=== PATIENT | male | born 1990 | race Caucasian/White ===

== ENCOUNTER 2024-10-22 06:16 | Day surgery (SDC) | payer MEDICAID, SELFPAY ==
[2024-10-22] VITALS (9 sets, daily range): BP systolic 105–115; BP diastolic 70–84; PULSE 55–74; RESP 14–18; TEMP 2.4–36.6; O2SAT 98–100; BMI 18.8
--- OUTSIDE RECORDS SUMMARY | 2024-10-22 06:21 | XMS RPT_ITS | CCD ---
Author Organization [facility] Care Team Providers Care Paper Machine Supervisor Name Role Phone Unavailable Primary Care Provider Unavailabl e None, No PCP Unavailable Unavailable Unavailable Primary Care Provider Unavailabl e GWEN PETERSON Referring Unavailabl e REID SINGH Admitting Unavailable DEYSI COOMBS Attending Unavailable GWEN PETERSON Referring Unavailabl e GATHERGWEN GAFFNEY Referring Unavailabl e DEYSI COOMBS Referring Unavailable JARED GALVEZ Attending Unavailable ARMINDA DAILY Attending Unavailabl e ANNAMARIA ONELI (PA-C) Attending Unavail able Audrey Sheth Referring Unavailable Audrey Sheth Attending Unavailable Royer Ramírez Physicians Primary Care Provider Unav Александр Hansen MD Primary Care Provider None, Pcp Primary Care Provider UnavailOLIVIA Rowley MD Attending Unavailable OLIVIA HINSON MD Primary Care Unavailable OLIVIA HINSON MD Admitting Unavailable LAXMI HICKS Attending Unavailable LAXMI HICKS Admitting Unavailable KISHORE, АЛЕКСАНДР Primary Care Unavailable COLLIN HERNANDEZ Attending Unavailable ALEM CRENSHAW Referring Unavailable KISHORE, АЛЕКСАНДР Primary Care Unavailable KISHORE, АЛЕКСАНДР Primary Care Unavailable ISAC SLADE III Attending Unavailable KISHORE, АЛЕКСАНДР Primary Care Unavailable LAXMI HICKS Attending Unavailable ISAC SLADE III Attending Unavailable KISHORE, АЛЕКСАНДР Primary Care Unavailable COLLIN HERNANDEZ Referring Unavailable LAXMI HICKS Attending Unavailable KISHORE, АЛЕКСАНДР Primary Care Unavailable ISAC SLADE III Attending Unavailable KISHORE, АЛЕКСАНДР Primary Care Unavailable LAXMI HICKS Attending Unavailable KISHORE, АЛЕКСАНДР Primary Care Unavailable KISHORE, АЛЕКСАНДР Primary Care Unavailable ISAC SLADE III Attending Unavailable RADHA LEWIS Attending Unavailable KISHORE, АЛЕКСАНДР Primary Care Unavailable RADHA LEWIS Attending Unavailable KISHORE, АЛЕКСАНДР Primary Care Unavailable COLLIN HERNANDEZ Referring Unavailable KISHORE, АЛЕКСАНДР Primary Care Unavailable Yuki MERINO, Dr. Johnson Attending Provider Dr. Roney Whatley MD Attending Provider Roney Whatley Attending Unavailable Jessee Mirza Attending Unavailable Care Physician, No Primary Primary Care Unava ilable Jessee Mirza Referring Unavailable Jessee Mirza Attending Unavailable Allergies Allergy Classification Reported Allergen(s) Allergy Type Date of Onset Reaction(s) Facility (4 sources) Apples; Translations: [APPLES] Food Allergy 9 Hives, Shortness of Breath [facility] (20 sources) Contrast media; Translations: [RED DYE] Propensity to adverse reactions to drug 9 Other: See Comments, Other [facility] (20 sources) Apple Allergy to substance 9 Hives, Shortness of breath [facility] (20 sources) bee venom Propensity to adverse reactions 4 Anaphylaxis [facility] (19 sources) Red Dye #40 (Allura Red) Propensity to adverse reactions 9 Other [facility] Medications Current Medications Medication Drug Class(es) Dates Sig (Normalized) Sig (Original) acetaminophen 325 mg / oxyCODONE hydrochloride 5 mg oral tablet (5 sources) Opioid Agonist Start: 01-21-2024 End: 01-26-2024 take 1 tablet by mouth every six hours as needed for pain oxyCODONE-acetamin ophen (Percocet) 5-325 MG tablet Indications: Plantar fascial fibromatosis Take 1 tablet by mouth every 6 hours as needed for severe pain (7-10) for up to 5 days. 15 tablet 01/21/2024 01/26/2024 Active amoxicillin 875 mg / clavulanate 125 mg oral tablet (10 sources) Penicillin-class Antibacterial Start: 04-25-2023 End: 05-02-2023 take 1 tablet by mouth every twelve hours amoxicillin-clavul anate (Augmentin) 875-125 MG tablet Take 1 tablet by mouth in the morning and 1 tablet in the evening. Do all this for 7 days. 14 tablet 0 04/25/2023 05/02/2023 Active Start: 04-25-2023 End: 04-25-2023 amoxicillin-clavulanate (Aug mentin) 875-125 MG per tablet 1 tablet Start: 01-25-2023 End: 02-01-2023 take 1 tablet by mouth every twelve hours amoxicillin-clavulanate (Augmentin) 875-125 MG tablet Take 1 tablet by mouth in the morning and 1 tablet in the evening. Do all this for 7 days. 14 tablet 0 01/25/2023 02/01/2023 Active Blood Glucose Monitoring Suppl device (8 sources) Start: 05-21-2024 Blood Glucose Monitoring Suppl device Indications: Screening for diabetes mellitus Check glucose as needed if symptomatic 1 Device 05/21/2024 Active 120 actuat fluticasone propionate 0.11 mg/actuat metered dose inhaler (20 sources) Corticosteroid Start: 09-05-2023 End: 09-04-2024 take 1 puff(s) by inhalation in the morning fluticasone (Flovent) 110 MCG/ACT inhaler Indications: Mild persistent asthma without complication Inhale 1 puff in the morning and 1 puff in the evening. Rinse mouth with water after use to reduce aftertaste and incidence of candidiasis. Do not swallow.. 12 g 5 09/05/2023 09/04/2024 Active 12 hr guaiFENesin 600 mg extended release oral tablet (20 sources) Start: 06-24-2023 End: 06-24-2024 take 1 tablet by mouth twice daily guaiFENesin (Mucinex) 600 MG 12 hr tablet Take 1 tablet (600 mg) by mouth 2 times daily. Do not crush, chew, or split. 60 tablet 11 06/25/2023 06/24/2024 Active ibuprofen 800 mg oral tablet (9 sources) Nonsteroidal Anti-inflammatory Drug Start: 01-21-2024 End: 02-20-2024 take 1 tablet by mouth three times daily ibuprofen 800 MG tablet Take 1 tablet (800 mg) by mouth 3 times daily. 90 tablet 01/21/2024 02/20/2024 Active Start: 07-16-2023 End: 01-21-2024 ibuprofen 600 MG tablet TAKE 1 TABLET BY MOUTH EVERY 6-8 HOURS NEEDED FOR PAIN 07/16/2023 01/21/2024 Discontinued (Stop taking at discharge) isopropyl alcohol 0.7 ml/ml medicated pad (9 sources) Start: 05-21-2024 End: 06-20-2024 UltiCare Alcohol Swabs 70 % pads Indications: Screening for diabetes mellitus Apply 1 Pad topically daily. 100 each 3 05/23/2024 Active naproxen 500 mg oral tablet (8 sources) Nonsteroidal Anti-inflammatory Drug Start: 06-25-2022 End: 07-10-2022 take 1 tablet by mouth in the morning naproxen (Naprosyn) 500 MG tablet Take 1 tablet (500 mg) by mouth in the morning and 1 tablet (500 mg) in the evening. Take with meals. Do all this for 15 days. 30 tablet 0 06/25/2022 07/10/2022 Active 24 hr nicotine 0.583 mg/hr transdermal system (20 sources) Cholinergic Nicotinic Agonist Start: 09-05-2023 End: 10-05-2023 apply 1 dose transdermal route every twenty-four hours nicotine (Nicoderm CQ) 14 MG/24HR patch Indications: Nicotine use disorder Place 1 patch on the skin Every 24 hours. 30 patch 1 09/05/2023 Active Start: 09-05-2023 End: 10-05-2023 nicotine (Nicoderm CQ) 7 MG/ 24HR patch Indications: Nicotine use disorder Place 1 patch on the skin Every 24 hours. 30 patch 09/05/2023 Active ondansetron 4 mg oral tablet (20 sources) Serotonin-3 Receptor Antagonist Start: 01-21-2024 End: 01-21-2024 4 mg, IntraVENous, Once PRN, nausea, Starting on 01/21/24 at 1003, For 1 dose, Recovery (only), Initial antiemetic therapy. Start: 09-24-2023 End: 09-24-2023 ondansetron (Zofran) injecti on 4 mg Start: 09-05-2023 End: 02-21-2024 take 1 tablet by mouth every eight hours as needed for nausea ondansetron (Zofran) 4 MG tablet Indications: Nausea and vomiting, unspecified vomiting type Take 1 tablet (4 mg) by mouth every 8 hours as needed for nausea or vomiting. 20 tablet 02/21/2024 Active Start: 06-06-2023 End: 06-13-2023 take 1 tablet by mouth every eight hours as needed for nausea and vomiting and nausea and nausea ondansetron (Zofran) 4 MG tablet Indications: Nausea Take 1 tablet (4 mg) by mouth every 8 hours as needed for nausea or vomiting for up to 7 days. 30 tablet 1 06/06/2023 06/13/2023 Active Start: 04-25-2023 End: 04-25-2023 ondansetron (Zofran) injecti on 4 mg Start: 01-25-2023 End: 02-04-2023 take 1 tablet by mouth every six hours ondansetron (Zofran) 4 MG tablet Take 1 tablet (4 mg) by mouth in the morning and 1 tablet (4 mg) at noon and 1 tablet (4 mg) in the evening and 1 tablet (4 mg) before bedtime. Do all this for 3 days. 12 tablet 0 02/01/2023 02/04/2023 Active Start: 01-25-2023 End: 01-25-2023 ondansetron (Zofran) injecti on 4 mg Start: 03-23-2022 take 1 tablet by jerald th every six hours as needed ondansetron (ZOFRAN) 4 mg tablet Take 1 tablet by mouth every 6 hours as needed. 30 tablet 0 03/23/2022 Active Comment on above: Take 1 tablet by jerald th every 6 hours as needed. polyethylene glycol 3350 [id number] mg / potassium chloride 2970 mg / sodium bicarbonate 6740 mg / sodium chloride 5860 mg / sodium sulfate 76704 mg powder for oral solution (1 source) Osmotic Laxative Start: 04-10-2023 End: 04-11-2023 polyethylene glycol (GaviLyte-G) 236 g solution Indications: Proctitis , Generalized abdominal pain , Rectal bleeding Starting at noon on day prior to procedures, drink 8 ounces every 30 minutes until all gone and stools are clear. May add flavor packet. 4000 mL 0 04/10/2023 04/11/2023 Active Completed/Discontinued Medications Medication Drug Class(es) Dates Sig (Normalized) Sig (Original) acetaminophen 500 mg oral tablet (16 sources) Start: 01-21-2024 End: 01-21-2024 1,000 mg, Oral, Once, On Sun01/21/24 at 0830, For 1 dose, Preprocedure, Administer 60 minutes prior to surgery. Start: 06-24-2023 End: 06-25-2023 take 1 tablet by mouth every six hours as needed for pain and fever acetaminophen (Tylenol) tablet 650 mg Start: 03-23-2022 End: 06-25-2023 take 2 tablets by mouth every four hours as needed acetaminophen (Tylenol) 325 MG tablet Take 650 mg by mouth every 4 hours as needed. 0 03/23/2022 06/25/2023 Discontinued (Stop taking at discharge) Comment on above: Take 2 tablets by [facility] every 4 hours as needed for pain. [id number] 200 actuat albuterol 0.09 mg/actuat metered dose inhaler (20 sources) beta2-Adrenergic Agonist Start: 06-24-2023 End: 06-25-2023 take 2 puff(s) by inhalation every four hours as needed for wheezing 2 puff, Inhalation, Every 4 hours PRN, wheezing, shortness of breath, Starting on Sun06/24/23 at 0305 Start: 02-01-2023 End: 06-05-2024 take 2 puff(s) by inhalation every four hours as needed for wheezing albuterol (ProAir HFA) 108 (90 Base) MCG/ACT inhaler Indications: Mild intermittent asthma without complication Inhale 2 puffs every 4 hours as needed for wheezing or shortness of breath. 8.5 g 06/06/2023 Active calcium chloride 0.0014 meq/ml / potassium chloride 0.004 meq/ml / sodium chloride 0.103 meq/ml / sodium lactate 0.028 meq/ml injectable solution (4 sources) Start: 01-21-2024 End: 01-21-2024 take 125 mL intravenously every hour 125 mL/hr, IntraVENous, Continuous, Starting on Sun01/21/24 at 1015, Recovery (only) cyclobenzaprine hydrochloride 10 mg oral tablet (3 sources) Muscle Relaxant Start: 06-06-2023 End: 08-05-2023 take 1 tablet by mouth three times daily as needed for muscle spasms cyclobenzaprine (Flexeril) 10 MG tablet Indications: Right-sided chest pain , Trapezius muscle spasm Take 1 tablet (10 mg) by mouth 3 times daily as needed for muscle spasms. 30 tablet 0 06/06/2023 06/25/2023 Discontinued (Stop taking at discharge) 1 ml diphenhydrAMINE hydrochloride 50 mg/ml cartridge (2 sources) Histamine-1 Receptor Antagonist Start: 01-21-2024 End: 01-21-2024 12.5 mg, IntraVENous, Once PRN, itching, Starting on Sun01/21/24 at 1003, For 1 dose, Recovery (only) diphenhydramine/alum & mag hydroxide/lidocaine (Magic Mouthwash) oral solution (3 sources) Start: 04-25-2023 End: 06-06-2023 take 5 mL by mouth every six hours as needed diphenhydramine/alu m & mag hydroxide/lidocaine (Magic Mouthwash) oral solution Swish and spit 5 mL every 6 hours as needed for irritation. 100 mL 0 04/25/2023 06/06/2023 Discontinued Start: 04-25-2023 take 5 mL by mouth e very six hours as needed diphenhydramine/alum & mag hydroxide/lidocaine (Magic Mouthwash) oral solution Swish and spit 5 mL every 6 hours as needed for irritation. 100 mL 0 04/25/2023 Active iopamidol (Isovue-370) 76 % injection 75 mL (4 sources) Start: 06-23-2023 End: 06-23-2023 iopamidol (Isovue-370) 76 % injection 75 mL Start: 01-25-2023 End: 01-25-2023 iopamidol (Isovue-370) 76 % injection 75 mL labetalol (Normodyne,Trandate) injection 5 mg (2 sources) Start: 01-21-2024 End: 01-21-2024 labetalol (Normodyne,Trandate) injection 5 mg 1 ml LORazepam 2 mg/ml injection (2 sources) Benzodiazepine Start: 01-21-2024 End: 01-21-2024 0.5 mg, IntraVENous, Once PRN, for anxiety or muscle spasm., Starting on Sun01/21/24 at 1003, For 1 dose, Recovery (only), For IV doses dilute dose with 1ml NS. melatonin 3 mg oral tablet (2 sources) Start: 06-24-2023 End: 06-25-2023 take 6 mg by mouth once daily 6 mg, Oral, Nightly, First dose on 06/24/23 at 2100 2 ml midazolam 1 mg/ml injection (2 sources) Benzodiazepine Start: 01-21-2024 End: 01-21-2024 2 mg, IntraVENous, PRN, anxiety, administration per anesthesiologist direction. Up to two mg., Starting on Sun01/21/24 at 0817, Preprocedure, Pull 2 mg vial of midazolam draw up for anesthesia block placement with administration per anesthesiologist direction. 1 ml morphine sulfate 4 mg/ml cartridge (4 sources) Opioid Agonist Start: 04-25-2023 End: 04-25-2023 morphine injection 4 mg Start: 01-25-2023 End: 01-25-2023 morphine injection 4 mg ondansetron ODT (Zofran-ODT) disintegrating tablet 4 mg (2 sources) Start: 06-24-2023 End: 06-25-2023 take 1 tablet by mouth every eight hours as needed for nausea and vomiting ondansetron ODT (Zofran-ODT) disintegrating tablet 4 mg oseltamivir 75 mg oral capsule (5 sources) Neuraminidase Inhibitor Start: 06-25-2023 End: 06-30-2023 take 1 capsule by mouth twice daily oseltamivir (Tamiflu) 75 MG capsule Take 1 capsule (75 mg) by mouth 2 times daily for 5 days. 10 capsule 0 06/25/2023 06/30/2023 Start: 06-24-2023 End: 06-25-2023 oseltamivir (Tamiflu) capsul e 30 mg piperacillin 3000 mg / tazobactam 375 mg injection (4 sources) Penicillin-class Antibacterial, beta Lactamase Inhibitor Start: 06-24-2023 End: 06-25-2023 take 3375 mg intravenously every eight hours 3,375 mg, IntraVENous, at 12.5 mL/hr, Administer over 4 Hours, Every 8 hours, First dose on 06/24/23 at 0315, Dosage or interval has been adjusted per P&T Renal Dosing policy. premix bag, Suspected Indication (Select all that apply): Bloodstream Infection, Pneumonia (CAP) Start: 06-23-2023 End: 06-24-2023 piperacillin-tazobactam (Zos yn) IVPB 4.5 g polyethylene glycol 3350 64011 mg powder for oral solution (2 sources) Osmotic Laxative Start: 06-24-2023 End: 06-25-2023 take 17 g by mouth every twenty-four hours as needed for constipation 17 g, Oral, Daily PRN, constipation, Starting on Sun06/24/23 at 0305, 1st line for treatment of constipation - give scheduled if no bowel movement in past 24 hours. microencapsulated potassium chloride 10 meq extended release oral tablet (2 sources) Start: 06-25-2023 End: 06-25-2023 potassium chloride CR (Klor-Con M10) ER tablet 40 mEq 50 ml sodium chloride 9 mg/ml injection (20 sources) Start: 01-21-2024 End: 01-21-2024 500 mL, IntraVENous, at 1,000 mL/hr, Administer over 0.5 Hours, PRN, Anti-nausea, Starting on Sun01/21/24 at 1003, Recovery (only), Indications: Anti-nausea Start: 01-21-2024 End: 01-21-2024 10 mL, IntraVENous, Every 12 hours scheduled (2 times per day), First dose on Sun01/21/24 at 1015, Recovery (only) Start: 01-21-2024 End: 01-21-2024 take 100 mL intravenously every hour as needed, then take 20 mL intravenously every hour as needed 5-250 mL/hr, IntraVENous, PRN, if patient receiving piggyback infusions and maintenance fluids are not ordered OR KVO fluids to protect IV site / prevent frequent line interruptions/ long duration, Starting on Sun01/21/24 at 1003, Recovery (only), For piggyback infusion, administer at same rate as piggyback for a total of 25 mL. Enter 25 mL into dose field and piggyback rate into rate field of order. If piggyback is infusing at a rate less than 100 mL/hr, enter 25 mL into dose field and 100 mL/hr into rate field of order. For KVO fluids, enter rate of 20 mL/hr or less into rate field of order. Start: 01-21-2024 End: 01-21-2024 take 10 mL intravenously once as needed 10 mL, IntraVENous, PRN, line care, Starting on Sun01/21/24 at 1003, Recovery (only), After every IV line use Start: 01-21-2024 End: 01-21-2024 take 5-40 mL intravenously every twelve hours 5-40 mL, IntraVENous, Every 12 hours, First dose on Sun01/21/24 at 0830, Preprocedure, For Line Patency: Peripheral IV = 5 mL; Midline or Central Line = 10 mL/lumen. If following IV push medication, administer flush at same rate as the IV push. Flush volume is determined by type of infusion therapy being given. For non-viscous solutions use: Peripheral IV = 5 mL Midline or Central Line = 10 mL/lumen For viscous solutions (i.e. blood components, parenteral nutrition, contrast media, or after obtaining blood sample) use: Peripheral IV = 10 mL Midline or Central Line = 20 mL/lumen Start: 09-24-2023 End: 09-24-2023 sodium chloride 0.9 % infusi on Start: 09-24-2023 End: 09-24-2023 sodium chloride 0.9% (NS) fl ush 10 mL Start: 06-24-2023 End: 06-25-2023 take 100 mL intravenously every hour 100 mL/hr, IntraVENous, Continuous, Starting on Sun06/24/23 at 0310, For 1 day Start: 06-23-2023 End: 06-24-2023 sodium chloride 0.9 % bolus 1,000 mL Vancomycin (2 sources) Glycopeptide Antibacterial Start: 06-23-2023 End: 06-24-2023 vancomycin (Vancocin) 1500 mg in NS 250 mL IVPB (compounded premix) Problems Active Problems Problem Classification Problem Date Documented Da te Episodic/Chronic Anal and rectal conditions (6 sources) Proctitis; Translations: [Other specified diseases of anus and rectum] 01-25-2023 Episodic Asthma (4 sources) Mild intermittent asthma; Translations: [Mild intermittent asthma, uncomplicated] 02-01-2023 Chronic Deficiency and other anemia (2 sources) Anemia; Translations: [Anemia, unspecified] 02-01-2023 Episodic Deficiency and other anemia (1 source) Normocytic anemia; Translations: [Anemia, unspecified] 07-03-2023 Episodic Disorders of teeth and jaw (4 sources) Dental abscess; Translations: [Periapical abscess without sinus] 04-25-2023 Episodic Fracture of upper limb (1 source) Fracture of unspecified phalanx of other finger, initial encounter for closed fracture; Translations: [Fracture of unspecified phalanx of other finger, initial encounter for closed fracture] Onset: 10-14-2024 Episodic Gastrointestinal hemorrhage (1 source) Rectal hemorrhage; Translations: [Hemorrhage of anus and rectum] 04-10-2023 Episodic Immunizations and screening for infectious disease (12 sources) Patient encounter status; Translations: [Encounter for screening for other viral diseases] 02-01-2023 Episodic Influenza (3 sources) Influenza due to Influenza A virus; Translations: [Influenza due to other identified influenza virus with other respiratory manifestations] 06-23-2023 Episodic Nonspecific chest pain (3 sources) Chest pain; Translations: [Right sided chest pain] Onset: 05-17-2022 06-06-2023 Episodic Other aftercare (1 source) Post-discharge follow-up; Translations: [Encounter for follow-up examination after completed treatment for conditions other than malignant neoplasm] 07-03-2023 Episodic Other connective tissue disease (1 source) Muscle spasm of cervical muscle of neck; Translations: [Other muscle spasm] 06-06-2023 Episodic Other connective tissue disease (2 sources) Pain in left foot; Translations: [Pain in left foot] 09-05-2023 Episodic Other connective tissue disease (2 sources) 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; Translations: [Plantar fascial fibromatosis] 10-17-2023 Episodic Other lower respiratory disease (1 source) Solitary pulmonary nodule; Translations: [Incidental lung nodule] Onset: 03-23-2022 Episodic Other lower respiratory disease (1 source) Dyspnea; Translations: [Shortness of breath] 06-06-2023 Episodic Other lower respiratory disease (1 source) Rib pain; Translations: [Pleurodynia] 07-03-2023 Episodic Other nutritional; endocrine; and metabolic disorders (1 source) Decrease in appetite; Translations: [Anorexia] 04-10-2023 Episodic Other skin disorders (2 sources) Epidermoid cyst; Translations: [Epidermal cyst] 01-25-2024 Episodic Residual codes; unclassified (1 source) FH: Crohn's disease; Translations: [Family history of other diseases of the digestive system] 04-10-2023 Episodic Residual codes; unclassified (1 source) Pain; Translations: [Pain, unspecified] 10-17-2023 Episodic Substance-related disorders (20 sources) Nicotine dependence; Translations: [Nicotine dependence, unspecified, uncomplicated] Onset: 03-24-2022 03-24-2022 Chronic Unclassified (2 sources) Post-op; Translations: [Post-op] Onset: 02-08-2024 Unclassified (2 sources) Dental Filling; Translations: [Dental Filling] Onset: 01-24-2024 Past or Other Problems Problem Classification Problem Date Documented Date Episodic/Chronic Abdominal pain (20 sources) Lower abdominal pain; Translations: [Lower abdominal pain, unspecified] Onset: 06-21-2021 06-21-2021 Episodic Acute and unspecified renal failure (20 sources) Acute injury of kidney; Translations: [Acute kidney failure, unspecified] Onset: 03-23-2022 Episodic Nausea and vomiting (8 sources) Nausea and vomiting; Translations: [Nausea with vomiting, unspecified] Onset: 02-21-2024 04-10-2023 Episodic Open wounds of extremities (7 sources) Open wound of finger with tendon involvement; Translations: [Laceration of flexor muscle, fascia and tendon of unspecified finger at forearm level, initial encounter] Onset: 04-19-2021 04-19-2021 Episodic Other connective tissue disease (1 source) Pain in left finger(s); Translations: [Pain in finger of left hand] Onset: 06-08-2021 Episodic Other connective tissue disease (1 source) Other symptoms and signs involving the musculoskeletal system; Translations: [Right hand weakness] Onset: 06-08-2021 Episodic Other connective tissue disease (3 sources) Plantar fascial fibromatosis; Translations: [Plantar fascial fibromatosis] Onset: 01-21-2024 01-21-2024 Episodic Other connective tissue disease (2 sources) Swollen calf; Translations: [Other specified soft tissue disorders] Episodic Other connective tissue disease (1 source) Plantar fascial fibromatosis; Translations: [Plantar fascial fibromatosis] Onset: 01-21-2024 Episodic Other connective tissue disease (2 sources) Pain in left foot; Translations: [Pain in left foot] Onset: 10-17-2023 Episodic Other lower respiratory disease (20 sources) Solitary nodule of lung; Translations: [Solitary pulmonary nodule] Onset: 03-23-2022 Episodic Other male genital disorders (3 sources) Pain in testicle; Translations: [Testicular pain, unspecified] Onset: 06-21-2021 06-21-2021 Episodic Other non-traumatic joint disorders (1 source) Stiffness of right hand, not elsewhere classified; Translations: [Decreased range of motion of finger of right hand] Onset: 06-08-2021 Episodic Other screening for suspected conditions (not mental disorders or infectious disease) (6 sources) Encounter for screening for diabetes mellitus; Translations: [Encounter for screening for diseases of the blood and blood-forming organs and certain disorders involving the immune mechanism] Onset: 02-21-2024 Episodic Residual codes; unclassified (2 sources) Pain, unspecified; Translations: [Pain, unspecified] Onset: 10-17-2023 Episodic Superficial injury; contusion (2 sources) Contusion of lower limb; Translations: [Contusion of left lower leg, initial encounter] Episodic Results Test Name Value Interpretation Reference Range Facility Finger(s) Min 2 Viewson Finger(s) Min 2 Views [facility] [address], [place] [address] Finger(s) Min 2 Views MR#: [id number] Acct: [id number] Name: DORIAN MONTOYA Rep #: [id number] : 1990 M 33 From: Marcelo Moya MD PCP: Status: DEP AMB Study: Finger(s) Min 2 Views Date of Exam: 10/14/24 Exam# [id number] Ordering Dr: Jessee Mirza MD PROCEDURE: FINGER(S) MIN 2 VIEWS 10/14/2024 REASON FOR EXAM: FINGER FRACTURE TECHNIQUE: 3 view(s) of the right ring finger COMPARISON: None FINDINGS: There is an oblique fracture through the proximal phalanx of the ring finger, without intra- articular extension. There is mild to moderate ulnar/dorsal translation of the distal finger. Surrounding soft tissue swelling. RAD/Finger(s) Min 2 Views IMPRESSION: [id number] displaced fracture of the ring finger proximal phalanx. Reading Location: [id number] CC: Dr. Jessee Mirza MD Reel Fed Printer: Signed Normal [facility] Plastic Surgery Visit Report on 10-14-2024 Plastic Surgery Visit Report [facility] Plastic Reconstructive Surgery [address], [address] [place] [address] OFFICE VISIT Date of Service: 10/14/24 MR#: [id number] Acct: [id number] Name: DORIAN MONTOYA Rep #: [id number] : 1990 Provider: Dr. Jessee Mirza MD Age/Sex: 33/M Location: [place] [address] Status: Signed Intake Vital Signs 3 10/14/24 14:53 Height 6 ft 1 in Weight: 148 lb BMI 19.5 Intake Visit Reasons: R RING FINGER FRACTURE Is patient in pain?: Yes Pain scale (1-10): 8 Allergies No Known Allergies Allergy (Unverified 10/14/24 14:54) Medications 3 ???Medication ???Instructions ???Recorded ???Confirmed ???Type NK 10/14/24 10/14/24 History [facility] History Fracture of phalanx of ring finger HPI R RING FINGER FRACTURE Details: Dorian Montoya is a 33-year-old male who is right-hand dominant and unfortunately sustained a fracture 2 months (August 2024) ago to the right ring finger proximal phalanx while moving. It was crushed between 2 objects. He reports that this was a closed injury. He did not seek follow-up with an orthopedic surgeon or plastic surgeon because he did not have insurance at that time. Since the time of the injury, he has been unable to move the finger much. He has been having significant pain, stiffness, and tenderness, and has been using a splint that was given to him by the emergency department on around the time of the injury. back in August 2024. Today he is reporting sharp severe pain in the finger, worsened by movements and improved with rest and elevation. He never hurt this finger before. He has not had any systemic signs or symptoms of infection (no fevers or chills) and there is never been any drainage. He reports that the injury was closed. Patient uses e-cigarettes No personal or family history of bleeding or clotting problems Exam Details Right upper Extremity Inspection/palpation: Right small finger tender to palpation over the P1 fracture site. There is a step-off on the radial side of the ring finger. No open wounds and no drainage. Motor: Able to bend and extend all MP, PIP, and DIP joints, except the overall range of motion of the ring finger is limited secondary to the fracture deformity and pain (however I see the DIP joint bending). Sensory: Intact to light touch on the radial and ulnar borders. Vascular: Finger tips are warm and well perfused with <2 second capillary refill. Office Procedures Cast Applied Cast Cast placed: Ulnar Gutter Details: Patient was placed in a fiberglass right hand-based ulnar gutter splints. Stockinette and bony prominences well-padded prior to splint application and secured with Flaco wrap. Patient tolerated well with distal neurovascular intact and brisk cap refill at 2 seconds. Cast Applied Cast Details: Patient was placed in a fiberglass right hand-based ulnar gutter splints. Stockinette and bony prominences well-padded prior to splint application and secured with Flaco wrap. Patient tolerated well with distal neurovascular intact and brisk cap refill at 2 seconds. Supplemental Info X-ray reviewed in the fracture is displaced. 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 I talked to the patient about surgery, which would involve open reduction internal fixation with bone grafting. I talked him about the risks of fracture nonunion, hardware failure and infection, failure to obtain the desired result, osteomyelitis, stiff painful finger with limited range of motion despite our best efforts and despite bone healing, failure to obtain the desired results, and the other risks of surgery including bleeding and the risk of anesthesia. I talked him about bone grafting from the distal radius to promote fracture site healing. I talked him about damage to surrounding structures. Patient would like his finger fixed as soon as possible. He is accepting of the above-noted risks. We also discussed the overall benefits of the operation and the alternative treatments. He elected to proceed. We discussed risks of nicotine products/smoking on fracture healing. I talked him about stopping all nicotine products. Plan for open reduction internal fixation of the fracture nonunion with bone graft from the distal radius. Anticipate dorsal approach to the finger with likely a dorsal plate. CPT codes for insurance prior aut (more content not included)... Normal [facility] 10-03-2024 [facility] Telephone (ORUPDO) DORIAN MONTOYA (0* 1990 M Date Time Provider Department 10/03/24 ANAMARIA GERMAIN During your visit today, we recorded the following information about you: Yanet So 10/03/2024 9:06 AM Signed DIANA IN AUGUST RIGHT RING FINGER REQUESTED XRAY AND IMAGES TO BE PUSHED Yanet Monroe 10/03/2024 10:04 AM Signed REPORTS GIVEN TO DR GERMAIN AND IMAGES HAVE BEEN PUSHED. PLEASE REVIEW AND ADVISE Yanet Monroe 10/03/2024 10:[address] Germain needs hand surgeon XAVIER Spoke with patient and advised gave number to Dr Mueller [phone] States understanding Yanet So Allergies As of Date: 10/03/2024 Noted Allergy Reaction APPLES 03/11/2019 4 - Hives 12 - Shortness of Breath RED DYE 03/11/2019 14 - Other: See Comments Comments: major nosebleeds Date Reviewed: 05/17/2022 Reviewed by: Celestina Sagastume, RN - Fully Assessed Reason for Visit: Appointment [186] Prescriptions as of 10/03/2024 - acetaminophen (TYLENOL) 325 mg tablet Take 2 tablets by mouth every 4 hours as needed for pain. - ondansetron (ZOFRAN) 4 mg tablet Take 1 tablet by mouth every 6 hours as needed. Problem List As Of Date 10/03/2024 Noted Resolved Flexor tendon laceration of finger with open wo*04/19/2021 Lower abdominal pain [R10.30] 06/21/2021 Pain in testicle [N50.819] 06/21/2021 ZULLY (acute kidney injury) (HCC) [N17.9] 03/21/2022 03/23/2022 Incidental lung nodule [R91.1] 03/23/2022 Nicotine use disorder, F17.2 [F17.200] 03/24/2022 Encounter Status:Closed by YANET SO on 10/03/24 [facility] 36on 08-26-2024 36 Called and spoke wit h patient to confirm 08/27 OV. Patient states he just moved and will find a GI provider elsewhere. 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 [address] [address] [id number] 08/25/2024 Patient: DORIAN MONTOYA Sex: Male : 1990 Age: 33y MEASUREMENTS: Wt: 68.0 kg, Ht/Vargas: 72.0 in, BMI: 20.34 ALLERGIES: No known drug allergies Medication Ordered Medication Administration Date/Time 1 of [facility] ED NURSES CLINICAL NOTEon ED NURSES CLINICAL NOTE Nurse Narrative Nurse Clinical Narrative [address] [address] [id number] 08/25/2024 14:00:00 Patient: DORIAN MONTOYA Sex: Male : 1990 Age: 33y Disposition: Discharge Disposition Decision Time: 15:17 08/25/2024 Departure Time: 15:22 08/25/2024 TRIAGE Arrived by private vehicle. Historian: (patient). Primary physician (No PCP). Triage time: 14:04 08/25/2024. Acuity: LEVEL 4. Chief Complaint: INJURY TO THE RIGHT HAND and RIGHT RING FINGER. Alert. No acute distress. This occurred yesterday. ( Toolbox crushed hand/fingers). SEPSIS SCREEN: NEGATIVE. SIRS criteria negative. No possible sources of infection. -- 14:08/25/24 JAC Ospina R.N. 14:08/25/24. BP: 121/75 MAP: 90. HR: 62. RR: 16. O2 saturation: 98% on room air. Temperature: 97.9 F. Pain level now 8/10. -- 14:08/25/24 JAC Ospina R.N. Measurements: 14:08/25/24 Wt: 68.0 kg, Ht/Vargas: 72.0 in, BMI: 20.34 -- 14:08/25/24 JAC Ospina R.N. Medications: albuterol sulfate HFA 90 mcg/actuation aerosol inhaler: as needed. -- 14:08/25/24 JAC Ospina R.N. 1 of 3 Nurse Narrative 14:08/25/24. Preferred Pharmacy: ([facility]). -- 14:08/25/24 JAC Ospina R.N. Allergies: no known drug allergies -- 14:08/25/24 JAC Ospina R.N. Problems: Asthma -- 14:08/25/24 JAC Ospina R.N. Pulmonary Nodule -- 14:08/25/24 JAC Ospina R.N. ADDITIONAL SURGERIES: Hand Surgery -- 14:08/25/24 JAC Ospina R.N. History 14:08/25/24. SOCIAL HX: Never smoker. Regular vaping. Occasional alcohol use. Heavy drug use: marijuana. The patient has not traveled outside the [place] Infectious disease exposure: No infectious disease exposure. ABUSE ASSESSMENT: The patient answered yes to the question(s) Do you feel safe in your home? and no to the question(s) Are you afraid to go home?. SELF HARM ASSESSMENT: Self harm assessment was performed. The patient answered no to the question(s) Have you recently felt down, depressed, or hopeless? and Do you have thoughts of harming or killing yourself?. FALL RISK ASSESSMENT: Fall risk assessment completed. No risk factors identified. -- 14:08/25/24 EDT Martinez Ospina R.N. PHYSICAL ASSESSMENT 14:44 08/25/24. Ambulatory to room. GENERAL / NEURO / PSYCH: Oriented X 4. Alert. Appears in no acute distress. EXTREMITIES: Capillary refill is less than 2 seconds in the extremities. Extremity pulses are within normal limits. Extremities exhibit normal ROM. Neuro-vascular status intact to the extremity. Right hand: tenderness, swelling 2 of 3 Nurse Narrative and erythema localized to the dorsal aspect of the hand. SKIN: Skin is warm and dry. -- 14:44 08/25/24 EDT Lamont Kevin R.N. NURSING PROGRESS NOTES 14:08/25/24. Portable x-ray performed and right hand x-ray performed. -- 14:08/25/24 EDT Lamont Kevin R.N. 15:08/25/24. Fracture Care without Manipulation: Right proximal phalanx of the ring finger. Fracture care performed by ED physician. Stabilized / immobilized: OCL splint applied. Post-procedure: reassessed post fracture care. Neurovascular status intact. Patient tolerated the procedure well. -- 15:08/25/24 EDT Lamont Kevin R.N. DISPOSITION / DISCHARGE 15:08/25/24. BP: 127/75 MAP: 92. HR: 69. RR: 16. O2 saturation: 97% -- 15:08/25/24 EDT Lamont Kevin R.N. Departure time: 15:08/25/2024. Condition at departure: improved. No learning barriers present. Discharge instructions provided and reviewed with the patient. Patient verbalized understanding. Written instructions provided in [place]. The patient was discharged by the physician. The patient was discharged home and accompanied by family. The patient left ambulatory and via private vehicle. Family member driving. -- 15:08/25/24 EDT Lamont Kevin R.N. (Electronically signed by Lamont Kevin R.N. 08/25/24 17:54:47 EDT) Generated by [facility] [address] [facility] ED ORDER SHEET (CPOE ONLY)on 08-25-2024 ED ORDER SHEET (CPOE ONLY) Order Sheet Order Sheet [address] [address] [id number] 08/25/2024 Patient: DORIAN MONTOYA Sex: Male : 1990 Age: 33y MEASUREMENTS: Wt: 68.0 kg, Ht/Vargas: 72.0 in, BMI: 20.34 ALLERGIES: No known drug allergies MEDICATION/IV/DRIP/FL UID ORDERS Order Description Priority Entered Acknowledged Completed LAB ORDERS Order Description Priority Entered Acknowledged Collected Completed DIAGNOSTIC STUDY ORDERS Order Description Priority Entered Acknowledged Completed Hand R 3V Stat Stat 14:17 08/25/2024 14:24 Olivia Hinson M.D. 08/25/2024 Lamont Kevin R.N. Reason for Study: Trauma/Injury STAFF ORDERS Order Description Priority Entered Acknowledged Collected Completed [Electronically signed by Olivia Hinson M.D. (08/25/2024 15:10 EDT)] [address] [facility] ED PHYSICIAN CLINICAL REPORT on 08-25-2024 ED PHYSICIAN CLINICAL REPORT Narrative Physician Clinical Narrative [address] [address] [id number] 08/25/2024 14:00:00 Patient: DORIAN MONTOYA Sex: Male : 1990 Age: 33y Measurements Wt: 68.0 kg, Ht/Vargas: 72.0 in, BMI: 20.34 Initial Vital Sign Measured Time BP MAP HR RR O2Sat ETCO2 Temp Pain GCS RTS 14:08 08/25/2024 121/75 90 62 16 98% RA 97.9 F 8 Time Seen: 14:06 08/25/2024. Arrived- By private vehicle. Historian- patient. HISTORY OF PRESENT ILLNESS Chief Complaint: Injury to the right hand. The injury happened yesterday. Occurred at home. ( Patient states a large toe box fell on his fingers. He said his ring finger was off to the side but he take the 2 of them together and it slowly straightened out but it still is painful and he has pain and swelling in his hand). The patient sustained a direct blow and crush injury. REVIEW OF SYSTEMS MUSCULOSKELETAL: The patient has had swelling. PAST HISTORY See nurses notes. Asthma Pulmonary Nodule 1 of 3 Narrative Surgeries: Hand Surgery Medications: albuterol sulfate HFA 90 mcg/actuation aerosol inhaler: as needed. Allergies: no known drug allergies SOCIAL HISTORY Smoker- current status unknown. ADDITIONAL NOTES The nursing notes have been reviewed. PHYSICAL EXAM Vital Signs: Have been reviewed. Appearance: Alert. Head: Head atraumatic. Skin: Skin intact. Extremities: (patient's fingers are macerated from being under the electrical tape. He has swelling over the PIP of the ring finger. Decreased range of motion secondary to pain. Also has swelling over the dorsum of the hand). Neuro, Vascular and Tendons: Vascular status intact. Sensation intact. Neuro: Oriented X 3. No motor deficit. No sensory deficit. LABS, X-RAYS, AND EKG X-Rays: The X-rays were interpreted by the radiologist and contemporaneously by me. Rt Hand X-ray: (Comminuted fracture proximal phalanx 4th finger of his right hand. It does not go through the joint but it is displaced). PROGRESS AND PROCEDURES 2 of 3 Narrative PROCEDURES (patient was placed in an ulnar gutter splint involving the long ring and small finger.). MEDICAL DECISION MAKING: (Patient presents with a finger injury. He was found to have a proximal phalanx fracture which is comminuted oblique and slightly displaced. He is placed in an ulnar gutter splint. Orthopedics was contacted and the patient to follow up with Dr. Tay ibuprofen for discomfort. All questions answered no further concerns). Disposition: Condition: stable. Discharged in good condition. Discharge decision based on the following: patient's condition is stable. CLINICAL IMPRESSION Displaced proximal phalanx fracture of the right ring finger. DISCHARGE INSTRUCTIONS Wear splint. (call Dr. Tay's office for appointment leave splint on). Follow-up: Follow up with doctor. Follow up with an orthopedic surgeon. Understanding of the discharge instructions verbalized by patient. (Electronically signed by Olivia Hinson M.D. 08/25/24 15:10:21 EDT) Addendum Prescription Medication: naproxen 500 mg tablet: 1 tablet by mouth twice a day for 7 days, dispense 14 tablet. Refills 0. Pharmacy: [facility] [phone] [place] [address]. -- 08/25/24 15:20:07 EDT Olivia Hinosn M.D. Generated by [facility] 3 of 3 [facility] ED SUPER BILLon 08-25-2024 ED SUPER BILL [address] [address] [id number] 08/25/2024 Patient: DORIAN MONTOYA Sex: Male : 1990 Age: 33y Item Professional Category Description Facility Code Code Quantity Fee Total Nurse/E/M EMERGENCY 711859 1 $0.00 $0.00 DEPARTMENT VISIT HIGH/URGENT SEVERITY (28778) Grand Total $0.00 Providers Olivia Hinson M.D. Chief Complaint Injury to the right hand. Principal Diagnosis Displaced proximal phalanx fracture of the right ring finger. ICD-10 Codes 1 of 2 [facility] S62.618A: Displaced fracture of proximal phalanx of other finger, initial encounter for closed fracture 2 of 2 [facility] ED VISIT SUMMARYon ED VISIT SUMMARY Visit Overview Visit Overview [address] [address] [id number] 08/25/2024 Patient: DORIAN MONTOYA Sex: Male : 1990 Age: 33y 08/25/2024 05:54 PM EDT ED Arrival:14:00 08/25/2024 EDT Status: Recent Travel:no Language:eng Adv Directive: Isolation Status: Ethnicity:N Fall Risk:no risk Infectious Disease Exposure:no Measurements:6' / 182.9 Self-Harm Status:risk Sepsis Screen:negative cm 150.0 lb / 68.0 kg Chief Complaint:(No PCP) and (Toolbox crushed hand/fingers) ALLERGIES No Known Drug Allergies HOME MEDICATIONS albuterol sulfate HFA 90 mcg/actuation aerosol inhaler: as needed. PAST MEDICAL HISTORY / PROBLEMS Asthma Pulmonary Nodule See nurses notes 1 of 3 Visit Overview PAST SURGICAL HISTORY Hand Surgery SOCIAL HISTORY Smoking status: No Alcohol use: Yes Drug use: Yes ED COURSE MEDICATIONS GIVEN IN EMERGENCY DEPARTMENT IV SITE INFORMATION INTAKE OUTPUT REASSESMENT (most recent) 14:44 08/25/24. Ambulatory to room. GENERAL / NEURO / PSYCH: Oriented X 4. Alert. Appears in no acute distress. EXTREMITIES: Capillary refill is less than 2 seconds in the extremities. Extremity pulses are within normal limits. Extremities exhibit normal ROM. Neuro-vascular status intact to the extremity. Right hand: tenderness, swelling and erythema localized to the dorsal aspect of the hand. SKIN: Skin is warm and dry. VITAL SIGNS First Vitals Last Vitals Temp 14:08 08/25/24 97.9 F Temp 15:21 08/25/24 BP 14:08 08/25/24 121/75 BP 15:21 08/25/24 127/75 HR 14:08 08/25/24 62 HR 15:21 08/25/24 69 RR 14:08 08/25/24 16 RR 15:21 08/25/24 16 O2 Sat 14:08 08/25/24 98% RA O2 Sat 15:21 08/25/24 97% Pain 14:08 08/25/24 8 Pain 15:21 08/25/24 ETCO2 14:08 08/25/24 ETCO2 15:21 08/25/24 GCS 14:08 08/25/24 GCS 15:21 08/25/24 RTS 14:08 08/25/24 RTS 15:21 08/25/24 2 of 3 Visit Overview PROCEDURES Fracture care without manipulation NURSING INTERVENTIONS LABS / STUDIES LABS / STUDIES ORDERED Hand R 3V LABS / STUDIES PENDING IMPORT HAND RT MIN 3 VIEWS CLINICAL IMPRESSION DISPLACED PROXIMAL PHALANX FRACTURE OF THE RIGHT RING FINGER [address] [facility] ED VITALS FLOW SHEETon 08-25 ED VITALS FLOW SHEET Vitals Vital Sign Flow Sheet [address] [address] [id number] 08/25/2024 Patient: DORIAN MONTOYA Sex: Male : 1990 Age: 33y Measurements Wt: 68.0 kg, Ht/Vargas: 72.0 in, BMI: 20.34 Measured Time BP MAP HR RR O2Sat ETCO2 Temp Pain GCS RTS 15:21 08/25/2024 127/75 92 69 16 97% 14:08 08/25/2024 121/75 90 62 16 98% RA 97.9 F [address] [facility] HAND RT MIN 3 VIEWSon 2024 HAND RT MIN 3 VIEWS [place] [address] Patient: DORIAN MONTOYA Phone#: : 1990 Age: 33 Gender: M Pt. Type: ER Account: [id number] Location: 2 Ordering: DR. OLIVIA HINSON Exam Date: 08/25/2024/14:19 Family Phys: Charge Code: 287227 Physician: Sanders Order #: [id number] Dose#: PROCEDURE: X-RAY HAND RT COMPLETE MIN 3 VIEWS COMPARISON: None. INDICATIONS: Trauma. FINDINGS: BONES: Oblique mildly displaced fracture of the 4th proximal phalanx. Distal fracture fragment is proximally subluxed 0.3 cm. The fracture line is 0.3 cm wide. The fracture does not involve the articular surface. Remaining osseous structures show no acute abnormality. Deformity of the 5th metacarpal suggest healed remote injury. SOFT TISSUES: Soft tissue swelling at the dorsal aspect of the hand EFFUSION: None visible. OTHER: Negative. CONCLUSION: 1. Oblique mildly displaced 4th proximal phalanx fracture Dictated by: Usha Pendleton MD on 08/25/2024 at 14:41 Approved by: Usha Pendleton MD on 08/25/2024 at 14:47 [facility] Office Visiton 07-16-2024 Follow-up visit [id number] Dorian Montoya 1990 M Date Provider Department Center 07/16/2024 22637-IOCOMISAC SLADE III [facility] None Chart Close Cosign Accepted by: MAGALYS TRUJILLO[ESTHERKP] Chart Close Cosign Accepted on: SunJul 16, 2024 11:11 AM Family History Problem Relation Age of Onset Diverticulitis Mother Crohn's disease Mother ANTONELLA disease Mother Heart Surgery Father Heart attack Father COPD Father Arthritis Father Asthma Father Diabetes Father Lung cancer Mother's Sister Throat cancer Mother's Brother Cancer Mother's Brother Breast cancer Father's Sister Lung cancer Father's Sister Family Status - Relation Status Age at Mother Father Alive Mother's Sister Mother's Brother Father's Sister Normal [facility] Office Visiton 06-25-2024 Follow-up visit [id number] LindsayDorian 1990 M Date Provider Department Center 06/25/2024 94627-VFOSSISAC SLADE III [facility] None Chart Close Cosign Accepted by: DENNIS FLORES[PRITI] Chart Close Cosign Accepted on: SunJun 25, 2024 12:12 PM Family History Problem Relation Age of Onset Diverticulitis Mother Crohn's disease Mother ANTONELLA disease Mother Heart Surgery Father Heart attack Father COPD Father Arthritis Father Asthma Father Diabetes Father Lung cancer Mother's Sister Throat cancer Mother's Brother Cancer Mother's Brother Breast cancer Father's Sister Lung cancer Father's Sister Family Status - Relation Status Age at Mother Father Alive Mother's Sister Mother's Brother Father's Sister Normal [facility] 36on 05-26-2024 36 Name of caller: Dorian Contact phone number: [phone] Relationship to Patient: patient Provider: Radha Lewis Practice: [facility] Chief Complaint/Reason for Call: patient need the rx for test strips to say how and when to use, and how many times per day to test . Glucose Blood (Blood Glucose Test) strip please correct and [facility] to [facility] so patient can start testing Best time of day caller can be reached: any Works from 930 to 6 pm Patient advised that office/PCP has 24-48 business hours to return their call: Yes Normal [facility] Office Visiton 05-21-2024 Follow-up visit [id number] Dorian Montoya 1990 M Date Provider Department Center 05/21/202408249-NJTFLNJDWYRADHA LEWIS [facility] Family History Problem Relation Age of Onset Diverticulitis Mother Crohn's disease Mother ANTONELLA disease Mother Heart Surgery Father Heart attack Father COPD Father Arthritis Father Asthma Father Diabetes Father Lung cancer Mother's Sister Throat cancer Mother's Brother Cancer Mother's Brother Breast cancer Father's Sister Lung cancer Father's Sister Family Status - Relation Status Age at Mother Father Alive Mother's Sister Mother's Brother Father's Sister Level of Service:66843 [place] OFFICE/OUTPATIENT ESTABLISHED LOW MDM 20 MIN Reason for Visit and Comments: Other [0] - Pt had a drink, and pt stated he left like his blood sugars were fluctuating Normal [facility] Progress Noteon 05-21-2024 Progress Note [facility] [address] [facility] [address] Dept: [phone] Dept Reason for Visit: Other (Pt had a drink, and pt stated he left like his blood sugars were fluctuating ) Assessment and Plan 1. Screening for diabetes mellitus - Basic metabolic panel - Hemoglobin A1c - Discussed diabetes prevention at length. He is currently below pre-diabetic range (5.6), and so discussed healthy lifestyle, limiting foods and drinks high in sugar. Given his episodes of fatigue and sweating, ordered a glucometer to check his levels then. Ordered repeat A1c and CMP to monitor his glucose levels and kidney function. No indication to start diabetic medications at this time, but he is agreeable to frequent follow-ups to monitor his A1c and renal function. Follow up in about 6 months (around 11/18/2024) for Recheck with Radha. Subjective HPI Dorian Montoya is a 33-year-old male presenting for discussion on diabetes. He states he had an alcoholic drink 2 weeks ago and experienced an episode of sweating/fatigue resolved with returning home and eating. His dad has been recently diagnosed with diabetes. Does not report having frequent episodes similar to this, but would like a glucometer to monitor his levels at home. States his diet consists of eating hamburgers, steak, pizza, tacos, fries, and limited vegetables. Drinking water, root beer, mountain dew (zero sugar when he can). Feeling more of the urge to urinate more frequently and doesn't know if this is related to DM or not. Denies incontinence, dysuria, urinary retention. His last A1c was 5.6% 3 months ago. He is not on Metformin. He was admitted in the ICU about 11 months ago and he did have some acute renal failure at that time which did resolve however his baseline creatinine is running a little bit high. He does not follow with nephrology. Wt Readings from Last 3 Encounters: 05/21/24 140 lb 9.6 oz (63.8 kg) 02/21/24 142 lb 3.2 oz (64.5 kg) 02/08/24 155 lb (70.3 kg) BP Readings from Last 3 Encounters: 05/21/24 122/77 02/21/24 118/76 01/21/24 108/70 Review of Systems Constitutional: Positive for fatigue (off and on). Negative for activity change, appetite change, diaphoresis and unexpected weight change. Cardiovascular: Negative for chest pain, palpitations and leg swelling. Gastrointestinal: Negative for abdominal distention, abdominal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 Priority Lab ID 1 Foot, Left Tissue TISSUE EXAM Laxmi Hicks DPM 01/21/24 0219 No Routine Description: Left foot soft tissue mass Staff: Client Consultant: Nicky Sy RN Scrub Person: Judah Major RN RN [place] to Circ: Shonna Murillo RN Findings: appeared to be cystic material, likely sebaceous cyst, no fibroma noted Complications: None; patient tolerated the procedure well. Specimens Collected: Order Name Source Comment Collection Info Order Time POTASSIUM WITH MG REFLEX For patients on dialysis to draw potassium day of surgery 01/21/2024 8:17 AM PROTHROMBIN TIME If patient on coumadin within 4 days prior. 01/21/2024 8:17 AM TISSUE EXAM Foot, Left Pre-op diagnosis: Left foot plantar fibromatosis Collected By: Laxmi Hicks DPM 01/21/2024 9:52 AM Wound Class: Class I: Clean Blood Products: None Prophylactic Antibiotics: Procedure appropriate prophylactic antibiotic(s) given within 1 hour of surgical incision (two hours if receiving Vancomycin or flouroquinolone) [facility] 36on 12-26-2023 36 No auth required via [employer] up tool [facility] 36 PLEASE ENTER PAT ORDERS Case # : [id number] PAT : Video Visit Surgery: Date: Sunday January 21, 2024 Patient Arrival: 8:00 am SX time: 10:00 am Location: 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 [facility] Office Visiton 12-26-2023 Follow-up visit [id number] Dorian Montoya 1990 Provider Department Center 12/26/2023 [id number] STROM*[facility] ORT None Family History Problem Relation Age of Onset Diverticulitis Mother Crohn's disease Mother ANTONELLA disease Mother Heart Surgery Father Heart attack Father COPD Father Arthritis Father Asthma Father Lung cancer Mother's Sister Throat cancer Mother's Brother Cancer Mother's Brother Breast cancer Father's Sister Lung cancer Father's Sister Family Status - Relation Status Age at Mother Father Alive Mother's Sister Mother's Brother Father's Sister Level of Service:25838 [place] OFFICE/OUTPATIENT NEW MODERATE MDM 45 MINUTES Reason for Visit and Comments: New Patient [542] - Left foot plantar fasciitis; Dr. Hernandez referral Normal [facility] PATINSon 12-26-2023 RAUL Ba will call to schedule surgery. Normal [facility] Progress Noteon 12-26-2023 Progress Note [facility] [address] [facility] [address] Dept: [phone] Dept Department of Orthopedics- Podiatry Chief Complaint Patient presents with New Patient Left foot plantar fasciitis; Dr. Hernandez referral PCP: Александр Novak MD Last visit: 09/05/23 HISTORY OF PRESENT ILLNESS: This pleasant 33 y.o. male presents for evaluation of left foot plantar fascial fibroma, he is referred here today by Dr. Hernandez. He relates he has continued pain to the area where there is a lump. He has pain when walking or standing long periods of time. The only relief he really gets is when he is seated with shoes off, and no pressure to the area. Unfortunately he works for long periods of time on his feet 8-12 hours at a time on concrete floors at [employer]. No results found for: HGBA1C Past Medical History: Past Medical History: Diagnosis Date Allergic Anxiety Asthma Headache Varicella Past Surgical History: Past Surgical History: Procedure Laterality Date COLONOSCOPY N/A 09/24/2023 Performed by Neida Fuller MD at [address] ENDOSCOPY HAND SURGERY 2020 [place] TESTICLE TORSION REDUCTION (HISTORICAL) about 2020 Current Medications: Current Outpatient Medications Medication Sig Dispense Refill albuterol (ProAir HFA) 108 (90 Base) MCG/ACT inhaler Inhale 2 puffs every 4 hours as needed for wheezing or shortness of breath. 8.5 g 0 fluticasone (Flovent) 110 MCG/ACT inhaler Inhale 1 puff in the morning and 1 puff in the evening. Rinse mouth with water after use to reduce aftertaste and incidence of candidiasis. Do not swallow.. 12 g 5 nicotine (Nicoderm CQ) 14 MG/24HR patch Place 1 patch on the skin Every 24 hours. 30 patch 1 nicotine (Nicoderm CQ) 7 MG/24HR patch Place 1 patch on the skin Every 24 hours. 30 patch 0 guaiFENesin (Mucinex) 600 MG 12 hr tablet Take 1 tablet (600 mg) by mouth 2 times daily. Do not crush, chew, or split. (Patient not taking: Reported on 12/26/2023) 60 tablet 11 ondansetron (Zofran) 4 MG tablet Take 1 tablet (4 mg) by mouth every 8 hours as needed for nausea or vomiting. (Patient not taking: Reported on 12/26/2023) 20 tablet 0 No current facility-administered medications for this visit. Allergies: Apple, Bee venom, and Red dye #40 (allura red) Social History: Social History Socioeconomic History Marital status: Spouse name: Not on file Number of children: Not on file Years of education: Not on file Highest education level: Not on file Occupational History Not on file Tobacco Use Smoking status: Former Current packs/day: 0.00 Average packs/day: 0.5 packs/day for 3.7 years (1.9 ttl pk-yrs) Types: Cigarettes Start date: 05/14/2019 Quit date: 02/03/2023 Years since quittin.8 Smokeless tobacco: Former Types: Chew Quit date: 05/14/2019 Tobacco comments: Smoking 1 disposable vape/week Vaping Use Vaping status: Some Days Substances: Nicotine Devices: Disposable, Smokes 1 pod/week Substance and Sexual Activity Alcohol use: Yes Comment: occ Drug use: Yes Types: Marijuana Comment: Daily Sexual activity: Yes Partners: Female Other Topics Concern Not on file Social History Narrative SDOH Updated 06/07/23 Social Determinants of Health Financial Resource Strain: Medium Risk (06/07/2023) Overall Financial Resource Strain (CARDIA) Difficulty of Paying Living Expenses: Somewhat hard Food Insecurity: Food Insecurity Present (06/07/2023) Hunger Vital Sign Worried About Running Out of Food in the Last Year: Sometimes true Ran Out of Food in the Last Year: Sometimes true Transportation Needs: No Transportation Needs (06/07/2023) PRAPARE - Transportation Lack of Transportation (Medical): No Lack of Transportation (Non-Medical): No Physical Activity: Insufficiently Active (06/07/2023) Exercise Vital Sign Days of Exercise per Week: 2 days Minutes of Exercise per Session: 30 min Stress: Stress Concern Present (06/07/2023) [place] [employer] Occupational Health - Occupational Stress Questionnaire Feeling of Stress : Rather much Social Connections: Unknown (06/07/2023) Social Connection and Isolation Panel [NHANES] Frequency of Communication with Friends and Family: More than three times a week Frequency of Social Gatherings with Friends and Family: Twice a week Attends Hinduism Services: Not on file Active Member of Clubs or Organizations: No Attends Club or Organization Meetings: Never Marital Status: Intimate Partner Violence: Not At Risk (09/24/2023) Humiliation, Afraid, Rape, and Kick questionnaire Fear of Current or Ex-Partner: No Emotionally Abused: No Physically Abused: No Sexually Abused: No Housing Stability: High Risk (06/07/2023) Housing Stability Vital Sign Unable to Pay for Housing in the Last Year: Yes Number of Places Lived in the Last Year: 1 Unstable Alana (more content not included)... Normal [facility] Office Visiton 2023 Follow-up visit [id number] Dorian Montoya 1990 M Date Provider Department Center 2023 [id number] SLADE III [facility] A[facility] DEN None Chart Close Cosign Accepted by: DENNIS FLORES[PRITI] Chart Close Cosign Accepted on: SunDec 19, 2023 4:46 PM Family History Problem Relation Age of Onset Diverticulitis Mother Crohn's disease Mother ANTONELLA disease Mother Heart Surgery Father Heart attack Father COPD Father Arthritis Father Asthma Father Lung cancer Mother's Sister Throat cancer Mother's Brother Cancer Mother's Brother Breast cancer Father's Sister Lung cancer Father's Sister Family Status - Relation Status Age at Mother Father Alive Mother's Sister Mother's Brother Father's Sister Normal [facility] Office Visiton 10-17-2023 Follow-up visit [id number] Dorian Montoya 1990 M Date Provider Department Center 10/17/2023 [facility] None Family History Problem Relation Age of Onset Diverticulitis Mother Crohn's disease Mother ANTONELLA disease Mother Heart Surgery Father Heart attack Father COPD Father Arthritis Father Asthma Father Lung cancer Mother's Sister Throat cancer Mother's Brother Cancer Mother's Brother Breast cancer Father's Sister Lung cancer Father's Sister Family Status - Relation Status Age at Mother Father Alive Mother's Sister Mother's Brother Father's Sister Level of Service:54967 [place] OFFICE/OUTPATIENT NEW LOW MDM 30 MINUTES Reason for Visit and Comments: New Patient [542] - Left foot Normal [facility] Progress Noteon 10-17-2023 Progress Note [facility] [address] [place] [address] [place] [id number] Dept: [phone] Dept Chief Complaint Patient presents with New Patient Left foot Subjective History of Present Illness: Dorian Montoya is a 32 y.o. male who presents today for evaluation of left foot pain. Location: posteriorly of the tarsals Onset: 4 months ago and has remained unchanged - large raised firm area is present Injury: no Quality: aching, throbbing, and sharp Radiation of symptoms: no Severity: 0/10 at rest and 6/10 at worst Exacerbating factor(s): full WB Activities Relieving factor(s): rest Timing: all day Imaging to date: X-ray October 2023 Treatment to date: PT/OT/HEP: no Ice: no Heat: no Medications: Tylenol: yes, not helpful NSAIDs: yes, Ibuprofen/Motrin/Advi l, not helpful Oral steroids: no Muscle relaxants: no Nerve medications: no Targeted injections: none Assistive devices: none Prior surgery: no 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 Physical Exam: General: Alert, well appearing, no acute distress. Respiratory: Breathing comfortably on room air. No respiratory distress. Skin: Warm, dry, intact. No visible rashes or erythema overlying area of focused exam. Right Ankle Exam Right ankle exam is normal. Left Ankle Exam Tenderness Left ankle tenderness location: Left plantar firm soft tisuse mass with no redness, warmth. No movment with toe flexion or extension. Range of Motion The patient has normal left ankle ROM. Dorsiflexion: normal Plantar flexion: normal Eversion: normal Inversion: normal Muscle Strength Dorsiflexion: 5/5 Plantar flexion: 5/5 Anterior tibial: 5/5 Posterior tibial: 5/5 Gastrocsoleus: 5/5 Peroneal muscle: 5/5 Tests Anterior drawer: negative Varus tilt: negative Other Erythema: absent Sensation: normal Pulse: present External Notes No pertinent interval updates Labs No results found for: HGBA1C Lab Results Component Value Date CREATININE 1.12 07/03/2023 Imaging I have personally reviewed the images obtained today X-rays of the left foot were reviewed with the patient. The x-rays show normal anatomic alignment with no acute soft tissue or bony abnormality. EMG/NCT N/A Procedure No procedures completed today Assessment Diagnosis Plan 1. Plantar fascial fibromatosis of left foot [facility] Orthopedics Podiatry 2. Pain XR foot 3+ views left 3. Left foot pain [facility] Orthopedics Podiatry Plan Activity: no restrictions activity as tolerated. We discussed a padded shoe insert to alleviate pressure off of the fibroma. Medication(s): Continue current regimen Test(s)/Imaging/Refer ral(s): No new imaging, tests, or referrals placed today. Additional Intervention(s): No additional imaging, tests, or referrals placed today. We discussed the patient's x-rays, clinical evaluation, and diagnosis along with the [id number] ultrasound showing a soft tissue mass. 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 Next Step: Consult-podiatry for symptomatic plantar fibroma. Follow up: As needed. Follow up if symptoms worsen or fail to improve. Collin Hernandez MD 10/17/2023 1:07 PM Please note that portions of this note may have been completed with voice recognition software. Documentation reviewed prior to signing but minor errors in mothercraft nurse may have occurred. Normal [facility] Bacteria identified Cx Nom ( U)Ordered By: Yana Herring on 06-25-2023 Interpretation and review of laboratory results Normal [facility] CBC panel Auto (Bld)on 06-25 Erythrocyte distribution width (RBC) [Ratio] 13.1 % 11.5 - 14.5 % [facility] Hematocrit (Bld) [Volume fraction] 31.4 % Low 40.0 - 52.0 % [facility] Hemoglobin (Bld) [Mass/Vol] 10.7 g/dL Low 13.0 - 18.0 g/dL [facility] Interpretation and review of laboratory results Abnormal [facility] MCH (RBC) [Entitic mass] 27.6 pg 26. 0 - 34.0 pg [facility] MCHC (RBC) [Mass/Vol] 34.2 % 32.0 - 36.0 % [facility] MCV (RBC) [Entitic vol] 80.7 fL 80.0 - 98.0 fL [facility] Platelet mean volume (Bld) [Entitic vol] 8.4 fL 7.4 - 12.4 fL [facility] Platelets (Bld) [#/Vol] 172 10*3/uL 140 - 440 10*3/uL [facility] RBC (Bld) [#/Vol] 3.89 10*6/uL Low 4.40 - 5.9 0 10*6/uL [facility] WBC (Bld) [#/Vol] 7.7 10*3/uL 3.6 - 10.7 10*3/uL [facility] Comprehensive metabolic 1998 panelon 06-25-2023 Albumin [Mass/Vol] 3.6 g/dL 3.5 - 5.0 g/dL [facility] ALP [Catalytic activity/Vol] 72 U/L 38 - 126 U/L [facility] ALT [Catalytic activity/Vol] 15 U/L 0 - 49 U/L [facility] Anion gap [Moles/Vol] 9 mmol/L 3 - 13 mmol/L [facility] AST [Catalytic activity/Vol] 35 U/L 15 - 46 U/L [facility] Bilirubin [Mass/Vol] 0.4 mg/dL 0.2 - 1 .3 mg/dL [facility] Calcium [Mass/Vol] 8.0 mg/dL Low 8.4 - 10. 4 mg/dL [facility] Chloride [Moles/Vol] 107 mmol/L 98 - 10 7 mmol/L [facility] CO2 [Moles/Vol] 20 mmol/L Low 22 - 30 mmol/L [facility] Creatinine [Mass/Vol] 1.29 mg/dL High 0.66 - 1.25 mg/dL [facility] GFR/1.73 sq M.predicted MDRD (S/P/Bld) [Vol rate/Area] 75.6 mL/min/{1.73_m2} - PINF [facility] Comment on above: Calculation based on the Chronic Kidney Disease Epidemiology Collaboration (CKD-EPI) equation refit without adjustment for race Glucose [Mass/Vol] 100 mg/dL 70 - 100 mg/dL [facility] Interpretation and review of laboratory results Abnormal [facility] Potassium [Moles/Vol] 3.4 mmol/L Low 3.5 - 5.1 mmol/L [facility] Protein [Mass/Vol] 6.2 g/dL Low 6.3 - 8.2 g/dL [facility] Sodium [Moles/Vol] 136 mmol/L 135 - 145 mmol/L [facility] Urea nitrogen [Mass/Vol] 11 mg/dL 9 - 20 mg/dL [facility] Laboratory - Drug toxicology on 06-25-2023 Vancomycin trough [Mass/Vol] 5.9 ug/mL Low 15.0 - 20.0 ug/mL [facility] Laboratory - Microbiology an d Antimicrobial susceptibilityOrdered By: Yana Herring on 06-25-2023 Bacteria identified Cx Nom (U) No growth (<1,000 CFU/mL) [facility] Vancomycin trough [Mass/Vol] on 06-25-2023 Interpretation and review of laboratory results Abnormal [facility] CBC panel Auto (Bld)Ordered By: Carmelita Gonzalez on 06-24-2023 Erythrocyte distribution width (RBC) [Ratio] 13.2 % 11.5 - 14.5 % [facility] Hematocrit (Bld) [Volume fraction] 31.5 % Low 40.0 - 52.0 % [facility] Hemoglobin (Bld) [Mass/Vol] 10.5 g/dL Low 13.0 - 18.0 g/dL [facility] Interpretation and review of laboratory results Abnormal [facility] MCH (RBC) [Entitic mass] 28.0 pg 26. 0 - 34.0 pg [facility] MCHC (RBC) [Mass/Vol] 33.5 % 32.0 - 36.0 % [facility] MCV (RBC) [Entitic vol] 83.6 fL 80.0 - 98.0 fL [facility] Platelet mean volume (Bld) [Entitic vol] 7.9 fL 7.4 - 12.4 fL [facility] Platelets (Bld) [#/Vol] 187 10*3/uL 140 - 440 10*3/uL [facility] RBC (Bld) [#/Vol] 3.76 10*6/uL Low 4.40 - 5.9 0 10*6/uL [facility] WBC (Bld) [#/Vol] 6.7 10*3/uL 3.6 - 10.7 10*3/uL [facility] Comprehensive metabolic 1998 panelOrdered By: Yvrose Gonzalez on 06-24-2023 Albumin [Mass/Vol] 3.7 g/dL 3.5 - 5.0 g/dL [facility] ALP [Catalytic activity/Vol] 77 U/L 38 - 126 U/L [facility] ALT [Catalytic activity/Vol] 13 U/L 0 - 49 U/L [facility] Anion gap [Moles/Vol] 9 mmol/L 3 - 13 mmol/L [facility] AST [Catalytic activity/Vol] 28 U/L 15 - 46 U/L [facility] Bilirubin [Mass/Vol] 0.5 mg/dL 0.2 - 1 .3 mg/dL [facility] Calcium [Mass/Vol] 8.4 mg/dL 8.4 - 10. 4 mg/dL [facility] Chloride [Moles/Vol] 106 mmol/L 98 - 10 7 mmol/L [facility] CO2 [Moles/Vol] 19 mmol/L Low 22 - 30 mmol/L [facility] Creatinine [Mass/Vol] 1.86 mg/dL High 0.66 - 1.25 mg/dL [facility] GFR/1.73 sq M.predicted MDRD (S/P/Bld) [Vol rate/Area] 48.7 mL/min/{1.73_m2} Low - PINF [facility] Comment on above: Calculation based on the Chronic Kidney Disease Epidemiology Collaboration (CKD-EPI) equation refit without adjustment for race Glucose [Mass/Vol] 91 mg/dL 70 - 100 mg/dL [facility] Interpretation and review of laboratory results Abnormal [facility] Potassium [Moles/Vol] 3.3 mmol/L Low 3.5 - 5.1 mmol/L [facility] Protein [Mass/Vol] 6.3 g/dL 6.3 - 8.2 g/dL [facility] Sodium [Moles/Vol] 134 mmol/L Low 135 - 145 mmol/L [facility] Urea nitrogen [Mass/Vol] 15 mg/dL 9 - 20 mg/dL [facility] Laboratory - Chemistry and C hemistry - challengeon 06-24-2023 Troponin I.cardiac [Mass/Vol] ng/[facility]/mL [facility] Magnesium [Mass/Vol] 1.8 mg/dL 1.6 - 2 .3 mg/dL [facility] Procalcitonin [Mass/Vol] 0.10 ng/mL High 0.0 0 - 0.09 ng/mL [facility] Troponin I.cardiac [Mass/Vol] ng[facility]mL [facility]/mL [facility] Lactate [Moles/Vol] 0.7 mmol/L 0.7 - 2. 0 mmol/L [facility] Laboratory - Drug toxicology on 06-24-2023 Vancomycin trough [Mass/Vol] 18.2 ug/mL 15.0 - 20.0 ug/mL [facility] Laboratory - Drug toxicology Ordered By: Earnest Ramires on 06-24-2023 Amphetamines Screen method >1000 ng/mL Ql (U) Negative [facility] Barbiturates Screen method >200 ng/mL Ql (U) Negative [facility] Benzodiazepines Ql (U) Negative [facility] Methadone Screen Ql (U) Negative [facility] Opiates Screen Ql (U) Negative [facility] oxyCODONE Ql (U) Negative [facility] Phencyclidine Ql (U) Negative [facility] Magnesium [Mass/Vol]on 06-24 Interpretation and review of laboratory results Normal [facility] Manual differential performe d Ql (Bld)Ordered By: Jose Gutierrez on 06-24-2023 Band form neutrophils (Bld) [#/Vol] 0.8 10*3/uL High NINF - 0.0 10*3/uL [facility] Band form neutrophils/100 WBC (Bld) 6 % High NINF - 0 % [facility] Bands Manual 6 [facility] Cells Counted Total (Bld) [#] 100 {cells} [facility] Differential Method Manual differential performed [facility] Interpretation and review of laboratory results Abnormal [facility] Lymphocytes (Bld) [#/Vol] 0.3 10*3/uL Low 1.0 - 4.3 10*3/uL [facility] Lymphocytes Manual 2 [facility] Lymphocytes/100 WBC (Bld) 2 % Low 20 - 40 % [facility] Monocytes (Bld) [#/Vol] 1.1 10*3/uL High 0.0 - 0.8 10*3/uL [facility] Monocytes Manual 8 [facility] alth Monocytes/100 WBC (Bld) 8 % 2 - 10 % [facility] Neutrophils (Bld) [#/Vol] 12.7 10*3/uL High 1.8 - 7.0 10*3/uL [facility] Neutrophils Manual 84 [facility] Neutrophils.vacuolated LM Ql (Bld) Present Abnormal (none) [facility] Ovalocytes LM Ql (Bld) Slight Abnormal (none) [facility] Platelet morphology finding Nom (Bld) Normal [facility] Poikilocytosis LM Ql (Bld) Slight Abnormal (none) [facility] Segmented neutrophils/100 WBC (Bld) 84 % High 40 - 80 % [facility] WBC corrected for nucl RBC (Bld) [#/Vol] 14.1 10*3/uL High 3.6 - 10.7 10*3/uL [facility] No Panel Informationon 06-24 P [place] 79 degrees [facility] MI Interval 128 ms [facility] QRS [place] 20 degrees [facility] QRSD Interval 96 ms [facility] QT Interval 0 ms [facility] QTC Interval 0 ms [facility] T Wave [place] 0 degrees [facility] sinus arrhythmia Biatrial enlargement Borderline T abnormalities, anterior leads Electronically Signed On 06-24-2023 04:00:27 EST by Bebe Armstrong M D - 06/24/2023 IMPRESSION: sinus arrhythmia Biatrial enlargement Borderline T abnormalities, anterior leads Electronically Signed On 06-24-2023 04:00:27 EST by Bebemichael Cheung [facility] Interpretation and review of laboratory results Normal [facility] No Panel InformationOrdered By: Earnest Ramires on 06-24-2023 COCAINE METAB. SCREEN Negative [facility] The expected value for all of the drugs listed above is Negative. The following drugs or drug groups have been screened for by Immunoassay at the following thresholds: Amphetamine class (1000 ng/mL) Barbiturates (200 ng/mL) Benzodiazepines (200 ng/mL) Cocaine (300 ng/mL) Methadone (300 ng/mL) Opiates (300 ng/mL) Oxycodone (100 ng/mL) PCP (25 ng/mL) NOTE: These results are for medical treatment only. Analysis performed using non-forensic procedures. POSITIVE results are NOT confirmed by a more specific alternative method unless requested. If confirmation is needed, request confirmation under separate order. [facility] Procalcitonin [Mass/Vol]on 0 06-24-2023 Interpretation and review of laboratory results Abnormal [facility] PCT <0.50 = Low risk of severe sepsis and/or septic shock. PCT >2.00 = High risk of severe sepsis and/or septic shock. [facility] Troponin I.cardiac [Mass/Vol ]on 06-24-2023 Interpretation and review of laboratory results Normal [facility] Patients with high levels of Biotin oral intake (ie >5 mg/day) may have falsely decreased Troponin levels. [facility] Interpretation and review of laboratory results Normal [facility] Patients with high levels of Biotin oral intake (ie >5 mg/day) may have falsely decreased Troponin levels. [facility] Urinalysis complete panel (U )on 06-24-2023 Bacteria LM.HPF (Urine sed) [#/Area] Few Abnormal Negative /HPF [facility] Bilirubin Ql (U) Negative Negative mg/dL [facility] Clarity (U) Clear Clear [facility] Color (U) Yellow Lt. Yellow [facility] Epithelial cells.squamous LM.HPF (Urine sed) [#/Area] 0-2 [facility] h Glucose Ql (U) Normal Normal (<70) mg/dL [facility] Hemoglobin Ql (U) 0.2 mg/dL Abnormal Negative [facility] Hyaline casts Auto (Urine sed) [#/Area] 0-2 Abnormal Negative /LPF [facility] Interpretation and review of laboratory results Abnormal [facility] Ketones (U) [Mass/Vol] Trace Abnormal Negat filomena mg/dL [facility] Leukocyte esterase Test strip Ql (U) Negative Negative Dot/uL [facility] Mucus LM.HPF (Urine sed) [#/Area] Few Negative /LPF [facility] Nitrite Ql (U) Negative Negative [facility] th pH (U) 5.5 [pH] 5.0 - 8.0 pH [facility] Protein (U) [Mass/Vol] 70 mg/dL Abnormal Negative [facility] RBC LM.HPF (Urine sed) [#/Area] 3-5 Abnormal [facility] Specific gravity (U) [Rel density] High 1.005 - 1.030 [facility] Urobilinogen (U) [Mass/Vol] Normal Normal (0-1) mg/dL [facility] WBC LM.HPF (Urine sed) [#/Area] 3-5 [facility] Vancomycin trough [Mass/Vol] on 06-24-2023 Interpretation and review of laboratory results Normal [facility] Vital signson 06-24-2023 Heart rate 105 /min bpm [facility] CBC W Auto Differential pane l (Bld)Ordered By: Zoey Wells on 06-23-2023 Erythrocyte distribution width (RBC) [Ratio] 13.2 % 11.5 - 14.5 % [facility] Hematocrit (Bld) [Volume fraction] 42.7 % 40.0 - 52.0 % [facility] Hemoglobin (Bld) [Mass/Vol] 13.7 g/dL 13.0 - 18.0 g/dL [facility] Interpretation and review of laboratory results Abnormal [facility] MCH (RBC) [Entitic mass] 26.7 pg 26. 0 - 34.0 pg [facility] MCHC (RBC) [Mass/Vol] 32.1 % 32.0 - 36.0 % [facility] MCV (RBC) [Entitic vol] 83.2 fL 80.0 - 98.0 fL [facility] Nucleated RBC/100 WBC (Bld) [Ratio] 0.0 % [facility] Platelet mean volume (Bld) [Entitic vol] 8.5 fL 7.4 - 12.4 fL [facility] Platelets (Bld) [#/Vol] 349 10*3/uL 140 - 440 10*3/uL [facility] RBC (Bld) [#/Vol] 5.13 10*6/uL 4.40 - 5.9 0 10*6/uL [facility] WBC (Bld) [#/Vol] 14.1 10*3/uL High 3.6 - 10.7 10*3/uL [facility] CT Abdomen and Pelvis W cont rast Mack 06-23-2023 Patient Name: DORIAN MONTOYA : 1990 Exam Date/Time: 06/23/2023 23:17 Procedure: CT ABDOMEN PELVIS W CONTRAST Ordering Provider: CHEUNG YASMIN Reason For Exam: Abdominal pain, acute, nonlocalized CTA CHEST WITH IV CONTRAST CLINICAL INDICATION: Pulmonary embolism (PE) suspected, high prob. TECHNIQUE: CTA of the chest with IV contrast. Multiplanar reformations. 3-D image post-processing was performed on an independent workstation. Dose reduction was employed with automated exposure control. COMPARISON: January,. FINDINGS: The main and bilateral proximal pulmonary arteries are normally opacified without apparent filling defects. No apparent aneurysm, pseudoaneurysm or aortic dissection. No significant lymph node enlargement or axillary adenopathy. Lungs again show multiple, partially calcified, nodular densities scattered primarily in the left upper lobe, not appreciably changed. No discrete mass, focal consolidation or pleural effusion. No apparent pneumothorax. Bony thorax grossly unremarkable. [facility] Ottoniel Julian MD - 06/23/2023 Patient Name: DORIAN MONTOYA : 1990 Exam Date/Time: 06/23/2023 23:17 Procedure: CT ABDOMEN PELVIS W CONTRAST Ordering Provider: CHEUNG YASMIN Reason For Exam: Abdominal pain, acute, nonlocalized CTA CHEST WITH IV CONTRAST CLINICAL INDICATION: Pulmonary embolism (PE) suspected, high prob. TECHNIQUE: CTA of the chest with IV contrast. Multiplanar reformations. 3-D image post-processing was performed on an independent workstation. Dose reduction was employed with automated exposure control. COMPARISON: January,. FINDINGS: The main and bilateral proximal pulmonary arteries are normally opacified without apparent filling defects. No apparent aneurysm, pseudoaneurysm or aortic dissection. No significant lymph node enlargement or axillary adenopathy. Lungs again show multiple, partially calcified, nodular densities scattered primarily in the left upper lobe, not appreciably changed. No discrete mass, focal consolidation or pleural effusion. No apparent pneumothorax. Bony thorax grossly unremarkable. IMPRESSION: 1. No evidence of large vessel or central pulmonary emboli. 2. No acute consolidation. Probable sequelae of old granulomatous disease, similar to comparison. CT ABDOMEN AND PELVIS WITH CONTRAST CLINICAL INDICATION: Pulmonary embolism (PE) suspected, high prob TECHNIQUE: CT scan of the abdomen and pelvis, with IV contrast. Multiplanar reformations. Dose reduction was employed with automated exposure control. COMPARISON: January,. FINDINGS: Abdomen: Visualized lung bases grossly unremarkable. No radiopaque gallstones. Liver without significant abnormality. Spleen without significant abnormality. Pancreas without significant abnormality. Kidneys without significant abnormality. Adrenal glands without significant abnormality. Pelvis: Bowel unopacified and incompletely distended limiting evaluation. Numerous, punctate hyperdensities scattered throughout the bowel probably related to recently ingested material. No evidence of mechanical obstruction. Appendix within normal limits. No significant, free peritoneal fluid or apparent adenopathy. Abdominal aorta is nonaneurysmal. Axial skeleton grossly intact. IMPRESSION: 1. No acute findings. Report Dictated on Electronically Signed By: Ottoniel Julian MD Electronically Signed Date/Time: 06/23/2023 11:30 PM EST [employer] CTA Chest vessels WO and W c ontrast Mack 06-23-2023 Patient Name: DORIAN MONTOYA : 1990 Exam Date/Time: 06/23/2023 23:17 Procedure: CT CHEST ANGIOGRAM W AND/OR WO IV CONTRAST Ordering Provider: CHEUNG YASMIN Reason For Exam: Pulmonary embolism (PE) suspected, high prob CTA CHEST WITH IV CONTRAST CLINICAL INDICATION: Pulmonary embolism (PE) suspected, high prob. TECHNIQUE: CTA of the chest with IV contrast. Multiplanar reformations. 3-D image post-processing was performed on an independent workstation. Dose reduction was employed with automated exposure control. COMPARISON: January,. FINDINGS: The main and bilateral proximal pulmonary arteries are normally opacified without apparent filling defects. No apparent aneurysm, pseudoaneurysm or aortic dissection. No significant lymph node enlargement or axillary adenopathy. Lungs again show multiple, partially calcified, nodular densities scattered primarily in the left upper lobe, not appreciably changed. No discrete mass, focal consolidation or pleural effusion. No apparent pneumothorax. Bony thorax grossly unremarkable. [facility] Ottoniel Julian MD - 06/23/2023 Patient Name: DORIAN MONTOYA : 1990 [facility]#: [id number] Exam Date/Time: 06/23/2023 23:17 Procedure: CT CHEST ANGIOGRAM W AND/OR WO IV CONTRAST Ordering Provider: CHEUNG YASMIN Reason For Exam: Pulmonary embolism (PE) suspected, high prob CTA CHEST WITH IV CONTRAST CLINICAL INDICATION: Pulmonary embolism (PE) suspected, high prob. TECHNIQUE: CTA of the chest with IV contrast. Multiplanar reformations. 3-D image post-processing was performed on an independent workstation. Dose reduction was employed with automated exposure control. COMPARISON: January,. FINDINGS: The main and bilateral proximal pulmonary arteries are normally opacified without apparent filling defects. No apparent aneurysm, pseudoaneurysm or aortic dissection. No significant lymph node enlargement or axillary adenopathy. Lungs again show multiple, partially calcified, nodular densities scattered primarily in the left upper lobe, not appreciably changed. No discrete mass, focal consolidation or pleural effusion. No apparent pneumothorax. Bony thorax grossly unremarkable. IMPRESSION: 1. No evidence of large vessel or central pulmonary emboli. 2. No acute consolidation. Probable sequelae of old granulomatous disease, similar to comparison. CT ABDOMEN AND PELVIS WITH CONTRAST CLINICAL INDICATION: Pulmonary embolism (PE) suspected, high prob TECHNIQUE: CT scan of the abdomen and pelvis, with IV contrast. Multiplanar reformations. Dose reduction was employed with automated exposure control. COMPARISON: January,. FINDINGS: Abdomen: Visualized lung bases grossly unremarkable. No radiopaque gallstones. Liver without significant abnormality. Spleen without significant abnormality. Pancreas without significant abnormality. Kidneys without significant abnormality. Adrenal glands without significant abnormality. Pelvis: Bowel unopacified and incompletely distended limiting evaluation. Numerous, punctate hyperdensities scattered throughout the bowel probably related to recently ingested material. No evidence of mechanical obstruction. Appendix within normal limits. No significant, free peritoneal fluid or apparent adenopathy. Abdominal aorta is nonaneurysmal. Axial skeleton grossly intact. IMPRESSION: 1. No acute findings. Report Dictated on Electronically Signed By: Ottoniel Julian MD Electronically Signed Date/Time: 06/23/2023 11:30 PM EST [facility] Comprehensive metabolic 1998 panelon 06-23-2023 Albumin [Mass/Vol] g/dL High 3.5 - 5.0 g/dL [facility] ALP [Catalytic activity/Vol] 116 U/L 38 - 126 U/L [facility] ALT [Catalytic activity/Vol] 27 U/L 0 - 49 U/L [facility] Anion gap [Moles/Vol] 24 mmol/L High 3 - 13 mmol/L [facility] AST [Catalytic activity/Vol] 46 U/L 15 - 46 U/L [facility] Bilirubin [Mass/Vol] 1.0 mg/dL 0.2 - 1 .3 mg/dL [facility] Calcium [Mass/Vol] 11.8 mg/dL High 8.4 - 10. 4 mg/dL [facility] Chloride [Moles/Vol] 95 mmol/L Low 98 - 10 7 mmol/L [facility] CO2 [Moles/Vol] 18 mmol/L Low 22 - 30 mmol/L [facility] Creatinine [Mass/Vol] 3.11 mg/dL High 0.66 - 1.25 mg/dL [facility] GFR/1.73 sq M.predicted MDRD (S/P/Bld) [Vol rate/Area] 26.3 mL/min/{1.73_m2} Low - PINF [facility] Comment on above: Calculation based on the Chronic Kidney Disease Epidemiology Collaboration (CKD-EPI) equation refit without adjustment for race Glucose [Mass/Vol] 176 mg/dL High 70 - 100 mg/dL [facility] Interpretation and review of laboratory results Abnormal [facility] Potassium [Moles/Vol] 3.9 mmol/L 3.5 - 5.1 mmol/L [facility] Protein [Mass/Vol] 10.8 g/dL High 6.3 - 8.2 g/dL [facility] Sodium [Moles/Vol] 137 mmol/L 135 - 145 mmol/L [facility] Urea nitrogen [Mass/Vol] 14 mg/dL 9 - 20 mg/dL [facility] Slightly Hemolyzed. Interpret K+, ALKP, AST, TP, ALB with caution. [facility] Laboratory - Chemistry and C hemistry - challengeon 06-23-2023 Troponin I.cardiac [Mass/Vol] ng/mL NINF - 0.034 ng/mL [facility] Magnesium [Mass/Vol] 2.1 mg/dL 1.6 - 2 .3 mg/dL [facility] Base excess Calc (BldV) [Moles/Vol] -5.0000 mmol/L Low -3.0 - 3.0 mmol/L [facility] CO2 (BldV) [Partial pressure] 30.7 mm[Hg] Low [facility] CO2 [Moles/Vol] 19.4 mmol/L Low 24.0 - 28.0 mmol/L [facility] HCO3 (Bld) [Moles/Vol] 18.5 mmol/L Low 23.0 - 27.0 mmol/L [facility] Oxygen (BldV) [Partial pressure] 33.3 mm[Hg] [facility] pH (BldV) 7.398 [pH] 7.330 - 7.430 [facility] Glucose [Mass/Vol] 158 mg/dL High 70 - 100 mg/dL [facility] Laboratory - Chemistry and C hemistry - challengeOrdered By: Nancy Wong on 06-23-2023 Lactate [Moles/Vol] 4.5 mmol/L Critically high 0.7 - 2.0 mmol/L [facility] Laboratory - Hematology and Cell countson 06-23-2023 Hemoglobin (Bld) [Mass/Vol] 14.8 g/dL Screen Only [facility] Magnesium [Mass/Vol]on 06-23 Interpretation and review of laboratory results Normal [facility] Slightly Hemolyzed. Interpret Magnesium with caution. [facility] No Panel Informationon 06-23 1. No evidence of large vessel or central pulmonary emboli. 2. No acute consolidation. Probable sequelae of old granulomatous disease, similar to comparison. CT ABDOMEN AND PELVIS WITH CONTRAST CLINICAL INDICATION: Pulmonary embolism (PE) suspected, high prob TECHNIQUE: CT scan of the abdomen and pelvis, with IV contrast. Multiplanar reformations. Dose reduction was employed with automated exposure control. COMPARISON: January,. FINDINGS: Abdomen: Visualized lung bases grossly unremarkable. No radiopaque gallstones. Liver without significant abnormality. Spleen without significant abnormality. Pancreas without significant abnormality. Kidneys without significant abnormality. Adrenal glands without significant abnormality. Pelvis: Bowel unopacified and incompletely distended limiting evaluation. Numerous, punctate hyperdensities scattered throughout the bowel probably related to recently ingested material. No evidence of mechanical obstruction. Appendix within normal limits. No significant, free peritoneal fluid or apparent adenopathy. Abdominal aorta is nonaneurysmal. Axial skeleton grossly intact. IMPRESSION: 1. No acute findings. Report Dictated on Electronically Signed By: Ottoniel Julian MD Electronically Signed Date/Time: 06/23/2023 11:30 PM [facility] Radiology Study observation (narrative) Royer molina Interpretation and review of laboratory results Abnormal [facility] Source Of Oxygen Non-rebreather mask [facility] Interpret with caution, pO2 value falsely increased due to vacuum in tube. For accurate results, please draw on a syringe. [facility] Interpretation and review of laboratory results Abnormal [facility]formed by: [facility], [address] [place] [address] CLIA ID: [id number] [facility] Radiology Study observation (narrative) Royer Alexander alth No Panel InformationOrdered By: Nancy Wong on 06-23-2023 Interpretation and review of laboratory results Abnormal [facility] Respiratory pathogens DNA an d RNA panel DEA+non-probe (Nph)on 06-23-2023 Adenovirus Not detected Not Detected [facility] B. pertussis DNA DEA+probe Ql (Unsp spec) Not detected Not Detected [facility] Bordetella parapertussis Not detected Not Detected [facility] Chlamydia pneumoniae Not detected Not Detected [facility] Coronavirus 229E Not detected Not Detected [facility] Coronavirus HKU1 Not detected Not Detected [facility] Coronavirus NL63 Not detected Not Detected [facility] Coronavirus OC43 Not detected Not Detected [facility] FLUAV RNA DEA+non-probe Ql (Nph) Detected Abnormal Not Detected [facility] FLUBV RNA DEA+non-probe Ql (Nph) Not detected Not Detected [facility] Human Metapneumovirus Not detected Not Detected [facility] Human Rhinovirus/Enterovirus Not detected Not Detected [facility] Interpretation and review of laboratory results Abnormal [facility] Mycoplasma pneumoniae Not detected Not Detected [facility] Parainfluenza 1 Not detected Not Detected [facility] Parainfluenza 2 Not detected Not Detected [facility] Parainfluenza 3 Not detected Not Detected [facility] Parainfluenza 4 Not detected Not Detected [facility] Respiratory Syncytial Virus Not detected Not Detected [facility] SARS-CoV-2 (COVID-19) RNA DEA+non-probe Ql (Nph) Not detected Not Detected [facility] Methodology: Multiplex PCR [facility] Troponin I.cardiac [Mass/Vol ]on 06-23-2023 Interpretation and review of laboratory results Normal [facility] Slightly Hemolyzed. Interpret Troponin I with caution. Patients with high levels of Biotin oral intake (ie >5 mg/day) may have falsely decreased Troponin levels. Slightly Hemolyzed. Interpret Troponin I with caution. [facility] Vital signson 06-23-2023 Oxygen saturation in Venous blood 61.7 % 60.0 - 80.0 % [facility] XR Chest Single viewon 06-23 1. Stable examination. No acute findings. Report Dictated on Electronically Signed By: Ottoniel Julian MD Electronically Signed Date/Time: 06/23/2023 11:02 PM EST [facility] Patient Name: DORIAN MONTOYA : 1990 Exam Date/Time: 06/23/2023 22:51 Procedure: XR CHEST 1 VIEW Ordering Provider: CHEUNG YASMIN Reason For Exam: Shortness of breath CHEST PORTABLE CLINICAL INDICATION: Shortness of breath TECHNIQUE: Portable chest x-ray(s). COMPARISON: January,. FINDINGS: Cardiac and mediastinal silhouette within normal limits. Lungs again show calcified nodular densities projecting over the left superolateral lung and suggesting sequelae of old granulomatous disease, not appreciably changed. No significant vascular congestion. No focal consolidation or apparent pneumothorax. Bony thorax grossly unremarkable. [facility] Ottoniel Julian MD - 06/23/2023 Patient Name: DORIAN MONTOYA : 1990 Exam Date/Time: 06/23/2023 22:51 Procedure: XR CHEST 1 VIEW Ordering Provider: CHEUNG YASMIN Reason For Exam: Shortness of breath CHEST PORTABLE CLINICAL INDICATION: Shortness of breath TECHNIQUE: Portable chest x-ray(s). COMPARISON: January,. FINDINGS: Cardiac and mediastinal silhouette within normal limits. Lungs again show calcified nodular densities projecting over the left superolateral lung and suggesting sequelae of old granulomatous disease, not appreciably changed. No significant vascular congestion. No focal consolidation or apparent pneumothorax. Bony thorax grossly unremarkable. IMPRESSION: 1. Stable examination. No acute findings. Report Dictated on Electronically Signed By: Ottoniel Julian MD Electronically Signed Date/Time: 06/23/2023 11:02 PM EST [employer] Radiology Study observation (narrative) [facility] Chest Single viewOrdered By: Ottoniel Julian on 06-23-2023 [employer] Work Phone: CBC W Auto Differential pane l (Bld)Ordered By: Jose Gutierrez on 04-25-2023 Basophils (Bld) [#/Vol] 0.1 10*3/uL 0.0 - 0.2 10*3/uL [facility] Basophils/100 WBC (Bld) 0.4 % 0.0 - 2.0 % [employer] Eosinophils (Bld) [#/Vol] 0.1 10*3/uL 0.0 - 0.5 10*3/uL [facility] Eosinophils/100 WBC (Bld) 0.5 % Low 1.0 - 6.0 % [facility] Erythrocyte distribution width (RBC) [Ratio] 13.0 % 11.5 - 14.5 % [facility] Hematocrit (Bld) [Volume fraction] 33.6 % Low 40.0 - 52.0 % [employer] Hemoglobin (Bld) [Mass/Vol] 11.1 g/dL Low 13.0 - 18.0 g/dL [facility] Interpretation and review of laboratory results Abnormal [facility] Lymphocytes (Bld) [#/Vol] 2.0 10*3/uL 1.0 - 4.3 10*3/uL [facility] Lymphocytes/100 WBC (Bld) 15.5 % Low 20.0 - 40.0 % [employer] MCH (RBC) [Entitic mass] 27.7 pg 26. 0 - 34.0 pg [facility] MCHC (RBC) [Mass/Vol] 33.0 % 32.0 - 36.0 % [facility] MCV (RBC) [Entitic vol] 84.0 fL 80.0 - 98.0 fL [facility] Monocytes (Bld) [#/Vol] 1.0 10*3/uL High 0.0 - 0.8 10*3/uL [facility] Monocytes/100 WBC (Bld) 7.7 % 2.0 - 10.0 % [facility] Neutrophils (Bld) [#/Vol] 9.7 10*3/uL High 1.8 - 7.0 10*3/uL [facility] Neutrophils/100 WBC (Bld) 75.9 % 40.0 - 80.0 % [facility] Nucleated RBC/100 WBC (Bld) [Ratio] 0.0 % [facility] Platelet mean volume (Bld) [Entitic vol] 7.5 fL 7.4 - 12.4 fL [facility] Platelets (Bld) [#/Vol] 325 10*3/uL 140 - 440 10*3/uL [facility] RBC (Bld) [#/Vol] 4.00 10*6/uL Low 4.40 - 5.9 0 10*6/uL [facility] WBC (Bld) [#/Vol] 12.8 10*3/uL High 3.6 - 10.7 10*3/uL [facility] Comprehensive metabolic 1998 panelon 04-25-2023 Albumin [Mass/Vol] 4.5 g/dL 3.5 - 5.0 g/dL [facility] ALP [Catalytic activity/Vol] 70 U/L 38 - 126 U/L [facility] ALT [Catalytic activity/Vol] 14 U/L 0 - 49 U/L [facility] Anion gap [Moles/Vol] 10 mmol/L 3 - 13 mmol/L [facility] AST [Catalytic activity/Vol] 25 U/L 15 - 46 U/L [facility] Bilirubin [Mass/Vol] 0.5 mg/dL 0.2 - 1 .3 mg/dL [facility] Calcium [Mass/Vol] 9.0 mg/dL 8.4 - 10. 4 mg/dL [facility] Chloride [Moles/Vol] 104 mmol/L 98 - 10 7 mmol/L [facility] CO2 [Moles/Vol] 24 mmol/L 22 - 30 mmol/L [facility] Creatinine [Mass/Vol] 1.12 mg/dL 0.66 - 1.25 mg/dL [facility] GFR/1.73 sq M.predicted MDRD (S/P/Bld) [Vol rate/Area] 89.5 mL/min/{1.73_m2} - PINF [facility] Comment on above: Calculation based on the Chronic Kidney Disease Epidemiology Collaboration (CKD-EPI) equation refit without adjustment for race Glucose [Mass/Vol] 135 mg/dL High 70 - 100 mg/dL [facility] Interpretation and review of laboratory results Abnormal [facility] Potassium [Moles/Vol] 3.6 mmol/L 3.5 - 5.1 mmol/L [facility] Protein [Mass/Vol] 7.3 g/dL 6.3 - 8.2 g/dL [facility] Sodium [Moles/Vol] 139 mmol/L 135 - 145 mmol/L [facility] Urea nitrogen [Mass/Vol] 21 mg/dL High 9 - 20 mg/dL [facility] Laboratory - Chemistry and C hemistry - challengeon 04-25-2023 Lipase [Catalytic activity/Vol] 47 U/L 23 - 300 U/L [facility] Lipase [Catalytic activity/V ol]on 04-25-2023 Interpretation and review of laboratory results Normal [facility] No Panel Informationon 04-25 [facility] Urinalysis complete panel (U )on 04-25-2023 Bacteria LM.HPF (Urine sed) [#/Area] Few Abnormal Negative /HPF [facility] Bilirubin Ql (U) Negative Negative mg/dL [facility] Clarity (U) Clear Clear [facility] Color (U) Yellow Lt. Yellow [facility] Epithelial cells.squamous LM.HPF (Urine sed) [#/Area] 0-2 [facility] h Glucose Ql (U) Normal Normal (<70) mg/dL [facility] Hemoglobin Ql (U) Negative Negative mg/dL [facility] Hyaline casts Auto (Urine sed) [#/Area] 0-2 Abnormal Negative /LPF [facility] Interpretation and review of laboratory results Abnormal [facility] Ketones (U) [Mass/Vol] 40 mg/dL Abnormal Negative [facility] Leukocyte esterase Test strip Ql (U) Negative Negative Dot/uL [facility] Mucus LM.HPF (Urine sed) [#/Area] Moderate Abnormal Negative /LPF [facility] Nitrite Ql (U) Negative Negative [facility] th pH (U) 5.5 [pH] 5.0 - 8.0 pH [facility] Protein (U) [Mass/Vol] 30 mg/dL Abnormal Negative [facility] RBC LM.HPF (Urine sed) [#/Area] 0-2 [facility] Specific gravity (U) [Rel density] 1.041 High 1.005 - 1.030 [facility] Urobilinogen (U) [Mass/Vol] 2 mg/dL Abnormal Normal (0-1) [facility] WBC LM.HPF (Urine sed) [#/Area] 0-2 [facility] CBC W Auto Differential pane l (Bld)Ordered By: Yvrose Gonzalez on 01-25-2023 Basophils (Bld) [#/Vol] 0.1 10*3/uL 0.0 - 0.2 10*3/uL [facility] Basophils/100 WBC (Bld) 0.6 % 0.0 - 2.0 % [facility] Eosinophils (Bld) [#/Vol] 0.0 10*3/uL 0.0 - 0.5 10*3/uL [facility] Eosinophils/100 WBC (Bld) 0.3 % Low 1.0 - 6.0 % [facility] Erythrocyte distribution width (RBC) [Ratio] 13.1 % 11.5 - 14.5 % [facility] Hematocrit (Bld) [Volume fraction] 34.2 % Low 40.0 - 52.0 % [facility] Hemoglobin (Bld) [Mass/Vol] 11.1 g/dL Low 13.0 - 18.0 g/dL [facility] Interpretation and review of laboratory results Abnormal [facility] Lymphocytes (Bld) [#/Vol] 2.1 10*3/uL 1.0 - 4.3 10*3/uL [facility] Lymphocytes/100 WBC (Bld) 21.0 % 20.0 - 40.0 % [facility] MCH (RBC) [Entitic mass] 27.5 pg 26. 0 - 34.0 pg [facility] MCHC (RBC) [Mass/Vol] 32.3 % 32.0 - 36.0 % [facility] MCV (RBC) [Entitic vol] 85.1 fL 80.0 - 98.0 fL [facility] Monocytes (Bld) [#/Vol] 0.7 10*3/uL 0.0 - 0.8 10*3/uL [facility] Monocytes/100 WBC (Bld) 7.1 % 2.0 - 10.0 % [facility] Neutrophils (Bld) [#/Vol] 7.1 10*3/uL High 1.8 - 7.0 10*3/uL [facility] Neutrophils/100 WBC (Bld) 71.0 % 40.0 - 80.0 % [facility] [employer] Nucleated RBC/100 WBC (Bld) [Ratio] 0.0 % [facility] Platelet mean volume (Bld) [Entitic vol] 8.3 fL 7.4 - 12.4 fL [facility] [employer] Platelets (Bld) [#/Vol] 261 10*3/uL 140 - 440 10*3/uL [facility] RBC (Bld) [#/Vol] 4.02 10*6/uL Low 4.40 - 5.9 0 10*6/uL [facility] WBC (Bld) [#/Vol] 10.0 10*3/uL 3.6 - 10.7 10*3/uL [facility] CT Abdomen and Pelvis W cont rast Mack 01-25-2023 There appears to be circumferential thickening of the rectum though this may be confounded by underdistention. Questionable vascular engorgement and mild edema in the pelvis. Findings are nonspecific though could raise possibility of proctitis, perhaps infectious/inflammato ry. Consider GI consult and correlate with direct visualization as clinically warranted. Remainder of the abdomen and pelvis is otherwise unremarkable. Report Dictated on Electronically Signed By: Kenneth Parnell MD Electronically Signed Date/Time: 01/25/2023 2:05 PM T [facility] : 1990 [id number] Exam Date/Time: 01/25/2023 13:07 Procedure: CT ABDOMEN PELVIS W CONTRAST Ordering Provider: SO BETHANY Reason For Exam: LLQ abdominal pain CT ABDOMEN AND PELVIS WITH IV CONTRAST CLINICAL HISTORY: Left lower quadrant abdominal pain. Lower abdominal pain and bloody stool for three days. TECHNIQUE: CT of the abdomen and pelvis was performed with IV contrast using standard technique. Dose reduction was employed with automated exposure control. Contrast: IV: 75 ml of Isovue-370 COMPARISON: Concurrent chest CT 01/25/2023 RESULT: Liver: No mass. Biliary: No bile duct dilation. Gallbladder is nondilated. Spleen: No mass. No splenomegaly. Pancreas: No mass or duct dilation. Adrenals:No mass. Kidneys: No obstructing calculus or hydronephrosis. GI tract: No dilated loops of bowel. Bowel is collapsed, degrading assessment. There may be rectal wall thickening though this may be confounded by underdistention. Questionable mild increase in vascular engorgement. Trace pelvic edema is present, nonspecific. Lymph nodes: No abdominal lymphadenopathy. Mesentery/Peritoneum: No ascites or mass. Retroperitoneum: No mass. Vasculature: The celiac axis and SMA are patent. The portal vein and branches, splenic vein, and SMV are patent. No abdominal aortic or iliac artery aneurysm. Pelvis: No mass or fluid collection. Bones/Soft Tissues: No significant finding. Lower thorax: Imaged lung bases are clear. Please see separate chest CT for additional details. [facility] Kenneth Parnell MD - 01/25/2023 Patient Name: DORIAN MONTOYA : 1990 Exam Date/Time: 01/25/2023 13:07 Procedure: CT ABDOMEN PELVIS W CONTRAST Ordering Provider: SO BETHANY Reason For Exam: LLQ abdominal pain CT ABDOMEN AND PELVIS WITH IV CONTRAST CLINICAL HISTORY: Left lower quadrant abdominal pain. Lower abdominal pain and bloody stool for three days. TECHNIQUE: CT of the abdomen and pelvis was performed with IV contrast using standard technique. Dose reduction was employed with automated exposure control. Contrast: IV: 75 ml of Isovue-370 COMPARISON: Concurrent chest CT 01/25/2023 RESULT: Liver: No mass. Biliary: No bile duct dilation. Gallbladder is nondilated. Spleen: No mass. No splenomegaly. Pancreas: No mass or duct dilation. Adrenals:No mass. Kidneys: No obstructing calculus or hydronephrosis. GI tract: No dilated loops of bowel. Bowel is collapsed, degrading assessment. There may be rectal wall thickening though this may be confounded by underdistention. Questionable mild increase in vascular engorgement. Trace pelvic edema is present, nonspecific. Lymph nodes: No abdominal lymphadenopathy. Mesentery/Peritoneum: No ascites or mass. Retroperitoneum: No mass. Vasculature: The celiac axis and SMA are patent. The portal vein and branches, splenic vein, and SMV are patent. No abdominal aortic or iliac artery aneurysm. Pelvis: No mass or fluid collection. Bones/Soft Tissues: No significant finding. Lower thorax: Imaged lung bases are clear. Please see separate chest CT for additional details. IMPRESSION: There appears to be circumferential thickening of the rectum though this may be confounded by underdistention. Questionable vascular engorgement and mild edema in the pelvis. Findings are nonspecific though could raise possibility of proctitis, perhaps infectious/inflammato ry. Consider GI consult and correlate with direct visualization as clinically warranted. Remainder of the abdomen and pelvis is otherwise unremarkable. Report Dictated on Electronically Signed By: Kenneth Parnell MD Electronically Signed Date/Time: 01/25/2023 2:[address] [employer] [address] Abdomen and Pelvis W cont rast IVOrdered By: Kenneth Parnell on 01-25-2023 [employer] Work Phone: CT Chest W contrast Mack Multiple calcified and partially calcified nodular opacities compatible with granulomata, likely sequelae of remote granulomatous process. 2 cm granuloma in the left upper lobe corresponds with recent radiographic finding. No routine follow-up is required. Report Dictated on Electronically Signed By: Kenneth Parnell MD Electronically Signed Date/Time: 01/25/2023 2:41 PM T [facility] Patient Name: DORIAN MONTOYA : 1990 Exam Date/Time: 01/25/2023 13:07 Procedure: CT CHEST W IV CONTRAST Ordering Provider: SO BETHANY Reason For Exam: Lung nodule, > 8mm EXAMINATION: CHEST CT WITH CONTRAST Indication: Lung nodule, > 8mm Technique: Spiral CT acquisition of the chest from the thoracic inlet to the upper abdomen following IV contrast. Dose reduction was employed with automated exposure control. Contrast: 75 mL Isovue 370 IV Comparison: AP chest radiograph 01/25/2023 RESULT: Limitations: None. Lines, tubes, and devices: None. Lung parenchyma and pleura:Central airways are patent. Partially calcified nodular opacity in the left upper lung measuring up to 2 cm corresponding with the radiographic findings is likely a granuloma. There are additional smaller satellite nodular opacities which are partially calcified and also likely small granulomas. Other smaller calcified granulomata are present scattered in both lungs. No suspicious pulmonary nodules requiring follow-up. No consolidation. No pleural effusion or pneumothorax. Thoracic inlet, heart, and mediastinum: No lymphadenopathy in the axillary, mediastinal, or hilar regions. The thyroid gland is normal. The esophagus is unremarkable.The thoracic aorta and main pulmonary artery are normal in caliber. The cardiac chambers are normal in size. No coronary artery atherosclerotic calcifications are noted, although the study is not optimized for coronary assessment. No pericardial effusion or thickening. Bones and soft tissues: No destructive bone lesion. Chest wall is unremarkable. Upper abdomen: See separately dictated CT of the abdomen/pelvis. [facility] Kenneth Parnell MD - 01/25/2023 Patient Name: DORIAN MONTOYA : 1990 Exam Date/Time: 01/25/2023 13:07 Procedure: CT CHEST W IV CONTRAST Ordering Provider: SO BETHANY Reason For Exam: Lung nodule, > 8mm EXAMINATION: CHEST CT WITH CONTRAST Indication: Lung nodule, > 8mm Technique: Spiral CT acquisition of the chest from the thoracic inlet to the upper abdomen following IV contrast. Dose reduction was employed with automated exposure control. Contrast: 75 mL Isovue 370 IV Comparison: AP chest radiograph 01/25/2023 RESULT: Limitations: None. Lines, tubes, and devices: None. Lung parenchyma and pleura:Central airways are patent. Partially calcified nodular opacity in the left upper lung measuring up to 2 cm corresponding with the radiographic findings is likely a granuloma. There are additional smaller satellite nodular opacities which are partially calcified and also likely small granulomas. Other smaller calcified granulomata are present scattered in both lungs. No suspicious pulmonary nodules requiring follow-up. No consolidation. No pleural effusion or pneumothorax. Thoracic inlet, heart, and mediastinum: No lymphadenopathy in the axillary, mediastinal, or hilar regions. The thyroid gland is normal. The esophagus is unremarkable.The thoracic aorta and main pulmonary artery are normal in caliber. The cardiac chambers are normal in size. No coronary artery atherosclerotic calcifications are noted, although the study is not optimized for coronary assessment. No pericardial effusion or thickening. Bones and soft tissues: No destructive bone lesion. Chest wall is unremarkable. Upper abdomen: See separately dictated CT of the abdomen/pelvis. IMPRESSION: Multiple calcified and partially calcified nodular opacities compatible with granulomata, likely sequelae of remote granulomatous process. 2 cm granuloma in the left upper lobe corresponds with recent radiographic finding. No routine follow-up is required. Report Dictated on Electronically Signed By: Kenneth Parnell MD Electronically Signed Date/Time: 01/25/2023 2:41 PM EDT [facility] Comprehensive metabolic 1998 panelon 01-25-2023 Albumin [Mass/Vol] 4.0 g/dL 3.5 - 5.0 g/dL [facility] ALP [Catalytic activity/Vol] 85 U/L 38 - 126 U/L [facility] ALT [Catalytic activity/Vol] 31 U/L 0 - 49 U/L [facility] Anion gap [Moles/Vol] 7 mmol/L 3 - 13 mmol/L [facility] AST [Catalytic activity/Vol] 41 U/L 15 - 46 U/L [facility] Bilirubin [Mass/Vol] 0.5 mg/dL 0.2 - 1 .3 mg/dL [facility] Calcium [Mass/Vol] 9.0 mg/dL 8.4 - 10. 4 mg/dL [facility] Chloride [Moles/Vol] 107 mmol/L 98 - 10 7 mmol/L [facility] CO2 [Moles/Vol] 27 mmol/L 22 - 30 mmol/L [facility] Creatinine [Mass/Vol] 1.14 mg/dL 0.66 - 1.25 mg/dL [facility] GFR/1.73 sq M.predicted MDRD (S/P/Bld) [Vol rate/Area] 87.6 mL/min/{1.73_m2} - PINF [facility] Comment on above: Calculation based on the Chronic Kidney Disease Epidemiology Collaboration (CKD-EPI) equation refit without adjustment for race Glucose [Mass/Vol] 96 mg/dL 70 - 100 mg/dL [facility] Potassium [Moles/Vol] 4.6 mmol/L 3.5 - 5.1 mmol/L [facility] Protein [Mass/Vol] 6.5 g/dL 6.3 - 8.2 g/dL [facility] Sodium [Moles/Vol] 141 mmol/L 135 - 145 mmol/L [facility] Urea nitrogen [Mass/Vol] 15 mg/dL 9 - 20 mg/dL [facility] Laboratory - Chemistry and C hemistry - challengeon 01-25-2023 Troponin I.cardiac [Mass/Vol] ng/mL 0.000 - 0.034 ng/mL [facility] Lipase [Catalytic activity/Vol] 58 U/L 23 - 300 U/L [facility] Lower GI hemoglobin spec 1 I A Ql (Stl)Ordered By: Christine Pritchett on 01-25-2023 Fecal occult blood Negative Negative [facility] Interpretation and review of laboratory results Normal [facility] Methodology: Immunoassay [facility] No Panel InformationOrdered By: Marco A Humphrey on 01-25-2023 P [place] 61 degrees [facility] [employer] Work Phone: MI Interval 121 ms [facility] [employer] Work Phone: QRS [place] 1 degrees [facility] [employer] Work Phone: QRSD Interval 95 ms [facility] Work Phone: QT Interval 434 ms [facility] [employer] Work Phone: QTC Interval 398 ms [facility] [employer] Work Phone: T Wave [place] 40 degrees [facility] [employer] Work Phone: [facility] Work Phone: No Panel Informationon 01-25 Sinus bradycardia No change compared to previous ekg Electronically Signed On 01-25-2023 17:55:12 EDT by Marco A Clark M D - 01/25/2023 IMPRESSION: Sinus bradycardia No change compared to previous ekg Electronically Signed On 01-25-2023 17:55:12 EDT by Marco A Humphrey [facility] Radiology Study observation (narrative) [facility] Interpretation and review of laboratory results Normal [facility] Troponin I.cardiac [Mass/Vol ]on 01-25-2023 Interpretation and review of laboratory results Normal [facility] Patients with high levels of Biotin oral intake (ie >5 mg/day) may have falsely decreased Troponin levels. [facility] Vital signsOrdered By: Troy Humphrey on 01-25-2023 Heart rate 50 /min bpm [facility] [employer] Work Phone: XR Chest Single viewon 01-25 FINDINGS/IMPRESSION: 1. Lines/Tubes/Devices/H ardware: None. 2. Lungs: A calcified appearing 2.5 x 1.5 cm nodule overlies the left upper lung. Recommend further evaluation with chest CT. No consolidation or pulmonary edema. 3. Pleura: No pneumothorax or large pleural effusions. 4. Heart and mediastinum: Normal cardiomediastinal contours. CRITICAL TEST COMMUNICATION: LATASHA So was notified via [employer] Secure Chat today at 10:47 AM. Report Dictated on Electronically Signed By: Xavier Badillo MD Electronically Signed Date/Time: 01/25/2023 10:48 AM EDT [facility] Patient Name: DORIAN MONTOYA : 1990 Exam Date/Time: 01/25/2023 10:43 Procedure: XR CHEST 1 VIEW Ordering Provider: SO BETHANY Reason For Exam: Shortness of breath EXAM TYPE: RADIOLOGIC EXAMINATION, CHEST, SINGLE VIEW FRONTAL (CXR SINGLE VIEW) EXAM DATE AND TIME: 01/25/2023 10:43 AM EDT INDICATION: Shortness of breath COMPARISON: None available. TECHNIQUE: A single frontal view of the thorax was obtained and reviewed. Special views: None. [facility] Xavier Badillo MD - 01/25/2023 Patient Name: DORIAN MONTOYA : 1990 Exam Date/Time: 01/25/2023 10:43 Procedure: XR CHEST 1 VIEW Ordering Provider: SO BETHANY Reason For Exam: Shortness of breath EXAM TYPE: RADIOLOGIC EXAMINATION, CHEST, SINGLE VIEW FRONTAL (CXR SINGLE VIEW) EXAM DATE AND TIME: 01/25/2023 10:43 AM EDT INDICATION: Shortness of breath COMPARISON: None available. TECHNIQUE: A single frontal view of the thorax was obtained and reviewed. Special views: None. IMPRESSION: FINDINGS/IMPRESSION: 1. Lines/Tubes/Devices/H ardware: None. 2. Lungs: A calcified appearing 2.5 x 1.5 cm nodule overlies the left upper lung. Recommend further evaluation with chest CT. No consolidation or pulmonary edema. 3. Pleura: No pneumothorax or large pleural effusions. 4. Heart and mediastinum: Normal cardiomediastinal contours. CRITICAL TEST COMMUNICATION: LATASHA So was notified via [employer] Secure Chat today at 10:47 AM. Report Dictated on Electronically Signed By: Xavier Badillo MD Electronically Signed Date/Time: 01/25/2023 10:48 AM EDT [facility] [employer] Radiology Study observation (narrative) [facility] XR Chest Single viewOrdered By: Xavier Badillo on 01-25-2023 [employer] Phone: No Panel InformationOrdered By: Jewel Barrientos on 06-26-2022 P [place] 69 degrees [employer] Phone: MI Interval 128 ms [employer] Phone: QRS [place] -1 degrees [employer] Phone: QRSD Interval 88 ms [facility] Work Phone: QT Interval 386 ms [employer] Work Phone: QTC Interval 430 ms [employer] Work Phone: T Wave [place] 49 degrees [employer] Phone: [employer] Phone: No Panel Informationon 06-26 Sinus rhythm Normal [place] No ST or T wave changes No previous available for comparison Electronically Signed On 06-26-2022 8:30:50 EST by Jewel Barrientos CV Jewel Whittington MD - 06/26/2022 IMPRESSION: Sinus rhythm Normal [place] No ST or T wave changes No previous available for comparison Electronically Signed On 06-26-2022 8:30:50 EST by Jewel Barrientos [facility] [employer] Vital signsOrdered By: Jewel Barrientos on 06-26-2022 Heart rate 75 /min bpm [employer] Work Phone: XR Tibia and Fibula - left 2 Viewson 06-25-2022 No acute osseous abnormality.. Report Dictated on Electronically Signed By: Kaylin Ludwig Electronically Signed Date/Time: 06/25/2022 10:10 AM EST [facility] Patient Name: DORIAN MONTOYA : 1990 Exam Date/Time: 06/25/2022 10:04 Procedure: XR TIBIA FIBULA 2 VIEWS LEFT Ordering Provider: SILVA MICHAEL Reason For Exam: leg injury EXAMINATION: Left tibia/fibula two views, four images INDICATION: leg injury FINDINGS: There is no acute fracture. The proximal and distal articulations are grossly intact. The soft tissues are grossly unremarkable. [facility] Kaylin Ludwig MD - 06/25/2022 Patient Name: DORIAN MONTOYA : 1990 Exam Date/Time: 06/25/2022 10:04 Procedure: XR TIBIA FIBULA 2 VIEWS LEFT Ordering Provider: SILVA MICHAEL Reason For Exam: leg injury EXAMINATION: Left tibia/fibula two views, four images INDICATION: leg injury FINDINGS: There is no acute fracture. The proximal and distal articulations are grossly intact. The soft tissues are grossly unremarkable. IMPRESSION: No acute osseous abnormality.. Report Dictated on Electronically Signed By: Kaylin Ludwig Electronically Signed Date/Time: 06/25/2022 10:10 AM EST [facility] Radiology Study observation (narrative) Royer jesse XR Tibia and Fibula - left 2 ViewsOrdered By: Kaylin Ludwig on 06-25-2022 [facility] [employer] Work Phone: Basic metabolic 2000 panelon 05-17-2022 Anion gap [Moles/Vol] 19 mmol/L High 9-18 [facility] Comment on above: Order Comment: Speci men Type: BLOOD SPECIMEN Ordering Facility: [facility] Address: [address] [place] [address] Performed By: #### 2 4323-8, 3040-3, #### [facility] CLIA [id number] [address] [place] [address] [place] Calcium [Mass/Vol] 10.7 mg/dL High 8.5-10.2 [facility] Comment on above: Order Comment: Speci men Type: BLOOD SPECIMEN Ordering Facility: [facility] Address: [address] [place] [address] Performed By: #### 2 4323-8, 3040-3, #### [facility] CLIA [id number] [address] [place] [address] [place] Chloride [Moles/Vol] 78 mmol/L Low 97-105 [facility] Comment on above: Order Comment: Speci men Type: BLOOD SPECIMEN Ordering Facility: [facility] Address: [address] [place] [address] Performed By: #### 2 4323-8, 3040-3, #### [facility] CLIA [id number] [address] [place] [address] [place] CO2 [Moles/Vol] 31 mmol/L High 22-30 [facility] Comment on above: Order Comment: Speci men Type: BLOOD SPECIMEN Ordering Facility: [facility] Address: [address] [place] [address] Performed By: #### 2 4323-8, 3040-3, #### [facility] CLIA [id number] [address] [place] [address] [place] Creatinine [Mass/Vol] 1.97 mg/dL High 0.73-1.22 [facility] Comment on above: Order Comment: Uriace fonseca Type: BLOOD SPECIMEN Ordering Facility: [facility] Address: [address] [facility] [place] [id number] Performed By: #### 2 4323-8, 3040-3, 40292-9 #### [facility] CLIA [id number] [address] [place] [address] [place] ESTIMATED GLOMERULAR FILTRATION RATE 46 mL/min/1.73m??? Low >=60 [facility] Comment on above: Order Comment: Ryan marian Type: BLOOD SPECIMEN Ordering Facility: [facility] Address: [address] Result Comment: Radha mated Glomerular Filtration Rate (eGFR) is calculated using the 2020 CKD-EPI creatinine equation. This equation utilizes serum creatinine, sex, and age as parameters. The creatinine assay has traceable calibration to isotope dilution-mass spectrometry. Refer to KDIGO guidelines for clinical interpretation. In patients with unstable renal function, e.g. those with acute kidney injury, the eGFR may not accurately reflect actual GFR. Performed By: #### 2 4323-8, 3040-3, 79838-6 #### [facility] CLIA [id number] [address] [place] [address] [place] Glucose [Mass/Vol] 120 mg/dL High 74-99 [facility] Comment on above: Order Comment: Ryan fonseca Type: BLOOD SPECIMEN Ordering Facility: [facility] Address: [address] [place] [id number] Result Comment: The [place] [employer] (ADA) provides guidance for cutoff values for fasting glucose and random glucose. The ADA defines fasting as no caloric intake for at least 8 hours. Fasting plasma glucose results between 100 to 125 mg/dL indicate increased risk for diabetes (prediabetes). Fasting plasma glucose results greater than or equal to 126 mg/dL meet the criteria for diagnosis of diabetes. In the absence of unequivocal hyperglycemia, results should be confirmed by repeat testing. In a patient with classic symptoms of hyperglycemia or hyperglycemic crisis, random plasma glucose results greater than or equal to 200 mg/dL meet the criteria for diagnosis of diabetes. Reference: Standards of Medical Care in Diabetes 2016, [place] [employer]. Diabetes Care. 2016.39(Suppl 1). Performed By: #### 2 4323-8, 3040-3, #### [facility] CLIA [id number] [address] [place] Potassium [Moles/Vol] 3.6 mmol/L Low 3.7-5.1 [facility] Comment on above: Order Comment: Speci men Type: BLOOD SPECIMEN Ordering Facility: [facility] Address: [address] [place] [address] Performed By: #### 2 4323-8, 3040-3, #### [facility] CLIA [id number] [address] STATES OF [facility] Sodium [Moles/Vol] 128 mmol/L Low 136-144 [facility] Comment on above: Order Comment: Speci men Type: BLOOD SPECIMEN Ordering Facility: [facility] Address: [address] [place] [address] Performed By: #### 2 4323-8, 0-3, #### [facility] CLIA [id number] [address] [place] Urea nitrogen [Mass/Vol] 83 mg/dL High 9-24 [facility] Comment on above: Order Comment: Speci men Type: BLOOD SPECIMEN Ordering Facility: [facility] Address: [address] [place] [address] Performed By: #### 2 4323-8, 0-3, #### [facility] CLIA [id number] [address] [place] CBC W Auto Differential pane l (Bld)on 05-17-2022 Basophils (Bld) [#/Vol] 0.05 10*3/uL Normal <0.11 [facility] Comment on above: Order Comment: Speci men Type: BLOOD SPECIMEN Ordering Facility: [facility] Address: [address] [place] [address] Result Comment: Diff erential confirmed by visual scan of peripheral blood smear slide. Performed By: #### 2 4323-8, 3040-3, #### [facility] CLIA [id number] [address] Basophils/100 WBC (Bld) 0.3 % Normal A [facility] Comment on above: Order Comment: Speci men Type: BLOOD SPECIMEN Ordering Facility: [facility] Address: [address] [place] [address] Performed By: #### 2 4323-8, 3039-3, #### [facility] CLIA [id number] [address] Differential cell count method Nom (Bld) Auto Normal [facility] Comment on above: Order Comment: Speci men Type: BLOOD SPECIMEN Ordering Facility: [facility] Address: [address] [place] [address] Performed By: #### 2 8, 3, #### [facility] CLIA [id number] [address] Eosinophils (Bld) [#/Vol] 10*3/uL Normal <0.46 [facility] Comment on above: Order Comment: Speci men Type: BLOOD SPECIMEN Ordering Facility: [facility] Address: [address] [place] [address] Performed By: #### 2 4323-8, 3, #### [facility] CLIA [id number] [address] Eosinophils/100 WBC (Bld) 0.1 % Normal [facility] Comment on above: Order Comment: Speci men Type: BLOOD SPECIMEN Ordering Facility: [facility] Address: [address] [place] [address] Performed By: #### 2 4323-8, 3039-3, #### [facility] CLIA [id number] [address] Erythrocyte distribution width (RBC) [Ratio] 11.6 % Normal 11.5-15.0 [facility] Comment on above: Order Comment: Speci men Type: BLOOD SPECIMEN Ordering Facility: [facility] Address: [address] [place] [address] Performed By: #### 2 4323-8, 3, #### [facility] CLIA [id number] [address] [place] Hematocrit (Bld) [Volume fraction] 47.5 % Normal 39.0-51.0 [facility] Comment on above: Order Comment: Speci men Type: BLOOD SPECIMEN Ordering Facility: [facility] Address: [address] [place] [address] Performed By: #### 2 4323-8, 3, #### [facility] CLIA [id number] [address] [place] Hemoglobin (Bld) [Mass/Vol] 16.9 g/dL Normal 13.0-17.0 [facility] Comment on above: Order Comment: Speci men Type: BLOOD SPECIMEN Ordering Facility: [facility] Address: [address] [place] [address] Performed By: #### 2 4323-8, 3, #### [facility] CLIA [id number] [address] [place] Immature granulocytes (Bld) [#/Vol] 0.15 10*3/uL High <0.10 [facility] Comment on above: Order Comment: Speci men Type: BLOOD SPECIMEN Ordering Facility: [facility] Address: [address] [place] [address] Performed By: #### 2 4323-8, 3, #### [facility] CLIA [id number] [address] [place] Immature granulocytes/100 WBC (Bld) 0.9 % Normal [facility] Comment on above: Order Comment: Speci men Type: BLOOD SPECIMEN Ordering Facility: [facility] Address: [address] [address] Performed By: #### 2 4323-8, 0-3, #### [facility] CLIA [id number] [address] Lymphocytes (Bld) [#/Vol] 2.13 10*3/uL Normal 1.00-4.00 [facility] Comment on above: Order Comment: Speci men Type: BLOOD SPECIMEN Ordering Facility: [facility] Address: [address] [address] Performed By: #### 2 4323-8, 3, #### [facility] CLIA [id number] [address] Lymphocytes/100 WBC (Bld) 13.2 % Normal [facility] Comment on above: Order Comment: Speci men Type: BLOOD SPECIMEN Ordering Facility: [facility] Address: [address] [address] Performed By: #### 2 4323-8, 3, #### [facility] CLIA [id number] [address] MCH (RBC) [Entitic mass] 27.0 pg Normal 26.0-34.0 [facility] Comment on above: Order Comment: Speci men Type: BLOOD SPECIMEN Ordering Facility: [facility] Address: [address] [address] Performed By: #### 2 4323-8, 3, #### [facility] CLIA [id number] [address] MCHC (RBC) [Mass/Vol] 35.6 g/dL Normal 30.5-36.0 [facility] Comment on above: Order Comment: Speci men Type: BLOOD SPECIMEN Ordering Facility: [facility] Address: [address] [place] [address] Performed By: #### 2 4323-8, 3039-3, #### [facility] CLIA [id number] 1 [place] [address] [place] MCV (RBC) [Entitic vol] 75.8 fL Low 80.0-100.0 A [facility] Comment on above: Order Comment: Speci men Type: BLOOD SPECIMEN Ordering Facility: [facility] Address: [address] [place] [address] Performed By: #### 2 4323-8, 3, #### [facility] CLIA [id number] [address] [place] Monocytes (Bld) [#/Vol] 2.11 10*3/uL High <0.87 [facility] Comment on above: Order Comment: Speci men Type: BLOOD SPECIMEN Ordering Facility: [facility] Address: [address] [place] [address] Performed By: #### 2 4328, 3039-07, #### [facility] CLIA [id number] [address] STATES OF [facility] Monocytes/100 WBC (Bld) 13.1 % Normal A [facility] Comment on above: Order Comment: Speci men Type: BLOOD SPECIMEN Ordering Facility: [facility] Address: [address] [place] [address] Performed By: #### 2 4323-8, 3, #### [facility] CLIA [id number] 1 [place] [address] [place] Neutrophils (Bld) [#/Vol] 11.67 10*3/uL High 1.45-7.50 [facility] Comment on above: Order Comment: Speci men Type: BLOOD SPECIMEN Ordering Facility: [facility] Address: [address] [place] [address] Performed By: #### 2 4323-8, 3, #### [facility] CLIA [id number] [address] [place] Neutrophils/100 WBC (Bld) 72.4 % Normal [facility] Comment on above: Order Comment: Speci men Type: BLOOD SPECIMEN Ordering Facility: [facility] Address: [address] [place] [address] Performed By: #### 2 4323-8, 3039-3, #### [facility] CLIA [id number] 1 [place] [address] [place] Nucleated RBC (Bld) [#/Vol] 10*3/uL Normal <0.01 [facility] Comment on above: Order Comment: Speci men Type: BLOOD SPECIMEN Ordering Facility: [facility] Address: [address] [place] [address] Performed By: #### 2 4323-8, 3, #### [facility] CLIA [id number] [address] [place] Nucleated RBC/100 WBC (Bld) [Ratio] 0.0 /100 WBC Normal [facility] Comment on above: Order Comment: Speci men Type: BLOOD SPECIMEN Ordering Facility: [facility] Address: [address] [place] [address] Performed By: #### 2 4323-8, 3, #### [facility] CLIA [id number] 1 [place] [address] [place] Platelet mean volume (Bld) [Entitic vol] 10.2 fL Normal 9.0-12.7 [facility] Comment on above: Order Comment: Speci men Type: BLOOD SPECIMEN Ordering Facility: [facility] Address: [address] [place] [address] Performed By: #### 2 4323-8, 3, #### [facility] CLIA [id number] 1 [place] [address] [place] Platelets (Bld) [#/Vol] 506 10*3/uL High 150-400 [facility] Comment on above: Order Comment: Speci men Type: BLOOD SPECIMEN Ordering Facility: [facility] Address: [address] [id number] Performed By: #### 2 4323-8, 3040-3, 80648-7 #### [facility] CLIA [id number] [address] [place] RBC (Bld) [#/Vol] 6.27 10*6/uL High 4.20-6.00 [facility] Comment on above: Order Comment: Speci men Type: BLOOD SPECIMEN Ordering Facility: [facility] Address: [address] [place] [address] Performed By: #### 2 4323-8, 3040-3, 82594-0 #### [facility] CLIA [id number] [address] [place] WBC (Bld) [#/Vol] 16.13 10*3/uL High 3.70-11.00 [facility] Comment on above: Order Comment: Speci men Type: BLOOD SPECIMEN Ordering Facility: [facility] Address: [address] [place] [address] Performed By: #### 2 4323-8, 3040-3, #### [facility] CLIA [id number] [address] OF [facility] ECG COMPLETEon 05-17-2022 ECG COMPLETE Ventricular Rate : 100 BPM Atrial Rate : 100 BPM P-R Interval : 128 ms QRS Duration : 86 ms Q-T Interval : 440 ms QTC Calculation(Bazett) : 567 ms Calculated P [place] : 79 degrees Calculated R [place] : 42 degrees Calculated T [place] : 66 degrees POOR DATA QUALITY, INTERPRETATION MAY BE ADVERSELY AFFECTED NORMAL SINUS RHYTHM BIATRIAL ENLARGEMENT PROLONGED QT ABNORMAL ECG Confirmed by MD JACQUE, BLAS ([id number]) on 05/21/2022 11:40:59 AM NAME : DORIAN MONTOYA PID : [id number] : 1990 Gender : Male Race : ORD : [id number] Procedure Date : May 17 2022 10:23:52 Edit Date : May 21 2022 11:41:00 Diagnosis: POOR DATA QUALITY, INTERPRETATION MAY BE ADVERSELY AFFECTED NORMAL SINUS RHYTHM BIATRIAL ENLARGEMENT PROLONGED QT ABNORMAL ECG Confirmed by MD SANTILLAN THOMAS ([id number]) on 05/21/2022 11:40:59 AM Test Reason : Chest Pain Location : 4 : [facility] Overread By : MD SANTILLAN THOMAS Edited By : MD SANTILLAN THOMAS Referred By : , Acquired by : VAISHALI PRIETO Normal [facility] ED Triage Noteon 05-17-2022 ED Triage Note HNO ID: [id number] Author: Jonathon Villegas APRN.CNP Service: Emergency Medicine Author Type: Nurse Practitioner Type: ED Triage Notes Filed: 05/17/2022 10:22 AM Note Text: ED INTAKE NOTE Patient Name: Dorian Montoya Service Date: 05/17/22 BRIEF HPI: 31-year-old comes in with complaints of nausea vomiting abdominal pain. Pain is worsening to his epigastric region. Was seen evaluated recently but did not want a wait due to long wait times. Is coming in for further evaluation denies any other issues or complaints. BRIEF EXAM: Awake and Alert RRR CTAB CABELLO Diffuse upper abdominal pain on exam INTAKE WORKUP: Bloodwork: CBC BMP Lipase Hepatic function EKG Urinalysis SIGNATURE: Jonathon Villegas APRN.CNP Normal [facility] EKGon 05-17-2022 Electrocardiogram Ventricular Rate : 9 7 BPM Atrial Rate : 97 BPM P-R Interval : 130 ms QRS Duration : 84 ms Q-T Interval : 360 ms QTC Calculation(Bazett) : 457 ms Calculated P [place] : 77 degrees Calculated R [place] : 44 degrees Calculated T [place] : 72 degrees NORMAL SINUS RHYTHM BIATRIAL ENLARGEMENT ABNORMAL ECG Confirmed by DO WILHELM CHRISTINA ([id number]) on 05/24/2022 1:24:37 AM NAME : DORIAN MONTOYA PID : [id number] : 1990 Gender : Male Race : ORD : Procedure Date : May 17 2022 10:25:40 Edit Date : May 24 2022 01:24:37 Diagnosis: NORMAL SINUS RHYTHM BIATRIAL ENLARGEMENT ABNORMAL ECG Confirmed by DO WILHELM CHRISTINA ([id number]) on 05/24/2022 1:24:37 AM Test Reason : Location : 4 : [facility] Overread By : DO WILHELM CHRISTINA Edited By : DO WILHELM CHRISTINA Referred By : , Acquired by : VAISHALI PRIETO Normal [facility] Hepatic function 2000 panelo n 05-17-2022 Albumin [Mass/Vol] 5.3 g/dL High 3.9-4.9 [facility] Comment on above: Order Comment: Speci men Type: BLOOD SPECIMEN Ordering Facility: [facility] Address: [address] [place] [address] Performed By: #### 2 4323-8, 3040-3, #### [facility] CLIA [id number] [address] STATES OF [facility] ALP [Catalytic activity/Vol] 96 U/L Normal 38-113 [facility] Comment on above: Order Comment: Speci men Type: BLOOD SPECIMEN Ordering Facility: [facility] Address: [address] [place] [address] Performed By: #### 2 4323-8, 0-3, #### [facility] CLIA [id number] [address] STATES OF [facility] ALT With P-5'-P [Catalytic activity/Vol] 38 U/L Normal 10-54 [facility] Comment on above: Order Comment: Speci men Type: BLOOD SPECIMEN Ordering Facility: [facility] Address: [address] [place] [address] Performed By: #### 2 4323-8, 3040-3, #### [facility] CLIA [id number] [address] STATES OF [facility] AST With P-5'-P [Catalytic activity/Vol] 23 U/L Normal 14-40 [facility] Comment on above: Order Comment: Speci men Type: BLOOD SPECIMEN Ordering Facility: [facility] Address: [address] [place] [address] Performed By: #### 2 4323-8, 3040-3, #### [facility] CLIA [id number] [address] STATES OF [facility] Bilirubin [Mass/Vol] 1.6 mg/dL High 0.2-1.3 [facility] Comment on above: Order Comment: Speci men Type: BLOOD SPECIMEN Ordering Facility: [facility] Address: [address] [place] [address] Performed By: #### 2 4323-8, 0-3, #### [facility] CLIA [id number] [address] Bilirubin.conjugated [Mass/Vol] 0.4 mg/dL High <0.2 [facility] Comment on above: Order Comment: Speci men Type: BLOOD SPECIMEN Ordering Facility: [facility] Address: [address] [place] [address] Performed By: #### 2 4323-8, 3, #### [facility] CLIA [id number] [address] OF [facility] Protein [Mass/Vol] 8.8 g/dL High 6.3-8.0 [facility] Comment on above: Order Comment: Speci men Type: BLOOD SPECIMEN Ordering Facility: [facility] Address: [address] [place] [address] Performed By: #### 2 4323-8, 3, #### [facility] CLIA [id number] [address] OF [facility] Lipase SerPl-cCncon 05-17-19 23 Lipase [Catalytic activity/Vol] 34 U/L Normal 16-61 [facility] Comment on above: Order Comment: Speci men Type: BLOOD SPECIMEN Ordering Facility: [facility] Address: [address] [place] [address] Performed By: #### 2 4323-8, 3, #### [facility] CLIA [id number] [address] [place] Urinalysis complete panel (U )on 05-17-2022 Bilirubin Ql (U) Negative Normal Negative [facility] Comment on above: Order Comment: Speci men Type: BLOOD SPECIMEN Ordering Facility: [facility] Address: [address] [address] Performed By: #### 2 4323-8, 3039-3, #### [facility] CLIA [id number] [address] Clarity (Unsp spec) Clear Normal Clear [facility] Comment on above: Order Comment: Speci men Type: BLOOD SPECIMEN Ordering Facility: [facility] Address: [address] [place] [address] Performed By: #### 2 4323-8, 3, #### [facility] CLIA [id number] [address] Color (U) Light Yellow Normal yellow [facility] Comment on above: Order Comment: Speci men Type: BLOOD SPECIMEN Ordering Facility: [facility] Address: [address] [place] [address] Performed By: #### 2 38, 3, #### [facility] CLIA [id number] [address] Glucose Test strip (U) [Mass/Vol] Negative Normal Trace, Negative [facility] Comment on above: Order Comment: Speci men Type: BLOOD SPECIMEN Ordering Facility: [facility] Address: [address] [place] [address] Performed By: #### 2 3-8, 3, #### [facility] CLIA [id number] [address] Hemoglobin Ql (U) Negative Normal Negative, Trace [facility] Comment on above: Order Comment: Speci men Type: BLOOD SPECIMEN Ordering Facility: [facility] Address: [address] [place] [address] Performed By: #### 2 4323-8, 0-3, #### [facility] CLIA [id number] [address] [place] Hyaline casts (Urine sed) [#/Area] 1-3 /LPF Abnormal 0 /LPF [facility] Comment on above: Order Comment: Speci men Type: BLOOD SPECIMEN Ordering Facility: [facility] Address: [address] [place] [address] Performed By: #### 2 4323-8, 3039-3, #### [facility] CLIA [id number] [address] OF [facility] Ketones Ql (U) Trace Normal Negative, Trace [facility] Comment on above: Order Comment: Speci men Type: BLOOD SPECIMEN Ordering Facility: [facility] Address: [address] [place] [address] Performed By: #### 2 4323-8, 3, #### [facility] CLIA [id number] [address] Leukocyte esterase Test strip Ql (U) Negative Normal Negative, 25 Dot/mL [facility] Comment on above: Order Comment: Speci men Type: BLOOD SPECIMEN Ordering Facility: [facility] Address: [address] [place] [address] Performed By: #### 2 4323-8, 3039-07, #### [facility] CLIA [id number] [address] OF [facility] Nitrite Ql (U) Negative Normal Negative [facility] Comment on above: Order Comment: Speci men Type: BLOOD SPECIMEN Ordering Facility: [facility] Address: [address] [place] [address] Performed By: #### 2 4323-8, 3, #### [facility] CLIA [id number] [address] OF [facility] pH (U) 5.0 [pH] Normal 5.0-8.0 [facility] Comment on above: Order Comment: Speci men Type: BLOOD SPECIMEN Ordering Facility: [facility] Address: [address] [place] [address] Performed By: #### 2 4323-8, 0-3, #### [facility] CLIA [id number] [address] STATES [facility] Protein (U) [Mass/Vol] Trace Normal Trace , Negative [facility] Comment on above: Order Comment: Speci men Type: BLOOD SPECIMEN Ordering Facility: [facility] Address: [address] [place] [address] Performed By: #### 2 4323-8, 3039-3, #### [facility] CLIA [id number] [address] RBC LM.HPF (Urine sed) [#/Area] 0-3 /HPF Normal 0-3 /HPF [facility] Comment on above: Order Comment: Speci men Type: BLOOD SPECIMEN Ordering Facility: [facility] Address: [address] [place] [address] Performed By: #### 2 3-8, 3, #### [facility] CLIA [id number] [address] STATES [facility] Specific gravity (U) [Rel density] 1.021 Normal 1.005-1.030 [facility] Comment on above: Order Comment: Speci men Type: BLOOD SPECIMEN Ordering Facility: [facility] Address: [address] [place] [address] Performed By: #### 2 3-8, 3, #### [facility] CLIA [id number] [address] Urobilinogen Ql (U) Normal Normal Negative [facility] Comment on above: Order Comment: Speci men Type: BLOOD SPECIMEN Ordering Facility: [facility] Address: [address] [place] [address] Performed By: #### 2 4323-8, 3, #### [facility] CLIA [id number] [address] [place] WBC LM.HPF (Urine sed) [#/Area] 0-5 /HPF Normal 0-5 /HPF [facility] Comment on above: Order Comment: Speci men Type: BLOOD SPECIMEN Ordering Facility: [facility] Address: [address] [place] [address] Performed By: #### 2 4323-8, 3040-3, 75732-8 #### [facility] CLIA [id number] [address] STATES OF [facility] ED NOTEon 05-11-2022 ED NOTE HNO ID: [id number] Author: DANIELLE Her Service: Emergency Medicine Author Type: Clinical Offset Press Operator Type: ED Notes Filed: 05/10/2022 10:15 PM Note Text: Pt did not respond to 1st attempt to have vitals rechecked. Normal [facility] CBC W Auto Differential pane l (Bld)on 05-10-2022 Basophils (Bld) [#/Vol] 0.04 10*3/uL Normal <0.11 [facility] Comment on above: Order Comment: Speci men Type: BLOOD SPECIMEN Ordering Facility: [facility] Address: [address] [place] [address] Performed By: #### 2 4323-8 #### [facility] CLIA [id number] [address] STATES [facility] Basophils/100 WBC (Bld) 0.4 % Normal [facility] Comment on above: Order Comment: Speci men Type: BLOOD SPECIMEN Ordering Facility: [facility] Address: [address] [place] [address] Performed By: #### 2 4323-8 #### [facility] CLIA [id number] [address] STATES OF [facility] Differential cell count method Nom (Bld) Auto Normal [facility] Comment on above: Order Comment: Speci men Type: BLOOD SPECIMEN Ordering Facility: [facility] Address: [address] [place] [address] Performed By: #### 2 4323-8 #### [facility] CLIA [id number] [address] [place] Eosinophils (Bld) [#/Vol] 10*3/uL Normal <0.46 [facility] Comment on above: Order Comment: Speci men Type: BLOOD SPECIMEN Ordering Facility: [facility] Address: [address] [address] Performed By: #### 2 4323-8 #### [facility] CLIA [id number] [address] [place] Eosinophils/100 WBC (Bld) 0.0 % Normal [facility] Comment on above: Order Comment: Speci men Type: BLOOD SPECIMEN Ordering Facility: [facility] Address: [address] [place] [address] Performed By: #### 2 4323-8 #### [facility] CLIA [id number] [address] Erythrocyte distribution width (RBC) [Ratio] 12.1 % Normal 11.5-15.0 [facility] Comment on above: Order Comment: Speci men Type: BLOOD SPECIMEN Ordering Facility: [facility] Address: [address] [place] [address] Performed By: #### 2 4323-8 #### [facility] CLIA [id number] [address] Hematocrit (Bld) [Volume fraction] 48.3 % Normal 39.0-51.0 [facility] Comment on above: Order Comment: Speci men Type: BLOOD SPECIMEN Ordering Facility: [facility] Address: [address] [place] [address] Performed By: #### 2 4323-8 #### [facility] CLIA [id number] [address] [place] Hemoglobin (Bld) [Mass/Vol] 17.0 g/dL Normal 13.0-17.0 [facility] Comment on above: Order Comment: Speci men Type: BLOOD SPECIMEN Ordering Facility: [facility] Address: [address] [place] [address] Performed By: #### 2 4323-8 #### [facility] CLIA [id number] [address] Immature granulocytes (Bld) [#/Vol] 0.03 10*3/uL Normal <0.10 [facility] Comment on above: Order Comment: Speci men Type: BLOOD SPECIMEN Ordering Facility: [facility] Address: [address] [place] [address] Performed By: #### 2 432-8 #### [facility] CLIA [id number] [address] Immature granulocytes/100 WBC (Bld) 0.3 % Normal [facility] Comment on above: Order Comment: Speci men Type: BLOOD SPECIMEN Ordering Facility: [facility] Address: [address] [place] [address] Performed By: #### 2 432-8 #### [facility] CLIA [id number] [address] Lymphocytes (Bld) [#/Vol] 1.59 10*3/uL Normal 1.00-4.00 [facility] Comment on above: Order Comment: Speci men Type: BLOOD SPECIMEN Ordering Facility: [facility] Address: [address] [place] [address] Performed By: #### 2 4323-8 #### [facility] CLIA [id number] [address] Lymphocytes/100 WBC (Bld) 14.4 % Normal [facility] Comment on above: Order Comment: Speci men Type: BLOOD SPECIMEN Ordering Facility: [facility] Address: [address] [place] [address] Performed By: #### 2 4323-8 #### [facility] CLIA [id number] [address] OF [facility] MCH (RBC) [Entitic mass] 27.2 pg Normal 26.0-34.0 [facility] Comment on above: Order Comment: Speci men Type: BLOOD SPECIMEN Ordering Facility: [facility] Address: [address] [address] Performed By: #### 2 4323-8 #### [facility] CLIA [id number] [address] MCHC (RBC) [Mass/Vol] 35.2 g/dL Normal 30.5-36.0 [facility] Comment on above: Order Comment: Speci men Type: BLOOD SPECIMEN Ordering Facility: [facility] Address: [address] [place] [address] Performed By: #### 2 4323-8 #### [facility] CLIA [id number] [address] MCV (RBC) [Entitic vol] 77.2 fL Low 80.0-100.0 [facility] Comment on above: Order Comment: Speci men Type: BLOOD SPECIMEN Ordering Facility: [facility] Address: [address] [place] [address] Performed By: #### 2 4323-8 #### [facility] CLIA [id number] [address] Monocytes (Bld) [#/Vol] 1.61 10*3/uL High <0.87 [facility] Comment on above: Order Comment: Speci men Type: BLOOD SPECIMEN Ordering Facility: [facility] Address: [address] [place] [address] Performed By: #### 2 4323-8 #### [facility] CLIA [id number] [address] Monocytes/100 WBC (Bld) 14.6 % Normal [facility] Comment on above: Order Comment: Speci men Type: BLOOD SPECIMEN Ordering Facility: [facility] Address: [address] [place] [address] Performed By: #### 2 4323-8 #### [facility] CLIA [id number] [address] [place] Neutrophils (Bld) [#/Vol] 7.79 10*3/uL High 1.45-7.50 [facility] Comment on above: Order Comment: Speci men Type: BLOOD SPECIMEN Ordering Facility: [facility] Address: [address] [address] Performed By: #### 2 4323-8 #### [facility] CLIA [id number] [address] Neutrophils/100 WBC (Bld) 70.3 % Normal [facility] Comment on above: Order Comment: Speci men Type: BLOOD SPECIMEN Ordering Facility: [facility] Address: [address] [address] Performed By: #### 2 4323-8 #### [facility] CLIA [id number] [address] [place] OF [place] Nucleated RBC (Bld) [#/Vol] 10*3/uL Normal <0.01 [facility] Comment on above: Order Comment: Speci men Type: BLOOD SPECIMEN Ordering Facility: [facility] Address: [address] [address] Performed By: #### 2 4323-8 #### [facility] CLIA [id number] [address] Nucleated RBC/100 WBC (Bld) [Ratio] 0.0 /100 WBC Normal [facility] Comment on above: Order Comment: Speci men Type: BLOOD SPECIMEN Ordering Facility: [facility] Address: [address] [address] Performed By: #### 2 4323-8 #### [facility] CLIA [id number] [address] OF [place] Platelet mean volume (Bld) [Entitic vol] 10.7 fL Normal 9.0-12.7 [facility] Comment on above: Order Comment: Speci men Type: BLOOD SPECIMEN Ordering Facility: [facility] Address: [address] [place] [address] Performed By: #### 2 4323-8 #### [facility] CLIA [id number] [address] Platelets (Bld) [#/Vol] 297 10*3/uL Normal 150-400 [facility] Comment on above: Order Comment: Speci men Type: BLOOD SPECIMEN Ordering Facility: [facility] Address: [address] [address] Performed By: #### 2 4323-8 #### [facility] CLIA [id number] [address] OF [facility] RBC (Bld) [#/Vol] 6.26 10*6/uL High 4.20-6.00 [facility] Comment on above: Order Comment: Speci men Type: BLOOD SPECIMEN Ordering Facility: [facility] Address: [address] [place] [address] Performed By: #### 2 4323-8 #### [facility] CLIA [id number] [address] WBC (Bld) [#/Vol] 11.06 10*3/uL High 3.70-11.00 [facility] Comment on above: Order Comment: Speci men Type: BLOOD SPECIMEN Ordering Facility: [facility] Address: [address] [place] [address] Performed By: #### 2 4323-8 #### [facility] CLIA [id number] [address] Comprehensive metabolic 2000 panelon 05-10-2022 Albumin [Mass/Vol] 5.8 g/dL High 3.9-4.9 [facility] Comment on above: Order Comment: Speci men Type: BLOOD SPECIMEN Ordering Facility: [facility] Address: [address] [place] [address] Performed By: #### 2 4323-8 #### [facility] CLIA [id number] [address] ALP [Catalytic activity/Vol] 102 U/L Normal 38-113 [facility] Comment on above: Order Comment: Speci men Type: BLOOD SPECIMEN Ordering Facility: [facility] Address: [address] [address] Performed By: #### 2 4323-8 #### [facility] CLIA [id number] [address] ALT With P-5'-P [Catalytic activity/Vol] 22 U/L Normal 10-54 [facility] Comment on above: Order Comment: Speci men Type: BLOOD SPECIMEN Ordering Facility: [facility] Address: [address] [place] [address] Performed By: #### 2 4323-8 #### [facility] CLIA [id number] [address] Anion gap [Moles/Vol] 30 mmol/L High 9-18 [facility] Comment on above: Order Comment: Speci men Type: BLOOD SPECIMEN Ordering Facility: [facility] Address: [address] [place] [address] Performed By: #### 2 4323-8 #### [facility] CLIA [id number] [address] AST With P-5'-P [Catalytic activity/Vol] 46 U/L High 14-40 [facility] Comment on above: Order Comment: Speci men Type: BLOOD SPECIMEN Ordering Facility: [facility] Address: [address] [place] [address] Performed By: #### 2 4323-8 #### [facility] CLIA [id number] [address] STATES OF [facility] Bilirubin [Mass/Vol] 0.6 mg/dL Normal 0.2-1.3 [facility] Comment on above: Order Comment: Speci men Type: BLOOD SPECIMEN Ordering Facility: [facility] Address: [address] [place] [address] Performed By: #### 2 4323-8 #### [facility] CLIA [id number] [address] OF [place] Calcium [Mass/Vol] 10.0 mg/dL Normal 8.5-10.2 [facility] Comment on above: Order Comment: Speci men Type: BLOOD SPECIMEN Ordering Facility: [facility] Address: [address] [place] [address] Performed By: #### 2 4323-8 #### [facility] CLIA [id number] [address] [place] Chloride [Moles/Vol] 86 mmol/L Low 97-105 [facility] Comment on above: Order Comment: Speci men Type: BLOOD SPECIMEN Ordering Facility: [facility] Address: [address] [address] Performed By: #### 2 4323-8 #### [facility] CLIA [id number] [address] [place] CO2 [Moles/Vol] 17 mmol/L Low 22-30 [facility] Comment on above: Order Comment: Speci men Type: BLOOD SPECIMEN Ordering Facility: [facility] Address: [address] [place] [address] Performed By: #### 2 4323-8 #### [facility] CLIA [id number] [address] [place] Creatinine [Mass/Vol] 5.23 mg/dL High 0.73-1.22 [facility] Comment on above: Order Comment: Speci men Type: BLOOD SPECIMEN Ordering Facility: [facility] Address: [address] [place] [address] Performed By: #### 2 4323-8 #### [facility] CLIA [id number] [address] OF [place] ESTIMATED GLOMERULAR FILTRATION RATE 14 mL/min/1.73m??? Low >=60 [facility] Comment on above: Order Comment: Speci men Type: BLOOD SPECIMEN Ordering Facility: [facility] Address: [address] [place] [address] Result Comment: Radha mated Glomerular Filtration Rate (eGFR) is calculated using the 2020 CKD-EPI creatinine equation. This equation utilizes serum creatinine, sex, and age as parameters. The creatinine assay has traceable calibration to isotope dilution-mass spectrometry. Refer to KDIGO guidelines for clinical interpretation. In patients with unstable renal function, e.g. those with acute kidney injury, the eGFR may not accurately reflect actual GFR. Performed By: #### 2 4323-8 #### [facility] CLIA [id number] 1 [place] [address] [place] Glucose [Mass/Vol] 109 mg/dL High 74-99 [facility] Comment on above: Order Comment: Ryan fonseca Type: BLOOD SPECIMEN Ordering Facility: [facility] Address: [address] [place] [address] Result Comment: The [place] Diabetes [employer] (ADA) provides guidance for cutoff values for fasting glucose and random glucose. The ADA defines fasting as no caloric intake for at least 8 hours. Fasting plasma glucose results between 100 to 125 mg/dL indicate increased risk for diabetes (prediabetes). Fasting plasma glucose results greater than or equal to 126 mg/dL meet the criteria for diagnosis of diabetes. In the absence of unequivocal hyperglycemia, results should be confirmed by repeat testing. In a patient with classic symptoms of hyperglycemia or hyperglycemic crisis, random plasma glucose results greater than or equal to 200 mg/dL meet the criteria for diagnosis of diabetes. Reference: Standards of Medical Care in Diabetes 2016, [place] [employer]. Diabetes Care. 2016.39(Suppl 1). Performed By: #### 2 4323-8 #### [facility] CLIA [id number] 1 [place] [address] [place] Potassium [Moles/Vol] 3.8 mmol/L Normal 3.7-5.1 [facility] Comment on above: Order Comment: Ryan fonseca Type: BLOOD SPECIMEN Ordering Facility: [facility] Address: [address] [id number] Performed By: #### 2 4323-8 #### [facility] CLIA [id number] 1 [place] [address] [place] Protein [Mass/Vol] 9.3 g/dL High 6.3-8.0 [facility] Comment on above: Order Comment: Ryan fonseca Type: BLOOD SPECIMEN Ordering Facility: [facility] Address: [address] [place] [address] Performed By: #### 2 4323-8 #### [facility] CLIA [id number] [address] Sodium [Moles/Vol] 133 mmol/L Low 136-144 [facility] Comment on above: Order Comment: Speci men Type: BLOOD SPECIMEN Ordering Facility: [facility] Address: [address] [place] [address] Performed By: #### 2 4323-8 #### [facility] CLIA [id number] [address] Urea nitrogen [Mass/Vol] 61 mg/dL High 9-24 [facility] Comment on above: Order Comment: Speci men Type: BLOOD SPECIMEN Ordering Facility: [facility] Address: [address] [place] [address] Performed By: #### 2 4323-8 #### [facility] CLIA [id number] [address] ED Triage Noteon 05-10-2022 ED Triage Note HNO ID: [id number] Author: Maik Yee 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 Has been ongoing since [place]. Has not been able to have any food or fluid. Feels dehydrated. BRIEF EXAM: Awake and Alert RRR CTAB Abd soft/NT/ND; no rebound/guarding CABELLO INTAKE WORKUP: Labs, urine SIGNATURE: Maik Yee APRN.OVERLOCK SEWING MACHINE OPERATOR Normal [facility] Lipase SerPl-cCncon 05-10-20 22 Lipase [Catalytic activity/Vol] 41 U/L Normal 16-61 [facility] Comment on above: Order Comment: Speci men Type: BLOOD SPECIMEN Ordering Facility: [facility] Address: [address] [place] [address] Performed By: #### 2 4323-8 #### [facility] CLIA [id number] [address] [id number] [place] Magnesium SerPl-mCncon 05-10 Magnesium [Mass/Vol] 2.2 mg/dL Normal 1.7-2.3 [facility] Comment on above: Order Comment: Speci men Type: BLOOD SPECIMEN Ordering Facility: [facility] Address: [place] [address] Performed By: #### 2 4323-8 #### [facility] CLIA [id number] [address] [id number] [facility] [place] CT CHEST WO IVCONon 05-03-[address] CHEST WO IVCON * * *Final Report* * * DATE OF EXAM: May 03 2022 11:49AM [facility] 0541 - CT CHEST WO IVCON / PROCEDURE REASON: Incidental lung nodule * * * * Physician Interpretation * * * * EXAMINATION: CT CHEST WO IVCON CLINICAL HISTORY: Left upper lung nodule Technique: Spiral CT acquisition of the chest from the thoracic inlet to the upper abdomen without contrast. CT Radiation dose: Integrated Dose-length product (DLP) for this visit = 36 mGy*cm CT Dose Reduction Employed: Automated exposure control(AEC) and iterative recon Comparison: Chest x-ray 03/23/2022 RESULT: Limitations: None Lung parenchyma, pleura, and airways: Branching and nodular hyperattenuating, partially calcified densities in the left upper lung, corresponding to prior chest x-ray finding. Normal appearance of the remainder of the lungs. No pleural effusion or pneumothorax. Lower neck, lymph nodes, and mediastinum: No mass or pathologically enlarged nodes. Heart, pericardium, and thoracic vessels: The heart is within normal size limits. No abnormal pericardial effusion. No thoracic aortic aneurysm. Upper abdomen: No acute findings. Bones and soft tissues: No acute findings. IMPRESSION: 1. Branching and nodular hyperattenuating, partially calcified densities in the left upper lung consistent with chronic mucoid impaction, likely the sequela from prior infection. This is stable since at least 2018, and considered benign. 2. Otherwise, normal appearance of the chest. Reel Fed Printer: THERON Transcribe Date/Time: May 05 2022 9:41P Dictated by : ISABEL FREIRE MD This examination was interpreted and the report reviewed and electronically signed by: ISABEL FREIRE MD on May 05 2022 10:13PM EST [id number] Normal [facility] Blood Pressure Cuff Sizeon 1 06-20-2021 Blood Pressure Cuff Size Adult [facility] Work Phone: Office Visit (Urgent Care)on 04-19-2022 Follow-up visit Diagnoses/Problems Assessed Laceration of left thumb without foreign body without damage to nail, initial encounter (883.0) (O33.551C) Patient Discussion/Summary LACERATION - Laceration repair was done in office with 4 sutures - Numbing should last about 1-2 hours - Leave original bandage on for first 24 hours - Keep wound clean and dry, keep covered to prevent dirt from contaminating wound if active - Do not soak wound in water (no swimming, baths, hot tubs) - Triple antibiotic ointment may be used over laceration - Return to office or PCP in 10-14 days for suture removal If fever, rash, increased pain, swelling. redness, or red streaks in the skin near the wound site occur, seek emergency care Red flags for strict return precaution have been reviewed with the patient. Current diagnosis, any medication changes, and all in-office lab or radiologic results have been reviewed with the patient at the time of the visit. If symptoms do not improve or worsen, patient is to follow up with PCP or report to the emergency room. Patient is alert and oriented x3 and non-toxic appearing. Vital signs are stable. Patient and/or guardian has sufficient decision-making capabilities at this time and agrees with the treatment plan made through shared decision-making. Chief Complaint left thumb laceration History of Present Illness Patient presents with laceration to his left thumb about 2 hoursago. He reports that he was using a plexiglass cutter which slipped and hit his thumb. 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 Patient reports that he last had his tetanus injection updated last year when he had a laceration of other fingers. Patient denies numbness/tingling distal to injury, difficulty moving finger, fever/chills, night sweats, abdominal pain, nausea/vomiting/diarr hea, muscle aches, chest pain, shortness of breath, neck pain, headache, dizziness, and any rashes at this time. Review of Systems Constitutional: as noted in HPI. Musculoskeletal: as noted in HPI. Integumentary: as noted in HPI. Neurological: as noted in HPI. Hematologic/Lymphatic : as noted in HPI. All other systems have been reviewed and are negative for complaint. Vitals Vital Signs Recorded: 19Apr2022 04:47PM Cewjbhgeusl54.2 F, Temporal Heart Rate81 Zxgqtees327, LUE, Standing Wvzkxmfvj02, LUE, Standing Blood Pressure Cuff SizeAdult Vnlaqc537 lb O2 Gqsdggnmvi75, RA Vital signs were reviewed and are stable. Physical Exam Vitals signs and nursing notes reviewed All past medical, surgical, and social history reviewed All medications and allergies reviewed GENERAL APPEARANCE: well developed, well nourished, no acute distress PSYCH: patient is awake, alert, and oriented x3 HEAD: normocephalic and atraumatic. EYES: pupils are equal, round, and reactive to light and accommodation. EOM's intact. no conjunctival injection noted. EARS: no external deformity, mass, or erythema NOSE: no notable nasal drainage, no external deformity MOUTH: airway patent. trachea midline. CARDIO: no peripheral edema or cyanosis noted PULM: breathing nonlabored, good air exchange with no accessory muscle use NEURO: CN II-XII grossly intact. no focal sensory or motor deficits are noted, no apparent gait abnormality MUSC: Moves all extremities well, no joint swelling SKIN: warm, dry, well perfused. no rashes are noted. No petechia or purpura. 3.5 cm laceration of left thumb with skin flap, mild tissue loss, active bleeding noted. Procedure Procedure: wound repair. The wound was located on the and was 3.5 cm in length left 1st finger(s) and across dorsal side of proximal phalanx and 1st MCP. The wound was complex. The wound involved the subcutaneous tissue, underlying fascia, was curved, was irregular and had a skin flap. The wound was contaminated, but did not have a foreign body. the neurovascular exam was normal, but there was no sensory deficit and there was no motor deficit. there was no tendon injury. The site was prepped with Betadine, cleansed and irrigated extensively. Anesthesia: Local anesthetic was administered, A digital block was performed. Lidocaine 4 ml, 2%, without epinephrine was injected. Closure: The cutaneous layer was closed with 4 sutures of 4-0 Prolene . simple interrupted sutures were used for the skin closure. Dressing: a sterile dressing was placed and an antibiotic ointment was applied. Patient Status:. the patient tolerated the procedure well. There were no complications Signatures Electronically signed by : uAdrey Sheth PA-C; May 03 2022 11:53PM EST (Author) [facility] [employer] CNPShannan 03-30-2022 CNPN Telephone (PODCCP) DORIAN MONTOYA (7* 1990 M Date Time Provider Department 03/30/22 PAUL WOODRUFF PODCCP During your visit today, we recorded the following information about you: Paul Woodruff RN 03/30/2022 1:29 PM Signed PATIENT INFORMATION Record ID: [id number] Patient Name: Dorian Patino [facility] Hospital: [facility] [place]: [facility] Attending: Deysi Coombs Center: Hospital Medicine [facility] INSTRUCTIONS All Clear SN to remind patient of next upcoming appointment date, time, location All Clear All Clear All Clear SURVEY INFORMATION Medical/Nurse Jewelsmith: Paul Woodruff 1. Your discharge instructions are important in guiding you through the recovery process. Is there anything I could help you clarify on your discharge instructions? (Standard Question) No 2. Do you have your follow up appointment related to your hospital stay scheduled within the next 30 days? (Standard Question) Yes 3. Do you have all the necessary equipment and supplies at home? (Standard Question) Yes 4. Many patients have concerns about their medications once they are home. Do you have any questions about getting or taking your medications? (Standard Question) No 5. Do you have any new or different symptoms? (Standard Question) No Allergies As of Date: 03/30/2022 Noted Allergy Reaction APPLES 03/11/2019 4 - Hives 12 - Shortness of Breath RED DYE 03/11/2019 14 - Other: See Comments Comments: major nosebleeds Date Reviewed: 03/29/2022 Reviewed by: Kirstie Ervin LPN - Fully Assessed Reason for Visit: Follow Up Phone Call [[phone]] Cmt: All Clear Prescriptions as of 03/30/2022 - acetaminophen (TYLENOL) 325 mg tablet Take 2 tablets by mouth every 4 hours as needed for pain. - ondansetron (ZOFRAN) 4 mg tablet Take 1 tablet by mouth every 6 hours as needed. Problem List As Of Date 03/30/2022 Noted Resolved Flexor tendon laceration of finger with open wo*04/19/2021 Lower abdominal pain [R10.30] 06/21/2021 Pain in testicle [N50.819] 06/21/2021 ZULLY (acute kidney injury) (HCC) [N17.9] 03/21/2022 03/23/2022 Incidental lung nodule [R91.1] 03/23/2022 Nicotine use disorder, F17.2 [F17.200] 03/24/2022 Encounter Status:Closed by PAUL WOODRUFF on 03/30/22 [facility] CNOVon 03-29-2022 CNOV Office Visit (AGINTMAC) DORIAN MONTOYA (0* 1990 M Date Time Provider Department 03/29/22 9:20 AM JARED GALVEZ During your visit today, we recorded the following information about you: Temperature Pulse Respiration Blood pressure 97.5 degrees 92/minute 18/minute 131/77 Weight Height 67.1 kg 1.854 m Jared Galvez MD 03/29/2022 9:49 AM Signed [facility] Jared Galvez MD ASSESSMENT/PLAN: 1. Incidental lung nodule - ICD9: 793.11, ICD10: R91.1 (primary diagnosis) -2.8 cm nodule on CXR -Denies respiratory symptoms -F/u CT chest 2. ZULLY (acute kidney injury) (HCC) - ICD9: 584.9, ICD10: N17.9 -Encourage increased PO hydration Jared Galvez MD SUBJECTIVE: Dorian Montoya is a 31 year old year old male here today for hospital f/u. 31 yo M here for hospital follow up. He was hospitalized 1 week ago for ZULLY 2/2 dehydration. His kidney function recovered within 2 days with IVF. He says he has been trying to increase his PO hydration since then. He denies back/flank pain, hematuria, dysuria or other symptoms. He was incidentally found to have a lung nodule of 2.8 cm in [place] at the time. Denies fever, chills, SOB, cough but says he lost around 15 lbs which may be due to increased activity. He has an ordered CT chest to be active in 4 weeks starting 04/22/2022. 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 PAIN EVALUATION No data found in the last 1 encounters. ALLERGIES Allergen Reactions Apples Hives, Shortness of Breath Red Dye Other: See Comments major nosebleeds Current Outpatient Medications Medication Sig acetaminophen (TYLENOL) 325 mg tablet Take 2 tablets by mouth every 4 hours as needed for pain. ondansetron (ZOFRAN) 4 mg tablet Take 1 tablet by mouth every 6 hours as needed. No current facility-administered medications for this visit. I have confirmed and edited as necessary the chief complaint, medications, past medical, family and social histories. Review of Systems All other systems reviewed and are negative. OBJECTIVE: BP 131/77 Pulse 92 Temp 36.4 ?C (97.5 ?F) Resp 18 Ht 185.4 cm (6' 1) Wt 67.1 kg (148 lb) SpO2 100% BMI 19.53 kg/m? Body mass index is 19.53 kg/m?. Physical Exam Constitutional: General: He is not in acute distress. Eyes: Conjunctiva/sclera: Conjunctivae normal. Cardiovascular: Rate and Rhythm: Normal rate and regular rhythm. Heart sounds: Normal heart sounds. No murmur heard. Pulmonary: Effort: No respiratory distress. Breath sounds: Normal breath sounds. No wheezing. Abdominal: General: There is no distension. Musculoskeletal: Right lower leg: No edema. Left lower leg: No edema. Neurological: General: No focal deficit present. Mental Status: He is oriented to person, place, and time. Psychiatric: Mood and Affect: Mood normal. Depression Screening: Patient Refused / Declined Initial Questionnaire: No Little interest or pleasure in doing things: 0 - Not at all Feeling down, depressed or hopeless: 0 - Not at all Score (Questions 1 AND 2): 0 Total Score (All Questions): 0 Screening tool completed by patient. Based on the PHQ-9 score and patient interview, patient is not at risk for depression. Screening tool discussed with patient, and I recommended no further intervention at this time. Results for orders placed or performed during the hospital encounter of 03/21/22 XR CHEST 1V FRONTAL Result Value Ref Range Radiology Result ACTIONABLE (Actionable) COMP METABOLIC PANEL Result Value Ref Range Protein, Total 8.4 (H) 6.3 - 8.0 g/dL Albumin 5.1 (H) 3.9 - 4.9 g/dL Calcium, Total 9.7 8.5 - 10.2 mg/dL Bilirubin, Total 0.5 0.2 - 1.3 mg/dL Alkaline Phosphatase 92 38 - 113 U/L AST 53 (H) 14 - 40 U/L ALT 42 10 - 54 U/L Glucose 117 (H) 74 - 99 mg/dL BUN 26 (H) 9 - 24 mg/dL Creatinine 3.67 (H) 0.73 - 1.22 mg/dL Sodium 134 (L) 136 - 144 mmol/L Potassium 3.4 (L) 3.7 - 5.1 mmol/L Chloride 93 (L) 97 - 105 mmol/L CO2 20 (L) 22 - 30 mmol/L Anion Gap 21 (H) 9 - 18 mmol/L Estimated Glomerular Filtration Rate 22 (L) >=60 mL/min/1.73m? CBC + DIFF Result Value Ref Range WBC 12.51 (H) 3.70 - 11.00 k/uL RBC 5.73 4.20 - 6.00 m/uL Hemoglobin 15.6 13. (more content not included)... Normal [facility] ALLIED HEALTHon 03-23-2022 ALLIED HEALTH HNO ID: [id number] Author: RT Kirsten(R) Service: Radiology Author Type: Technologist Type: Allied Health Filed: 03/23/2022 9:14 AM Note Text: Radiology Service Progress Note PATIENT NAME: Dorian Montoya DATE OF SERVICE: March 23, 2022 TIME: 9:14 AM PATIENT IDENTITY VERIFICATION COMPLETED USING TWO (2) IDENTIFIERS: Name and Date of confirmed by patient verbally and Name and Date of confirmed by identification band. FALL SCREENING: Has the patient had 2 falls in the last year or 1 fall with injury or currently using an Ambulatory Assistive Device (Walker, Cane, Wheelchair, Crutches, etc.)? Inpatient: Screened on floor PATIENT GENDER DATA: Male PATIENT RELEVANT IMPLANT DATA REVIEWED: Not Applicable RADIOLOGY DEPARTMENT: General X-ray: Exam(s) Completed: Chest X-Ray PERIPHERAL IV DATA: Not applicable SIGNED BY: RT Kirsten(R) March 23, 2022 9:14 AM Normal [facility] Bacteria Bld Culton 03-23-20 22 Bacteria identified Cx Nom (Bld) CULTURE, BLOOD: No growth 5 days Normal [facility] Comment on above: Performed By: #### 6 00-7 #### [facility] CLIA [id number] [address] Performed By: #### 6 00-7 ####[facility] [id number] [address] CBC panel Auto (Bld)on 03-23 Erythrocyte distribution width (RBC) [Ratio] 12.5 % Normal 11.5-15.0 [facility] Comment on above: Order Comment: Speci men Type: BLOOD SPECIMEN Ordering Facility: [facility] Address: [address] [place] [address] [place], [place] [address] Performed By: #### 2 4323-8, 3040-3, #### [facility] CLIA [id number] [address] Hematocrit (Bld) [Volume fraction] 33.2 % Low 39.0-51.0 [facility] Comment on above: Order Comment: Speci men Type: BLOOD SPECIMEN Ordering Facility: [facility] Address: [address] [place] [address] Performed By: #### 2 4323-8, 0-3, #### [facility] CLIA [id number] [address] OF [facility] Hemoglobin (Bld) [Mass/Vol] 11.4 g/dL Low 13.0-17.0 [facility] Comment on above: Order Comment: Speci men Type: BLOOD SPECIMEN Ordering Facility: [facility] Address: [address] [place] [address] Performed By: #### 2 4323-8, 3039-3, #### [facility] CLIA [id number] [address] OF [facility] MCH (RBC) [Entitic mass] 28.1 pg Normal 26.0-34.0 [facility] Comment on above: Order Comment: Speci men Type: BLOOD SPECIMEN Ordering Facility: [facility] Address: [address] [place] [address] Performed By: #### 2 4323-8, 3039-3, #### [facility] CLIA [id number] [address] OF [facility] MCHC (RBC) [Mass/Vol] 34.3 g/dL Normal 30.5-36.0 [facility] Comment on above: Order Comment: Speci men Type: BLOOD SPECIMEN Ordering Facility: [facility] Address: [address] [place] [address] Performed By: #### 2 4323-8, 3040-3, #### [facility] CLIA [id number] [address] OF [place] MCV (RBC) [Entitic vol] 81.8 fL Normal 80.0-100.0 [facility] Comment on above: Order Comment: Speci men Type: BLOOD SPECIMEN Ordering Facility: [facility] Address: [address] [place] [address] Performed By: #### 2 4323-8, 3039-3, #### [facility] CLIA [id number] [address] OF [facility] Nucleated RBC (Bld) [#/Vol] 10*3/uL Normal <0.01 [facility] Comment on above: Order Comment: Speci men Type: BLOOD SPECIMEN Ordering Facility: [facility] Address: [address] [place] [address] Performed By: #### 2 4323-8, 3039-3, #### [facility] CLIA [id number] [address] Platelet mean volume (Bld) [Entitic vol] 10.5 fL Normal 9.0-12.7 [facility] Comment on above: Order Comment: Speci men Type: BLOOD SPECIMEN Ordering Facility: [facility] Address: [address] [place] [address] Performed By: #### 2 4323-8, 3039-3, #### [facility] CLIA [id number] [address] OF [place] Platelets (Bld) [#/Vol] 133 10*3/uL Low 150-400 [facility] Comment on above: Order Comment: Speci men Type: BLOOD SPECIMEN Ordering Facility: [facility] Address: [address] [place] [address] Result Comment: Plat elet count confirmed by manual review of peripheral blood smear Performed By: #### 2 4323-8, 0-3, #### [facility] CLIA [id number] [address] [place] RBC (Bld) [#/Vol] 4.06 10*6/uL Low 4.20-6.00 [facility] Comment on above: Order Comment: Speci men Type: BLOOD SPECIMEN Ordering Facility: [facility] Address: [address] [place], [place] [address] Performed By: #### 2 4323-8, 3040-3, 69126-5 #### [facility] CLIA [id number] [address] WBC (Bld) [#/Vol] 3.54 10*3/uL Low 3.70-11.00 [facility] Comment on above: Order Comment: Speci men Type: BLOOD SPECIMEN Ordering Facility: [facility] Address: [address] [place] [address] Performed By: #### 2 4323-8, 3040-3, #### [facility] CLIA [id number] [address] OF [facility] CNCOon 03-23-2022 CNCO Letter Text Normal [facility] CNDSon 03-23-2022 CNDS HNO ID: [id number] Author: Ralf Tellez DO Service: Hospital Medicine Author Type: Resident Type: Discharge Summary Filed: 03/23/2022 4:47 PM Note Text: Attestation signed by Deysi Coombs MD at 03/24/2022 8:44 PM Discussed with team, chart reviewed. See also 03/23 progress note. Sent text message miquel, 03/24, to pt to let him know that Viral Resp panel negative, that blood cultures remain negative as well. Recommended follow up with new pcp (needs follow up at [facility]), check HIV status for completeness (was not checked this admission), collette if he has risk factors for same. Pt thanked me for following up. Disposition - as below and above, pt medically stable for discharge, needs follow up as above. Attending Note I personally saw and examined the patient on 03/23. I reviewed the resident's note. I agree with the resident's assessment and plan unless otherwise noted. Signature: Deysi Coombs MD Date: 03/24/2022 Time: 8:44 PM DISCHARGE SUMMARY PATIENT NAME: Dorian Montoya ADMISSION DATE: 03/21/2022 DISCHARGE DATE: 03/23/2022 Attending Physician: Deysi Coombs MD Code Status: Full Code Highest Readmission Risk Score: 14 The 30 day readmissions risk score is derived from an internally validated risk model which evaluates patient level characteristics, utilization history, medication orders and lab results up until the day of discharge. Patients with a score of 40 or above are considered highest risk for readmission. Specific patient level drivers will be listed at the bottom of the summary. The 30 day readmissions risk score is derived from an internally validated risk model which evaluates patient level characteristics, utilization history, medication orders and lab results up until the day of discharge. Patients with a score of 40 or above are considered highest risk for readmission. Specific patient level drivers will be listed at the bottom of the summary. PRINCIPAL PROBLEM: ZULLY (acute kidney injury) (HCC) HPI: Mr. Dorian Montoya is a 31-year-old male with past medical history of GERD, asthma, depression, bipolar disorder presented to [place] with a chief complaint of nausea, vomiting and myalgias for 1 day. He reports that his symptoms initially began the day prior to arrival when he woke up with an ache in the back of his neck that seemed to radiate to his head. Then as he got up and went about his day, he had episodes of transient blurred vision. All day, he felt pretty nauseous and did not take in anything PO. This all culminated the morning of presentation when he developed fevers, chills, and emesis. He endorsed continued lack of PO intake, and also stated that he had not urinated in over a day and felt like his kidneys were hurting. He denied any known sick contacts. Upon arrival, the patient was afebrile, tachycardic to 110, BP 107/76, and saturating well on room air. Initial lab work revealed a creatinine of 3.67 [last value I can see is 1.01 from nine years prior], BUN 26, sodium 134, potassium 3.4, chloride 93, bicarb 20, mag 2.1, AG 21, AST 53, lipase WNL at 16, and WBC 12.51 [with neutrophilic predominance]. UA returned with 3+ protein, RBCs, WBCs, few bacteria, and hyaline casts. The patient did also endorse some mild neck discomfort to the ER staff; this in conjunction with his intermittent blurred vision and headache prompted them to obtain CT head and CTA neck. However, they ended up just obtaining CT brain without IV contrast after seeing the patient's creatinine. CT brain demonstrated a small amount of fluid within the left mastoid air cells; upon palpation of the mastoid by the ER resident, the patient did not have any pain. The patient received 1L NS bolus followed by IV fluids at 125cc/hr, and Zofran for symptom control. House Medicine Service was then called for admission to the [facility]. Operations During Hospitalization: None Procedures During Hospitalization: Head CT Hospital Course: Dorian Montoya is a 31 year old male who initially presented with nausea, vomiting and fatigue and found to have severe ZULLY thought be secondary to decreased oral intake. He was treated with IV fluid resuscitation and monitored clinically. Over the course of admission he subjectively improved and was tolerating oral intake and creatinine returned to baseline. His course was complicated by fever for which respiratory panel, blood cultures and chest x-ray were ordered. Respiratory panel and CXR were negative for acute process, however x-ray showed incidental nodular density, which will need chest CT in ~4 weeks for further evaluation. At the time of discharge, blood cultures were pending. Per Dr. Lui (more content not included)... Normal [facility] Comprehensive metabolic 2000 panelon 03-23-2022 Albumin [Mass/Vol] 3.5 g/dL Low 3.9-4.9 [facility] Comment on above: Order Comment: Speci men Type: BLOOD SPECIMEN Ordering Facility: [facility] Address: [address] [place] [address] Performed By: #### 2 4323-8 #### [facility] CLIA [id number] [address] ALP [Catalytic activity/Vol] 67 U/L Normal 38-113 [facility] Comment on above: Order Comment: Speci men Type: BLOOD SPECIMEN Ordering Facility: [facility] Address: [address] [place] [address] Performed By: #### 2 4323-8 #### [facility] CLIA [id number] [address] OF [facility] ALT With P-5'-P [Catalytic activity/Vol] 41 U/L Normal 10-54 [facility] Comment on above: Order Comment: Speci men Type: BLOOD SPECIMEN Ordering Facility: [facility] Address: [address] [place] [address] Performed By: #### 2 4323-8 #### [facility] CLIA [id number] [address] Anion gap [Moles/Vol] 8 mmol/L Low 9-18 [facility] Comment on above: Order Comment: Speci men Type: BLOOD SPECIMEN Ordering Facility: [facility] Address: [address] [place] [address] Performed By: #### 2 4323-8 #### [facility] CLIA [id number] [address] OF [place] AST With P-5'-P [Catalytic activity/Vol] 50 U/L High 14-40 [facility] Comment on above: Order Comment: Speci men Type: BLOOD SPECIMEN Ordering Facility: [facility] Address: [address] [place] [address] Performed By: #### 2 4323-8 #### [facility] CLIA [id number] [address] Bilirubin [Mass/Vol] 0.3 mg/dL Normal 0.2-1.3 [facility] Comment on above: Order Comment: Speci men Type: BLOOD SPECIMEN Ordering Facility: [facility] Address: [address] [place] [address] Performed By: #### 2 4323-8 #### [facility] CLIA [id number] [address] [place] Calcium [Mass/Vol] 8.3 mg/dL Low 8.5-10.2 [facility] Comment on above: Order Comment: Speci men Type: BLOOD SPECIMEN Ordering Facility: [facility] Address: [address] [place] [address] Performed By: #### 2 4323-8 #### [facility] CLIA [id number] [address] [place] Chloride [Moles/Vol] 109 mmol/L High 97-105 [facility] Comment on above: Order Comment: Speci men Type: BLOOD SPECIMEN Ordering Facility: [facility] Address: [address] [place] [address] Performed By: #### 2 4323-8 #### [facility] CLIA [id number] [address] [place] CO2 [Moles/Vol] 21 mmol/L Low 22-30 [facility] Comment on above: Order Comment: Speci men Type: BLOOD SPECIMEN Ordering Facility: [facility] Address: [address] [address] Performed By: #### 2 4323-8 #### [facility] CLIA [id number] [address] [place] Creatinine [Mass/Vol] 1.08 mg/dL Normal 0.73-1.22 [facility] Comment on above: Order Comment: Speci men Type: BLOOD SPECIMEN Ordering Facility: [facility] Address: [address] [place] [address] Performed By: #### 2 4323-8 #### [facility] CLIA [id number] 1 [place] [address] [place] ESTIMATED GLOMERULAR FILTRATION RATE 94 mL/min/1.73m??? Normal >=60 [facility] Comment on above: Order Comment: Ryan fonseca Type: BLOOD SPECIMEN Ordering Facility: [facility] Address: [address] [place] [address] Result Comment: Radha mated Glomerular Filtration Rate (eGFR) is calculated using the 2020 CKD-EPI creatinine equation. This equation utilizes serum creatinine, sex, and age as parameters. The creatinine assay has traceable calibration to isotope dilution-mass spectrometry. Refer to KDIGO guidelines for clinical interpretation. In patients with unstable renal function, e.g. those with acute kidney injury, the eGFR may not accurately reflect actual GFR. Performed By: #### 2 4323-8 #### [facility] CLIA [id number] 1 [place] [address] [place] Glucose [Mass/Vol] 93 mg/dL Normal 74-99 [facility] Comment on above: Order Comment: Specace fonseca Type: BLOOD SPECIMEN Ordering Facility: [facility] Address: [address] [place] [address] Result Comment: The [place] [employer] (ADA) provides guidance for cutoff values for fasting glucose and random glucose. The ADA defines fasting as no caloric intake for at least 8 hours. Fasting plasma glucose results between 100 to 125 mg/dL indicate increased risk for diabetes (prediabetes). Fasting plasma glucose results greater than or equal to 126 mg/dL meet the criteria for diagnosis of diabetes. In the absence of unequivocal hyperglycemia, results should be confirmed by repeat testing. In a patient with classic symptoms of hyperglycemia or hyperglycemic crisis, random plasma glucose results greater than or equal to 200 mg/dL meet the criteria for diagnosis of diabetes. Reference: Standards of Medical Care in Diabetes 2016, [place] [employer]. Diabetes Care. 2016.39(Suppl 1). Performed By: #### 2 4323-8 #### [facility] CLIA [id number] 1 [place] [address] [place] Potassium [Moles/Vol] 3.7 mmol/L Normal 3.7-5.1 [facility] Comment on above: Order Comment: Speci men Type: BLOOD SPECIMEN Ordering Facility: [facility] Address: [address] [place] [address] Performed By: #### 2 4323-8 #### [facility] CLIA [id number] [address] [place] [facility] Protein [Mass/Vol] 5.7 g/dL Low 6.3-8.0 [facility] Comment on above: Order Comment: Speci men Type: BLOOD SPECIMEN Ordering Facility: [facility] Address: [address] [place] [address] Performed By: #### 2 4323-8 #### [facility] CLIA [id number] [address] [place] Sodium [Moles/Vol] 138 mmol/L Normal 136-144 [facility] Comment on above: Order Comment: Speci men Type: BLOOD SPECIMEN Ordering Facility: [facility] Address: [address] [place] [address] Performed By: #### 2 4323-8 #### [facility] CLIA [id number] [address] [place] Urea nitrogen [Mass/Vol] 11 mg/dL Normal 9-24 [facility] Comment on above: Order Comment: Speci men Type: BLOOD SPECIMEN Ordering Facility: [facility] Address: [address] [place] [address] Performed By: #### 2 4323-8 #### [facility] CLIA [id number] [address] [place] NURSING PROGon 03-23-2022 NURSING PROG HNO ID: [id number] Author: Erendira Ledezma RN Service: ? Author Type: Registered Nurse Type: Nursing Progress Note Filed: 03/23/2022 4:32 PM Note Text: Pt being discharged home, discharge instructions given and reviewed with pt, has no questions, stable for discharge, pt ambulated off unit independently Normal [facility] Resp path 12b Pnl Spec DEA+p robeon 03-23-2022 Respiratory pathogens DNA and RNA 12b panel DEA+probe (Unsp spec) INFLUENZA A VIRUS: Negative INFLUENZA B VIRUS: Negative PARAINFLUENZA VIRUS 1: Negative PARAINFLUENZA VIRUS 2: Negative PARAINFLUENZA VIRUS 3: Negative HUMAN METAPNEUMOVIRUS: Negative PARAINFLUENZA VIRUS 4: Negative CORONAVIRUS 229E: Negative CORONAVIRUS NL63: Negative CORONAVIRUS OC43: Negative CORONAVIRUS HKU1: Negative CHLAMYDOPHILA PNEUMONIAE: Negative MYCOPLASMA PNEUMONIAE: Negative RHINOVIRUS/ENTEROVIRU S: Negative ADENOVIRUS: Negative BORDETELLA PERTUSSIS BY REAL-TIME PCR: Negative BORDETELLA PARAPERTUSSIS BY REAL-TIME PCR: Negative RESPIRATORY SYNCYTIAL VIRUS: Negative COVID 19 RESULT: SARS-CoV-2 (Agent of COVID-19) Not Detected by RT-PCR or equivalent method. Normal [facility] Comment on above: Performed By: #### 6 0566-7 ####[facility] [id number] [address] OF [facility] XR CHEST 1V FRONTALon 2021 XR CHEST 1V FRONTAL * * *Final Report* * * DATE OF EXAM: Mar 23 2022 9:14AM AKX 5290 - XR CHEST 1V FRONTAL / PROCEDURE REASON: Sepsis * * * * Physician Interpretation * * * * EXAMINATION: CHEST RADIOGRAPH (SINGLE VIEW AP OR PA) CLINICAL HISTORY: Sepsis MQ: XC1_5 Comparison: 04/06/2019 RESULT: Lines, tubes, and devices: None. Lungs and pleura: Again noted is a lobulated appearing nodule at the left upper lobe measuring about 2.8 cm. While this is relatively unchanged, it is nonspecific. The lungs are otherwise clear of active infiltrates. Cardiomediastinal silhouette: Normal cardiomediastinal silhouette. Other: . IMPRESSION: Stable left upper lobe nodular density. While stability is reassuring, this remains nonspecific and chest CT is suggested for more detailed assessment. Incidental Finding: Follow-up Acuity: Incidental Finding: Suspicious appearing incidentally detected nodular lung density on CXR. Routing Code: RI_1 Recommendation: CT Chest WO IVCON Time Frame: in 4 weeks COMMUNICATION:? Results will be communicated with the ordering provider via [employer] staff message by [employer] within 2 business days of report finalization. Reel Fed Printer: PSCB Transcribe Date/Time: Mar 23 2022 11:23A Dictated by : MALI LONDONO MD This examination was interpreted and the report reviewed and electronically signed by: MALI LONDONO MD on Mar 23 2022 11:24AM EST [id number] N ACTIONABLE Invalid Interpretation Code [facility] CBC panel Auto (Bld)on 03-22 Erythrocyte distribution width (RBC) [Ratio] 12.3 % Normal 11.5-15.0 [facility] Comment on above: Order Comment: Speci men Type: BLOOD SPECIMEN Ordering Facility: [facility] Address: [address] [address] Performed By: #### 2 4323-8, 3, #### [facility] CLIA [id number] [address] [place] Hematocrit (Bld) [Volume fraction] 36.7 % Low 39.0-51.0 [facility] Comment on above: Order Comment: Speci men Type: BLOOD SPECIMEN Ordering Facility: [facility] Address: [address] [address] Performed By: #### 2 4323-8, 3, #### [facility] CLIA [id number] [address] [place] Hemoglobin (Bld) [Mass/Vol] 12.4 g/dL Low 13.0-17.0 [facility] Comment on above: Order Comment: Speci men Type: BLOOD SPECIMEN Ordering Facility: [facility] Address: [address] [address] Performed By: #### 2 4323-8, 3039-3, #### [facility] CLIA [id number] [address] [place] MCH (RBC) [Entitic mass] 27.8 pg Normal 26.0-34.0 [facility] Comment on above: Order Comment: Speci men Type: BLOOD SPECIMEN Ordering Facility: [facility] Address: [address] [address] Performed By: #### 2 4323-8, 3040-3, #### [facility] CLIA [id number] [address] MCHC (RBC) [Mass/Vol] 33.8 g/dL Normal 30.5-36.0 [facility] Comment on above: Order Comment: Speci men Type: BLOOD SPECIMEN Ordering Facility: [facility] Address: [address] [place] [address] Performed By: #### 2 4323-8, 0-3, #### [facility] CLIA [id number] [address] MCV (RBC) [Entitic vol] 82.3 fL Normal 80.0-100.0 [facility] Comment on above: Order Comment: Speci men Type: BLOOD SPECIMEN Ordering Facility: [facility] Address: [address] [place] [address] Performed By: #### 2 4323-8, 3039-3, #### [facility] CLIA [id number] [address] Nucleated RBC (Bld) [#/Vol] 10*3/uL Normal <0.01 [facility] Comment on above: Order Comment: Speci men Type: BLOOD SPECIMEN Ordering Facility: [facility] Address: [address] [place], [place] [address] Performed By: #### 2 4323-8, 3039-3, #### [facility] CLIA [id number] [address] Platelet mean volume (Bld) [Entitic vol] 10.4 fL Normal 9.0-12.7 [facility] Comment on above: Order Comment: Speci men Type: BLOOD SPECIMEN Ordering Facility: [facility] Address: [address] [place] [address] Performed By: #### 2 4323-8, 0-3, #### [facility] CLIA [id number] [address] [place] Platelets (Bld) [#/Vol] 171 10*3/uL Normal 150-400 [facility] Comment on above: Order Comment: Speci men Type: BLOOD SPECIMEN Ordering Facility: [facility] Address: [address] [place] [address] Performed By: #### 2 4323-8, 3040-3, #### [facility] CLIA [id number] [address] [place] RBC (Bld) [#/Vol] 4.46 10*6/uL Normal 4.20-6.00 [facility] Comment on above: Order Comment: Speci men Type: BLOOD SPECIMEN Ordering Facility: [facility] Address: [address] [place] [address] Performed By: #### 2 4323-8, 3039-3, #### [facility] CLIA [id number] [address] OF [facility] WBC (Bld) [#/Vol] 4.64 10*3/uL Normal 3.70-11.00 [facility] Comment on above: Order Comment: Speci men Type: BLOOD SPECIMEN Ordering Facility: [facility] Address: [address] [place] [address] Performed By: #### 2 4323-8, 0-3, #### [facility] CLIA [id number] [address] [place] CK SerPl-cCncon 03-22-2022 CK [Catalytic activity/Vol] 112 U/L Normal 51-298 [facility] Comment on above: Order Comment: Speci men Type: BLOOD SPECIMEN Ordering Facility: [facility] Address: [address] [place] [address] Performed By: #### 2 4323-8, 3040-3, #### [facility] CLIA [id number] [address] Comprehensive metabolic 2000 panelon 03-22-2022 Albumin [Mass/Vol] 4.0 g/dL Normal 3.9-4.9 [facility] Comment on above: Order Comment: Speci men Type: BLOOD SPECIMEN Ordering Facility: [facility] Address: [address] [address] Performed By: #### 2 4323-8 #### [facility] CLIA [id number] [address] ALP [Catalytic activity/Vol] 72 U/L Normal 38-113 [facility] Comment on above: Order Comment: Speci men Type: BLOOD SPECIMEN Ordering Facility: [facility] Address: [address] [place] [address] Performed By: #### 2 4323-8 #### [facility] CLIA [id number] [address] ALT With P-5'-P [Catalytic activity/Vol] 37 U/L Normal 10-54 [facility] Comment on above: Order Comment: Speci men Type: BLOOD SPECIMEN Ordering Facility: [facility] Address: [address] [address] Performed By: #### 2 4323-8 #### [facility] CLIA [id number] [address] Anion gap [Moles/Vol] 15 mmol/L Normal 9-18 [facility] Comment on above: Order Comment: Speci men Type: BLOOD SPECIMEN Ordering Facility: [facility] Address: [address] [address] Performed By: #### 2 4323-8 #### [facility] CLIA [id number] [address] AST With P-5'-P [Catalytic activity/Vol] 46 U/L High 14-40 [facility] Comment on above: Order Comment: Speci men Type: BLOOD SPECIMEN Ordering Facility: [facility] Address: [address] [address] Performed By: #### 2 4323-8 #### [facility] CLIA [id number] [address] [place] Bilirubin [Mass/Vol] 0.4 mg/dL Normal 0.2-1.3 [facility] Comment on above: Order Comment: Speci men Type: BLOOD SPECIMEN Ordering Facility: [facility] Address: [address] [place] [address] Performed By: #### 2 4323-8 #### [facility] CLIA [id number] [address] [place] Calcium [Mass/Vol] 8.5 mg/dL Normal 8.5-10.2 [facility] Comment on above: Order Comment: Speci men Type: BLOOD SPECIMEN Ordering Facility: [facility] Address: [address] [place] [address] Performed By: #### 2 4323-8 #### [facility] CLIA [id number] [address] STATES OF [facility] Chloride [Moles/Vol] 100 mmol/L Normal 97-105 [facility] Comment on above: Order Comment: Speci men Type: BLOOD SPECIMEN Ordering Facility: [facility] Address: [address] [place] [address] Performed By: #### 2 4323-8 #### [facility] CLIA [id number] [address] OF [facility] CO2 [Moles/Vol] 21 mmol/L Low 22-30 [facility] Comment on above: Order Comment: Speci men Type: BLOOD SPECIMEN Ordering Facility: [facility] Address: [address] [place] [address] Performed By: #### 2 4323-8 #### [facility] CLIA [id number] [address] [place] Creatinine [Mass/Vol] 2.02 mg/dL High 0.73-1.22 [facility] Comment on above: Order Comment: Speci men Type: BLOOD SPECIMEN Ordering Facility: [facility] Address: [address] [address] Performed By: #### 2 4323-8 #### [facility] CLIA [id number] 1 [place] [address] [place] ESTIMATED GLOMERULAR FILTRATION RATE 44 mL/min/1.73m??? Low >=60 [facility] Comment on above: Order Comment: Specace fonseca Type: BLOOD SPECIMEN Ordering Facility: [facility] Address: [address] [address] Result Comment: Radha mated Glomerular Filtration Rate (eGFR) is calculated using the 2020 CKD-EPI creatinine equation. This equation utilizes serum creatinine, sex, and age as parameters. The creatinine assay has traceable calibration to isotope dilution-mass spectrometry. Refer to KDIGO guidelines for clinical interpretation. In patients with unstable renal function, e.g. those with acute kidney injury, the eGFR may not accurately reflect actual GFR. Performed By: #### 2 4323-8 #### [facility] CLIA [id number] [address] [place] [address] [place] Glucose [Mass/Vol] 105 mg/dL High 74-99 [facility] Comment on above: Order Comment: Ryan fonseca Type: BLOOD SPECIMEN Ordering Facility: [facility] Address: [address] [address] Result Comment: The [place] [employer] (ADA) provides guidance for cutoff values for fasting glucose and random glucose. The ADA defines fasting as no caloric intake for at least 8 hours. Fasting plasma glucose results between 100 to 125 mg/dL indicate increased risk for diabetes (prediabetes). Fasting plasma glucose results greater than or equal to 126 mg/dL meet the criteria for diagnosis of diabetes. In the absence of unequivocal hyperglycemia, results should be confirmed by repeat testing. In a patient with classic symptoms of hyperglycemia or hyperglycemic crisis, random plasma glucose results greater than or equal to 200 mg/dL meet the criteria for diagnosis of diabetes. Reference: Standards of Medical Care in Diabetes 2016, [place] [employer]. Diabetes Care. 2016.39(Suppl 1). Performed By: #### 2 4323-8 #### [facility] CLIA [id number] 1 [place] [address] [place] Potassium [Moles/Vol] 3.7 mmol/L Normal 3.7-5.1 [facility] Comment on above: Order Comment: Speci men Type: BLOOD SPECIMEN Ordering Facility: [facility] Address: [address] [place] [address] Performed By: #### 2 4323-8 #### [facility] CLIA [id number] [address] [place] Protein [Mass/Vol] 6.1 g/dL Low 6.3-8.0 [facility] Comment on above: Order Comment: Speci men Type: BLOOD SPECIMEN Ordering Facility: [facility] Address: [address] [place] [address] Performed By: #### 2 4323-8 #### [facility] CLIA [id number] [address] [place] Sodium [Moles/Vol] 136 mmol/L Normal 136-144 [facility] Comment on above: Order Comment: Speci men Type: BLOOD SPECIMEN Ordering Facility: [facility] Address: [address] [place] [address] Performed By: #### 2 4323-8 #### [facility] CLIA [id number] 1 [place] [address] [place] Urea nitrogen [Mass/Vol] 21 mg/dL Normal 9-24 [facility] Comment on above: Order Comment: Speci men Type: BLOOD SPECIMEN Ordering Facility: [facility] Address: [address] [address] Performed By: #### 2 4323-8 #### [facility] CLIA [id number] 1 [place] [address] [place] Creatinine Unsp time (U) [Ma ss/Vol]on 03-22-2022 Creatinine (U) [Mass/Vol] 136.0 mg/dL Normal 46.8-314.5 [facility] Comment on above: Order Comment: Speci men Type: BLOOD SPECIMEN Ordering Facility: [facility] Address: [address] [place] [address] Performed By: #### 2 4323-8 #### [facility] CLIA [id number] [address] [place] ECG COMPLETEon 03-22-2022 ECG COMPLETE Ventricular Rate : 5 4 BPM Atrial Rate : 54 BPM P-R Interval : 132 ms QRS Duration : 94 ms Q-T Interval : 434 ms QTC Calculation(Bazett) : 411 ms Calculated P [place] : 64 degrees Calculated R [place] : 8 degrees Calculated T [place] : 50 degrees SINUS BRADYCARDIA OTHERWISE NORMAL ECG NO PREVIOUS ECGS AVAILABLE Confirmed by MD JULIAN VINAY ([id number]) on 03/23/2022 6:52:20 PM NAME : DORIAN MONTOYA PID : [id number] : 1990 Gender : Male Race : ORD : [id number] Procedure Date : Mar 22 2022 07:31:43 Edit Date : Mar 23 2022 18:52:21 Diagnosis: SINUS BRADYCARDIA OTHERWISE NORMAL ECG NO PREVIOUS ECGS AVAILABLE Confirmed by MD JULIAN VINAY ([id number]) on 03/23/2022 6:52:20 PM Test Reason : Assess QTc Location : : 2099 2114 Overread By : MD JULIAN VINAY Edited By : MD JULIAN VINAY Referred By : , Acquired by : ELI REGALADO Normal [facility] Osmolality SerPlon Osmolality [Osmolality] 284 mosm/kg Normal 275-300 [facility] Comment on above: Order Comment: Speci men Type: BLOOD SPECIMEN Ordering Facility: [facility] Address: [address] [place] [address] Performed By: #### 2 4323-8, 3040-3, 03139-3 #### [facility] CLIA [id number] [address] [place] Osmolality Uron 03-22-2022 Osmolality (U) [Osmolality] 274 mosm/kg Normal 50-1200 [facility] Comment on above: Order Comment: Speci men Type: BLOOD SPECIMEN Ordering Facility: [facility] Address: [address] [place] [address] Performed By: #### 2 4323-8 #### [facility] CLIA [id number] [address] [place] Sodium ?Tm Ur-sCncon 022 Sodium Unsp time (U) [Moles/Vol] <20 Normal 14-216 [facility] Comment on above: Order Comment: Speci men Type: BLOOD SPECIMEN Ordering Facility: [facility] Address: [address] [place] [address] Performed By: #### 2 4323-8 #### [facility] CLIA [id number] [address] [place] Urinalysis complete panel (U )on 03-22-2022 Bilirubin Ql (U) Negative Normal Negative [facility] Comment on above: Order Comment: Speci men Type: BLOOD SPECIMEN Ordering Facility: [facility] Address: [address] [place] [address] Performed By: #### 2 4323-8, 0-3, #### [facility] CLIA [id number] [address] [place] Clarity (Unsp spec) Clear Normal Clear [facility] Comment on above: Order Comment: Speci men Type: BLOOD SPECIMEN Ordering Facility: [facility] Address: [address] [place] [address] Performed By: #### 2 4323-8, 3039-3, #### [facility] CLIA [id number] [address] Color (U) Light Yellow Normal yellow [facility] Comment on above: Order Comment: Speci men Type: BLOOD SPECIMEN Ordering Facility: [facility] Address: [address] [place] [address] Performed By: #### 2 4323-8, 0-3, #### [facility] CLIA [id number] [address] Epithelial cells LM.HPF (Urine sed) [#/Area] Few Abnormal None Seen [facility] Comment on above: Order Comment: Speci men Type: BLOOD SPECIMEN Ordering Facility: [facility] Address: [address] [address] Performed By: #### 2 4323-8, 3040-3, #### [facility] CLIA [id number] [address] Glucose Test strip (U) [Mass/Vol] Negative Normal Negative [facility] Comment on above: Order Comment: Speci men Type: BLOOD SPECIMEN Ordering Facility: [facility] Address: [address] [place] [address] Performed By: #### 2 4323-8, 0-3, #### [facility] CLIA [id number] [address] Hemoglobin Ql (U) Negative Normal Negative [facility] Comment on above: Order Comment: Speci men Type: BLOOD SPECIMEN Ordering Facility: [facility] Address: [address] [place] [address] Performed By: #### 2 8, 3, #### [facility] CLIA [id number] [address] Hyaline casts (Urine sed) [#/Area] 1-3 /LPF Abnormal 0 /LPF [facility] Comment on above: Order Comment: Speci men Type: BLOOD SPECIMEN Ordering Facility: [facility] Address: [address] [place] [address] Performed By: #### 2 4323-8, 3, #### [facility] CLIA [id number] [address] Ketones Ql (U) Negative Normal Negative [facility] Comment on above: Order Comment: Speci men Type: BLOOD SPECIMEN Ordering Facility: [facility] Address: [address] [place] [address] Performed By: #### 2 4323-8, 3040-3, #### [facility] CLIA [id number] [address] [place] Leukocyte esterase Test strip Ql (U) Negative Normal Negative [facility] Comment on above: Order Comment: Speci men Type: BLOOD SPECIMEN Ordering Facility: [facility] Address: [address] [place] [address] Performed By: #### 2 4323-8, 3039-3, #### [facility] CLIA [id number] [address] Nitrite Ql (U) Negative Normal Negative [facility] Comment on above: Order Comment: Speci men Type: BLOOD SPECIMEN Ordering Facility: [facility] Address: [address] [place] [address] Performed By: #### 2 3-8, 3, #### [facility] CLIA [id number] [address] pH (U) 6.0 [pH] Normal 5.0-8.0 [facility] Comment on above: Order Comment: Speci men Type: BLOOD SPECIMEN Ordering Facility: [facility] Address: [address] [place] [address] Performed By: #### 2 3-8, 3, #### [facility] CLIA [id number] [address] Protein (U) [Mass/Vol] Trace Abnormal Negative [facility] Comment on above: Order Comment: Speci men Type: BLOOD SPECIMEN Ordering Facility: [facility] Address: [address] [place] [address] Performed By: #### 2 3-8, 3, #### [facility] CLIA [id number] [address] RBC LM.HPF (Urine sed) [#/Area] 0-3 /HPF Normal 0-3 /HPF [facility] Comment on above: Order Comment: Speci men Type: BLOOD SPECIMEN Ordering Facility: [facility] Address: [address] [place] [address] Performed By: #### 2 4323-8, 3040-3, #### [facility] CLIA [id number] [address] Specific gravity (U) [Rel density] 1.011 Normal 1.005-1.030 [facility] Comment on above: Order Comment: Speci men Type: BLOOD SPECIMEN Ordering Facility: [facility] Address: [address] [place] [address] Performed By: #### 2 4323-8, 3039-3, #### [facility] CLIA [id number] [address] Urobilinogen Ql (U) Normal Normal Negative [facility] Comment on above: Order Comment: Speci men Type: BLOOD SPECIMEN Ordering Facility: [facility] Address: [address] [place] [address] Performed By: #### 2 4323-8, 3, #### [facility] CLIA [id number] [address] WBC casts LM.LPF (Urine sed) [#/Area] 1-3 /LPF Abnormal 0 /LPF [facility] Comment on above: Order Comment: Speci men Type: BLOOD SPECIMEN Ordering Facility: [facility] Address: [address] [place] [address] Result Comment: This is an addended report. These results have been addended to a previously final verified report. Performed By: #### 2 4323-8, 3039-3, #### [facility] CLIA [id number] [address] WBC LM.HPF (Urine sed) [#/Area] 6-10 /HPF Abnormal 0-5 /HPF [facility] Comment on above: Order Comment: Speci men Type: BLOOD SPECIMEN Ordering Facility: [facility] Address: [address] [place] [address] Performed By: #### 2 4323-8, 3039-07, #### [facility] CLIA [id number] [address] [place] ALLIED HEALTHon 03-21-2022 ALLIED HEALTH HNO ID: [id number] Author: RT Robert(R) Service: Radiology Author Type: Offset Press Operator Type: Allied Health Filed: 03/21/2022 6:42 PM Note Text: Radiology Service Progress Note PATIENT NAME: Dorian Montoya DATE OF SERVICE: March 21, 2022 TIME: 6:41 PM PATIENT IDENTITY VERIFICATION COMPLETED USING TWO (2) IDENTIFIERS: Name and Date of confirmed by patient verbally and Name and Date of confirmed by identification band. FALL SCREENING: Has the patient had 2 falls in the last year or 1 fall with injury or currently using an Ambulatory Assistive Device (Walker, Cane, Wheelchair, Crutches, etc.)? Emergency Room Patient: Screened in ED PATIENT GENDER DATA: Male PATIENT RELEVANT IMPLANT DATA REVIEWED: Not Applicable RADIOLOGY DEPARTMENT: CT; Exam(s) Completed: Brain PERIPHERAL IV DATA: Not applicable SIGNED BY: RT Robert(R) March 21, 2022 6:41 PM Normal [facility] CBC W Auto Differential pane l (Bld)on 03-21-2022 Basophils (Bld) [#/Vol] 0.07 10*3/uL Normal <0.11 [facility] Comment on above: Order Comment: Speci men Type: BLOOD SPECIMEN Ordering Facility: [facility] Address: [address] [place] [address] Performed By: #### 2 4323-8, 3039-07, #### [facility] CLIA [id number] [address] OF [facility] Basophils/100 WBC (Bld) 0.6 % Normal A [facility] Comment on above: Order Comment: Speci men Type: BLOOD SPECIMEN Ordering Facility: [facility] Address: [address] [place] [address] Performed By: #### 2 4323-8, 3039-07, #### [facility] CLIA [id number] [address] Differential cell count method Nom (Bld) Auto Normal [facility] Comment on above: Order Comment: Speci men Type: BLOOD SPECIMEN Ordering Facility: [facility] Address: [address] [place] [address] Performed By: #### 2 4323-8, 3040-3, #### [facility] CLIA [id number] [address] [place] Eosinophils (Bld) [#/Vol] 10*3/uL Normal <0.46 [facility] Comment on above: Order Comment: Speci men Type: BLOOD SPECIMEN Ordering Facility: [facility] Address: [address] [place] [address] Performed By: #### 2 4323-8, 3039-3, #### [facility] CLIA [id number] [address] Eosinophils/100 WBC (Bld) 0.2 % Normal [facility] Comment on above: Order Comment: Speci men Type: BLOOD SPECIMEN Ordering Facility: [facility] Address: [address] [place] [address] Performed By: #### 2 4323-8, 3039-3, #### [facility] CLIA [id number] [address] Erythrocyte distribution width (RBC) [Ratio] 12.4 % Normal 11.5-15.0 [facility] Comment on above: Order Comment: Speci men Type: BLOOD SPECIMEN Ordering Facility: [facility] Address: [address] [place] [address] Performed By: #### 2 4323-8, 3039-3, #### [facility] CLIA [id number] [address] [place] Hematocrit (Bld) [Volume fraction] 46.4 % Normal 39.0-51.0 [facility] Comment on above: Order Comment: Speci men Type: BLOOD SPECIMEN Ordering Facility: [facility] Address: [address] [address] Performed By: #### 2 4323-8, 3, #### [facility] CLIA [id number] [address] [place] [address] [place] Hemoglobin (Bld) [Mass/Vol] 15.6 g/dL Normal 13.0-17.0 [facility] Comment on above: Order Comment: Speci men Type: BLOOD SPECIMEN Ordering Facility: [facility] Address: [address] [place] [address] Performed By: #### 2 4323-8, 3, #### [facility] CLIA [id number] 1 [place] [address] [place] Immature granulocytes (Bld) [#/Vol] 0.05 10*3/uL Normal <0.10 [facility] Comment on above: Order Comment: Speci men Type: BLOOD SPECIMEN Ordering Facility: [facility] Address: [address] [place] [address] Performed By: #### 2 4323-8, 3, #### [facility] CLIA [id number] [address] [place] Immature granulocytes/100 WBC (Bld) 0.4 % Normal [facility] Comment on above: Order Comment: Speci men Type: BLOOD SPECIMEN Ordering Facility: [facility] Address: [address] [place] [address] Performed By: #### 2 4323-8, 3, #### [facility] CLIA [id number] 1 [place] [address] [place] Lymphocytes (Bld) [#/Vol] 0.77 10*3/uL Low 1.00-4.00 [facility] Comment on above: Order Comment: Speci men Type: BLOOD SPECIMEN Ordering Facility: [facility] Address: [address] [place] [address] Performed By: #### 2 4323-8, 3039-3, #### [facility] CLIA [id number] [address] Lymphocytes/100 WBC (Bld) 6.2 % Normal [facility] Comment on above: Order Comment: Speci men Type: BLOOD SPECIMEN Ordering Facility: [facility] Address: [address] [place] [address] Performed By: #### 2 4323-8, 3, #### [facility] CLIA [id number] [address] MCH (RBC) [Entitic mass] 27.2 pg Normal 26.0-34.0 [facility] Comment on above: Order Comment: Speci men Type: BLOOD SPECIMEN Ordering Facility: [facility] Address: [address] [place] [address] Performed By: #### 2 43238, 3039-07, #### [facility] CLIA [id number] [address] MCHC (RBC) [Mass/Vol] 33.6 g/dL Normal 30.5-36.0 [facility] Comment on above: Order Comment: Speci men Type: BLOOD SPECIMEN Ordering Facility: [facility] Address: [address] [place] [address] Performed By: #### 2 4323-8, 3, #### [facility] CLIA [id number] [address] MCV (RBC) [Entitic vol] 81.0 fL Normal 80.0-100.0 [facility] Comment on above: Order Comment: Speci men Type: BLOOD SPECIMEN Ordering Facility: [facility] Address: [address] [place] [address] Performed By: #### 2 4323-8, 3, #### [facility] CLIA [id number] [address] [place] Monocytes (Bld) [#/Vol] 0.53 10*3/uL Normal <0.87 [facility] Comment on above: Order Comment: Speci men Type: BLOOD SPECIMEN Ordering Facility: [facility] Address: [address] [place] [address] Performed By: #### 2 4323-8, 3040-3, #### [facility] CLIA [id number] [address] [place] Monocytes/100 WBC (Bld) 4.2 % Normal [facility] Comment on above: Order Comment: Speci men Type: BLOOD SPECIMEN Ordering Facility: [facility] Address: [address] [place] [address] Performed By: #### 2 4323-8, 3039-3, #### [facility] CLIA [id number] [address] [place] Neutrophils (Bld) [#/Vol] 11.07 10*3/uL High 1.45-7.50 [facility] Comment on above: Order Comment: Speci men Type: BLOOD SPECIMEN Ordering Facility: [facility] Address: [address] [place] [address] Performed By: #### 2 4323-8, 3039-3, #### [facility] CLIA [id number] [address] [place] Neutrophils/100 WBC (Bld) 88.4 % Normal [facility] Comment on above: Order Comment: Speci men Type: BLOOD SPECIMEN Ordering Facility: [facility] Address: [address] [place] [address] Performed By: #### 2 4323-8, 0-3, #### [facility] CLIA [id number] 1 [place] [address] [place] Nucleated RBC (Bld) [#/Vol] 10*3/uL Normal <0.01 [facility] Comment on above: Order Comment: Speci men Type: BLOOD SPECIMEN Ordering Facility: [facility] Address: [address] [address] Performed By: #### 2 4323-8, 3039-3, #### [facility] CLIA [id number] [address] [place] Nucleated RBC/100 WBC (Bld) [Ratio] 0.0 /100 WBC Normal [facility] Comment on above: Order Comment: Speci men Type: BLOOD SPECIMEN Ordering Facility: [facility] Address: [address] [address] Performed By: #### 2 4323-8, 3039-3, #### [facility] CLIA [id number] [address] [place] Platelet mean volume (Bld) [Entitic vol] 9.8 fL Normal 9.0-12.7 [facility] Comment on above: Order Comment: Speci men Type: BLOOD SPECIMEN Ordering Facility: [facility] Address: [address] [address] Performed By: #### 2 4323-8, 3039-3, #### [facility] CLIA [id number] [address] [place] Platelets (Bld) [#/Vol] 224 10*3/uL Normal 150-400 [facility] Comment on above: Order Comment: Speci men Type: BLOOD SPECIMEN Ordering Facility: [facility] Address: [address] [address] Performed By: #### 2 4323-8, 3039-3, #### [facility] CLIA [id number] 1 [place] [address] [facility] [place] RBC (Bld) [#/Vol] 5.73 10*6/uL Normal 4.20-6.00 [facility] Comment on above: Order Comment: Speci men Type: BLOOD SPECIMEN Ordering Facility: [facility] Address: [address] [place] [address] Performed By: #### 2 4323-8, 3040-3, #### [facility] CLIA [id number] 1 [place] [address] [place] WBC (Bld) [#/Vol] 12.51 10*3/uL High 3.70-11.00 [facility] Comment on above: Order Comment: Speci men Type: BLOOD SPECIMEN Ordering Facility: [facility] Address: [address] [id number] Performed By: #### 2 4323-8, 3040-3, #### [facility] CLIA [id number] 1 [place] [address] [place] CT BRAIN WO IVCONon 03-21-20 CT BRAIN WO IVCON * * *Final Report* * * DATE OF EXAM: Mar 21 2022 6:43PM [facility] 0504 - CT BRAIN WO IVCON / PROCEDURE REASON: Headache, sudden, severe * * * * Physician Interpretation * * * * EXAMINATION: CT BRAIN WO IVCON CLINICAL HISTORY: Headache with blurred vision TECHNIQUE: Serial axial images without IV contrast were obtained from the vertex to the foramen magnum. MQ: CTBWO_3 CT Radiation dose: Integrated Dose-Length Product (DLP) for this visit = 734 mGy*cm CT Dose Reduction Employed: Iterative recon COMPARISON: None. 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 Acute change: No evidence of an acute infarct or other acute parenchymal process. Hemorrhage: No evidence of acute intracranial hemorrhage. Mass Lesion / Mass Effect: There is no evidence of an intracranial mass or extraaxial fluid collection. No significant mass effect. Chronic change: None apparent. Parenchyma: There is no significant volume loss. The brain parenchyma is otherwise within normal limits for age. Ventricles: The ventricles are within normal limits of size and configuration for age. Paranasal sinuses: The visualized paranasal sinuses are grossly clear. Small amount of fluid density is seen within the left mastoid air cells. Calvarium: Intact. IMPRESSION: Small amount of fluid noted within the left mastoid air cells. Correlate clinically for any signs or symptoms of acute mastoiditis. Otherwise no acute intracranial findings radiographically. Reel Fed Printer: THERON Transcribe Date/Time: Mar 21 2022 7:01P Dictated by : BLAS WILKINS MD This examination was interpreted and the report reviewed and electronically signed by: BLAS WILKINS MD on Mar 21 2022 7:06PM EST [id number] Normal [facility] Comprehensive metabolic 2000 panelon 03-21-2022 Albumin [Mass/Vol] 5.1 g/dL High 3.9-4.9 [facility] Comment on above: Order Comment: Speci men Type: BLOOD SPECIMEN Ordering Facility: [facility] Address: [address] [address] Performed By: #### 2 4323-8, 3040-3, #### [facility] CLIA [id number] [address] ALP [Catalytic activity/Vol] 92 U/L Normal 38-113 [facility] Comment on above: Order Comment: Speci men Type: BLOOD SPECIMEN Ordering Facility: [facility] Address: [address] [address] Performed By: #### 2 4323-8, 3040-3, #### [facility] CLIA [id number] [address] STATES OF [facility] ALT With P-5'-P [Catalytic activity/Vol] 42 U/L Normal 10-54 [facility] Comment on above: Order Comment: Speci men Type: BLOOD SPECIMEN Ordering Facility: [facility] Address: [address] [address] Performed By: #### 2 4323-8, 3040-3, #### [facility] CLIA [id number] [address] Anion gap [Moles/Vol] 21 mmol/L High 9-18 [facility] Comment on above: Order Comment: Speci men Type: BLOOD SPECIMEN Ordering Facility: [facility] Address: [address] [address] Performed By: #### 2 4323-8, 3040-3, #### [facility] CLIA [id number] 1 [place] [address] [place] AST With P-5'-P [Catalytic activity/Vol] 53 U/L High 14-40 [facility] Comment on above: Order Comment: Speci men Type: BLOOD SPECIMEN Ordering Facility: [facility] Address: [address] [place] [address] Performed By: #### 2 4323-8, 3039-07, #### [facility] CLIA [id number] 1 [place] [address] [place] Bilirubin [Mass/Vol] 0.5 mg/dL Normal 0.2-1.3 [facility] Comment on above: Order Comment: Speci men Type: BLOOD SPECIMEN Ordering Facility: [facility] Address: [address] [place] [address] Performed By: #### 2 43238, 3039-07, #### [facility] CLIA [id number] 1 [place] [address] [place] Calcium [Mass/Vol] 9.7 mg/dL Normal 8.5-10.2 [facility] Comment on above: Order Comment: Speci men Type: BLOOD SPECIMEN Ordering Facility: [facility] Address: [address] [place] [address] Performed By: #### 2 4323-8, 3, #### [facility] CLIA [id number] 1 [place] [address] [place] Chloride [Moles/Vol] 93 mmol/L Low 97-105 [facility] Comment on above: Order Comment: Speci men Type: BLOOD SPECIMEN Ordering Facility: [facility] Address: [address] [place] [address] Performed By: #### 2 4323-8, 3, #### [facility] CLIA [id number] 1 [place] [address] [place] CO2 [Moles/Vol] 20 mmol/L Low 22-30 [facility] Comment on above: Order Comment: Speci men Type: BLOOD SPECIMEN Ordering Facility: [facility] Address: [address] [place] [address] Performed By: #### 2 4323-8, 0-3, #### [facility] CLIA [id number] 1 [place] [address] [place] Creatinine [Mass/Vol] 3.67 mg/dL High 0.73-1.22 [facility] Comment on above: Order Comment: Speci men Type: BLOOD SPECIMEN Ordering Facility: [facility] Address: [address] [place] [address] Performed By: #### 2 4323-8, 3, #### [facility] CLIA [id number] [address] STATES OF [facility] ESTIMATED GLOMERULAR FILTRATION RATE 22 mL/min/1.73m??? Low >=60 [facility] Comment on above: Order Comment: Speci men Type: BLOOD SPECIMEN Ordering Facility: [facility] Address: [address] [place] [address] Result Comment: Radha mated Glomerular Filtration Rate (eGFR) is calculated using the 2020 CKD-EPI creatinine equation. This equation utilizes serum creatinine, sex, and age as parameters. The creatinine assay has traceable calibration to isotope dilution-mass spectrometry. Refer to KDIGO guidelines for clinical interpretation. In patients with unstable renal function, e.g. those with acute kidney injury, the eGFR may not accurately reflect actual GFR. Performed By: #### 2 4323-8, 0-3, #### [facility] CLIA [id number] 1 [place] [address] [place] Glucose [Mass/Vol] 117 mg/dL High 74-99 [facility] Comment on above: Order Comment: Speci men Type: BLOOD SPECIMEN Ordering Facility: [facility] Address: [address] [place] [address] Result Comment: The [place] [employer] (ADA) provides guidance for cutoff values for fasting glucose and random glucose. The ADA defines fasting as no caloric intake for at least 8 hours. Fasting plasma glucose results between 100 to 125 mg/dL indicate increased risk for diabetes (prediabetes). Fasting plasma glucose results greater than or equal to 126 mg/dL meet the criteria for diagnosis of diabetes. In the absence of unequivocal hyperglycemia, results should be confirmed by repeat testing. In a patient with classic symptoms of hyperglycemia or hyperglycemic crisis, random plasma glucose results greater than or equal to 200 mg/dL meet the criteria for diagnosis of diabetes. Reference: Standards of Medical Care in Diabetes 2016, [place] [employer]. Diabetes Care. 2016.39(Suppl 1). Performed By: #### 2 4323-8, 0-3, #### [facility] CLIA [id number] 1 [place] [address] [place] Potassium [Moles/Vol] 3.4 mmol/L Low 3.7-5.1 [facility] Comment on above: Order Comment: Ryan fonseca Type: BLOOD SPECIMEN Ordering Facility: [facility] Address: [address] [place] [address] Performed By: #### 2 4323-8, 0-3, #### [facility] CLIA [id number] 1 [place] [address] [place] Protein [Mass/Vol] 8.4 g/dL High 6.3-8.0 [facility] Comment on above: Order Comment: Urii men Type: BLOOD SPECIMEN Ordering Facility: [facility] Address: [address] [place] [address] Performed By: #### 2 4323-8, 0-3, #### [facility] CLIA [id number] 1 [place] [address] [place] Sodium [Moles/Vol] 134 mmol/L Low 136-144 [facility] Comment on above: Order Comment: Urii men Type: BLOOD SPECIMEN Ordering Facility: [facility] Address: [address] [address] Performed By: #### 2 4323-8, 0-3, #### [facility] CLIA [id number] [address] [place] Urea nitrogen [Mass/Vol] 26 mg/dL High 9-24 [facility] Comment on above: Order Comment: Speci men Type: BLOOD SPECIMEN Ordering Facility: [facility] Address: [facility] [address] [id number] Performed By: #### 2 4323-8, 3040-3, 20173-8 #### [facility] CLIA [id number] [address] [id number] [facility] [place] ED NOTEon 03-21-2022 ED NOTE HNO ID: [id number] Author: Roldan Ray RN Service: Emergency Medicine Author Type: Registered Nurse Type: ED Notes Filed: 03/21/2022 9:16 PM Note Text: First attempt at report RN unavailable Normal [facility] ED NOTE HNO ID: [id number] Author: Argenis Augustin RN Service: ? Author Type: Registered Nurse Type: ED Notes Filed: 03/21/2022 5:21 PM Note Text: Bed: 10-ED Expected date: Expected time: Means of arrival: Comments: Squad when clean Normal [facility] ED PROV NOTEon 03-21-2022 ED PROV NOTE HNO ID: [id number] Author: Preeti Zuluaga MD Service: Emergency Medicine Author Type: Physician Type: ED Provider Notes Filed: 03/21/2022 9:37 PM Note Text: Brief HPI: Dorian Montoya is a 31 year old male with a PMH as documented below who presents for evaluation of abdominal pain, headache, nausea and vomiting. The patient states symptoms started yesterday. The patient states he woke up yesterday with an ache in his neck. He states it seemed to radiate to to his head. He states the pain is more like a pressure than an actual pain. He states he does get blurred vision mostly when he is up and about. He states he had nausea all yesterday and had a very poor appetite. The patient states that today he developed vomiting. He has not had anything to eat or drink. He states he has had chills and denies any fever. He denies slurred speech, facial droop, numbness or weakness in his arms or legs, vertigo but states he does feel lightheaded. He denies any abdominal pain, diarrhea or urinary symptoms but states he feels like his kidneys are hurting. He states he feels dehydrated. He denies any sick contacts. PAST MEDICAL HISTORY Diagnosis Date Acid reflux Asthma Depression Psychiatric disorder bipolar and ADHD during childhood Constitutional: Nontoxic, well-appearing without any respiratory distress. HEENT: Mucous membranes dry. Pupils are PERRL and extraocular muscles are intact. Visual amador intact. Neck: Supple. Normal range of motion. Diffuse tenderness throughout the neck paraspinal musculature. Full range of motion. He can touch his chin to his chest without difficulty. Cardiovascular: Heart is tachycardic without murmurs, rubs or gallops. Pulmonary: Lungs clear to auscultation bilaterally without wheezes, rhonchi as well as rales. Gastrointestinal: Abdomen soft, nontender, nondistended with normal active bowel sounds. No rebound, guarding or peritoneal signs. Genitourinary: No CVA tenderness. Muscle skeletal: Moves all extremities equally and normally. Neuro: Alert and oriented ?3. Cranial nerves II through XII are intact. Strength is 5 out of 5 in all 4 extremities with normal sensation in all 4 extremities. Finger to nose intact bilateral upper extremities. [id number] intact bilateral lower extremities. MDM: 31-year-old male presenting for headache, nausea, vomiting. Symptoms started yesterday and have worsened. States does feel lightheaded at times. He gets blurred vision when he is up and about. He is neurovascular intact on exam. Initially tachycardic and afebrile. The patient had an IV established and blood work obtained. He was given IV fluids. With his headache, we obtain a CT of the head as well. He has a leukocytosis 12.51. Acute renal failure with a BUN of 26 creatinine of 3.67. The patient states he is able to urinate and has been urinating. Abdomen is soft and nontender. CT of the head showed no acute processes. At this time we will admit him for further work-up and management. Patient agreeable to the plan. See resident/PA note for disposition details Preeti Zuluaga MD 03/21/22 3606 Normal [facility] ED PROV NOTE HNO ID: [id number] Author: Blas Mathias MD Service: Emergency Medicine Author Type: Resident Type: ED Provider Notes Filed: 03/21/2022 10:41 PM Note Text: Attestation signed by Preeti Zuluaga MD at 03/21/2022 10:52 PM Attending Note I evaluated the patient and personally participated in the meza components. I agree with the resident's findings and plan as documented and have discussed the case and management of the patient's care with the resident. Signature: Preeti Zuluaga MD Date: 03/21/2022 Time: 10:52 PM ED Provider Note Patient Name: Dorian Montoya : 1990 SERVICE DATE: 03/21/22 History Patient presents with: Illness: Patient states two days of nausea vomiting, interminnent blurred vision with head ache, lower back pain.and general body aches with chills. The patient is a 31-year-old male with past medical history as below presenting for nausea and vomiting and backache. Patient dates that started yesterday is progressed throughout the day. No blood in the vomit. He feels like he may have the flu. Minor cough but no congestion or runny nose. No difficulty breathing. No medications attempted at home. No history of similar. 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 Social History Tobacco Use Smoking status: Light Smoker Types: Cigarettes Smokeless tobacco: Former Substance and Sexual Activity Alcohol use: Yes Comment: rare Drug use: Yes Types: Marijuana Sexual activity: Yes Partners: Female ALLERGIES Allergen Reactions Apples Hives, Shortness of Breath Red Dye Other: See Comments major nosebleeds Review of Systems Constitutional: Negative for fatigue and fever. HENT: Negative for congestion, ear discharge, rhinorrhea and trouble swallowing. Eyes: Negative for photophobia and redness. Respiratory: Negative for cough, shortness of breath and wheezing. Cardiovascular: Negative for chest pain, palpitations and leg swelling. Gastrointestinal: Positive for nausea and vomiting. Negative for abdominal pain, constipation and diarrhea. Genitourinary: Negative for dysuria and flank pain. Musculoskeletal: Negative for back pain and myalgias. Skin: Negative for color change, rash and wound. Neurological: Negative for seizures, syncope, light-headedness and headaches. Psychiatric/Behaviora l: Negative for behavioral problems, confusion and decreased concentration. The patient is not nervous/anxious and is not hyperactive. Physical Exam Vitals [03/21/22 1729] BP Pulse Temp Temp src Resp SpO2 Weight Height 107/86 (!) 110 36.7 ?C (98 ?F) -- 18 97 % 72.6 kg (160 lb) 1.854 m (6' 1) Physical Exam Vitals and nursing note reviewed. Constitutional: Appearance: Normal appearance. He is not ill-appearing. HENT: Head: Normocephalic and atraumatic. Right Ear: External ear normal. Left Ear: External ear normal. Nose: Nose normal. Mouth/Throat: Mouth: Mucous membranes are dry. Pharynx: Oropharynx is clear. Eyes: Extraocular Movements: Extraocular movements intact. Conjunctiva/sclera: Conjunctivae normal. Pupils: Pupils are equal, round, and reactive to light. Cardiovascular: Rate and Rhythm: Regular rhythm. Tachycardia present. Pulses: Normal pulses. Heart sounds: Normal heart sounds. No murmur heard. No gallop. Pulmonary: Effort: Pulmonary effort is normal. No respiratory distress. Breath sounds: Normal breath sounds. No wheezing, rhonchi or rales. Abdominal: General: Abdomen is flat. Palpations: Abdomen is soft. Tenderness: There is no abdominal tenderness. There is no guarding or rebound. Musculoskeletal: General: No swelling or tenderness. Normal range of motion. Cervical back: Normal range of motion and neck supple. No muscular tenderness. Right lower leg: No edema. Left lower leg: No edema. Skin: General: Skin is warm and dry. Capillary Refill: Capillary refill takes less than 2 seconds. Coloration: Skin is not pale. Findings: No rash. Neurological: General: No focal deficit present. Mental Status: He is alert and oriented to person, place, and time. Mental status is at baseline. Motor: No weakness. Psychiatric: Mood and Affect: Mood normal. Behavior: Behavior normal. Thought Content: Thought content normal. Judgment: Judgment normal. Diagnostic Testing ED Labs Ordered and Reviewed - No data to display Procedures ED Course / Clinical Impression Clinical Impressions as of 03/21/221937 ZULLY (acute kidney injury) (HCC) MDM / Disposition / Plan 31 year old m (more content not included)... Normal [facility] HISTORY PHYSICALon HISTORY PHYSICAL HNO ID: [id number] Author: Tammy Kenny DO Service: Hospital Medicine Author Type: Resident Type: HANDP Filed: 03/22/2022 12:07 AM Note Text: Attestation signed by Deysi Coombs MD at 03/22/2022 8:50 PM Admission reviewed, agreed with initial plan of care. Attending Note The patient was not examined by the attending 03/21, see attending follow up on 03/22. I reviewed the resident's note. I agree with the resident's assessment and plan unless otherwise noted. Signature: Deysi Coombs MD Date: 03/22/2022. Time: 8:50 PM [facility] ([facility] [place]) HISTORY AND PHYSICAL NOTE PATIENT NAME: Dorian Montoya ADMITTED FOR: Acute kidney injury DATE: March 21, 2022 Subjective HPI Mr. Dorian Montoya is a 31 year old male with a PMH significant for: - GERD - Asthma [childhood] - Depression - Bipolar disorder He presented to [facility] with a chief complaint of nausea, vomiting, and myalgias. He reports that his symptoms initially began the day prior to arrival when he woke up with an ache in the back of his neck that seemed to radiate to his head. Then as he got up and went about his day, he had episodes of transient blurred vision. All day, he felt pretty nauseous and did not take in anything PO. This all culminated the morning of presentation when he developed fevers, chills, and emesis. He endorsed continued lack of PO intake, and also stated that he had not urinated in over a day and felt like his kidneys were hurting. He denied any known sick contacts. ED Course [03/21/2022]: Upon arrival, the patient was afebrile, tachycardic to 110, BP 107/76, and saturating well on room air. Initial lab work revealed a creatinine of 3.67 [last value I can see is 1.01 from nine years prior], BUN 26, sodium 134, potassium 3.4, chloride 93, bicarb 20, mag 2.1, AG 21, AST 53, lipase WNL at 16, and WBC 12.51 [with neutrophilic predominance]. UA returned with 3+ protein, RBCs, WBCs, few bacteria, and hyaline casts. The patient did also endorse some mild neck discomfort to the ER staff; this in conjunction with his intermittent blurred vision and headache prompted them to obtain CT head and CTA neck. However, they ended up just obtaining CT brain without IV contrast after seeing the patient's creatinine. CT brain demonstrated a small amount of fluid within the left mastoid air cells; upon palpation of the mastoid by the ER resident, the patient did not have any pain. The patient received 1L NS bolus followed by IV fluids at 125cc/hr, and Zofran for symptom control. House Medicine Service was then called for admission to the [facility]. Upon my exam, the patient was laying in bed in no acute distress. He states that since starting the IV fluids, he was finally able to urinate. He presently still feels like he has the chills, along with some minor neck and back soreness. He does not feel like he has an appetite, and states that he vomited 4 times prior to arrival [but no blood in his emesis]. Review of Systems Constitutional: Positive for activity change, appetite change, chills, fatigue and fever. Negative for diaphoresis. HENT: Negative for congestion, rhinorrhea, sneezing, sore throat and trouble swallowing. Eyes: Positive for visual disturbance (intermittent blurred vision while up and about). Respiratory: Positive for cough (not productive). Negative for shortness of breath and wheezing. Cardiovascular: Negative for chest pain, palpitations and leg swelling. Gastrointestinal: Positive for nausea and vomiting (no hematemesis, though). Negative for abdominal pain, blood in stool, constipation and diarrhea. Endocrine: Negative for polydipsia, polyphagia and polyuria. Genitourinary: Negative for dysuria and hematuria. Endorses decreased UOP Musculoskeletal: Positive for back pain, myalgias and neck pain. Skin: Negative for rash and wound. Neurological: Positive for light-headedness and headaches. Negative for dizziness, syncope, facial asymmetry, speech difficulty, weakness and numbness. Psychiatric/Behaviora l: Negative for agitation, decreased concentration and hallucinations. The patient is not nervous/anxious. 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 Social History Tobacco Use Smoking status: Light Smoker Types: Cigarettes Smokeless tobacco: Former Substance Use Topics Alcohol use: Yes Comment: rare Drug use: Yes Types: Marijuana No current facility-administered medications on file prior to encounter. Current Outpatient Medications on F (more content not included)... Normal [facility] Lipase SerPl-cCncon 03-21-20 22 Lipase [Catalytic activity/Vol] 16 U/L Normal 16- [facility] Comment on above: Order Comment: Speci men Type: BLOOD SPECIMEN Ordering Facility: [facility] Address: [address] [place] [id number] Performed By: #### 2 4323-8, 3040-3, 63464-5 #### [id number] [address] [place] Magnesium SerPl-mCncon 03-21 Magnesium [Mass/Vol] 2.1 mg/dL Normal 1.7-2.3 [facility] Comment on above: Order Comment: Speci men Type: BLOOD SPECIMEN Ordering Facility: [facility] Address: [address] [place] [address] Performed By: #### 2 4323-8, 3040-3, 10346-0 #### [facility] CLIA [id number] [address] [place] Urinalysis complete panel (U )on 03-21-2022 Bacteria LM.HPF (Urine sed) [#/Area] Few Abnormal None Seen [facility] Comment on above: Order Comment: Speci men Type: BLOOD SPECIMEN Ordering Facility: [facility] Address: [address] [place] [address] Performed By: #### 2 4323-8 #### [facility] CLIA [id number] [address] Bilirubin Ql (U) Negative Normal Negative [facility] Comment on above: Order Comment: Speci men Type: BLOOD SPECIMEN Ordering Facility: [facility] Address: [address] [place] [address] Performed By: #### 2 4323-8 #### [facility] CLIA [id number] [address] [place] Clarity (Unsp spec) Turbid Abnormal Clear [facility] Comment on above: Order Comment: Speci men Type: BLOOD SPECIMEN Ordering Facility: [facility] Address: [address] [place] [address] Performed By: #### 2 4323-8 #### [facility] CLIA [id number] [address] Color (U) Yellow Normal yellow [facility] Comment on above: Order Comment: Speci men Type: BLOOD SPECIMEN Ordering Facility: [facility] Address: [address] [address] Performed By: #### 2 4323-8 #### [facility] CLIA [id number] [address] Epithelial cells LM.HPF (Urine sed) [#/Area] Few Normal [facility] Comment on above: Order Comment: Speci men Type: BLOOD SPECIMEN Ordering Facility: [facility] Address: [address] [place] [address] Result Comment: Few Performed By: #### 2 4323-8 #### [facility] CLIA [id number] [address] Glucose Test strip (U) [Mass/Vol] Negative Normal Negative [facility] Comment on above: Order Comment: Speci men Type: BLOOD SPECIMEN Ordering Facility: [facility] Address: [address] [place] [address] Performed By: #### 2 4323-8 #### [facility] CLIA [id number] [address] Hemoglobin Ql (U) 1+ Abnormal Negative [facility] Comment on above: Order Comment: Speci men Type: BLOOD SPECIMEN Ordering Facility: [facility] Address: [address] [place] [address] Performed By: #### 2 4323-8 #### [facility] CLIA [id number] [address] [place] Hyaline casts (Urine sed) [#/Area] /[LPF] Abnormal 0 /LPF [facility] Comment on above: Order Comment: Speci men Type: BLOOD SPECIMEN Ordering Facility: [facility] Address: [address] [address] Performed By: #### 2 4323-8 #### [facility] CLIA [id number] [address] Ketones Ql (U) Negative Normal Negative [facility] Comment on above: Order Comment: Speci men Type: BLOOD SPECIMEN Ordering Facility: [facility] Address: [address] [address] Performed By: #### 2 4323-8 #### [facility] CLIA [id number] [address] Leukocyte esterase Test strip Ql (U) Negative Normal Negative [facility] Comment on above: Order Comment: Speci men Type: BLOOD SPECIMEN Ordering Facility: [facility] Address: [address] [place] [address] Performed By: #### 2 4323-8 #### [facility] CLIA [id number] [address] Nitrite Ql (U) Negative Normal Negative [facility] Comment on above: Order Comment: Speci men Type: BLOOD SPECIMEN Ordering Facility: [facility] Address: [address] [place] [address] Performed By: #### 2 4323-8 #### [facility] CLIA [id number] [address] pH (U) 5.5 [pH] Normal 5.0-8.0 [facility] Comment on above: Order Comment: Speci men Type: BLOOD SPECIMEN Ordering Facility: [facility] Address: [address] [place] [address] Performed By: #### 2 4323-8 #### [facility] CLIA [id number] [address] Protein (U) [Mass/Vol] 3+ Abnormal Negative [facility] Comment on above: Order Comment: Speci men Type: BLOOD SPECIMEN Ordering Facility: [facility] Address: [address] [place] [address] Performed By: #### 2 4323-8 #### [facility] CLIA [id number] [address] RBC LM.HPF (Urine sed) [#/Area] 3-5 /HPF Abnormal 0-3 /HPF [facility] Comment on above: Order Comment: Speci men Type: BLOOD SPECIMEN Ordering Facility: [facility] Address: [address] [place], [place] [id number] Performed By: #### 2 4323-8 #### [facility] CLIA [id number] [address] Specific gravity (U) [Rel density] 1.024 Normal 1.005-1.030 [facility] Comment on above: Order Comment: Speci men Type: BLOOD SPECIMEN Ordering Facility: [facility] Address: [address] [place] [address] Performed By: #### 2 4323-8 #### [facility] CLIA [id number] [address] Urobilinogen Ql (U) Normal Normal Negative [facility] Comment on above: Order Comment: Speci men Type: BLOOD SPECIMEN Ordering Facility: [facility] Address: [address] [place] [address] Performed By: #### 2 4323-8 #### [facility] CLIA [id number] [address] WBC LM.HPF (Urine sed) [#/Area] 6-10 /HPF Abnormal 0-5 /HPF [facility] Comment on above: Order Comment: Speci men Type: BLOOD SPECIMEN Ordering Facility: [facility] Address: [address] [place] [address] Performed By: #### 2 4323-8 #### [facility] CLIA [id number] [address] CNOVon 06-21-2021 CNOV Office Visit (AKURFL ) DORIAN MONTOYA (2* 1990 M Date Time Provider Department 06/21/21 9:00 AM GREEN, ARMINDA MAYELA AKURFL During your visit today, we recorded the following information about you: Blood pressure Weight Height 124/82 68.9 kg 1.829 m Arminda Daily MD 06/22/2021 12:16 PM Signed NEW PATIENT HISTORY AND PHYSICAL EXAM PATIENT INFO: Dorian Montoya 30 year old HPI 06/21/2021 Pt CC: pain Presents with history of suprapubic and lower abdominal pains that can radiate to the testicles and this started after head torsion of left testicle 1 year ago and [place] with testicular fixation He thinks the lower abdominal and suprapubic pains are the more relevant thing and sometimes wakes up in the morning and has to sit in a tub to help discomfort go down Bowels can be loose at time over the last year and eating habits have changed He does not have primary physician yet We will treat with 10 days of Bactrim and see if any improvement but overall think more likely to help pelvis/GI issue and may be even food sensitivity issues He will contact with primary physician for evaluation Could always see Dr. Corbin after he sees gets evaluation through primary physician to get his opinion also Chronic orchialgia symptom index sheet filled out Past Uology History: Labs/Radiology/Proced ures: March 25, 2018?CT without?negative Creatinine Date Value Ref Range Status 08/07/2012 1.01 0.66 - 1.25 mg/dL Final No results found for: PSA Color (no units) Date Value 04/30/2011 Yellow Clarity (no units) Date Value 04/30/2011 Clear Glucose, Urine (mg/dl) Date Value 04/30/2011 Negative Bilirubin, Urine (no units) Date Value 04/30/2011 Negative Ketones, Urine (no units) Date Value 04/30/2011 Negative Specific [place], Ur (no units) Date Value 04/30/2011 1.020 Hemoglobin/Blood,Ur (no units) Date Value 04/30/2011 Negative pH, Urine (no units) Date Value 04/30/2011 6.5 Protein, Urine (mg/dl) Date Value 04/30/2011 Negative Urobilinogen (no units) Date Value 04/30/2011 0.2 Nitrites (no units) Date Value 04/30/2011 Negative Leukest (no units) Date Value 04/30/2011 Negative Review of Systems Constitutional: Positive for appetite change. HENT: Negative. Eyes: Negative. Respiratory: Negative. Cardiovascular: Negative. Gastrointestinal: Positive for nausea. Endocrine: Negative. Genitourinary: See HPI Musculoskeletal: Negative. Skin: Negative. Allergic/Immunologic: Negative. Neurological: Negative. Hematological: Negative. Psychiatric/Behaviora l: Negative. 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 SOCIAL HISTORY Social History Tobacco Use - Smoking status: Light Tobacco Smoker Types: Cigarettes - Smokeless tobacco: Former User Substance Use Topics - Alcohol use: Yes Comment: rare - Drug use: Yes Types: Marijuana MEDICATIONS: oxyCODONE IR (ROXICODONE) 5 mg immediate release tablet, Take 1 tablet by mouth every 6 hours as needed for pain. gabapentin (NEURONTIN) 300 mg capsule, Take 1 capsule by mouth three times daily for 30 days. ibuprofen (MOTRIN) 600 mg tablet, Take 1 tablet by mouth every 6 hours as needed. sulfamethoxazole-trim ethoprim (BACTRIM DS,SEPTRA DS) 800-160 mg per tablet, Take 1 tablet by mouth twice daily. oxyCODONE-acetaminoph en (PERCOCET) 5-325 mg tablet, Take 1 tablet by mouth every 8 hours as needed for pain. Physical Exam HENT: Head: Normocephalic and atraumatic. Nose: Nose normal. Neck: Trachea: No tracheal deviation. Pulmonary: Effort: Pulmonary effort is normal. No respiratory distress. Abdominal: Comments: No hernias palpated Genitourinary: Testes: Normal. Musculoskeletal: General: No deformity. Normal range of motion. Cervical back: Normal range of motion. Skin: General: Skin is warm. Neurological: Mental Status: He is alert and oriented to person, place, and time. Gait: Gait is intact. Psychiatric: Mood and Affect: Mood and affect normal. Cognition and Memory: Memory normal. Risk/Benefit Discussion: FOLLOW UP: Return if symptoms worsen or fail to improve. ASSESSMENT/PLAN: 1. Pain in testicle, unspecified laterality - ICD9: 608.9, ICD10: N50.819 (primary diagnosis) - SULFAMETHOXAZOLE 800 MG-TRIMETHOPRIM 160 MG TABLET 2. Lower abdominal pain - ICD9: 789.09, ICD10: R10.30 See PCP Arminda Daily Please note: This note has been produced using speech recognition software and may contain errors related to that system including grammar, punctuation, spelling, gender and words and phrases that may be inappropriate. Andrew (more content not included)... Normal [facility] CNTHERAPYon 06-21-2021 CNTHERAPY OT/PT/Speech Visit (AKOTB) DORIAN MONTOYA (2* 1990 M Date Time Provider Department 06/21/21 10:00 AM ANGELA HUYNH Date Time Provider Department Center 06/21/2021 10:00 AM [id number], ANAS*AKOTB [facility] Reason for Visit: OT Progress Note [1595] OT Discharge [750] Primary Visit Diagnosis:Decreased range of motion of finger of right hand [M25.641] Other Visit Diagnoses:Pain in finger of left hand [M79.645] Flexor tendon laceration of finger with open wound, initial encounter [S56.129A, S61.209A] Right hand weakness [R29.898] Allergies As of Date: 06/21/2021 Noted Allergy Reaction APPLES 03/11/2019 4 - Hives 12 - Shortness of Breath RED DYE 03/11/2019 14 - Other: See Comments Comments: major nosebleeds Date Reviewed: 06/21/2021 Reviewed by: Arminda Daily MD - Fully Assessed Prescriptions as of 06/21/2021 - sulfamethoxazole-trim ethoprim (BACTRIM DS,SEPTRA DS) 800-160 mg per tablet Take 1 tablet by mouth twice daily. - oxyCODONE-acetaminoph en (PERCOCET) 5-325 mg tablet Take 1 tablet by mouth every 8 hours as needed for pain. - oxyCODONE IR (ROXICODONE) 5 mg immediate release tablet Take 1 tablet by mouth every 6 hours as needed for pain. - gabapentin (NEURONTIN) 300 mg capsule Take 1 capsule by mouth three times daily for 30 days. - ibuprofen (MOTRIN) 600 mg tablet Take 1 tablet by mouth every 6 hours as needed. Normal [facility] CNOVon 06-08-2021 CNOV Office Visit (AGPLASBTH) DORIAN MONTOYA AYAN INDRA (2* 1990 M Date Time Provider Department 06/08/21 10:00 AM ANNAMARIA ONEIL [facility] During your visit today, we recorded the following information about you: Annamaria Oneil PA-C 06/08/2021 10:11 AM Signed Plastic Surgery Post operative SUBJECTIVE: Dorian Patino is a 30 year old male s/p right middle finger FDP repair with ulnar nerve repair and skin substitute graft. Patient states he is doing well. He admit to numbness/tingling to entire middle finger and some to his ulnar aspect of index, although he did get a sharp pain yesterday along the ulnar side of his finger. He has been attending occupational therapy. History is obtained by: patient Reviewed nursing note and current pain scale. 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 Social History Tobacco Use - Smoking status: Light Tobacco Smoker Types: Cigarettes - Smokeless tobacco: Former User Substance Use Topics - Alcohol use: Yes Comment: rare - Drug use: Yes Types: Marijuana Current Outpatient Medications Medication Sig - oxyCODONE-acetaminoph en (PERCOCET) 5-325 mg tablet Take 1 tablet by mouth every 8 hours as needed for pain. - oxyCODONE IR (ROXICODONE) 5 mg immediate release tablet Take 1 tablet by mouth every 6 hours as needed for pain. - ibuprofen (MOTRIN) 600 mg tablet Take 1 tablet by mouth every 6 hours as needed. - gabapentin (NEURONTIN) 300 mg capsule Take 1 capsule by mouth three times daily for 30 days. No current facility-administered medications for this visit. ALLERGIES Allergen Reactions - Apples Hives, Shortness of Breath - Red Dye Other: See Comments major nosebleeds PMDP report reviewed and All prescriptions have been APPROPRIATELY filled. No suspicious activity was identified. PHYSICAL EXAM: There were no vitals taken for this visit. General: Alert and oriented Cooperative, no distress, appears stated age Psych: Mood and Affect appropriate Lungs: Easy work of breathing, room air. Cardiovascular: radial pulse 2+. Cap refill < 2 seconds. Incision: Skin is well healed. Musculoskeletal: ROM of middle finger deferred 2/2 flexor tendon repair. Full ROM of all other fingers. Full ROM of wrist. Limited ROM of DIP as expected Neurologic: Ulnar side of the middle finger is gaining sensation IMAGING REVIEWED: ASSESSMENT/PLAN: 30 y/o male s/p right middle finger FDP repair with ulnar nerve repair and skin substitute graft PLAN: Skin is well healed. Continue with therapy. Would like to see more ROM of DIP. Tendon is intact and working well. Will allow the skin to heal and soften. Discussed the signs and symptoms of infection. Follow up PRN. Annamaria Oneil Referring Provider: SELF [200] Allergies As of Date: 06/08/2021 Noted Allergy Reaction APPLES 03/11/2019 4 - Hives 12 - Shortness of Breath RED DYE 03/11/2019 14 - Other: See Comments Comments: major nosebleeds Date Reviewed: 06/08/2021 Reviewed by: Oanh Yu LPN - Fully Assessed Reason for Visit: Established Patient [175] Primary Visit Diagnosis:Flexor tendon laceration of finger with open wound, initial encounter [S56.129A, S61.209A] Prescriptions as of 06/08/2021 - oxyCODONE-acetaminoph en (PERCOCET) 5-325 mg tablet Take 1 tablet by mouth every 8 hours as needed for pain. - oxyCODONE IR (ROXICODONE) 5 mg immediate release tablet Take 1 tablet by mouth every 6 hours as needed for pain. - gabapentin (NEURONTIN) 300 mg capsule Take 1 capsule by mouth three times daily for 30 days. - ibuprofen (MOTRIN) 600 mg tablet Take 1 tablet by mouth every 6 hours as needed. Problem List As Of Date 06/08/2021 Noted Resolved Flexor tendon laceration of finger with open wo*04/19/2021 Encounter Status:Closed by ANNAMARIA ONEIL on 06/08/21 [facility] CNTHERAPYon 06-08-2021 CNTHERAPY OT/PT/Speech Visit (AKOTB) DORIAN MONTOYA (2* 1990 M Date Time Provider Department 06/08/21 9:15 AM ANGELA HUYNH Date Time Provider Department Center 06/08/2021 9:15 AM [id number] HUYNH [facility] Reason for Visit: Occupational Therapy [504] Primary Visit Diagnosis:Decreased range of motion of finger of right hand [M25.641] Other Visit Diagnoses:Flexor tendon laceration of finger with open wound, initial encounter [S56.129A, S61.209A] Pain in finger of left hand [M79.645] Right hand weakness [R29.898] Allergies As of Date: 06/08/2021 Noted Allergy Reaction APPLES 03/11/2019 4 - Hives 12 - Shortness of Breath RED DYE 03/11/2019 14 - Other: See Comments Comments: major nosebleeds Date Reviewed: 05/11/2021 Reviewed by: Jacque Villegas APRN.OVERLOCK SEWING MACHINE OPERATOR - Fully Assessed Prescriptions as of 06/08/2021 - oxyCODONE-acetaminoph en (PERCOCET) 5-325 mg tablet Take 1 tablet by mouth every 8 hours as needed for pain. - oxyCODONE IR (ROXICODONE) 5 mg immediate release tablet Take 1 tablet by mouth every 6 hours as needed for pain. - gabapentin (NEURONTIN) 300 mg capsule Take 1 capsule by mouth three times daily for 30 days. - ibuprofen (MOTRIN) 600 mg tablet Take 1 tablet by mouth every 6 hours as needed. Normal [facility] CNTHERAPYon 05-27-2021 CNTHERAPY OT/PT/Speech Visit (AKOTB) DORIAN MONTOYA (2* 1990 M Date Time Provider Department 05/27/21 11:30 AM ANGELA HUYNH Date Time Provider Department Center 05/27/2021 11:30 AM [id number] HUYNH [facility] Reason for Visit: Occupational Therapy [504] Primary Visit Diagnosis:Decreased range of motion of finger of right hand [M25.641] Other Visit Diagnoses:Flexor tendon laceration of finger with open wound, initial encounter [S56.129A, S61.209A] Pain in finger of left hand [M79.645] Allergies As of Date: 05/27/2021 Noted Allergy Reaction APPLES 03/11/2019 4 - Hives 12 - Shortness of Breath RED DYE 03/11/2019 14 - Other: See Comments Comments: major nosebleeds Date Reviewed: 05/11/2021 Reviewed by: Jacque Nelly, CORRECTIONAL OFFICER SERGEANT.OVERLOCK SEWING MACHINE OPERATOR - Fully Assessed Prescriptions as of 05/27/2021 - oxyCODONE-acetaminoph en (PERCOCET) 5-325 mg tablet Take 1 tablet by mouth every 8 hours as needed for pain. - oxyCODONE IR (ROXICODONE) 5 mg immediate release tablet Take 1 tablet by mouth every 6 hours as needed for pain. - gabapentin (NEURONTIN) 300 mg capsule Take 1 capsule by mouth three times daily for 30 days. - ibuprofen (MOTRIN) 600 mg tablet Take 1 tablet by mouth every 6 hours as needed. Normal [facility] CR Hand Complete 3+ Views [place] 03-27-2021 CR Hand Complete 3+ Views Left Patient Name: DORIAN MONTOYA Diagnostic Radiology ACCESSION EXAM DATE/TIME PROCEDURE ORDERING PROVIDER [id number] 03/27/2021 19:12 EST CR Hand Complete 3+ JOSEPHJELLY DUBOIS Views Left CPT code 63133 Reason For Exam (CR Hand Complete 3+ Views Left) lacs to 1-4 digits Report Left hand three views HISTORY: Laceration Fragmentation of the ulnar side of the distal phalanx of the third digit. Soft tissue laceration in this location. No other fractures are seen. No dislocations. IMPRESSION: Fragmentation of the ulnar side of the distal phalanx of the third digit. Soft tissue laceration in this location. Report Dictated on Final Dictated: 03/27/2021 7:10 pm Dictating Physician: MD BROWN MALAY Signed Date and Time: 03/27/2021 7:13 pm Signed by: MD BROWN MALAY Transcribed Date and Time: 03/27/2021 7:10 Normal [facility] ED Provider Noteon ED Provider Note Emergency Department Encounter [facility] EM[facility]GENCY DEPT Patient: Dorian Montoya : 1990 Date of Evaluation: 03/27/2021 ED Provider: Jelly Contreras PA-C As the [id number], I performed a medical screening history and physical exam on this patient. HISTORY OF PRESENT ILLNESS In brief, Dorian Montoya is a 30 y.o. male that presents for evaluation of lacerations to the left first through fourth digits. States that he was using a table saw when it kicked back and caught his fingers. [id number]. Unsure last tetanus. PHYSICAL EXAM ED Triage Vitals [03/27/211827] Enc Vitals Group BP 134/83 Pulse 80 Resp 16 Temp 99.2 ?F (37.3 ?C) Temp Source Temporal SpO2 99 % Weight 150 lb (68 kg) Height Head Circumference Peak Flow Pain Score Pain Loc Pain Edu? Excl. in GC? On brief exam, patient sitting in exam chair, vital signs unremarkable, there are lacerations to the distal phalanx of digits 1 through 4. Does not appear to be involving the nailbed and any of them. We will obtain an x-ray to ensure this is not an open fracture. We will initiate diagnostics/treatment s as indicated and place in main ED as soon as available. Jelly Contreras PA-C [employer] Jelly Contreras PA-C 03/27/21 184 [facility] ED NOTEon 10-26-2019 ED NOTE HNO ID: [id number] Author: Argenis Nation RN Service: Nursing Author Type: Registered Nurse Type: ED Notes Filed: 10/26/2019 10:30 AM Note Text: Pt to ED for c/o dental pain and swelling to upper jaw patient states he had 2 teeth pulled at [facility] on 10/23/19 and is not having swelling and slight pressure to the upper jaw. Pt states he was given motrin for pain but no antibiotics after the procedure. [facility] ED PROV NOTEon 10-26-2019 ED PROV NOTE HNO ID: [id number] Author: Terrie Harrison [facility] Ari[facility] MD Service: ? Author Type: Physician Type: ED Provider Notes Filed: 10/26/2019 11:12 AM Note Text: ED Provider Note Patient Name: Dorian Montoya SERVICE DATE: 10/26/19 History Patient presents with: Dental Problem: teeth removed, 10/23/19 28-year-old male presents with dental pain since last night. 4 days ago, he had 2 teeth pulled at [facility]. He had no pain in this area until last night. He noticed an ache in the area where the teeth were pulled. This morning, the ache continued and he noticed swelling to his face. No fevers or chills. He is able to eat and drink without issue. He can open and close his mouth without issue. 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 Social History Tobacco Use - Smoking status: Light Tobacco Smoker - Smokeless tobacco: Former User Types: Chew Substance and Sexual Activity - Alcohol use: Yes Comment: rare - Drug use: Yes Types: Marijuana - Sexual activity: Yes Partners: Female ALLERGIES Allergen Reactions - Apples Hives, Shortness of Breath - Red Dye Other: See Comments major nosebleeds Review of Systems Constitutional: Negative. HENT: See history of present illness Eyes: Negative. Respiratory: Negative. Cardiovascular: Negative. Gastrointestinal: Negative. Genitourinary: Negative. Musculoskeletal: Negative. Skin: Negative. Psychiatric/Behaviora l: Negative. Physical Exam BP 113/75 Pulse 68 Temp (Src) 98.3 (Oral) Resp 20 Wt 155 lb (70.3kg) SpO2 100% O2 Therapy: Room Air Physical Exam Vitals signs and nursing note reviewed. Constitutional: Appearance: He is well-developed. HENT: Head: Normocephalic and atraumatic. Right Ear: External ear normal. Left Ear: External ear normal. Nose: Nose normal. Mouth/Throat: Comments: Teeth have been pulled, the socket looks clean dry and intact. The gum marked with an ax above shows mild erythema and warmth, no fluctuance or induration. Eyes: Conjunctiva/sclera: Conjunctivae normal. Pupils: Pupils are equal, round, and reactive to light. Neck: Musculoskeletal: Normal range of motion and neck supple. Musculoskeletal: Normal range of motion. Skin: General: Skin is warm and dry. Neurological: Mental Status: He is alert and oriented to person, place, and time. Diagnostic Testing ED Labs Ordered and Reviewed - No data to display Procedures ED Course / Clinical Impression Clinical Impressions as of Oct 25 110 Dental infection MDM / Disposition / Plan Early dental infection. Antibiotics. Close follow-up with dentist.Patient sitting up and looks well, talking without issue. Assessment and plan discussed with patient. All questions answered. Patient will follow up with PCP within two days. Return precautions given. Patient verbalized understanding and agreed with plan. SIGNATURE: MD Terrie Wilhelm [facility] MD Juana 10/26/19 1112 [facility] Coronavirus COVID-19on 07-31 COVID-19 Reference range: [facility] Normal [facility] Comment on above: Result Comment: (NOT E) Negative for COVID19 (SARS CoV2) by PCR. This test was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 kg/m2 Alem Sir Danish RIVERAN - OVERLOCK SEWING MACHINE OPERATOR Work Phone: [facility] 09-05-2023 14:00-0400 Body temperature 98.8 [degF] Laem Sir Danish RIVERAN - OVERLOCK SEWING MACHINE OPERATOR Work Phone: [facility] [employer] 09-05-2023 14:00-0400 Body weight 67.31 kg Alem Sir Danish RIVERAN - OVERLOCK SEWING MACHINE OPERATOR Work Phone: [facility] [employer] 09-05-2023 14:00-0400 Diastolic blood pressure 76 mm[Hg] Alem Sir Danish RIVERAN - OVERLOCK SEWING MACHINE OPERATOR Work Phone: [facility] [employer] 09-05-2023 14:00-0400 Heart rate 78 /min Alem Sir Danish RIVERAN - OVERLOCK SEWING MACHINE OPERATOR Work Phone: [facility] 09-05-2023 14:00-0400 SaO2% (BldA) [Mass fraction] 98 % Alem Peng CORRECTIONAL OFFICER SERGEANT - OVERLOCK SEWING MACHINE OPERATOR Work Phone: [facility] 09-05-2023 14:00-0400 Systolic blood pressure 121 mm[Hg] Alem Peng CORRECTIONAL OFFICER SERGEANT - OVERLOCK SEWING MACHINE OPERATOR Work Phone: [facility] 07-03-2023 08:01-0500 Body height 185.4 cm Александр Novak MD Work Phone: [facility] 07-03-2023 08:01-0500 Body mass index (BMI) [Ratio] 18.73 kg/m2 Александр Novak MD Work Phone: [facility] 07-03-2023 08:01-0500 Body temperature 98.01 [degF] Александр Novak MD Work Phone: [facility] 07-03-2023 08:01-0500 Body weight 64.41 kg Александр Novak MD Work Phone: [facility] 07-03-2023 08:01-0500 Diastolic blood pressure 73 mm[Hg] Александр Novak MD Work Phone: [facility] 07-03-2023 08:01-0500 Heart rate 58 /min Александр Novak MD Work Phone: [facility] 07-03-2023 08:01-0500 SaO2% (BldA) [Mass fraction] 99 % Александр Novak MD Work Phone: [facility] 07-03-2023 08:01-0500 Systolic blood pressure 114 mm[Hg] Александр Novak MD Work Phone: [facility] [employer] 06-25-2023 15:08-0500 Body temperature 98.2 [degF] Bebe Cheung MD Work Phone: [facility] [employer] 06-25-2023 15:08-0500 Diastolic blood pressure 63 mm[Hg] Bebe Cheung MD Work Phone: [facility] [employer] 06-25-2023 15:08-0500 Heart rate 63 /min Bebe Cheung MD Work Phone: [facility] [employer] 06-25-2023 15:08-0500 Respiratory rate 14 /min Bebe Cheung MD Work Phone: [facility] 06-25-2023 15:08-0500 SaO2% (BldA) [Mass fraction] 98 % Bebe Cheung MD Work Phone: [facility] 06-25-2023 15:08-0500 Systolic blood pressure 104 mm[Hg] Bebe Cheung MD Work Phone: [facility] 06-23-2023 23:19-0500 Body height 185.4 cm Bebe Cheung MD Work Phone: [facility] [employer] 06-23-2023 23:19-0500 Body mass index (BMI) [Ratio] 18.87 kg/m2 Bebe Cheung MD Work Phone: [facility] [employer] 06-23-2023 23:19-0500 Body weight 64.86 kg Bebe Cheung MD Work Phone: [facility] [employer] 06-06-2023 13:49-0500 Body height 185.4 cm Александр Novak MD Work Phone: [facility] [employer] 06-06-2023 13:49-0500 Body mass index (BMI) [Ratio] 18.87 kg/m2 Александр Novak MD Work Phone: [facility] [employer] 06-06-2023 13:49-0500 Body temperature 98.1 [degF] Александр Novak MD Work Phone: [facility] [employer] 06-06-2023 13:49-0500 Body weight 64.86 kg Александр Novak MD Work Phone: [facility] [employer] 06-06-2023 13:49-0500 Diastolic blood pressure 64 mm[Hg] Александр Novak MD Work Phone: [facility] 06-06-2023 13:49-0500 Heart rate 64 /min Александр Novak MD Work Phone: [facility] 06-06-2023 13:49-0500 SaO2% (BldA) [Mass fraction] 99 % Александр Novak MD Work Phone: [facility] 06-06-2023 13:49-0500 Systolic blood pressure 103 mm[Hg] Александр Novak MD Work Phone: [facility] 04-25-2023 08:07-0500 Diastolic blood pressure 92 mm[Hg] Bebe Cheung MD Work Phone: [facility] 04-25-2023 08:07-0500 Heart rate 50 /min Bebe Cheung MD Work Phone: [facility] 04-25-2023 08:07-0500 Respiratory rate 15 /min Bebe Cheung MD Work Phone: [facility] 04-25-2023 08:07-0500 SaO2% (BldA) [Mass fraction] 99 % Bebe Cheung MD Work Phone: [facility] 04-25-2023 08:07-0500 Systolic blood pressure 120 mm[Hg] Bebe Cheung MD Work Phone: [facility] 04-25-2023 04:24-0500 Body temperature 98.6 [degF] Bebe Cheung MD Work Phone: [facility] 04-10-2023 14:29-0500 Body height 185.4 cm Crystal Meranto CORRECTIONAL OFFICER SERGEANT - OVERLOCK SEWING MACHINE OPERATOR Work Phone: [facility] 04-10-2023 14:29-0500 Body mass index (BMI) [Ratio] 18.6 kg/m2 Crystal Meranto CORRECTIONAL OFFICER SERGEANT - OVERLOCK SEWING MACHINE OPERATOR Work Phone: [facility] 04-10-2023 14:29-0500 Body temperature 99.9 [degF] Crystal Meranto CORRECTIONAL OFFICER SERGEANT - OVERLOCK SEWING MACHINE OPERATOR Work Phone: [facility] 04-10-2023 14:29-0500 Body weight 63.96 kg Ann Bruce CORRECTIONAL OFFICER SERGEANT - OVERLOCK SEWING MACHINE OPERATOR Work Phone: [facility] 04-10-2023 14:29-0500 Diastolic blood pressure 90 mm[Hg] Ann Bruce CORRECTIONAL OFFICER SERGEANT - OVERLOCK SEWING MACHINE OPERATOR Work Phone: [facility] 04-10-2023 14:29-0500 Heart rate 78 /min Ann Bruce CORRECTIONAL OFFICER SERGEANT - OVERLOCK SEWING MACHINE OPERATOR Work Phone: [facility] 04-10-2023 14:29-0500 SaO2% (BldA) [Mass fraction] 100 % Ann Bruce CORRECTIONAL OFFICER SERGEANT - OVERLOCK SEWING MACHINE OPERATOR Work Phone: [facility] 04-10-2023 14:29-0500 Systolic blood pressure 123 mm[Hg] Ann Bruce CORRECTIONAL OFFICER SERGEANT - OVERLOCK SEWING MACHINE OPERATOR Work Phone: [facility] 02-01-2023 09:27-0400 Body height 185.4 cm Alem Sir Danish CORRECTIONAL OFFICER SERGEANT - OVERLOCK SEWING MACHINE OPERATOR Work Phone: [facility] 02-01-2023 09:27-0400 Body mass index (BMI) [Ratio] 18.21 kg/m2 Alem Sir Danish CORRECTIONAL OFFICER SERGEANT - OVERLOCK SEWING MACHINE OPERATOR Work Phone: [facility] 02-01-2023 09:27-0400 Body temperature 98.01 [degF] Alem Sir Danish CORRECTIONAL OFFICER SERGEANT - OVERLOCK SEWING MACHINE OPERATOR Work Phone: [facility] 02-01-2023 09:27-0400 Body weight 62.6 kg Alem Sir Danish CORRECTIONAL OFFICER SERGEANT - OVERLOCK SEWING MACHINE OPERATOR Work Phone: [facility] 02-01-2023 09:27-0400 Diastolic blood pressure 80 mm[Hg] Alem Sir Danish CORRECTIONAL OFFICER SERGEANT - OVERLOCK SEWING MACHINE OPERATOR Work Phone: [facility] 02-01-2023 09:27-0400 Heart rate 73 /min Alem Sir Danish CORRECTIONAL OFFICER SERGEANT - OVERLOCK SEWING MACHINE OPERATOR Work Phone: [facility] 02-01-2023 09:27-0400 SaO2% (BldA) [Mass fraction] 98 % Alem Sir Danish CORRECTIONAL OFFICER SERGEANT - OVERLOCK SEWING MACHINE OPERATOR Work Phone: [facility] 02-01-2023 09:27-0400 Systolic blood pressure 113 mm[Hg] Alem Peng CORRECTIONAL OFFICER SERGEANT - OVERLOCK SEWING MACHINE OPERATOR Work Phone: [facility] 01-25-2023 15:25-0400 Diastolic blood pressure 89 mm[Hg] Thomas Wadsworth MD Work Phone: [facility] 01-25-2023 15:25-0400 Heart rate 52 /min Thomas Wadsworth MD Work Phone: [facility] 01-25-2023 15:25-0400 Respiratory rate 15 /min Thomas Wadsworth MD Work Phone: [facility] 01-25-2023 15:25-0400 SaO2% (BldA) [Mass fraction] 99 % Thomas Wadsworth MD Work Phone: [facility] 01-25-2023 15:25-0400 Systolic blood pressure 115 mm[Hg] Thomas Wadsworth MD Work Phone: [facility] 01-25-2023 09:59-0400 Body temperature 97.5 [degF] Thomas Wadsworth MD Work Phone: [facility] 06-25-2022 09:31-0500 Body height 185.4 cm Ayan Silva MD Work Phone: [facility] 06-25-2022 09:31-0500 Body mass index (BMI) [Ratio] 19.79 kg/m2 Ayan Silva MD Work Phone: [facility] 06-25-2022 09:31-0500 Body temperature 98.1 [degF] Ayan Silva MD Work Phone: [facility] 06-25-2022 09:31-0500 Body weight 68.04 kg Ayan Silva MD Work Phone: [facility] 06-25-2022 09:31-0500 Diastolic blood pressure 89 mm[Hg] Ayan Silva MD Work Phone: [facility] [employer] 06-25-2022 09:31-0500 Heart rate 94 /min Ayan Silva MD Work Phone: [facility] 06-25-2022 09:31-0500 Respiratory rate 18 /min Ayan Silva MD Work Phone: [facility] 06-25-2022 09:31-0500 SaO2% (BldA) [Mass fraction] 100 % Ayan Silva MD Work Phone: [facility] 06-25-2022 09:31-0500 Systolic blood pressure 128 mm[Hg] Ayan Silva MD Work Phone: [facility] 04-19-2022 16:47-0500 Body temperature 98.2 [degF] No PCP None [facility] Work Phone: 04-19-2022 16:47-0500 Body weight 66.23 kg No PCP None [facility] Work Phone: 04-19-2022 16:47-0500 Diastolic blood pressure 77 mm[Hg] No PCP None [facility] Work Phone: 04-19-2022 16:47-0500 Heart rate 81 /min No PCP None [facility] Work Phone: 04-19-2022 16:47-0500 SaO2% (BldA) [Mass fraction] 98 % No PCP None [facility] Work Phone: 04-19-2022 16:47-0500 Systolic blood pressure 113 mm[Hg] No PCP None [facility] Work Phone: 03-29-2022 09:20-0500 Body height 185.4 cm Jared Galvez MD Work Phone: [facility] 03-29-2022 09:20-0500 Body temperature 97.5 [degF] Jared Galvez MD Work Phone: [facility] 03-29-2022 09:20-0500 Body weight 67.13 kg Jared Galvez MD Work Phone: [facility] 03-29-2022 09:20-0500 Diastolic blood pressure 77 mm[Hg] Jared Galvez MD Work Phone: [facility] 03-29-2022 09:20-0500 Heart rate 92 /min Jared Galvez MD Work Phone: [facility] 03-29-2022 09:20-0500 Respiratory rate 18 /min Jared Galvez MD Work Phone: [facility] 03-29-2022 09:20-0500 SaO2% (BldA) [Mass fraction] 100 % Jared Galvez MD Work Phone: [facility] 03-29-2022 09:20-0500 Systolic blood pressure 131 mm[Hg] Jared Galvez MD Work Phone: [facility] Encounters Encounter Date Encounter Type Care Provider Facility Start: 10-22-2024 ambulatory No Primary Car e Physician Facility:[facility] Start: 10-14-2024 End: 10-14-[address] Roney Whatley [facility] Start: 10-14-2024 End: 10-14-2024 ambulatory [facility] Work Phone: Start: 08-25-2024 End: 08-25-2024 Emergency department patient visit OLIVIA MERINO [facility] Start: 07-16-2024 End: 07-16-2024 ambulatory [facility] Start: 07-16-2024 End: 07-16-2024 Patient encounter procedure Isac Slade DDS Work Phone: [facility] Start: 06-25-2024 End: 06-25-2024 ambulatory [facility] Start: 06-25-2024 End: 06-25-2024 Patient encounter procedure Isac Slade DDS Work Phone: [facility] Start: 05-27-2024 End: 05-27-2024 Orders Only Radha Lewis PA-C Work Phone: [facility] [facility] Comment on above: Screening for diabet es mellitus Start: 05-26-2024 End: 06-06-2024 Telephone encounter Александр Novak MD Work Phone: [facility] Comment on above: Medication Problem ( Pharmacy wont fill as written ) Start: 05-21-2024 End: 05-23-2024 Refill Radha Lewis PA-C Work Phone: [facility] [facility] Comment on above: Screening for diabet es mellitus Start: 05-21-2024 End: 05-21-2024 ambulatory [facility] Start: 05-21-2024 End: 05-21-2024 Office outpatient visit 15 minutes Radha Lewis PA-C Work Phone: [facility] [facility] Comment on above: Screening for diabet es mellitus (Primary Dx) Start: 04-24-2024 End: 05-21-2024 Telephone encounter Isac Slade DDS Work Phone: [facility] Comment on above: Appointment (Via My Chart/CRM) Start: 02-21-2024 End: 02-21-2024 Office outpatient visit 25 minutes Radha Lewis PA-C Work Phone: [facility] [employer] [facility] Comment on above: Encounter for annual physical exam (Primary Dx); Nausea and vomiting, unspecified vomiting type; Screening for diabetes mellitus; Screening for blood disease; Screening for cardiovascular condition Start: 02-21-2024 End: 02-21-2024 Patient encounter procedure Radha Lewis PA-C Work Phone: [employer] Work Phone: Start: 02-21-2024 End: 02-21-2024 ambulatory [facility] Start: 02-21-2024 End: 02-21-2024 Encounter for general adult medical examination without abnormal findings [facility] Start: 02-08-2024 End: 02-08-2024 Postop follow up visit related to original px Laxmi Posada-Mustaphatrom DPM Work Phone: [facility] Comment on above: Epidermal inclusion cyst (Primary Dx) Start: 02-08-2024 End: 02-08-2024 ambulatory АЛЕКСАНДР NOVAK [facility] Start: 01-25-2024 End: 01-25-2024 Postop follow up visit related to original px Laxmi Posada-Ramonlstrom DPM Work Phone: [facility] Comment on above: Epidermal inclusion cyst (Primary Dx) Start: 01-25-2024 End: 01-25-2024 ambulatory LAXMI POSADA-JAYNA [facility] Start: 01-24-2024 End: 01-24-2024 ambulatory ISAC SLADE III [facility] Start: 01-24-2024 End: 01-24-2024 Patient encounter procedure Isac Slade DDS Work Phone: [facility] Start: 01-21-2024 End: 02-13-2024 Telephone encounter Laxmi Posada-Wuom DPM Work Phone: [facility] Start: 01-21-2024 End: 01-21-2024 ambulatory LAXMI POSADA-WUOM [facility] Start: 01-21-2024 End: 01-21-2024 Subsequent hospital visit by physician Laxmi Hicks DPM Work Phone: [facility] Comment on above: Plantar fascial fibr omatosis Start: 01-19-2024 End: 01-19-2024 ambulatory Laxmi Posada-Mustaphatrom DPM Work Phone: [facility] Start: 12-26-2023 End: 12-26-2023 Office outpatient new 45 minutes Laxmi Posada-Ramonlstrom DPM Work Phone: [facility] Comment on above: Plantar fascial fibr omatosis of left foot Start: 12-26-2023 End: 12-26-2023 [facility]: [facility]23 End: 2023 ambulatory ISAC SLADE III [facility] Start: 2023 End: 2023 Patient encounter procedure Isac Slade DDS Work Phone: [facility] Start: 12-05-2023 End: 12-05-2023 Chart abstracting [facility] Start: 10-17-2023 End: 10-17-2023 Office outpatient new 30 minutes Collin Hernandez MD Work Phone: [facility] Comment on above: Plantar fascial fibr omatosis of left foot (Primary Dx); Pain; Left foot pain Start: 10-17-2023 End: 10-17-2023 ambulatory [facility] Start: 09-24-2023 End: 09-24-2023 Subsequent hospital visit by physician Neida Fuller MD Work Phone: [facility] Comment on above: Abdominal pain; Nausea and vomiting Start: 09-05-2023 End: 09-05-2023 Office outpatient visit 25 minutes Alem Peng CORRECTIONAL OFFICER SERGEANT - OVERLOCK SEWING MACHINE OPERATOR Work Phone: [facility] Comment on above: Mild persistent asth ma without complication (Primary Dx); Right-sided chest pain; Left foot pain; Nausea and vomiting, unspecified vomiting type; Nicotine use disorder Start: 07-03-2023 End: 07-03-2023 Transitional care manage srvc 14 day discharge Александр Novak MD Work Phone: [facility] Comment on above: Influenza A (Primary Dx); Normocytic anemia; ZULLY (acute kidney injury) (HCC); Rib pain on right side; Hospital discharge follow-up Start: 06-26-2023 Telephone encounter Александр cardenas MD Work Phone: [facility] Comment on above: Appointment (Transit ional Care) Start: 06-23-2023 End: 06-25-2023 Evaluation and management of inpatient Bebe Cheung MD Work Phone: [facility] Cardiac Vascular Progressive Care Unit [facility] 1C Comment on above: ZULLY (acute kidney in jury) (HCC) (Primary Dx); Influenza A Start: 06-06-2023 End: 06-06-2023 Office outpatient visit 25 minutes Александр Novak MD Work Phone: [facility] Comment on above: Shortness of breath (Primary Dx); Mild intermittent asthma without complication; Right-sided chest pain; Trapezius muscle spasm; Nausea; Proctitis Start: 04-25-2023 End: 04-25-2023 Emergency department patient visit Bebe Cheung MD Work Phone: [facility] Comment on above: Dental abscess (Prim bishop Dx); Pain, dental; Generalized abdominal pain Start: 04-10-2023 End: 04-10-2023 Office outpatient new 45 minutes Ann Bruce CORRECTIONAL OFFICER SERGEANT - OVERLOCK SEWING MACHINE OPERATOR Work Phone: [facility] Gastroenterology Comment on above: Generalized abdomina l pain (Primary Dx); Decreased appetite; Nausea and vomiting; Rectal bleeding; Proctitis; Family history of Crohn's disease Start: 04-09-2023 Telephone encounter Deysi Easton MA [facility] Comment on above: Appointment Confirma tion Start: 02-01-2023 End: 02-01-2023 Initial preventive medicine new pt age 18-39yrs Alem Peng CORRECTIONAL OFFICER SERGEANT - OVERLOCK SEWING MACHINE OPERATOR Work Phone: [facility] Comment on above: Encounter to research [facility] (Primary Dx); Annual physical exam; Proctitis; Anemia, unspecified type; Mild intermittent asthma without complication; Nicotine use disorder; Encounter for hepatitis C screening test for low risk patient; Screening for HIV (human immunodeficiency virus) Start: 02-01-2023 End: 02-01-2023 Patient encounter procedure Alem Peng CORRECTIONAL OFFICER SERGEANT - OVERLOCK SEWING MACHINE OPERATOR Work Phone: [facility] Start: 01-25-2023 ambulatory Suzanne Johnson RN [facility] C linical Communication Start: 01-25-2023 Patient encounter procedure Suzanne Johnson RN [facility] Clinical Communication Start: 01-25-2023 End: 01-25-2023 Emergency department patient visit Thomas Wadsworth MD Work Phone: [facility] Comment on above: Proctitis (Primary D x); Pain of upper abdomen Start: 01-25-2023 End: 01-25-2023 Subsequent hospital visit by physician Ach Ecg [facility] Comment on above: Arrived Start: 06-26-2022 End: 06-26-2022 Subsequent hospital visit by physician Ach [facility] Non-[facility]vasive [facility] Comment on above: Arrived Start: 06-25-2022 End: 06-25-2022 Subsequent hospital visit by physician Ach Ed Xr Portable [facility] X-Ray Comment on above: Arrived Start: 06-25-2022 End: 06-25-2022 Emergency department patient visit Ayan Silva MD Work Phone: [facility] Comment on above: Calf swelling (Prima ry Dx); Contusion of left lower extremity, initial encounter Start: 05-17-2022 End: 05-17-2022 Emergency department patient visit [facility] Facility:[place] Start: 05-10-2022 End: 05-11-2022 Emergency department patient visit [facility] Facility:[place] Start: 05-03-2022 ambulatory DEYSI CHAKA FERNANDOO Facil ity:[facility] Start: 05-03-2022 End: 05-03-2022 Subsequent hospital visit by physician [facility] (I-Stat) RADIO CT SCAN [facility] Comment on above: Incidental lung nodu le [R91.1] Start: 04-19-2022 ambulatory Audrey Sheth Facility:1 [id number] Start: 04-19-2022 Office outpatient ne w 30 minutes No PCP None [facility] Work Phone: Start: 04-19-2022 Patient encounter procedure No PCP None [facility] Work Phone: Start: 03-30-2022 Telephone encounter Paul Woodruff RN NOC Comment on above: Follow Up Phone Call (All Clear) Start: 03-29-2022 End: 03-29-2022 ambulatory JARED GALVEZ Facility:[facility] Start: 03-29-2022 End: 03-29-2022 Patient encounter procedure Jared Galvez MD Work Phone: [facility] Internal Medicine [facility] ([facility]) Comment on above: Incidental lung nodu le (Primary Dx); ZULLY (acute kidney injury) (HCC) Start: 03-21-2022 End: 03-23-2022 Evaluation and management of inpatient KEITHChristosAUGUSTUS SINGH Facility:[place] Start: 06-21-2021 End: 06-21-2021 [facility] [facility] Start: 06-21-2021 End: 06-21-2021 ambulatory ARMINDA DAILY Facility:[facility] [facility] Start: 06-08-2021 End: 06-08-2021 ambulatory [place] [place] [facility] Start: 05-27-2021 End: 05-27-2021 ambulatory [facility] Facility[facility] [facility] Procedures Date Procedure Procedure Detail Performing Clinician Start: 07-16-2024 NC VISIT PART OF MULTI-VISIT PROCEDURE Isac Slade DDS Work Phone: Start: 06-25-2024 resin-based composit e - two surfaces, anterior Isac Slade DDS Work Phone: Start: 06-25-2024 resin-based composit e - two surfaces, posterior Isac Slade DDS Work Phone: Start: 05-21-2024 Adult depression scr eening assessment Radha Lewis PA-C Work Phone: Start: 01-24-2024 resin-based composit e - two surfaces, anterior Jewel Stout DDS Work Phone: Start: 2023 extraction, erupted tooth or exposed root (elevation and/or forceps removal) Isac Slade DDS Work Phone: Start: 12-05-2023 28 O COMPOSITE FILLING Historical Provider Work Phone: Start: 09-12-2023 5 O COMPOSITE FILLING H istorical Provider Work Phone: Start: 09-05-2023 Adult depression scr eening assessment Alem Peng CORRECTIONAL OFFICER SERGEANT - OVERLOCK SEWING MACHINE OPERATOR Work Phone: Start: 07-30-2023 15 LO COMPOSITE FILLING Historical Provider Work Phone: Start: 07-27-2023 20 DO COMPOSITE FILLING Historical Provider Work Phone: Start: 07-27-2023 20 ROOT CANAL Historica l Provider Work Phone: Start: 07-16-2023 17 EXTRACTION Historica l Provider Work Phone: Start: 06-25-2023 Comprehensive metabo lic panel Blas Greene MD Work Phone: Start: 06-25-2023 Drug screen quantita tive vancomycin Blas Greene MD Work Phone: Start: 06-24-2023 Comprehensive metabo lic panel Blas Greene MD Work Phone: Start: 06-24-2023 Drug screen quantita tive vancomycin Blas Greene MD Work Phone: Start: 06-24-2023 Procalcitonin (pct) Sebastian Greene MD Work Phone: Start: 06-24-2023 Assay of troponin quantitative Bebe Cheung MD Work Phone: Start: 06-24-2023 Culture bacterial quanttative colony count urine Shawn Thornton DO Work Phone: Start: 06-24-2023 Drug tst prsmv instr mnt chem analyzers pr date Bebe Cheung MD Work Phone: Start: 06-24-2023 Urinalysis complete panel - Urine Bebe Cheung MD Work Phone: Start: 06-23-2023 Ct abdomen & pelvis w/contrast material Bebe Cheung MD Work Phone: Start: 06-23-2023 Ct angiography chest w/contrast/noncontrast Bebe Cheung MD Work Phone: Start: 06-23-2023 Radiologic exam ches t single view Bebe Cheung MD Work Phone: Start: 06-23-2023 Bacteria identified in Blood by Culture Bebe Cheung MD Work Phone: Start: 06-23-2023 Ecg routine ecg w/le ast 12 lds trcg only w/o i&r Bebe Cheung MD Work Phone: Start: 06-23-2023 Blood gases any comb ination ph pco2 po2 co2 hco3 Bebe Cheung MD Work Phone: Start: 06-23-2023 End: 06-23-2023 Comprehensive metabolic panel Bebe Cheung MD Work Phone: Start: 06-23-2023 Manual differential performed [Presence] in Blood Bebe Cheung MD Work Phone: Start: 06-23-2023 Respiratory pathogen s DNA and RNA panel - Nasopharynx by DEA with non-probe detection Bebe Cheung MD Work Phone: Start: 04-27-2023 32 EXTRACTION Historica consuelo Lopez MD Work Phone: Start: 04-25-2023 Urinalysis complete panel - Urine Bebe Cheung MD Work Phone: Start: 04-25-2023 Urnls dip stick/tabl et reagent auto microscopy Bebe Cheung MD Work Phone: Start: 04-25-2023 Comprehensive metabo lic panel Bebe Cheung MD Work Phone: Start: 01-31-2023 Adult depression scr eening assessment Alem Sir Danish CORRECTIONAL OFFICER SERGEANT - OVERLOCK SEWING MACHINE OPERATOR Work Phone: Start: 01-25-2023 Blood occult peroxid ase actv qual feces 1-3 spec Lupis So PA-C Work Phone: Start: 01-25-2023 Ct abdomen & pelvis w/contrast material Lupis So PA-C Work Phone: Start: 01-25-2023 Ct thorax w/contrast material Lupis So PA-C Work Phone: Start: 01-25-2023 Comprehensive metabo lic panel Lupis So PA-C Work Phone: Start: 01-25-2023 Radiologic exam ches t single view Lupis So PA-C Work Phone: Start: 01-25-2023 Ecg routine ecg w/le ast 12 lds trcg only w/o i&r Lupis So PA-C Work Phone: Start: 06-26-2022 Ecg routine ecg w/le ast 12 lds trcg only w/o i&r Ayan Silva MD Work Phone: Start: 06-25-2022 Radiologic examinati on tibia & fibula 2 views Chantelle Cordero Plan of Treatment Date Care Activity Detail Author Start: 2065 RSV Immunization for Adults (1 - 1-dose 75+ series) RSV Immunization for Adults (1 - 1-dose 75+ series) [facility] Start: 2050 RSV Immunization aged 60 or older (1 - 1-dose 60+ series) RSV Immunization aged 60 or older (1 - 1-dose 60+ series) [facility] Start: 2040 Zoster Vaccines (1 of 2) Zoster Vaccines (1 of 2) [facility] Start: 03-27-2031 DTaP/Tdap/Td Vaccines (4 - Td or Tdap) DTaP/Tdap/Td Vaccines (4 - Td or Tdap) [facility] Start: 03-27-2031 Urine microalbumin profile DTAP,TDAP,TD (4 - Td or Tdap) [facility] Start: 05-21-2025 Depression Screening Depression Screening [facility] Start: 05-21-2025 Diabetes mellitus screening Diabetes Screening [facility] Start: 02-21-2025 Diabetes mellitus screening Diabetes Screening [facility] Start: 10-14-2024 Plain X-ray of finger Finger(s) Min 2 Views [facility] Start: 10-14-2024 XR Finger GE 2 Views [facility] Start: 09-04-2024 Depression Screening Depression Screening [facility] Start: 08-27-2024 End: 08-27-2024 Patient encounter procedure 08/27/2024 9:30 AM EDT Office Visit [facility] [place] [address] [place] [phone] Gamaliel Esqueda PA-C [address] [place] [address] [facility] Start: 07-16-2024 End: 07-16-2024 Patient encounter procedure 07/16/2024 8:00 AM EST Office Visit [facility] [address] [place] [phone] Isac Slade III, DDS [address] [place] [address] [facility] Start: 06-25-2024 End: 06-25-2024 Patient encounter procedure 06/25/2024 9:00 AM EST Office Visit [facility] [address] [place] [phone] Isac Slade III, DDS [address] [place] [address] [facility] Start: 06-19-2024 End: 06-19-2024 Patient encounter procedure 06/19/2024 10:30 AM EST Office Visit [facility] [place] [address] [place] [phone] Gamaliel Esqueda PA-C [address] [place] [address] [facility] Start: 02-21-2024 End: 02-21-2024 Patient encounter procedure 02/21/2024 2:30 PM EDT Office Visit [facility] [address] [place] [phone] Radha Lewis PA-C [address] [place] [address] [facility] Start: 02-21-2024 End: 02-20-2025 CBC panel - Blood by Automated count CBC Lab Routine Screening for blood disease Expected: 02/21/2024 (Approximate), Expires: 02/20/2025 [facility] Work Phone: Comment on above: Expected: 02/21/2024 (Approximate), Expi res: 02/20/2025 Start: 02-21-2024 End: 02-20-2025 Comprehensive metabolic 1998 panel - Serum or Plasma Comprehensive metabolic panel Lab Routine Screening for diabetes mellitus Expected: 02/21/2024 (Approximate), Expires: 02/20/2025 [facility] Comment on above: Expected: 02/21/2024 (Approximate), Expi res: 02/20/2025 Start: 02-21-2024 End: 02-20-2025 Hemoglobin A1c measurement Hemoglobin A1c Lab Routine Screening for diabetes mellitus Expected: 02/21/2024 (Approximate), Expires: 02/20/2025 [facility] Comment on above: Expected: 02/21/2024 (Approximate), Expi res: 02/20/2025 Start: 02-21-2024 End: 02-20-2025 Lipid 1996 panel - Serum or Plasma Lipid panel Lab Routine Screening for cardiovascular condition Expected: 02/21/2024 (Approximate), Expires: 02/20/2025 [facility] Comment on above: Expected: 02/21/2024 (Approximate), Expi res: 02/20/2025 Start: 02-19-2024 End: 02-19-2024 Patient encounter procedure 02/19/2024 8:30 AM EDT Office Visit [facility] [address] [place] [phone] Isac Slade III, DDS [address] [place] [address] [facility] Start: 02-15-2024 End: 02-15-2024 Patient encounter procedure [facility] Start: 02-15-2024 End: 02-15-2024 Patient encounter procedure [facility] Start: 02-08-2024 End: 02-08-2024 Patient encounter procedure 02/08/2024 8:30 AM EDT Office Visit [facility] [address] [facility] [place] [phone] Laxmi Hicks DPM [address] [place] [address] [facility] Start: 02-01-2024 Depression Screening Depression Screening [facility] Start: 02-01-2024 End: 02-01-2024 Patient encounter procedure [facility] Start: 01-25-2024 End: 01-25-2024 Patient encounter procedure [facility] Start: 01-24-2024 End: 01-24-2024 Patient encounter procedure 01/24/2024 8:00 AM EDT Office Visit [facility] [address] [place] [phone] Isac Slade III, DDS [address] [place] [address] [facility] Start: 01-21-2024 End: 01-21-2024 Admission to same day surgery center 01/21/2024 10:00 AM EDT - 01/21/2024 11:00 AM EDT Surgery [facility] [address] [place] [phone] Laxmi Hicks DPM [address] [place] [address] LEFT FOOT EXCISION PLANTAR FIBROMA [11254 (CPT )] [facility] Comment on above: LEFT FOOT EXCISION PLANTAR FIBROMA [2806 0 (CPT )] Start: 01-21-2024 End: 01-21-2024 Anesthesia consultation 01/21/2024 10:00 AM EDT Anesthesia Event [facility] [address] [place] [address] Marcus Fam, CORRECTIONAL OFFICER SERGEANT - [address] [address] [facility] Start: 01-21-2024 End: 01-21-2024 Fasciectomy plantar fascia partial spx [facility] Operating Room Start: 01-21-2024 Subsequent hospital visit by physician 01/21/2024 8:00 AM EDT Hospital Encounter [facility] [address] [place] [address] Laxmi Hicks, DPHoracio [address] [facility] [address] [place], [place] [id number] [facility] Start: 01-13-2024 COVID-19 Vaccine ( season) COVID-19 Vaccine ( season) [facility] Start: 01-13-2024 COVID-19 Vaccine ( season) COVID-19 Vaccine ( season) [facility] Start: 01-13-2024 Influenza vaccination [facility] Start: 01-08-2024 End: 01-08-2024 Patient encounter procedure 01/08/2024 10:30 AM EDT Office Visit [facility] [address] [place] [phone] Isac Slade III, DDS [address] [place] [address] [facility] Start: 12-26-2023 End: 12-26-2023 Patient encounter procedure 12/26/2023 10:00 AM EDT Office Visit [facility] [address] [place] [phone] Laxmi Hicks DPM [address] [place] [address] [facility] Start: 2023 End: 2023 Patient encounter procedure 2023 2:30 PM EDT Office Visit [facility] [address] [place] [phone] Isac Slade III, DDEdwige [address] [place] [address] [facility] Start: 12-10-2023 End: 12-10-2023 Patient encounter procedure 12/10/2023 9:00 AM EDT Office Visit [facility] [address] [place] [phone] Temi Lunsford, [facility] Start: 10-17-2023 End: 10-17-2023 Patient encounter procedure 10/17/2023 1:30 PM EDT Office Visit [facility] [address] [facility] [address] [place] [phone] Collin Hernandez MD [address] [facility] [address] [place] [address] [facility] Start: 09-24-2023 End: 09-24-2023 Admission to same day surgery center 09/24/2023 9:00 AM EDT - 09/24/2023 9:45 AM EDT Surgery [facility] [address] [place] [phone] Neida Fuller MD [address] [place] [address] ESOPHAGOGASTRODUODENO SCOPY/COLONOSCOPY [36424 (CPT )] [facility] [address] [facility] Comment on above: ESOPHAGOGASTRODUODENOSCOPY/COLONOSCOPY [ 92120 (CPT )] Start: 09-24-2023 Subsequent hospital visit by physician 09/24/2023 9:00 AM EDT Hospital Encounter [facility] [address] [place] [phone] Neida Fuller MD [address] [place] [address] [facility] [address] Start: 09-24-2023 End: 09-24-2023 Colonoscopy flx dx w/collj spec when pfrmd [facility] Start: 09-24-2023 End: 09-24-2023 Esophagogastroduodenoscopy transoral diagnostic [facility] Start: 09-05-2023 End: 09-05-2023 Patient encounter procedure 09/05/2023 2:00 PM EDT Office Visit [facility] [address] [place] [phone] Alem Crenshaw, SOCRATES - OVERLOCK SEWING MACHINE OPERATOR [address] [facility] [address] [place], [place] [phone] [facility] Start: 06-06-2023 End: 06-06-2023 Patient encounter procedure [facility] Start: 04-10-2023 End: 04-10-2023 Patient encounter procedure [facility] Start: 02-01-2023 End: 02-02-2024 CBC panel - Blood by Automated count CBC Lab Routine Anemia, unspecified type Expected: 02/01/2023 (Approximate), Expires: 02/02/2024 [facility] [employer] [facility] Work Phone: Comment on above: Expected: 02/01/2023 (Approximate), Expi res: 02/02/2024 Start: 02-01-2023 End: 02-02-2024 Ferritin [Mass/volume] in Serum or Plasma Ferritin Lab Routine Anemia, unspecified type Expected: 02/01/2023 (Approximate), Expires: 02/02/2024 [facility] Comment on above: Expected: 02/01/2023 (Approximate), Expi res: 02/02/2024 Start: 02-01-2023 End: 02-02-2024 Hepatitis C virus Ab [Presence] in Serum or Plasma by Immunoassay Hepatitis C antibody Lab Routine Encounter for hepatitis C screening test for low risk patient Expected: 02/01/2023 (Approximate), Expires: 02/02/2024 [facility] Comment on above: Expected: 02/01/2023 (Approximate), Expi res: 02/02/2024 Start: 02-01-2023 End: 02-02-2024 HIV 1+2 Ab+HIV1 p24 Ag [Presence] in Serum or Plasma by Immunoassay HIV-1 and HIV-2 Antigen-Antibody Screen Lab Routine Screening for HIV (human immunodeficiency virus) Expected: 02/01/2023 (Approximate), Expires: 02/02/2024 [facility] Comment on above: Expected: 02/01/2023 (Approximate), Expi res: 02/02/2024 Start: 02-01-2023 End: 02-02-2024 Iron and Iron binding capacity panel - Serum or Plasma Iron and TIBC Lab Routine Anemia, unspecified type Expected: 02/01/2023 (Approximate), Expires: 02/02/2024 [facility] Comment on above: Expected: 02/01/2023 (Approximate), Expi res: 02/02/2024 Start: 02-01-2023 End: 02-01-2023 Patient encounter procedure 02/01/2023 9:20 AM EDT Office Visit [facility] [address] [place] [address] [address] [place] [address] Alem Crenshaw, CORRECTIONAL OFFICER SERGEANT - OVERLOCK SEWING MACHINE OPERATOR [address] [facility] [address] [place] [address] [facility] Start: 01-12-2023 COVID-19 Vaccine ( season) COVID-19 Vaccine () [facility] Start: 01-12-2023 Influenza vaccination Influenza Vaccine (#1) [facility] Start: 01-12-2022 Influenza vaccination [facility] Start: 05-14-2021 DEPRESSION ASSESSMENT DEPRESSION ASSESSMENT [facility] Start: 2009 Hepatitis A Vaccines (1 of 2 - Risk 2-dose series) Hepatitis A Vaccines (1 of 2 - Risk 2-dose series) [facility] Start: 2009 Hepatitis B Vaccines (1 of 3 - 19+ 3-dose series) Hepatitis B Vaccines (1 of 3 - 19+ 3-dose series) [facility] Start: 2009 Pneumococcal Vaccine: Pediatrics (0 to 5 Years) and At-Risk Patients (6 to 49 Years) (1 of 2 - PCV) Pneumococcal Vaccine: Pediatrics (0 to 5 Years) and At-Risk Patients (6 to 49 Years) (1 of 2 - PCV) [facility] Start: 04-29-2009 MMR Vaccines (1 of 1 - Standard series) MMR Vaccines (1 of 1 - Standard series) [facility] Start: 04-29-2009 Varicella vaccination [facility] Start: 2008 HEPATITIS C SCREENING HEPATITIS C SCREENING [facility] Start: 2008 Hepatitis C screening Hepatitis C Screening [facility] Start: 2008 HIV SCREENING HIV SCREENING [facility] Start: 2002 Depression Screening Depression Screening [facility] Start: 1996 Pneumococcal Vaccine: Pediatrics (0 to 5 Years) and At-Risk Patients (6 to 64 Years) (1 - PCV) Pneumococcal Vaccine: Pediatrics (0 to 5 Years) and At-Risk Patients (6 to 64 Years) (1 - PCV) [facility] Start: 1996 Pneumococcal Vaccine: Pediatrics (0 to 5 Years) and At-Risk Patients (6 to 64 Years) (1 of 2 - PCV) Pneumococcal Vaccine: Pediatrics (0 to 5 Years) and At-Risk Patients (6 to 64 Years) (1 of 2 - PCV) [facility] Start: 06-21-1991 COVID-19 VACCINE (#1) COVID-19 VACCINE (#1) [facility] Start: 1990 Dental Oral Exam Dental Oral Exam [facility] Start: 1990 Dental X-ray bitewing Dental X-Ray: Bitewings [facility] Start: 1990 HEPATITIS B (1 of 3 - 3-dose series) HEPATITIS B (1 of 3 - 3-dose series) [facility] Start: 1990 Hepatitis B Vaccines (1 of 3 - 3-dose series) Hepatitis B Vaccines (1 of 3 - 3-dose series) [facility] Start: 1990 HIV screening HIV Screening [facility] Start: 1990 Lipid panel Lipid Panel [facility] Start: 1990 Preventive periodontal procedure, periodontal prophylaxis Dental Prophylaxis [facility] Bacteria identified in Blood by Culture [facility] [employer] Work Phone: Basic metabolic 1998 panel - Serum or Plasma Basic metabolic panel Lab Routine Screening for diabetes mellitus Ordered: 05/21/2024 [facility] Work Phone: Comment on above: Ordered: 05/21/2024 CBC panel - Blood by Automated count CBC Lab Routine Influenza A Normocytic anemia ZULLY (acute kidney injury) (HCC) Ordered: 07/03/2023 [facility] [employer] [facility] Work Phone: Comment on above: Ordered: 07/03/2023 Comprehensive metabo lic 1998 panel - Serum or Plasma Comprehensive metabolic panel Lab Routine Influenza A Normocytic anemia ZULLY (acute kidney injury) (HCC) Ordered: 07/03/2023 [facility] [employer] Comment on above: Ordered: 07/03/2023 End: 05-03-2022 Ct thorax w/o contrast material [facility] Work Phone: Comment on above: 1 Occurrences starting 05/03/2022 until 05/03/2022 Hemoglobin A1c measurement Hemog lobin A1c Lab Routine Screening for diabetes mellitus Ordered: 05/21/2024 [facility] Comment on above: Ordered: 05/21/2024 mandibular partial d enture - cast metal framework with resin denture bases (including any conventional clasps, rests and teeth) 31,30,29,19,18 31,30,29,19,18 MI MANDIBULAR PRTL DENTURE - CAST METAL FRAMEWORK Dental Routine 1 Occurrences starting 01/24/2024 [facility] Comment on above: 1 Occurrences starting 01/24/2024 maxillary partial de nture - cast metal framework with resin denture bases (including any conventional clasps, rests and teeth) 13,12 13,12 MI MAXILLARY PARTIAL DENTURE - CAST METAL FRAMEWORK Dental Routine 1 Occurrences starting 01/24/2024 [facility] Comment on above: 1 Occurrences starting 01/24/2024 NC VISIT PART OF MULTI-VISIT PROCEDURE NC VISIT PART OF MULTI-VISIT PROCEDURE Dental Routine 1 Occurrences starting 07/16/2024 [facility] Comment on above: 1 Occurrences starting 07/16/2024 periodic oral evalua tion - established patient MI PERIODIC ORAL EVALUATION ESTABLISHED PATIENT Dental Routine 1 Occurrences starting 12/05/2023 [facility] Comment on above: 1 Occurrences starting 12/05/2023 prophylaxis - adult MI PROPHYLAX IS - ADULT Dental Routine 1 Occurrences starting 12/05/2023 [facility] Comment on above: 1 Occurrences starting 12/05/2023 resin-based composit e - one surface, anterior 6 L 6 L MI RESIN-BASED COMPOSITE - ONE SURFACE, ANTERIOR Dental Routine 1 Occurrences starting 07/16/2024 [facility] Work Phone: Comment on above: 1 Occurrences starting 07/16/2024 resin-based composit e - three surfaces, posterior 18 MOD 18 MOD MI RESIN-BASED COMPOSITE - THREE SURFACES POSTERIOR Dental Routine 1 Occurrences starting 12/05/2023 [facility] Comment on above: 1 Occurrences starting 12/05/2023 resin-based composit e - two surfaces, anterior [facility] Comment on above: 1 Occurrences starting 12/05/2023 resin-based composit e - two surfaces, anterior [employer] Work Phone: Comment on above: 1 Occurrences starting 01/24/2024 Tissue exam [facility] [facility] Work Phone: Comment on above: Release Upon Ordering for 1 Occurrences starting 09/24/2023 Tissue exam [employer] Work Phone: Comment on above: Release Upon Ordering for 1 Occurrences starting 01/21/2024 unspecified adjuncti ve procedure, by report MI UNSPECIFIED ADJUNCTIVE PROCEDURE BY REPORT Dental Routine 1 Occurrences starting 12/05/2023 [facility] Comment on above: 1 Occurrences starting 12/05/2023 unspecified adjuncti ve procedure, by report MI UNSPECIFIED ADJUNCTIVE PROCEDURE BY REPORT Dental Routine 1 Occurrences starting 01/24/2024 [facility] Comment on above: 1 Occurrences starting 01/24/2024 Vascular US lower ex tremity venous duplex left Vascular US lower extremity venous duplex left CV Vascular Ultrasound STAT Calf swelling 06/25/2022 10:26 AM EST [facility] Work Phone: XR Foot - left 3 Views XR foot 3 + views left Imaging Routine Left foot pain Ordered: 09/05/2023 [facility]: Comment on above: Ordered: 09/05/2023 XR Foot - left 3 Views XR foot 3 + views left Imaging Routine Pain 10/17/2023 12:56 PM EDT [facility] Work Phone: Immunizations Immunization Date Immunization Notes Care Provider [facility] 03-27-2021 tetanus and diphther ia toxoids, adsorbed, preservative free, for adult use (5 Lf of tetanus toxoid and 2 Lf of diphtheria toxoid) Jared Galvez MD Work Phone: [facility] 10-26-2019 tetanus toxoid, redu cathie diphtheria toxoid, and acellular pertussis vaccine, adsorbed Jared Galvez MD Work Phone: [facility] 02-23-2016 influenza, injectabl e, quadrivalent, contains preservative Jared Galvez MD Work Phone: [facility] 02-23-2016 influenza virus vacc ine, unspecified formulation Suzanne Johnson RN [facility] 07-23-2012 tetanus toxoid, redu cathie diphtheria toxoid, and acellular pertussis vaccine, adsorbed Jared Galvez MD Work Phone: [facility] 04-01-2009 novel influenza-H1N1 -09, preservative-free, injectable Jared Galvez MD Work Phone: [facility] 03-02-2004 influenza, seasonal, injectable Jared Galvez MD Work Phone: [facility] 02-25-2003 influenza, seasonal, injectable Jared Galvez MD Work Phone: [facility] 03-04-2002 influenza, seasonal, injectable Jared Galvez MD Work Phone: [facility] Payers Date Payer Category Payer Self-pay 2023 Medicaid - Dental [employer] [id number] 2023 Commercial Managed C are - HMO [employer] QHP EXCHANGE [id number] 2023 Private Health Insurance [employer] A ETNA QHP EXCHANGE [id number] 2023-Present [phone] [address] [place] [address] Exchange Plan [id number] 2023 Private Health Insurance [id number] 2022 Medicaid HMO [employer] ODM [id number] 2022 Medicaid [id number] 2019 Medicaid [id number] 2019 Medicaid [id number] 1990 Unknown [id number] Unknown [id number] Unknown [id number] Unknown [id number] Unknown [id number] Social History Date Type Detail Facility Start: 03-29-2022 End: 12-26-2023 Tobacco smoking status NDIS Ex-smoker [facility] in Start: 05-14-2019 End: 02-03-2023 History of tobacco use Current smoker [facility] Start: 05-14-2019 End: 02-03-2023 History of tobacco use Cigarette Smoker [facility] Start: 03-29-2022 End: 12-26-2023 Tobacco use and exposure Former smokeless tobacco user [facility] Start: 03-29-2022 End: 05-21-2024 Alcohol intake Current drinker of alcohol (finding) [facility] Start: 03-29-2022 End: 06-25-2022 History SDOH Food Worry 1 [facility] Start: 06-13-[address] 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 Monthly or less [facility] How many standard dr inks containing alcohol do you have on a typical day? 1 or 2 [facility] How often do you hav e 6 or more drinks on 1 occasion? Never [facility] How many standard dr inks containing alcohol do you have on a typical day? Patient does not drink [facility] Start: 05-14-2019 End: 09-05-2023 Tobacco smoking status NHIS Smokes tobacco daily [facility] End: 05-14-2019 History of tobacco use Chews Tobacco [facility] Start: 01-31-2023 Alcohol Comment occ [facility] Start: 1990 Sex Assigned At Male S [facility] Start: 04-25-2023 Gender identity Identifies as male gender (finding) [facility] Start: 06-06-2023 Tobacco use and exposure User of smokeless tobacco [facility] Within the last year , have you been afraid of your partner or ex-partner? No [facility] Are you now , , , , never or living with a partner? [facility] How hard is it for y ou to pay for the very basics like food, housing, medical care, and heating Somewhat hard [facility] Do you feel stress - tense, restless, nervous, or anxious, or unable to sleep at night because your mind is troubled all the time - these days [OSQ] Rather much [facility] (I/We) worried wheth er (my/our) food would run out before (I/we) got money to buy more. Sometimes true [facility] In the past 12 month s, was there a time when you were not able to pay the mortgage or rent on time? Yes [facility] Start: 12-26-2023 Tobacco Comment Smoking 1 disp osable vape/week [facility] Start: 01-21-2024 Alcohol Comment occ/no alcohol since 12/20/23 [facility] Start: 06-25-2022 History SDOH Alcohol Frequency 2 [facility] Start: 12-12-2021 Sex Male (finding) [facility] Medical Equipment Procedure Code Equipment Code Equipment Original Text Equipment Identifier Dates [place] Juggerkno t 1mm 3-0 Mini Polyester Suture 1 Loaded Needle Soft Tissue - [id number] Start: 04-11-2021 Dressing Bovine Collagen Glycosaminoglycan Polysiloxane Mesh 2x2in Wound - [id number] Start: 04-11-[address]mm Porcine Extracellular Matrix 15mm Nerve Coaptation - [id number] Start: 04-11-2021 Use as directed daily. [id number] St art: 05-21-2024 End: 05-27-2024 100 each by Othe r route Daily as needed (with use of glucometer). Use as directed daily. [id number] Start: 05-21-2024 End: 06-20-2024 Use weekly as ne eded for checking blood sugar. [id number] Start: 05-27-2024 Clinical Notes 04-20-2021 to 07-16-2024 Isac Slade III, JULIO - 07/16/2024 8:00 AM Flakita Trujillo, SHERIFS - 07/16/2024 8:00 AM Aysha Slade III, SHERIFS - 06/25/2024 9:00 AM Uriel Flores, S - 06/25/2024 9:00 AM EST Note Date & Type Note Facility 07-16-2024 History of Present illness Narrative Dental procedures in this visit D0000 - NC VISIT PART OF MULTI-VISIT PROCEDURE (Completed) Prelim Impressions for RPDs. Service provider: Isac Slade III, DDS Billing provider: Isac Slade III, DDS Subjective Patient ID: Dorian Montoya is a 33 y.o. male. No chief complaint on file. Patient presents for initial impressions. Reviewed medical history Impressions: Alginate and Stock trays Impression type: Lower RPD Patient reports that they chipped #11 a couple of days ago, but not sure what caused it. Appears to be an uncomplicated crown fracture that has exposed the dentin. Explained to patient we can repair that tooth while doing rest seat preps and impressions for lower RPD at next appointment Next visit: Removable prosthetic Rest seat preps Attending: JULIO Jacques III, DDS 8:22 AM 07/16/24 I discussed the patient with the resident prior to treatment. I was available for consultation and/or directly participated in care. We agree with the treatment provided and the notations made. Magalys Trujillo DDS 07/16/24 11:11 AM documented in this encounter [facility] 07-16-2024 Note Dental procedures in this visit D0000 - NC VISIT PART OF MULTI-VISIT PROCEDURE (Completed) Prelim Impressions for RPDs. Service provider: Isac Slade III, DDS Billing provider: Isac Slade III, DDS Subjective Patient ID: Dorian Montoya is a 33 y.o. male. No chief complaint on file. Patient presents for initial impressions. Reviewed medical history Impressions: Alginate and Stock trays Impression type: Lower RPD Patient reports that they chipped #11 a couple of days ago, but not sure what caused it. Appears to be an uncomplicated crown fracture that has exposed the dentin. Explained to patient we can repair that tooth while doing rest seat preps and impressions for lower RPD at next appointment Next visit: Removable prosthetic Rest seat preps Attending: JULIO Jacques III, DDS 8:22 AM 07/16/24 [facility] 07-16-2024 Note I discussed the mitali ent with the resident prior to treatment. I was available for consultation and/or directly participated in care. We agree with the treatment provided and the notations made. Magalys Trujillo DDS 07/16/24 11:11 AM [facility] 06-25-2024 History of Present illness Narrative Dental procedures in this visit D2331 - MI RESIN-BASED COMPOSITE - TWO SURFACES, ANTERIOR 8 DL (Completed) Service provider: Isac Slade III, DDS Billing provider: Isac Slade III, DDS D2331 - MI RESIN-BASED COMPOSITE - TWO SURFACES, ANTERIOR 9 DL (Completed) Service provider: Isac Slade III, DDS Billing provider: Isac Slade III, DDS D2392 - MI RESIN-BASED COMPOSITE - TWO SURFACES, POSTERIOR 14 ML (Completed) Service provider: Isac Slade III, DDS Billing provider: Isac Slade III, DDS Subjective Patient ID: Dorian Montoya is a 33 y.o. male. No chief complaint on file. Patient presents for mandaen of #8 D and L #9 D and L #14 ML Changes in medical history: no changes in medical history Patient does not take premedication. Administered anesthetic: Septocaine 4% with Epinephrine 1:100,000 Whole number of capsules injected: 1 Type of injection: local infiltration Isolation cotton roll isolation Removed caries. Cavity preparation. Dental matrix Mylar strip Line or base no liner placed Etch/Russo Etch and russo Restored with: Composite A2 Finishing Finished and polished, carved anatomy Interproxmal Contact Contacts checked Occlusion adjustment Occlusion adjusted Patient tolerated procedure well. Next visit: Removable prosthetic Diagnostic impressions for lower RPD Attending: JULIO Daniel III, DDS 10:20 AM 06/25/24 I discussed the patient with the resident prior to treatment.I was available for consultation and /or directly participated in the care.We agree with the treatment provided and the notations made. Dennis Flores DDS 06/25/24 12:12 PM documented in this encounter [facility] 06-25-2024 Note I discussed the mitali ent with the resident prior to treatment.I was available for consultation and /or directly participated in the care.We agree with the treatment provided and the notations made. Dennis Flores DDS 06/25/24 12:12 PM [facility] 06-25-2024 Note Dental procedures in this visit D2331 - MI RESIN-BASED COMPOSITE - TWO SURFACES, ANTERIOR 8 DL (Completed) Service provider: Isac Slade III, DDS Billing provider: Isac Slade III, DDS D2331 - MI RESIN-BASED COMPOSITE - TWO SURFACES, ANTERIOR 9 DL (Completed) Service provider: Isac Slade III, DDS Billing provider: Isac Slade III, DDS D2392 - MI RESIN-BASED COMPOSITE - TWO SURFACES, POSTERIOR 14 ML (Completed) Service provider: Isac Slade III, DDS Billing provider: Isac Slade III, DDS Subjective Patient ID: Dorian Montoya is a 33 y.o. male. No chief complaint on file. Patient presents for mandaen of #8 D and L #9 D and L #14 ML Changes in medical history: no changes in medical history Patient does not take premedication. Administered anesthetic: Septocaine 4% with Epinephrine 1:100,000 Whole number of capsules injected: 1 Type of injection: local infiltration Isolation cotton roll isolation Removed caries. Cavity preparation. Dental matrix Mylar strip Line or base no liner placed Etch/Russo Etch and russo Restored with: Composite A2 Finishing Finished and polished, carved anatomy Interproxmal Contact Contacts checked Occlusion adjustment Occlusion adjusted Patient tolerated procedure well. Next visit: Removable prosthetic Diagnostic impressions for lower RPD Attending: JULIO Daniel III, DDS 10:20 AM 06/25/24 [facility] 05-26-2024 Telephone encounter Note Name of caller: Dorian Le phone number: [phone] Relationship to Patient: patient Provider: Radha Lewis Practice: [facility] Chief Complaint/Reason for Call: patient need the rx for test strips to say how and when to use, and how many times per day to test . Glucose Blood (Blood Glucose Test) strip please correct [facility] so patient can start testing Best time of day caller can be reached: any Works from 930 to 6 pm Patient advised that office/PCP has 24-48 business hours to return their call: Yes [facility] 05-26-2024 Miscellaneous Notes Name of caller: Dorian Contact phone number: [phone] Relationship to Patient: patient Provider: Radha Lewis Practice: [facility] Chief Complaint/Reason for Call: patient need the rx for test strips to say how and when to use, and how many times per day to test . Glucose Blood (Blood Glucose Test) strip please correct and [facility] to [facility] on [facility] so patient can start testing Best time of day caller can be reached: any Works from 930 to 6 pm Patient advised that office/PCP has 24-48 business hours to return their call: Yes documented in this encounter [facility] 05-21-2024 History of Present illness Narrative Images from the original note were not included. [facility] [address] [facility] [address] Dept: [phone] Dept Reason for Visit: Other (Pt had a drink, and pt stated he left like his blood sugars were fluctuating ) Assessment and Plan 1. Screening for diabetes mellitus - Basic metabolic panel - Hemoglobin A1c - Discussed diabetes prevention at length. He is currently below pre-diabetic range (5.6), and so discussed healthy lifestyle, limiting foods and drinks high in sugar. Given his episodes of fatigue and sweating, ordered a glucometer to check his levels then. Ordered repeat A1c and CMP to monitor his glucose levels and kidney function. No indication to start diabetic medications at this time, but he is agreeable to frequent follow-ups to monitor his A1c and renal function. Follow up in about 6 months (around 11/18/2024) for Recheck with Radha. Subjective HPI Dorian Montoya is a 33-year-old male presenting for discussion on diabetes. He states he had an alcoholic drink 2 weeks ago and experienced an episode of sweating/fatigue resolved with returning home and eating. His dad has been recently diagnosed with diabetes. Does not report having frequent episodes similar to this, but would like a glucometer to monitor his levels at home. States his diet consists of eating hamburgers, steak, pizza, tacos, fries, and limited vegetables. Drinking water, root beer, mountain dew (zero sugar when he can). Feeling more of the urge to urinate more frequently and doesn't know if this is related to DM or not. Denies incontinence, dysuria, urinary retention. His last A1c was 5.6% 3 months ago. He is not on Metformin. He was admitted in the ICU about 11 months ago and he did have some acute renal failure at that time which did resolve however his baseline creatinine is running a little bit high. He does not follow with nephrology. Wt Readings from Last 3 Encounters: 05/21/24 140 lb 9.6 oz (63.8 kg) 02/21/24 142 lb 3.2 oz (64.5 kg) 02/08/24 155 lb (70.3 kg) BP Readings from Last 3 Encounters: 05/21/24 122/77 02/21/24 118/76 01/21/24 108/70 Review of Systems Constitutional: Positive for fatigue (off and on). Negative for activity change, appetite change, diaphoresis and unexpected weight change. Cardiovascular: Negative for chest pain, palpitations and leg swelling. Gastrointestinal: Negative for abdominal distention, abdominal pain, constipation, diarrhea, nausea and vomiting. Genitourinary: Negative for difficulty urinating, dysuria and hematuria. Skin: Negative for rash. Neurological: Negative for dizziness and headaches. Psychiatric/Behavioral: The patient is not nervous/anxious. Allergies Allergen Reactions Apple Hives and Shortness of breath Bee Venom Anaphylaxis Red Dye #40 (Allura Red) Other major nosebleeds Outpatient Medications Prior to Visit Medication Sig Dispense Refill albuterol (ProAir HFA) 108 (90 Base) MCG/ACT inhaler Inhale 2 puffs every 4 hours as needed for wheezing or shortness of breath. 8.5 g 0 fluticasone (Flovent) 110 MCG/ACT inhaler Inhale 1 puff in the morning and 1 puff in the evening. Rinse mouth with water after use to reduce aftertaste and incidence of candidiasis. Do not swallow.. 12 g 5 guaiFENesin (Mucinex) 600 MG 12 hr tablet Take 1 tablet (600 mg) by mouth 2 times daily. Do not crush, chew, or split. 60 tablet 11 nicotine (Nicoderm CQ) 14 MG/24HR patch Place 1 patch on the skin Every 24 hours. 30 patch 1 nicotine (Nicoderm CQ) 7 MG/24HR patch Place 1 patch on the skin Every 24 hours. 30 patch 0 ondansetron (Zofran) 4 MG tablet Take 1 tablet (4 mg) by mouth every 8 hours as needed for nausea or vomiting. 20 tablet 0 No facility-administered medications prior to visit. Past Medical History: Diagnosis Date Allergic Anxiety Asthma Headache Varicella Social History Tobacco Use Smoking status: Former Current packs/day: 0.00 Average packs/day: 0.5 packs/day for 3.7 years (1.9 ttl pk-yrs) Types: Cigarettes Start date: 05/14/2019 Quit date: 02/03/2023 Years since quittin.2 Smokeless tobacco: Former Types: Chew Quit date: 05/14/2019 Tobacco comments: Smoking 1 disposable vape/week Substance Use Topics Alcohol use: Yes Comment: occ/no alcohol since 12/20/23 Past Surgical History: Procedure Laterality Date COLONOSCOPY N/A 09/24/2023 Performed by Neida Fuller MD at [facility] [address] ENDOSCOPY FOOT SURGERY Left 01/21/2024 LEFT FOOT EXCISION PLANTAR FIBROMA - Left Laxmi Hicks DPM HAND SURGERY 2020 [facility] TESTICLE TORSION REDUCTION (HISTORICAL) about 2020 Family History Problem Relation Name Age of Onset Diverticulitis Mother Crohn's disease Mother ANTONELLA disease Mother Heart Surgery Father Alex Heart attack Father Alex COPD Father Alex Arthritis Father Alex Asthma Father Alex Diabetes Father Alex Lung cancer Mother's Sister Throat cancer Mother's Brother Teodoro Cancer Mother's Brother Teodoro Breast cancer Father's Sister Toenet Lung cancer Father's Sister [place] Objective BP 122/77 Pulse 82 Temp 36.4 C (97.6 F) (Infrared) Ht 6' 1 (1.854 m) Wt 140 lb 9.6 oz (63.8 kg) BMI 18.55 kg/m Physical Exam Constitutional: Appearance: Normal appearance. He is normal weight. HENT: Head: Normocephalic and atraumatic. Nose: Nose normal. Mouth/Throat: Pharynx: Oropharynx is clear. Eyes: Conjunctiva/sclera: Conjunctivae normal. Cardiovascular: Rate and Rhythm: Normal rate and regular rhythm. Pulses: Normal pulses. Heart sounds: Normal heart sounds. No murmur heard. Pulmonary: Effort: Pulmonary effort is normal. No respiratory distress. Breath sounds: Normal breath sounds. No wheezing. Abdominal: General: Abdomen is flat. There is no distension. Palpations: Abdomen is soft. Tenderness: There is no abdominal tenderness. Musculoskeletal: General: Normal range of motion. Neurological: Mental Status: He is alert and oriented to person, place, and time. Mental status is at baseline. Psychiatric: Mood and Affect: Mood normal. Behavior: Behavior normal. Data Reviewed and Summarized Labs: Imaging/Testin05/21/24 Radha Lewis PA-C documented in this encounter [facility] 04-24-2024 Telephone encounter Note Scheduled for jun leandro work [facility] 04-24-2024 Miscellaneous Notes Scheduled for jun leandro work Name of Caller: Dorian Contact Reason for Appointment: Via My Chart/CRM: Established patient - Appointment Request From: Dorian Montoya With Provider: Other - (see comments) Preferred Date Range: Any date 04/24/2024 or later Preferred Times: Any Reason: To address the following health maintenance concerns. Dental Prophylaxis - Dental Oral Exam Dental X-Ray: Bitewings Comments: Off on Wednesdays Office Name: Dental Medication Refills need, if any: na Medication Name: na documented in this encounter [facility] 04-24-2024 Telephone encounter Note Name of Caller: Dorian Contact Reason for Appointment: Via My Chart/CRM: Established patient - Appointment Request From: Dorian Montoya With Provider: Other - (see comments) Preferred Date Range: Any date 04/24/2024 or later Preferred Times: Any Reason: To address the following health maintenance concerns. Dental Prophylaxis - Dental Oral Exam Dental X-Ray: [facility] Comments: Off on Wednesdays Office Name: Dental Medication Refills need, if any: na Medication Name: na [facility] 02-21-2024 History of Present illness Narrative Images from the original note were not included. [facility] [place] [id number] [facility] [address] Dept: [phone] Dept Reason for Visit: Annual Exam Assessment and Plan 1. Encounter for annual physical exam -talked about healthy food choices and exercise at least 150 min/week 2. Nausea and vomiting, unspecified vomiting type - ondansetron (Zofran) 4 MG tablet; Take 1 tablet (4 mg) by mouth every 8 hours as needed for nausea or vomiting., Starting Jessica 02/21/2024, Normal - [facility] Gastroenterology - Sent another referral to Dr. Fuller. Recommend he follow-up to review results with her and for ongoing management of his abd pain 3. Screening for diabetes mellitus - Hemoglobin A1c - Comprehensive metabolic panel 4. Screening for blood disease - CBC 5. Screening for cardiovascular condition - Lipid panel Will call/message with lab results when they are back. Follow up in about 6 months (around 08/21/2024) for Recheck GI symptoms. Subjective HPI Patient presents for annual physical exam. He is feeling well today. He had EGD and colonoscopy back in September and didn't hear about the results. He hasn't seen GI in follow-up. It looks like a letter from Dr. Fuller was sent to him in [facility] but he didn't see it. I explained the results to him, showing some inflammation in the distal colon/rectal region. Biopsies of the colon did show inflammation. EGD was normal. I read the letter to him in the room. He does have lower abd pain off and on and had a lot of nausea throughout the day. No heartburn symptoms reported but sometimes he feels a sensation that he has to vomit. He also has mild diarrhea off and on. No recent fever or chills. No other issues to report. Diet - does eat while at work (pizza) but does cook at home as well Exercise - minimal exercise Tobacco - smoke 1/2 pack day, 3 pack year hx Alcohol - rare Drugs - Marijuana daily, no illicit drugs Dental home - up to date Vision home - not yet, but looking Sexual activity - one partner, Health Maintenance Topic Date Due Pneumococcal Vaccine: Pediatrics (0 to 5 Years) and At-Risk Patients (6 to 64 Years) (1 of 2 - PCV) Never done MMR Vaccines (1 of 1 - Standard series) Never done Varicella Vaccines (1 of 2 - 13+ 2-dose series) Never done Hepatitis B Vaccines (1 of 3 - 19+ 3-dose series) Never done Hepatitis A Vaccines (1 of 2 - Risk 2-dose series) Never done Influenza Vaccine (1) 01/13/2024 COVID-19 Vaccine ( - 2022- season) Never done Depression Screening 09/04/2024 DTaP/Tdap/Td Vaccines (4 - Td or Tdap) 03/27/2031 Zoster Vaccines (1 of 2) 2040 RSV Immunization aged 60 or older (1 - 1-dose 60+ series) 2050 HIV Screening Completed Hepatitis C Screening Completed RSV Immunization under 20 Months Aged Out HIB Vaccines Aged Out IPV Vaccines Aged Out Meningococcal Vaccine Aged Out Rotavirus Vaccines Aged Out HPV Vaccines Aged Out Recommended Screenings - recent colonoscopy and EGD due to abd pain Recommended Vaccinations - Influenza- refused today Wt Readings from Last 3 Encounters: 02/21/24 142 lb 3.2 oz (64.5 kg) 02/08/24 155 lb (70.3 kg) 01/25/24 155 lb (70.3 kg) BP Readings from Last 3 Encounters: 02/21/24 118/76 01/21/24 108/70 12/26/23 126/84 Review of Systems Constitutional: Negative for chills, fever and unexpected weight change. Respiratory: Negative for cough and shortness of breath. Cardiovascular: Negative for chest pain. Gastrointestinal: Positive for diarrhea and nausea. Negative for abdominal pain and blood in stool. Genitourinary: Negative for difficulty urinating. Musculoskeletal: Negative for back pain. Skin: Negative for color change and rash. Neurological: Negative for weakness and headaches. Allergies Allergen Reactions Apple Hives and Shortness of breath Bee Venom Anaphylaxis Red Dye #40 (Allura Red) Other major nosebleeds Outpatient Medications Prior to Visit Medication Sig Dispense Refill albuterol (ProAir HFA) 108 (90 Base) MCG/ACT inhaler Inhale 2 puffs every 4 hours as needed for wheezing or shortness of breath. 8.5 g 0 fluticasone (Flovent) 110 MCG/ACT inhaler Inhale 1 puff in the morning and 1 puff in the evening. Rinse mouth with water after use to reduce aftertaste and incidence of candidiasis. Do not swallow.. 12 g 5 guaiFENesin (Mucinex) 600 MG 12 hr tablet Take 1 tablet (600 mg) by mouth 2 times daily. Do not crush, chew, or split. 60 tablet 11 ondansetron (Zofran) 4 MG tablet Take 1 tablet (4 mg) by mouth every 8 hours as needed for nausea or vomiting. 20 tablet 0 nicotine (Nicoderm CQ) 14 MG/24HR patch Place 1 patch on the skin Every 24 hours. 30 patch 1 nicotine (Nicoderm CQ) 7 MG/24HR patch Place 1 patch on the skin Every 24 hours. 30 patch 0 No facility-administered medications prior to visit. Past Medical History: Diagnosis Date Allergic Anxiety Asthma Headache Varicella Social History Tobacco Use Smoking status: Former Current packs/day: 0.00 Average packs/day: 0.5 packs/day for 3.7 years (1.9 ttl pk-yrs) Types: Cigarettes Start date: 05/14/2019 Quit date: 02/03/2023 Years since quittin.0 Smokeless tobacco: Former Types: Chew Quit date: 05/14/2019 Tobacco comments: Smoking 1 disposable vape/week Substance Use Topics Alcohol use: Yes Comment: occ/no alcohol since 12/20/23 Past Surgical History: Procedure Laterality Date COLONOSCOPY N/A 09/24/2023 Performed by Neida Fuller MD at [facility] [address] ENDOSCOPY FOOT SURGERY Left 01/21/2024 LEFT FOOT EXCISION PLANTAR FIBROMA - Left Laxmi Hicks DPM HAND SURGERY 2020 [facility] TESTICLE TORSION REDUCTION (HISTORICAL) about 2020 Family History Problem Relation Name Age of Onset Diverticulitis Mother Crohn's disease Mother ANTONELLA disease Mother Heart Surgery Father Alex Heart attack Father Alex COPD Father Alex Arthritis Father Alex Asthma Father Alex Lung cancer Mother's Sister Throat cancer Mother's Brother Teodoro Cancer Mother's Brother Teodoro Breast cancer Father's Sister [place] Lung cancer Father's Sister [place] Objective BP 118/76 (BP Location: Left arm, Patient Position: Sitting, BP Cuff Size: Adult) Pulse 81 Temp 36.3 C (97.4 F) Ht 6' 1 (1.854 m) Wt 142 lb 3.2 oz (64.5 kg) BMI 18.76 kg/m Physical Exam Vitals reviewed. Constitutional: General: He is not in acute distress. Appearance: Normal appearance. He is not ill-appearing. HENT: Head: Normocephalic and atraumatic. Right Ear: Tympanic membrane and ear canal normal. Left Ear: Tympanic membrane and ear canal normal. Nose: Nose normal. Mouth/Throat: Mouth: Mucous membranes are moist. Pharynx: Oropharynx is clear. Eyes: Extraocular Movements: Extraocular movements intact. Conjunctiva/sclera: Conjunctivae normal. Pupils: Pupils are equal, round, and reactive to light. Cardiovascular: Rate and Rhythm: Normal rate and regular rhythm. Pulses: Normal pulses. Heart sounds: Normal heart sounds. No murmur heard. Pulmonary: Effort: Pulmonary effort is normal. No respiratory distress. Breath sounds: Normal breath sounds. Abdominal: General: Abdomen is flat. Bowel sounds are normal. There is no distension. Palpations: Abdomen is soft. There is no mass. Tenderness: There is no abdominal tenderness. Hernia: No hernia is present. Musculoskeletal: General: No swelling. Normal range of motion. Cervical back: Normal range of motion and neck supple. Lymphadenopathy: Cervical: No cervical adenopathy. Skin: General: Skin is warm and dry. Capillary Refill: Capillary refill takes less than 2 seconds. Neurological: General: No focal deficit present. Mental Status: He is alert and oriented to person, place, and time. Psychiatric: Mood and Affect: Mood normal. Behavior: Behavior normal. Data Reviewed and Summarized Labs: Imaging/Testin02/21/24 Radha Lewis PA-C documented in this encounter [facility] 02-08-2024 History of Present illness Narrative Images from the original note were not included. [facility] [address] [facility] [address] Dept: [phone] Dept Department of Orthopedics- Podiatry Chief Complaint Patient presents with Post-op Left foot soft tissue mass excision DOS 01/21/2024 PCP: Александр Novak MD Last visit: 09/05/23 HISTORY OF PRESENT ILLNESS: This pleasant 33 y.o. male presents for POV#2 s/p Left foot soft tissue mass excision DOS 01/21/2024. Has been mostly non weight bearing, just started walking short distances in his post op shoe yesterday. He has taking ibuprofen as needed for pain relief. He has not had any drainage from the area. He started putting pressure on it yesterday and has not had any extra pain. He denies any nausea, vomit, fever, chills. PHYSICAL EXAM: Vitals: Ht 6' 1 (1.854 m) Wt 155 lb (70.3 kg) BMI 20.45 kg/m Constitutional: This an age appropriate male who is alert and oriented x3. The patient appears well nourished Psychiatric: The patient is able to verbalize normally and seems to have a good understanding of their situation. Vascular: DP/PT pulses 2/4 bilateral. CFT less than 5 seconds to digits bilateral. Skin temperature is warm to cool proximal to distal bilateral. No edema is noted bilateral. Hair growth is present bilateral. Neurological: Protective sensation is intact bilateral as tested with [place] monofilament. Dermatologic: Skin incision on plantar left foot is well coapted with sutures intact. No active drainage. No proximal streaking. No signs of infection. No lesions or wounds noted. Musculoskeletal: No further palpable masses noted to the plantar aspect of the foot. No recurrence is noted. Able to wiggle toes. Muscle strength is full. Pathology: Epidermal inclusion cyst ASSESSMENT AND PLAN: (L72.0) Epidermal inclusion cyst Patient was seen examined. The patient is doing very well postoperatively. Sutures removed today without incident. Dressed with antibiotic ointment and a Band-Aid. He is okay to start weightbearing as tolerated in regular shoes. Continue to monitor for any reopening of the wound. Continue to increase activities as tolerated. Continue pain medication as needed. Follow-up with me as needed. If any reopening I would recommend that he decrease activities for few more days. Voice recognition was used for portions of this note and although it was reviewed prior to signing some incorrect words or phrases could be present. Laxmi Hicks DPM documented in this encounter [facility] 01-25-2024 History of Present illness Narrative Images from the original note were not included. [facility] [address] [place] [id number] Dept: [phone] Dept Department of Orthopedics- Podiatry Chief Complaint Patient presents with Post-op Left foot soft tissue mass excision, DOS 01/21/2024 PCP: Александр Novak MD Last visit: 09/05/23 HISTORY OF PRESENT ILLNESS: This pleasant 33 y.o. male presents for IPO s/p Left foot soft tissue mass excision, DOS 01/21/2024. Patient presents wearing a surgical shoe with his post op dressing intact. He is using crutches and has been compliant with non-weight bearing instructions. His pain is been very well-controlled. No results found for: HGBA1C Past Medical History: Past Medical History: Diagnosis Date Allergic Anxiety Asthma Headache Varicella Past Surgical History: Past Surgical History: Procedure Laterality Date COLONOSCOPY N/A 09/24/2023 Performed by Neida Fuller MD at [facility] [address] FOOT SURGERY Left 01/21/2024 LEFT FOOT EXCISION PLANTAR FIBROMA - Left Laxmi Hicks DPM HAND SURGERY 2020 [facility] TESTICLE TORSION REDUCTION (HISTORICAL) about 2020 Current Medications: Current Outpatient Medications Medication Sig Dispense Refill albuterol (ProAir HFA) 108 (90 Base) MCG/ACT inhaler Inhale 2 puffs every 4 hours as needed for wheezing or shortness of breath. 8.5 g 0 fluticasone (Flovent) 110 MCG/ACT inhaler Inhale 1 puff in the morning and 1 puff in the evening. Rinse mouth with water after use to reduce aftertaste and incidence of candidiasis. Do not swallow.. 12 g 5 guaiFENesin (Mucinex) 600 MG 12 hr tablet Take 1 tablet (600 mg) by mouth 2 times daily. Do not crush, chew, or split. 60 tablet 11 ibuprofen 800 MG tablet Take 1 tablet (800 mg) by mouth 3 times daily. 90 tablet 0 ondansetron (Zofran) 4 MG tablet Take 1 tablet (4 mg) by mouth every 8 hours as needed for nausea or vomiting. 20 tablet 0 oxyCODONE-acetaminophen (Percocet) 5-325 MG tablet Take 1 tablet by mouth every 6 hours as needed for severe pain (7-10) for up to 5 days. 15 tablet 0 nicotine (Nicoderm CQ) 14 MG/24HR patch Place 1 patch on the skin Every 24 hours. 30 patch 1 nicotine (Nicoderm CQ) 7 MG/24HR patch Place 1 patch on the skin Every 24 hours. 30 patch 0 No current facility-administered medications for this visit. Allergies: Apple, Bee venom, and Red dye #40 (allura red) Social History: Social History Socioeconomic History Marital status: Spouse name: Not on file Number of children: Not on file Years of education: Not on file Highest education level: Not on file Occupational History Not on file Tobacco Use Smoking status: Former Current packs/day: 0.00 Average packs/day: 0.5 packs/day for 3.7 years (1.9 ttl pk-yrs) Types: Cigarettes Start date: 05/14/2019 Quit date: 02/03/2023 Years since quittin.9 Smokeless tobacco: Former Types: Chew Quit date: 05/14/2019 Tobacco comments: Smoking 1 disposable vape/week Vaping Use Vaping status: Some Days Substances: Nicotine, THC Devices: Disposable, Smokes 1 pod/week Substance and Sexual Activity Alcohol use: Yes Comment: occ/no alcohol since 12/20/23 Drug use: Yes Types: Marijuana Comment: Daily/last use 01/20/24 1000 Sexual activity: Yes Partners: Female Other Topics Concern Not on file Social History Narrative SDOH Updated 06/07/23 Social Determinants of Health Financial Resource Strain: Medium Risk (06/07/2023) Overall Financial Resource Strain (CARDIA) Difficulty of Paying Living Expenses: Somewhat hard Food Insecurity: Food Insecurity Present (06/07/2023) Hunger Vital Sign Worried About Running Out of Food in the Last Year: Sometimes true Ran Out of Food in the Last Year: Sometimes true Transportation Needs: No Transportation Needs (06/07/2023) PRAPARE - Transportation Lack of Transportation (Medical): No Lack of Transportation (Non-Medical): No Physical Activity: Insufficiently Active (06/07/2023) Exercise Vital Sign Days of Exercise per Week: 2 days Minutes of Exercise per Session: 30 min Stress: Stress Concern Present (06/07/2023) [place] [employer] - Occupational Stress Questionnaire Feeling of Stress : Rather much Social Connections: Unknown (06/07/2023) Social Connection and Isolation Panel [NHANES] Frequency of Communication with Friends and Family: More than three times a week Frequency of Social Gatherings with Friends and Family: Twice a week Attends Hinduism Services: Not on file Active Member of Clubs or Organizations: No Attends Club or Organization Meetings: Never Marital Status: Intimate Partner Violence: Not At Risk (09/24/2023) Humiliation, Afraid, Rape, and Kick questionnaire Fear of Current or Ex-Partner: No Emotionally Abused: No Physically Abused: No Sexually Abused: No Housing Stability: High Risk (06/07/2023) Housing Stability Vital Sign Unable to Pay for Housing in the Last Year: Yes Number of Places Lived in the Last Year: 1 Unstable Housing in the Last Year: No Family History: Family History Problem Relation Name Age of Onset Diverticulitis Mother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 Person: Judah Major RN RN [place] to Circ: Shonna Murillo RN Findings: appeared to be cystic material, likely sebaceous cyst, no fibroma noted Complications: None; patient tolerated the procedure well. Specimens Collected: Order Name Source Comment Collection Info Order Time POTASSIUM WITH MG REFLEX For patients on dialysis to draw potassium day of surgery 01/21/2024 8:17 AM PROTHROMBIN TIME If patient on coumadin within 4 days prior. 01/21/2024 8:17 AM TISSUE EXAM Foot, Left Pre-op diagnosis: Left foot plantar fibromatosis Collected By: Laxmi Hicks DPM 01/21/2024 9:52 AM Wound Class: Class I: Clean Blood Products: None Prophylactic Antibiotics: Procedure appropriate prophylactic antibiotic(s) given within 1 hour of surgical incision (two hours if receiving Vancomycin or flouroquinolone) [facility] 01-21-2024 History and physical note [facility] Comprehensive PreSurgical History and Physical Name: Dorian Montoya : 1990 (Age-33 y.o.) Date of evaluation: 01/21/2024 Surgeon: @[email or web address]@ Allergies Allergen Reactions Apple Hives and Shortness of breath Bee Venom Anaphylaxis Red Dye #40 (Allura Red) Other major nosebleeds Height: 185.4 cm (6' 1) Weight: 70.3 kg (155 lb) BMI (Calculated): 20.45 HPI: Plantar fascial fibromatosis [M72.2] Severity: Moderate Duration: >one month Review of systems negative except for items below: Past Medical History: Diagnosis Date Allergic Anxiety Asthma Headache Varicella Patient Active Problem List Diagnosis Date Noted ZULLY (acute kidney injury) (HCC) 06/24/2023 Nicotine use disorder 03/24/2022 Incidental lung nodule 03/23/2022 Lower abdominal pain 06/21/2021 Past Surgical History: Procedure Laterality Date COLONOSCOPY N/A 09/24/2023 Performed by Neida Fuller MD at [facility] [address] [facility] HAND SURGERY 2020 [facility] TESTICLE TORSION REDUCTION (HISTORICAL) about 2020 Family History Problem Relation Name Age of Onset Diverticulitis Mother Crohn's disease Mother ANTONELLA disease Mother Heart Surgery Father Alex Heart attack Father Alex COPD Father Alex Arthritis Father Alex Asthma Father Alex Lung cancer Mother's Sister Throat cancer Mother's Brother Teodoro Cancer Mother's Brother Teodoro Breast cancer Father's Sister [place] Lung cancer Father's Sister [place] Medications: @DIAGMEDLIST@ Social history and Laboratory Data: Lab Results Component Value Date HGB 11.4 (L) 07/03/2023 HCT 35.3 (L) 07/03/2023 PLT 414 (H) 07/03/2023 PLT 172 06/25/2023 WBC 17.3 (H) 07/03/2023 NA 136 06/25/2023 K 3.4 (L) 06/25/2023 BUN 13 07/03/2023 CREATININE 1.12 07/03/2023 GLUCOSE 102 (H) 07/03/2023 Social History Tobacco Use Smoking Status Former Current packs/day: 0.00 Average packs/day: 0.5 packs/day for 3.7 years (1.9 ttl pk-yrs) Types: Cigarettes Start date: 05/14/2019 Quit date: 02/03/2023 Years since quittin.9 Smokeless Tobacco Former Types: Chew Quit date: 05/14/2019 Tobacco Comments Smoking 1 disposable vape/week Social History Substance and Sexual Activity Alcohol Use Yes Comment: occ/no alcohol since 12/20/23 Social History Substance and Sexual Activity Drug Use Yes Types: Marijuana Comment: Daily/last use 01/20/24 1000 BP 121/87 (BP Location: Left arm, Patient Position: Sitting) Pulse 63 Temp 36.7 C (98 F) (Temporal) Resp 17 Ht 1.854 m (6' 1) Wt 70.3 kg (155 lb) SpO2 100% BMI 20.45 kg/m Physical Examination: Constitutional: No apparent distress, well nourished, and in stable condition. Cardiac: Regular rate and rhythm Abdomen: Soft and nonacute Pulmonary: Clear bilaterally and no wheezing Neuro: Moves extremities X4 with no tremors HEENT: No gross cranial nerve defects and anicteric sclera Skin: Skin warm and dry with no visible rashes Vascular: Adequate perfusion of extremities with no cyanosis Psych: Alert and oriented x3 with appropriate affect Lymphatics: No swelling of arms/hands with no pedal edema Neck: FROM with no JVD Additional Notes:None After review of the medical history and physical assessment, medications, allergies, patient's current medical condition, and labs, this patient is at acceptable risk for the planned surgical procedure and anesthestic at this outpatient surgical facility. Electronically signed by: JG HARDEN APRN - CRNA, MD Date: 01/21/2024 at 9:03 AM [facility] [employer] Work Phone: 01-21-2024 Note [facility] Comprehensive PreSurgical History and Physical Name: Dorian Montoya : 1990 (Age-33 y.o.) Date of evaluation: 01/21/2024 Surgeon: @[email or web address]@ Allergies Allergen Reactions Apple Hives and Shortness of breath Bee Venom Anaphylaxis Red Dye #40 (Allura Red) Other major nosebleeds Height: 185.4 cm (6' 1) Weight: 70.3 kg (155 lb) BMI (Calculated): 20.45 HPI: Plantar fascial fibromatosis [M72.2] Severity: Moderate Duration: >one month Review of systems negative except for items below: Past Medical History: Diagnosis Date Allergic Anxiety Asthma Headache Varicella Patient Active Problem List Diagnosis Date Noted ZULLY (acute kidney injury) (HCC) 06/24/2023 Nicotine use disorder 03/24/2022 Incidental lung nodule 03/23/2022 Lower abdominal pain 06/21/2021 Past Surgical History: Procedure Laterality Date COLONOSCOPY N/A 09/24/2023 Performed by Neida Fuller MD at [facility] ENDOSCOPY HAND SURGERY 2020 [facility] TESTICLE TORSION REDUCTION (HISTORICAL) about 2020 Family History Problem Relation Name Age of Onset Diverticulitis Mother Crohn's disease Mother ANTONELLA disease Mother Heart Surgery Father Alex Heart attack Father Alex COPD Father Alex Arthritis Father Alex Asthma Father Alex Lung cancer Mother's Sister Throat cancer Mother's Brother Teodoro Cancer Mother's Brother Teodoro Breast cancer Father's Sister [place] Lung cancer Father's Sister [place] Medications: @DIAGMEDLIST@ Social history and Laboratory Data: Lab Results Component Value Date HGB 11.4 (L) 07/03/2023 HCT 35.3 (L) 07/03/2023 PLT 414 (H) 07/03/2023 PLT 172 06/25/2023 WBC 17.3 (H) 07/03/2023 NA 136 06/25/2023 K 3.4 (L) 06/25/2023 BUN 13 07/03/2023 CREATININE 1.12 07/03/2023 GLUCOSE 102 (H) 07/03/2023 Social History Tobacco Use Smoking Status Former Current packs/day: 0.00 Average packs/day: 0.5 packs/day for 3.7 years (1.9 ttl pk-yrs) Types: Cigarettes Start date: 05/14/2019 Quit date: 02/03/2023 Years since quittin.9 Smokeless Tobacco Former Types: Chew Quit date: 05/14/2019 Tobacco Comments Smoking 1 disposable vape/week Social History Substance and Sexual Activity Alcohol Use Yes Comment: occ/no alcohol since 12/20/23 Social History Substance and Sexual Activity Drug Use Yes Types: Marijuana Comment: Daily/last use 01/20/24 1000 BP 121/87 (BP Location: Left arm, Patient Position: Sitting) Pulse 63 Temp 36.7 ?C (98 ?F) (Temporal) Resp 17 Ht 1.854 m (6' 1) Wt 70.3 kg (155 lb) SpO2 100% BMI 20.45 kg/m? Physical Examination: Constitutional: No apparent distress, well nourished, and in stable condition. Cardiac: Regular rate and rhythm Abdomen: Soft and nonacute Pulmonary: Clear bilaterally and no wheezing Neuro: Moves extremities X4 with no tremors HEENT: No gross cranial nerve defects and anicteric sclera Skin: Skin warm and dry with no visible rashes Vascular: Adequate perfusion of extremities with no cyanosis Psych: Alert and oriented x3 with appropriate affect Lymphatics: No swelling of arms/hands with no pedal edema Neck: FROM with no JVD Additional Notes:None After review of the medical history and physical assessment, medications, allergies, patient's current medical condition, and labs, this patient is at acceptable risk for the planned surgical procedure and anesthestic at this outpatient surgical facility. Electronically signed by: JG HARDEN APRN - CRNA, MD Date: 01/21/2024 at 9:03 AM [facility] 01-21-2024 Note Patient: Dorian ferrera Procedure Information Date/Time: 01/21/24 1000 Procedure: LEFT FOOT EXCISION PLANTAR FIBROMA (Left: Foot) - 1 hour total Location: [address] Operating Room Surgeons: Laxmi Hicks DPM Relevant Problems No relevant active problems Past Medical History: Past Medical History: No date: Allergic No date: Anxiety No date: Asthma No date: Headache No date: Varicella Past Surgical History: Past Surgical History: 09/24/2023: COLONOSCOPY; N/A Comment: Performed by Neida Fuller MD at [facility] No date: HAND SURGERY Comment: 2020 [facility] No date: TESTICLE TORSION REDUCTION (HISTORICAL) Comment: about 2020 Social History: TOBACCO: reports that he quit smoking about a year ago. His smoking use included cigarettes. He started smoking about 4 years ago. He has a 1.9 pack-year smoking history. He quit smokeless tobacco use about 4 years ago. His smokeless tobacco use included chew. ETOH: reports current alcohol use. Social History Substance and Sexual Activity Drug Use Yes Types: Marijuana Comment: Daily/last use 01/20/24 1000 Family History: Family History Problem Relation Name Age of Onset Diverticulitis Mother Crohn's disease Mother ANTONELLA disease Mother Heart Surgery Father Alex Heart attack Father Alex COPD Father Alex Arthritis Father Alex Asthma Father Alex Lung cancer Mother's Sister Throat cancer Mother's Brother Teodoro Cancer Mother's Brother Teodoro Breast cancer Father's Sister Luis Fernando Lung cancer Father's Sister Toeles Screening: unknown Clinical information reviewed: Tobacco Allergies Meds Med Hx Surg Hx Fam Hx Soc Hx Physical Exam Airway Mallampati: I TM distance: >3 FB Neck ROM: full Mouth Open: normal Cardiovascular Dental dentition normal Pulmonary Abdominal Anesthesia Plan patient is NPO appropriate Any family history or previous problems with anesthesia no ASA 2 TIVA and regional Any family history or previous problems with anesthesia no The patient is a current smoker. Patient was previously instructed to abstain from smoking on day of procedure. Patient did not smoke on day of procedure. Anesthetic plan and risks discussed with patient and spouse. WILLIS Screening Labs: Lab Results Component Value Date WBC 17.3 (H) 07/03/2023 HGB 11.4 (L) 07/03/2023 HCT 35.3 (L) 07/03/2023 MCV 84.9 07/03/2023 PLT 414 (H) 07/03/2023 Lab Results Component Value Date SODIUM 144 07/03/2023 NA 136 06/25/2023 POTASSIUM 4.3 07/03/2023 K 3.4 (L) 06/25/2023 CHLORIDE 109 07/03/2023 CL 107 06/25/2023 CO2 27 07/03/2023 BUN 13 07/03/2023 CREATININE 1.12 07/03/2023 GLUCOSE 102 (H) 07/03/2023 CALCIUM 9.8 07/03/2023 PROT 6.6 07/03/2023 ALKPHOS 77 07/03/2023 AST 14 07/03/2023 ALT 11 07/03/2023 EGFR 90 07/03/2023 GLOB 2.3 07/03/2023 Pain Score: Scheduled No echocardiogram results found for the past 14 days 06/23/23 ECG 12-LEAD 06/24/2023 4:00 AM (Final) Impression sinus arrhythmia Biatrial enlargement Borderline T abnormalities, anterior leads Electronically Signed On 06-24-2023 04:00:27 EST by Bebe Cheung Signed by: Bebe Cheung MD on 06/24/2023 4:00 AM Equipment Requests: Additional Equipment Requests [facility] 01-21-2024 History and physical note [facility] Comprehensive PreSurgical History and Physical Name: Dorian Montoya : 1990 (Age-33 y.o.) Date of evaluation: 01/21/2024 Surgeon: @[email or web address]@ Allergies Allergen Reactions Apple Hives and Shortness of breath Bee Venom Anaphylaxis Red Dye #40 (Allura Red) Other major nosebleeds Height: 185.4 cm (6' 1) Weight: 70.3 kg (155 lb) BMI (Calculated): 20.45 HPI: Plantar fascial fibromatosis [M72.2] Severity: Moderate Duration: >one month Review of systems negative except for items below: Past Medical History: Diagnosis Date Allergic Anxiety Asthma Headache Varicella Patient Active Problem List Diagnosis Date Noted ZULLY (acute kidney injury) (HCC) 06/24/2023 Nicotine use disorder 03/24/2022 Incidental lung nodule 03/23/2022 Lower abdominal pain 06/21/2021 Past Surgical History: Procedure Laterality Date COLONOSCOPY N/A 09/24/2023 Performed by Neida Fuller MD at [facility] HAND SURGERY 2020 [facility] TESTICLE TORSION REDUCTION (HISTORICAL) about 2020 Family History Problem Relation Name Age of Onset Diverticulitis Mother Crohn's disease Mother ANTONELLA disease Mother Heart Surgery Father Alex Heart attack Father Alex COPD Father Alex Arthritis Father Alex Asthma Father Alex Lung cancer Mother's Sister Throat cancer Mother's Brother Teodoro Cancer Mother's Brother Teodoro Breast cancer Father's Sister Toenet Lung cancer Father's Sister Toenet Medications: @DIAGMEDLIST@ Social history and Laboratory Data: Lab Results Component Value Date HGB 11.4 (L) 07/03/2023 HCT 35.3 (L) 07/03/2023 PLT 414 (H) 07/03/2023 PLT 172 06/25/2023 WBC 17.3 (H) 07/03/2023 NA 136 06/25/2023 K 3.4 (L) 06/25/2023 BUN 13 07/03/2023 CREATININE 1.12 07/03/2023 GLUCOSE 102 (H) 07/03/2023 Social History Tobacco Use Smoking Status Former Current packs/day: 0.00 Average packs/day: 0.5 packs/day for 3.7 years (1.9 ttl pk-yrs) Types: Cigarettes Start date: 05/14/2019 Quit date: 02/03/2023 Years since quittin.9 Smokeless Tobacco Former Types: Chew Quit date: 05/14/2019 Tobacco Comments Smoking 1 disposable vape/week Social History Substance and Sexual Activity Alcohol Use Yes Comment: occ/no alcohol since 12/20/23 Social History Substance and Sexual Activity Drug Use Yes Types: Marijuana Comment: Daily/last use 01/20/24 1000 BP 121/87 (BP Location: Left arm, Patient Position: Sitting) Pulse 63 Temp 36.7 C (98 F) (Temporal) Resp 17 Ht 1.854 m (6' 1) Wt 70.3 kg (155 lb) SpO2 100% BMI 20.45 kg/m Physical Examination: Constitutional: No apparent distress, well nourished, and in stable condition. Cardiac: Regular rate and rhythm Abdomen: Soft and nonacute Pulmonary: Clear bilaterally and no wheezing Neuro: Moves extremities X4 with no tremors HEENT: No gross cranial nerve defects and anicteric sclera Skin: Skin warm and dry with no visible rashes Vascular: Adequate perfusion of extremities with no cyanosis Psych: Alert and oriented x3 with appropriate affect Lymphatics: No swelling of arms/hands with no pedal edema Neck: FROM with no JVD Additional Notes:None After review of the medical history and physical assessment, medications, allergies, patient's current medical condition, and labs, this patient is at acceptable risk for the planned surgical procedure and anesthestic at this outpatient surgical facility. Electronically signed by: JG HARDEN APRN - CRNA, MD Date: 01/21/2024 at 9:03 AM documented in this encounter [facility] 12-26-2023 Note Surgery Scheduling S heet Procedure: left foot excision plantar fibroma CPT: 55567 Diagnosis:left foot plantar fibromatosis M72.2 Location for Surgery: wherever soon Length of procedure: 30 min Admission type: outpatient Medical clearance: PAT Antibiotic: Ancef 1g IV Anesthesia: MAC, Ok for popliteal block Position on OR table: supine Radiology: none Implants/ materials: none Equipment: foot tray Post op xrays: none [facility] 12-26-2023 History of Present illness Narrative Images from the original note were not included. [facility] [address] [facility] [id number] Dept: [phone] Dept Department of Orthopedics- Podiatry Chief Complaint Patient presents with New Patient Left foot plantar fasciitis; Dr. Hernandez referral PCP: Александр Novak MD Last visit: 09/05/23 HISTORY OF PRESENT ILLNESS: This pleasant 33 y.o. male presents for evaluation of left foot plantar fascial fibroma, he is referred here today by Dr. Hernandez. He relates he has continued pain to the area where there is a lump. He has pain when walking or standing long periods of time. The only relief he really gets is when he is seated with shoes off, and no pressure to the area. Unfortunately he works for long periods of time on his feet 8-12 hours at a time on concrete floors at [employer]. No results found for: HGBA1C Past Medical History: Past Medical History: Diagnosis Date Allergic Anxiety Asthma Headache Varicella Past Surgical History: Past Surgical History: Procedure Laterality Date COLONOSCOPY N/A 09/24/2023 Performed by Neida Fuller MD at [facility] HAND SURGERY 2020 [place] TESTICLE TORSION REDUCTION (HISTORICAL) about 2020 Current Medications: Current Outpatient Medications Medication Sig Dispense Refill albuterol (ProAir HFA) 108 (90 Base) MCG/ACT inhaler Inhale 2 puffs every 4 hours as needed for wheezing or shortness of breath. 8.5 g 0 fluticasone (Flovent) 110 MCG/ACT inhaler Inhale 1 puff in the morning and 1 puff in the evening. Rinse mouth with water after use to reduce aftertaste and incidence of candidiasis. Do not swallow.. 12 g 5 nicotine (Nicoderm CQ) 14 MG/24HR patch Place 1 patch on the skin Every 24 hours. 30 patch 1 nicotine (Nicoderm CQ) 7 MG/24HR patch Place 1 patch on the skin Every 24 hours. 30 patch 0 guaiFENesin (Mucinex) 600 MG 12 hr tablet Take 1 tablet (600 mg) by mouth 2 times daily. Do not crush, chew, or split. (Patient not taking: Reported on 12/26/2023) 60 tablet 11 ondansetron (Zofran) 4 MG tablet Take 1 tablet (4 mg) by mouth every 8 hours as needed for nausea or vomiting. (Patient not taking: Reported on 12/26/2023) 20 tablet 0 No current facility-administered medications for this visit. Allergies: Apple, Bee venom, and Red dye #40 (allura red) Social History: Social History Socioeconomic History Marital status: Spouse name: Not on file Number of children: Not on file Years of education: Not on file Highest education level: Not on file Occupational History Not on file Tobacco Use Smoking status: Former Current packs/day: 0.00 Average packs/day: 0.5 packs/day for 3.7 years (1.9 ttl pk-yrs) Types: Cigarettes Start date: 05/14/2019 Quit date: 02/03/2023 Years since quittin.8 Smokeless tobacco: Former Types: Chew Quit date: 05/14/2019 Tobacco comments: Smoking 1 disposable vape/week Vaping Use Vaping status: Some Days Substances: Nicotine Devices: Disposable, Smokes 1 pod/week Substance and Sexual Activity Alcohol use: Yes Comment: occ Drug use: Yes Types: Marijuana Comment: Daily Sexual activity: Yes Partners: Female Other Topics Concern Not on file Social History Narrative SDOH Updated 06/07/23 Social Determinants of Health Financial Resource Strain: Medium Risk (06/07/2023) Overall Financial Resource Strain (CARDIA) Difficulty of Paying Living Expenses: Somewhat hard Food Insecurity: Food Insecurity Present (06/07/2023) Hunger Vital Sign Worried About Running Out of Food in the Last Year: Sometimes true Ran Out of Food in the Last Year: Sometimes true Transportation Needs: No Transportation Needs (06/07/2023) PRAPARE - Transportation Lack of Transportation (Medical): No Lack of Transportation (Non-Medical): No Physical Activity: Insufficiently Active (06/07/2023) Exercise Vital Sign Days of Exercise per Week: 2 days Minutes of Exercise per Session: 30 min Stress: Stress Concern Present (06/07/2023) [place] [employer] - Occupational Stress Questionnaire Feeling of Stress : Rather much Social Connections: Unknown (06/07/2023) Social Connection and Isolation Panel [NHANES] Frequency of Communication with Friends and Family: More than three times a week Frequency of Social Gatherings with Friends and Family: Twice a week Attends Hinduism Services: Not on file Active Member of Clubs or Organizations: No Attends Club or Organization Meetings: Never Marital Status: Intimate Partner Violence: Not At Risk (09/24/2023) Humiliation, Afraid, Rape, and Kick questionnaire Fear of Current or Ex-Partner: No Emotionally Abused: No Physically Abused: No Sexually Abused: No Housing Stability: High Risk (06/07/2023) Housing Stability Vital Sign Unable to Pay for Housing in the Last Year: Yes Number of Places Lived in the Last Year: 1 Unstable Housing in the Last Year: No Family History: Family History Problem Relation Name Age of Onset Diverticulitis Mother Crohn's disease Mother ANTONELLA disease Mother Heart Surgery Father Alex Heart attack Father Alex COPD Father Alex Arthritis Father Alex Asthma Father Alex Lung cancer Mother's Sister Throat cancer Mother's Brother Teodoro Cancer Mother's Brother Teodoro Breast cancer Father's Sister Toenet Lung cancer Father's Sister [place] REVIEW OF SYSTEMS: Surgical Risk Factors: Allergies to Metals or Latex: NO Have you been treated for a blood clot: NO Have you had a history of bleeding disorder: NO Have you had a history of Anesthetic problems: NO Do you have tendency to bruise easily: NO Do you experience prolonged or excessive bleeding from cuts or after surgery:NO General/Constitutional: General: NO Cancer: NO Acute/Chronic Infections: NO HEENT/Neck: Problems with theThroat: NO Problems with the Eyes: NO Problems with the Ears: NO Problems with the Nose and Sinuses: NO Endocrine: Problems with Diabetes: NO Problems with Thyroid Disorder: NO Thorax: Problems with the Heart: NO Problems with the Lung: NO Cardiovascular: Problems with Circulation: NO Problems with High Blood pressure: NO Gastrointestinal: Problems with Ulcers: NO Problems with the Liver: NO Problems with Bowel Habits: NO Genitourinary: Problems with the Genitals: NO Urinary problems: NO Kidney disease or stones: NO Skin: Any general problems: NO Neurologic: Dizziness, blurred vision, headaches, problems with balance : NO Seizures or Stroke: NO Psychiatric: Emotional or Psychological disorders: NO Depression or Anxiety: NO PHYSICAL EXAM: Vitals: BP 126/84 Pulse 76 Ht 6' 1 (1.854 m) Wt 155 lb (70.3 kg) BMI 20.45 kg/m Constitutional: This an age appropriate male who is alert and oriented x3. The patient appears well nourished Psychiatric: The patient is able to verbalize normally and seems to have a good understanding of their situation. Vascular: DP/PT pulses 2/4 bilateral. CFT less than 5 seconds to digits bilateral. Skin temperature is warm to cool proximal to distal bilateral. No edema is noted bilateral. Hair growth is present bilateral. Neurological: Protective sensation is intact bilateral as tested with [place] monofilament. Dermatologic: Skin turgor is within normal limits. No lesions or wounds noted. Musculoskeletal: Mild pain to palpation of left plantar foot mass which is located centrally in midfoot arch. This is approximately 3 cm in diameter. This is nonmobile and likely a plantar fibroma. Able to wiggle toes. Muscle strength is full bilateral. ASSESSMENT AND PLAN: (M72.2) Plantar fascial fibromatosis of left foot Patient was seen examined. Discussed plantar fibroma in detail. This is quite large and feels that is getting bigger over time. Starting limit his activities. I recommend surgical excision at this time. Discussed the risk and complications associated with this including recurrence of the issue as well as nonhealing or wound healing issues with the plantar wounds. He will have to remain off of his foot for at least 3 weeks following surgery so this will be difficult for him to get back to work right away. He understands would like to proceed with scheduling.The risks of the proposed above procedure were discussed including but not limited to the risks of reactions to medications given for surgery, the risk of blood loss, continued or worsening of the infection, damage to normal structures that can lead to long term care phlebotomist problems of pain and/or dysfunction, the potential for non-healing wounds that may require further operative intervention in the future including more proximal amputation. In addition potentially life threatening complications (DVT, PE, PA, stroke,and even ) at the time of surgery and after surgery were discussed. The patient understands that no guarantees with regard to surgical outcome can be given and none were implied. Voice recognition was used for portions of this note and although it was reviewed prior to signing some incorrect words or phrases could be present. Laxmi Hicks DPM Surgery Scheduling Sheet Procedure: left foot excision plantar fibroma CPT: 01450 Diagnosis:left foot plantar fibromatosis M72.2 Location for Surgery: wherever soon Length of procedure: 30 min Admission type: outpatient Medical clearance: PAT Antibiotic: Ancef 1g IV Anesthesia: MAC, Ok for popliteal block Position on OR table: supine Radiology: none Implants/ materials: none Equipment: foot tray Post op xrays: none documented in this encounter [facility] 12-26-2023 Instructions Sophy Krishnamurthy ATC - 12/26/2023 10:00 AM EDT Alexdnee will call to schedule surgery. 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 male. Patient presents for extraction # 18. A mandaen was attempted but there was a pulpal exposure upon removing the old amalgam filling. Told patient this would likely need a root canal and a recommended crown but they opted to extract. Changes in medical history: no changes in medical history Patient does not take premedication. Blood pressure: 106/57 Procedure, risks, prognosis, and alternative procedures explained to patient. Consent given to undergo procedure. Consent signed. Whole number of capsules injected: 3 Administered anesthetic: Septocaine 4% with Epinephrine 1:100,000 Type of injection: local infiltration, ANAMARIA block, and long buccal Reflected tissue and luxated. Tooth # 18 was successfully extracted and placed in biohazard container. Curetted socket and rinsed with saline. Suture type placed no Post-operative instructions given written and orally. Guaze applied and firm pressure held. Hemostasis achieved prior to patient dismissal. Next visit: Restorative Attending: JULIO Daniel III, DDS 4:11 PM 12/19/23 I discussed the patient with the resident prior to treatment.I was available for consultation and /or directly participated in the care.We agree with the treatment provided and the notations made. Dennis Flores DDS 12/19/23 4:46 PM documented in this encounter [facility] 2023 Note Dental procedures in this visit D7140 - MI EXTRACTION ERUPTED TOOTH OR EXPOSED ROOT 18 (Completed) Service provider: Isac Slade III, DDS Billing provider: Isac Slade III, DDS Subjective Patient ID: Dorian Montoya is a 32 y.o. male. Patient presents for extraction # 18. A mandaen was attempted but there was a pulpal exposure upon removing the old amalgam filling. Told patient this would likely need a root canal and a recommended crown but they opted to extract. Changes in medical history: no changes in medical history Patient does not take premedication. Blood pressure: 106/57 Procedure, risks, prognosis, and alternative procedures explained to patient. Consent given to undergo procedure. Consent signed. Whole number of capsules injected: 3 Administered anesthetic: Septocaine 4% with Epinephrine 1:100,000 Type of injection: local infiltration, ANAMARIA block, and long buccal Reflected tissue and luxated. Tooth # 18 was successfully extracted and placed in biohazard container. Curetted socket and rinsed with saline. Suture type placed no Post-operative instructions given written and orally. Guaze applied and firm pressure held. Hemostasis achieved prior to patient dismissal. Next visit: Restorative Attending: JULIO Daniel III, DDS 4:11 PM 12/19/23 [facility] 2023 Note I discussed the mitali ent with the resident prior to treatment.I was available for consultation and /or directly participated in the care.We agree with the treatment provided and the notations made. Dennis Flores DDS 12/19/23 4:46 PM [facility] 10-17-2023 History of Present illness Narrative Images from the original note were not included. [facility] [address] [place] [address] [place] [id number] Dept: [phone] Dept Chief Complaint Patient presents with New Patient Left foot Subjective History of Present Illness: Dorian Montoya is a 32 y.o. male who presents today for evaluation of left foot pain. Location: posteriorly of the tarsals Onset: 4 months ago and has remained unchanged - large raised firm area is present Injury: no Quality: aching, throbbing, and sharp Radiation of symptoms: no Severity: 0/10 at rest and 6/10 at worst Exacerbating factor(s): full WB Activities Relieving factor(s): rest Timing: all day Imaging to date: X-ray October 2023 Treatment to date: PT/OT/HEP: no Ice: no Heat: no Medications: Tylenol: yes, not helpful NSAIDs: yes, Ibuprofen/Motrin/Advil, not helpful Oral steroids: no Muscle relaxants: no Nerve medications: no Targeted injections: none Assistive devices: none Prior surgery: no 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 Physical Exam: General: Alert, well appearing, no acute distress. Respiratory: Breathing comfortably on room air. No respiratory distress. Skin: Warm, dry, intact. No visible rashes or erythema overlying area of focused exam. Right Ankle Exam Right ankle exam is normal. Left Ankle Exam Tenderness Left ankle tenderness location: Left plantar firm soft tisuse mass with no redness, warmth. No movment with toe flexion or extension. Range of Motion The patient has normal left ankle ROM. Dorsiflexion: normal Plantar flexion: normal Eversion: normal Inversion: normal Muscle Strength Dorsiflexion: 5/5 Plantar flexion: 5/5 Anterior tibial: 5/5 Posterior tibial: 5/5 Gastrocsoleus: 5/5 Peroneal muscle: 5/5 Tests Anterior drawer: negative Varus tilt: negative Other Erythema: absent Sensation: normal Pulse: present External Notes No pertinent interval updates Labs No results found for: HGBA1C Lab Results Component Value Date CREATININE 1.12 07/03/2023 Imaging I have personally reviewed the images obtained today X-rays of the left foot were reviewed with the patient. The x-rays show normal anatomic alignment with no acute soft tissue or bony abnormality. EMG/NCT N/A Procedure No procedures completed today Assessment Diagnosis Plan 1. Plantar fascial fibromatosis of left foot [facility] Orthopedics Podiatry 2. Pain XR foot 3+ views left 3. Left foot pain [facility] Orthopedics Podiatry Plan Activity: no restrictions activity as tolerated. We discussed a padded shoe insert to alleviate pressure off of the fibroma. Medication(s): Continue current regimen Test(s)/Imaging/Referral(s): No new imaging, tests, or referrals placed today. Additional Intervention(s): No additional imaging, tests, or referrals placed today. We discussed the patient's x-rays, clinical evaluation, and diagnosis along with the [id number] ultrasound showing a soft tissue mass. 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 Next Step: Consult-podiatry for symptomatic plantar fibroma. Follow up: As needed. Follow up if symptoms worsen or fail to improve. Collin Hernandez MD 10/17/2023 1:07 PM Please note that portions of this note may have been completed with voice recognition software. Documentation reviewed prior to signing but minor errors in mothercraft nurse may have occurred. documented in this encounter [facility] 09-24-2023 Hospital Discharge instructions Chantelle Carroll RN - 09/24/2023 9:31 AM EDT Upper GI Endoscopy: What to expect at home ACTIVITY: DO NOT DRIVE, OPERATE MACHINERY, OR DRINK ANY ALCOHOL TODAY. Avoid making critical decisions, signing legal documents, or performing any activity that requires alertness for the rest of the day. You may be bloated or have gas pains since air was introduced into the stomach for the procedure. You may need to pass the gas throughout the day. You may experience a mild sore throat. You may use an [id number] chloraseptic spray, gargle with warm salt water, or use throat lozenges. Notify your physician if this feeling lasts more than 48 hours. Rest the remainder of the day. You may resume normal activity tomorrow. You may return to work tomorrow. DIET: You may resume a normal diet unless notified or recommended by your physician. You may be eager to eat a large meal after fasting, but it is a good idea to start with light meals and ease into solid foods the first day. (*) If your stomach is upset, try clear liquids and bland, low-fat foods like plain toast or rice. Drink plenty of fluids for the first 24 hours (unless your physician states otherwise). MEDICATION: Resume your normal home medications unless notified or recommended by your physician. If you take blood thinners (such as Coumadin, Eliquis, Plavix, Aspirin, etc.) or anti-inflammatory medications (Advil, Motrin, Aleve, etc.), ask your physician when you may resume these medications. FOLLOW-UP APPOINTMENT: Follow up with or call your physician as needed. When to call for help: Call your doctor IMMEDIATELY or seek medical care if you experience: Severe pain or vomiting Coughing up more than a teaspoon of blood You pass a large amount of tar-like stools Your belly is swollen and firm with severe pain A fever greater than 101 degrees Redness or swelling of arm from the IV site for more than 48 hours Sudden onset of chest pain or shortness of breath If you become extremely dizzy or pass out (lose consciousness) IF YOU ARE UNABLE TO REACH YOUR PHYSICIAN GO TO NEAREST EMERGENCY DEPARTMENT Colonoscopy: What to expect at home ACTIVITY: DO NOT DRIVE, OPERATE MACHINERY, OR DRINK ANY ALCOHOL TODAY. Avoid making critical decisions, signing legal documents, or performing any activity that requires alertness for the rest of the day. You may be bloated or have gas pains since air was introduced into the colon for the procedure. You may need to pass the gas throughout the day. You may experience a small amount of rectal bleeding; this can be normal after your colonoscopy. Notify your physician if the bleeding is enough to saturate your clothes. Rest the remainder of the day. You may resume normal activity tomorrow. You may return to work tomorrow. DIET: You may resume a normal diet unless notified or recommended by your physician. You may be eager to eat a large meal after fasting, but it is a good idea to start with light meals and ease into solid foods the first day. (*) If your stomach is upset, try clear liquids and bland, low-fat foods like plain toast or rice. Drink plenty of fluids for the first 24 hours (unless your physician states otherwise). MEDICATION: Resume your normal home medications unless notified or recommended by your physician. If you take blood thinners (such as Coumadin, Eliquis, Plavix, Aspirin, etc.) or anti-inflammatory medications (Advil, Motrin, Aleve, etc.), ask your physician when you may resume these medications. FOLLOW-UP APPOINTMENT: Follow up with or call your physician as needed. When to call for help: Call your doctor IMMEDIATELY or seek medical care if you experience: Severe pain or vomiting A large amount (filling the toilet) of maroon, bloody stools or tar-like stools Your belly is swollen and firm with severe pain A fever greater than 101 degrees Redness or swelling of arm from the IV site for more than 48 hours Sudden onset of chest pain or shortness of breath If you become extremely dizzy or pass out (lose consciousness) IF YOU ARE UNABLE TO REACH YOUR PHYSICIAN GO TO NEAREST EMERGENCY DEPARTMENT documented in this encounter [facility] 09-24-2023 Note Formatting of this n ote might be different from the original. [facility] Patient Name: Dorian Montoya Procedure Date: 09/24/2023 8:50 AM Gender: Male Date of : 1990 Age: 32 Admit Type: Outpatient Note Status: Finalized Endoscopist: Neida Fuller MD, [id number] Procedure: Upper GI endoscopy Indications: Upper abdominal symptoms that persist despite an appropriate trial of therapy, Nausea with vomiting Findings: The examined duodenum was normal. Patchy mildly erythematous mucosa without bleeding was found in the stomach. Biopsies were taken with a cold forceps for Helicobacter pylori testing. The examined esophagus was normal. Impression: - Normal examined duodenum. - Erythematous mucosa in the stomach. Biopsied. - Normal esophagus. Recommendation: - Patient has a contact number available for emergencies. The signs and symptoms of potential delayed complications were discussed with the patient. Return to normal activities tomorrow. Written discharge instructions were provided to the patient. - Await pathology results. - Continue present medications. - Resume previous diet. - Return to referring physician as previously scheduled. - Perform a colonoscopy today. Referring MD: Александр Novak MD, Alem Peng CC Letter to: Александр Novak MD, Alem Peng Medicines: Monitored Anesthesia Care Procedure: Pre-Anesthesia Assessment: - Prior to the procedure, a History and Physical was performed, and patient medications and allergies were reviewed. The patient is competent. The risks and benefits of the procedure and the sedation options and risks were discussed with the patient. All questions were answered and informed consent was obtained. Patient identification and proposed procedure were verified by the physician, the nurse and the percolator operator in the pre-procedure area in the procedure room. Mental Status Examination: alert and oriented. Respiratory Examination: clear to auscultation. CV Examination: normal. Prophylactic Antibiotics: The patient does not require prophylactic antibiotics. Prior Anticoagulants: The patient has taken no anticoagulant or antiplatelet agents. ASA Grade Assessment: II - A patient with mild systemic disease. After reviewing the risks and benefits, the patient was deemed in satisfactory condition to undergo the procedure. The anesthesia plan was to use monitored anesthesia care (MAC). Immediately prior to administration of medications, the patient was re-assessed for adequacy to receive sedatives. The heart rate, respiratory rate, oxygen saturations, blood pressure, adequacy of pulmonary ventilation, and response to care were monitored throughout the procedure. The physical status of the patient was re-assessed after the procedure. After obtaining informed consent, the endoscope was passed under direct vision. Throughout the procedure, the patient's blood pressure, pulse, and oxygen saturations were monitored continuously. The Endoscope was introduced through the mouth, and advanced to the second part of duodenum. The upper GI endoscopy was accomplished with ease. The patient tolerated the procedure well. Complications: No immediate complications. Estimated blood loss: None. Procedure Code(s): --- Professional --- 91661, Esophagogastroduodenoscopy, flexible, transoral; with biopsy, single or multiple --- Technical --- 54191, Esophagogastroduodenoscopy, flexible, transoral; with biopsy, single or multiple Diagnosis Code(s): --- Professional --- K31.89, Other diseases of stomach and duodenum R19.8, Other specified symptoms and signs involving the digestive system and abdomen R11.2, Nausea with vomiting, unspecified --- Technical --- K31.89, Other diseases of stomach and duodenum R19.8, Other specified symptoms and signs involving the digestive system and abdomen R11.2, Nausea with vomiting, unspecified CPT copyright 2021 [employer]. All rights reserved. The codes documented in this report are preliminary and upon colorer machine review may be revised to meet current compliance requirements. Attending Participation: I personally performed the entire procedure. Neida Fuller MD 09/24/2023 9:07:36 AM Number of Addenda: 0 Note Initiated On: 09/24/2023 8:50 AM [facility] 09-24-2023 Note Formatting of this n ote might be different from the original. [facility]: Dorian Montoya Procedure Date: 09/24/2023 8:50 AM Gender: Male Date of : 1990 Age: 32 Admit Type: Outpatient Note Status: Finalized Endoscopist: Neida Fuller MD, [id number] Procedure: Upper GI endoscopy Indications: Upper abdominal symptoms that persist despite an appropriate trial of therapy, Nausea with vomiting Findings: The examined duodenum was normal. Patchy mildly erythematous mucosa without bleeding was found in the stomach. Biopsies were taken with a cold forceps for Helicobacter pylori testing. The examined esophagus was normal. Impression: - Normal examined duodenum. - Erythematous mucosa in the stomach. Biopsied. - Normal esophagus. Recommendation: - Patient has a contact number available for emergencies. The signs and symptoms of potential delayed complications were discussed with the patient. Return to normal activities tomorrow. Written discharge instructions were provided to the patient. - Await pathology results. - Continue present medications. - Resume previous diet. - Return to referring physician as previously scheduled. - Perform a colonoscopy today. Referring MD: Александр Novak MD, Alem Peng CC Letter to: Александр Novak MD, Alem Pneg Medicines: Monitored Anesthesia Care Procedure: Pre-Anesthesia Assessment: - Prior to the procedure, a History and Physical was performed, and patient medications and allergies were reviewed. The patient is competent. The risks and benefits of the procedure and the sedation options and risks were discussed with the patient. All questions were answered and informed consent was obtained. Patient identification and proposed procedure were verified by the physician, the nurse and the percolator operator in the pre-procedure area in the procedure room. Mental Status Examination: alert and oriented. Respiratory Examination: clear to auscultation. CV Examination: normal. Prophylactic Antibiotics: The patient does not require prophylactic antibiotics. Prior Anticoagulants: The patient has taken no anticoagulant or antiplatelet agents. ASA Grade Assessment: II - A patient with mild systemic disease. After reviewing the risks and benefits, the patient was deemed in satisfactory condition to undergo the procedure. The anesthesia plan was to use monitored anesthesia care (MAC). Immediately prior to administration of medications, the patient was re-assessed for adequacy to receive sedatives. The heart rate, respiratory rate, oxygen saturations, blood pressure, adequacy of pulmonary ventilation, and response to care were monitored throughout the procedure. The physical status of the patient was re-assessed after the procedure. After obtaining informed consent, the endoscope was passed under direct vision. Throughout the procedure, the patient's blood pressure, pulse, and oxygen saturations were monitored continuously. The Endoscope was introduced through the mouth, and advanced to the second part of duodenum. The upper GI endoscopy was accomplished with ease. The patient tolerated the procedure well. Complications: No immediate complications. Estimated blood loss: None. Procedure Code(s): --- Professional --- 39212, Esophagogastroduodenoscopy, flexible, transoral; with biopsy, single or multiple --- Technical --- 66210, Esophagogastroduodenoscopy, flexible, transoral; with biopsy, single or multiple Diagnosis Code(s): --- Professional --- K31.89, Other diseases of stomach and duodenum R19.8, Other specified symptoms and signs involving the digestive system and abdomen R11.2, Nausea with vomiting, unspecified --- Technical --- K31.89, Other diseases of stomach and duodenum R19.8, Other specified symptoms and signs involving the digestive system and abdomen R11.2, Nausea with vomiting, unspecified CPT copyright 2021 [employer]. All rights reserved. The codes documented in this report are preliminary and upon colorer machine review may be revised to meet current compliance requirements. Attending Participation: I personally performed the entire procedure. Neida Fuller MD 09/24/2023 9:07:36 AM Number of Addenda: 0 Note Initiated On: 09/24/2023 8:50 AM [facility] [employer] 09-24-2023 Note Formatting of this n ote might be different from the original. [facility]: Dorian Montoya Procedure Date: 09/24/2023 8:50 AM Gender: Male Date of : 1990 Age: 32 Admit Type: Outpatient Note Status: Finalized Endoscopist: Neida Fuller MD, [id number] Procedure: Colonoscopy Indications: Evaluation of unexplained GI bleeding presenting with Hematochezia, This is the patient's first colonoscopy, Family history of Crohn's disease, Abnormal CT of the GI tract Findings: The digital rectal exam was normal. The terminal ileum appeared normal. Biopsies were taken with a cold forceps for histology. Biopsies were taken with a cold forceps in the entire colon for histology. A localized area of moderately congested, erythematous and ulcerated mucosa was found in the recto-sigmoid colon. Biopsies were taken with a cold forceps for histology. Internal hemorrhoids were found during retroflexion. The hemorrhoids were small and Grade I (internal hemorrhoids that do not prolapse). Anal papilla(e) were hypertrophied. Impression: - The examined portion of the ileum was normal. Biopsied. - Congested, erythematous and ulcerated mucosa in the recto-sigmoid colon. Biopsied. - Internal hemorrhoids. - Anal papilla(e) were hypertrophied. - Biopsies were taken with a cold forceps for histology in the entire colon. Recommendation: - Patient has a contact number available for emergencies. The signs and symptoms of potential delayed complications were discussed with the patient. Return to normal activities tomorrow. Written discharge instructions were provided to the patient. - Continue present medications. - Resume previous diet. - High fiber diet. - Repeat colonoscopy is recommended. The colonoscopy date will be determined after pathology results from today's exam become available for review. - Return to referring physician as previously scheduled. - Return to GI clinic at appointment to be scheduled. Referring MD: Александр Novak MD, Alem Peng Medicines: Monitored Anesthesia Care Procedure: Pre-Anesthesia Assessment: - Prior to the procedure, a History and Physical was performed, and patient medications and allergies were reviewed. The patient is competent. The risks and benefits of the procedure and the sedation options and risks were discussed with the patient. All questions were answered and informed consent was obtained. Patient identification and proposed procedure were verified by the physician, the nurse and the percolator operator in the pre-procedure area in the procedure room. Mental Status Examination: alert and oriented. Respiratory Examination: clear to auscultation. CV Examination: normal. Prophylactic Antibiotics: The patient does not require prophylactic antibiotics. Prior Anticoagulants: The patient has taken no anticoagulant or antiplatelet agents. ASA Grade Assessment: II - A patient with mild systemic disease. After reviewing the risks and benefits, the patient was deemed in satisfactory condition to undergo the procedure. The anesthesia plan was to use monitored anesthesia care (MAC). Immediately prior to administration of medications, the patient was re-assessed for adequacy to receive sedatives. The heart rate, respiratory rate, oxygen saturations, blood pressure, adequacy of pulmonary ventilation, and response to care were monitored throughout the procedure. The physical status of the patient was re-assessed after the procedure. After I obtained informed consent, the scope was passed under direct vision. Throughout the procedure, the patient's blood pressure, pulse, and oxygen saturations were monitored continuously. The Colonoscope was introduced through the anus and advanced to the terminal ileum, with identification of the appendiceal orifice and IC valve. The colonoscopy was performed with ease. The patient tolerated the procedure well. The quality of the bowel preparation was adequate. The terminal ileum, ileocecal valve, appendiceal orifice, and rectum were photographed. Complications: No immediate complications. Procedure Code(s): --- Professional --- 97045, Colonoscopy, flexible; with biopsy, single or multiple --- Technical --- 99267, Colonoscopy, flexible; with biopsy, single or multiple Diagnosis Code(s): --- Professional --- K64.0, First degree hemorrhoids K63.89, Other specified diseases of intestine K63.3, Ulcer of intestine K62.89, Other specified diseases of anus and rectum K92.1, Melena (includes Hematochezia) Z83.79, Family history of other diseases of the digestive system R93.3, Abnormal findings on diagnostic imaging of other parts of digestive tract --- Technical --- K64.0, First degree hemorrhoids K63.89, Other specified diseases of intestine K63.3, Ulcer of intestine K62.89, Other specified diseases of anus and rectum K92.1, Melena (includes Hematochezia) Z83.79, Family history of other diseases of the digestive system R93.3, Abnormal findings on diagnostic imaging of other parts of digestive tract CPT copyright 2021 [employer]. All rights reserved. The codes documented in this report are preliminary and upon colorer machine review may be revised to meet current compliance requirements. Attending Participation: I personally performed the entire procedure. Neida Fuller MD 09/24/2023 9:33:53 AM Number of Addenda: 0 Note Initiated On: 09/24/2023 8:50 AM [facility] 09-24-2023 Note Formatting of this n ote might be different from the original. [facility] Name: Dorian Montoya Procedure Date: 09/24/2023 8:50 AM Gender: Male Date of : 1990 Age: 32 Admit Type: Outpatient Note Status: Finalized Endoscopist: Neida Fuller MD, [id number] Procedure: Colonoscopy Indications: Evaluation of unexplained GI bleeding presenting with Hematochezia, This is the patient's first colonoscopy, Family history of Crohn's disease, Abnormal CT of the GI tract Findings: The digital rectal exam was normal. The terminal ileum appeared normal. Biopsies were taken with a cold forceps for histology. Biopsies were taken with a cold forceps in the entire colon for histology. A localized area of moderately congested, erythematous and ulcerated mucosa was found in the recto-sigmoid colon. Biopsies were taken with a cold forceps for histology. Internal hemorrhoids were found during retroflexion. The hemorrhoids were small and Grade I (internal hemorrhoids that do not prolapse). Anal papilla(e) were hypertrophied. Impression: - The examined portion of the ileum was normal. Biopsied. - Congested, erythematous and ulcerated mucosa in the recto-sigmoid colon. Biopsied. - Internal hemorrhoids. - Anal papilla(e) were hypertrophied. - Biopsies were taken with a cold forceps for histology in the entire colon. Recommendation: - Patient has a contact number available for emergencies. The signs and symptoms of potential delayed complications were discussed with the patient. Return to normal activities tomorrow. Written discharge instructions were provided to the patient. - Continue present medications. - Resume previous diet. - High fiber diet. - Repeat colonoscopy is recommended. The colonoscopy date will be determined after pathology results from today's exam become available for review. - Return to referring physician as previously scheduled. - Return to GI clinic at appointment to be scheduled. Referring MD: Александр Novak MD, Alem Peng Medicines: Monitored Anesthesia Care Procedure: Pre-Anesthesia Assessment: - Prior to the procedure, a History and Physical was performed, and patient medications and allergies were reviewed. The patient is competent. The risks and benefits of the procedure and the sedation options and risks were discussed with the patient. All questions were answered and informed consent was obtained. Patient identification and proposed procedure were verified by the physician, the nurse and the percolator operator in the pre-procedure area in the procedure room. Mental Status Examination: alert and oriented. Respiratory Examination: clear to auscultation. CV Examination: normal. Prophylactic Antibiotics: The patient does not require prophylactic antibiotics. Prior Anticoagulants: The patient has taken no anticoagulant or antiplatelet agents. ASA Grade Assessment: II - A patient with mild systemic disease. After reviewing the risks and benefits, the patient was deemed in satisfactory condition to undergo the procedure. The anesthesia plan was to use monitored anesthesia care (MAC). Immediately prior to administration of medications, the patient was re-assessed for adequacy to receive sedatives. The heart rate, respiratory rate, oxygen saturations, blood pressure, adequacy of pulmonary ventilation, and response to care were monitored throughout the procedure. The physical status of the patient was re-assessed after the procedure. After I obtained informed consent, the scope was passed under direct vision. Throughout the procedure, the patient's blood pressure, pulse, and oxygen saturations were monitored continuously. The Colonoscope was introduced through the anus and advanced to the terminal ileum, with identification of the appendiceal orifice and IC valve. The colonoscopy was performed with ease. The patient tolerated the procedure well. The quality of the bowel preparation was adequate. The terminal ileum, ileocecal valve, appendiceal orifice, and rectum were photographed. Complications: No immediate complications. Procedure Code(s): --- Professional --- 50118, Colonoscopy, flexible; with biopsy, single or multiple --- Technical --- 49794, Colonoscopy, flexible; with biopsy, single or multiple Diagnosis Code(s): --- Professional --- K64.0, First degree hemorrhoids K63.89, Other specified diseases of intestine K63.3, Ulcer of intestine K62.89, Other specified diseases of anus and rectum K92.1, Melena (includes Hematochezia) Z83.79, Family history of other diseases of the digestive system R93.3, Abnormal findings on diagnostic imaging of other parts of digestive tract --- Technical --- K64.0, First degree hemorrhoids K63.89, Other specified diseases of intestine K63.3, Ulcer of intestine K62.89, Other specified diseases of anus and rectum K92.1, Melena (includes Hematochezia) Z83.79, Family history of other diseases of the digestive system R93.3, Abnormal findings on diagnostic imaging of other parts of digestive tract CPT copyright 2021 [employer]. All rights reserved. The codes documented in this report are preliminary and upon colorer machine review may be revised to meet current compliance requirements. Attending Participation: I personally performed the entire procedure. Neida Fuller MD 09/24/2023 9:33:53 AM Number of Addenda: 0 Note Initiated On: 09/24/2023 8:50 AM [facility] [employer] 09-24-2023 Miscellaneous Notes [facility] Name: Dorian Montoya Procedure Date: 09/24/2023 8:50 AM Gender: Male Date of : 1990 Age: 32 Admit Type: Outpatient Note Status: Finalized Endoscopist: Neida Fuller MD, [id number] Procedure: Upper GI endoscopy Indications: Upper abdominal symptoms that persist despite an appropriate trial of therapy, Nausea with vomiting Findings: The examined duodenum was normal. Patchy mildly erythematous mucosa without bleeding was found in the stomach. Biopsies were taken with a cold forceps for Helicobacter pylori testing. The examined esophagus was normal. Impression: - Normal examined duodenum. - Erythematous mucosa in the stomach. Biopsied. - Normal esophagus. Recommendation: - Patient has a contact number available for emergencies. The signs and symptoms of potential delayed complications were discussed with the patient. Return to normal activities tomorrow. Written discharge instructions were provided to the patient. - Await pathology results. - Continue present medications. - Resume previous diet. - Return to referring physician as previously scheduled. - Perform a colonoscopy today. Referring MD: Александр Novak MD, Alem Peng CC Letter to: Александр Novak MD, Alem Peng Medicines: Monitored Anesthesia Care Procedure: Pre-Anesthesia Assessment: - Prior to the procedure, a History and Physical was performed, and patient medications and allergies were reviewed. The patient is competent. The risks and benefits of the procedure and the sedation options and risks were discussed with the patient. All questions were answered and informed consent was obtained. Patient identification and proposed procedure were verified by the physician, the nurse and the percolator operator in the pre-procedure area in the procedure room. Mental Status Examination: alert and oriented. Respiratory Examination: clear to auscultation. CV Examination: normal. Prophylactic Antibiotics: The patient does not require prophylactic antibiotics. Prior Anticoagulants: The patient has taken no anticoagulant or antiplatelet agents. ASA Grade Assessment: II - A patient with mild systemic disease. After reviewing the risks and benefits, the patient was deemed in satisfactory condition to undergo the procedure. The anesthesia plan was to use monitored anesthesia care (MAC). Immediately prior to administration of medications, the patient was re-assessed for adequacy to receive sedatives. The heart rate, respiratory rate, oxygen saturations, blood pressure, adequacy of pulmonary ventilation, and response to care were monitored throughout the procedure. The physical status of the patient was re-assessed after the procedure. After obtaining informed consent, the endoscope was passed under direct vision. Throughout the procedure, the patient's blood pressure, pulse, and oxygen saturations were monitored continuously. The Endoscope was introduced through the mouth, and advanced to the second part of duodenum. The upper GI endoscopy was accomplished with ease. The patient tolerated the procedure well. Complications: No immediate complications. Estimated blood loss: None. Procedure Code(s): --- Professional --- 21337, Esophagogastroduodenoscopy, flexible, transoral; with biopsy, single or multiple --- Technical --- 09404, Esophagogastroduodenoscopy, flexible, transoral; with biopsy, single or multiple Diagnosis Code(s): --- Professional --- K31.89, Other diseases of stomach and duodenum R19.8, Other specified symptoms and signs involving the digestive system and abdomen R11.2, Nausea with vomiting, unspecified --- Technical --- K31.89, Other diseases of stomach and duodenum R19.8, Other specified symptoms and signs involving the digestive system and abdomen R11.2, Nausea with vomiting, unspecified CPT copyright 2021 [employer]. All rights reserved. The codes documented in this report are preliminary and upon colorer machine review may be revised to meet current compliance requirements. Attending Participation: I personally performed the entire procedure. Neida Fuller MD 09/24/2023 9:07:36 AM Number of Addenda: 0 Note Initiated On: 09/24/2023 8:[facility] Dorian Mont[facility] Procedure Date: 09/24/2023 8:50 AM Gender: Male Date of : 1990 Age: 32 Admit Type: Outpatient Note Status: Finalized Endoscopist: Neida Fuller MD, [id number] Procedure: Colonoscopy Indications: Evaluation of unexplained GI bleeding presenting with Hematochezia, This is the patient's first colonoscopy, Family history of Crohn's disease, Abnormal CT of the GI tract Findings: The digital rectal exam was normal. The terminal ileum appeared normal. Biopsies were taken with a cold forceps for histology. Biopsies were taken with a cold forceps in the entire colon for histology. A localized area of moderately congested, erythematous and ulcerated mucosa was found in the recto-sigmoid colon. Biopsies were taken with a cold forceps for histology. Internal hemorrhoids were found during retroflexion. The hemorrhoids were small and Grade I (internal hemorrhoids that do not prolapse). Anal papilla(e) were hypertrophied. Impression: - The examined portion of the ileum was normal. Biopsied. - Congested, erythematous and ulcerated mucosa in the recto-sigmoid colon. Biopsied. - Internal hemorrhoids. - Anal papilla(e) were hypertrophied. - Biopsies were taken with a cold forceps for histology in the entire colon. Recommendation: - Patient has a contact number available for emergencies. The signs and symptoms of potential delayed complications were discussed with the patient. Return to normal activities tomorrow. Written discharge instructions were provided to the patient. - Continue present medications. - Resume previous diet. - High fiber diet. - Repeat colonoscopy is recommended. The colonoscopy date will be determined after pathology results from today's exam become available for review. - Return to referring physician as previously scheduled. - Return to GI clinic at appointment to be scheduled. Referring MD: Александр Novak MD, Alem Peng Medicines: Monitored Anesthesia Care Procedure: Pre-Anesthesia Assessment: - Prior to the procedure, a History and Physical was performed, and patient medications and allergies were reviewed. The patient is competent. The risks and benefits of the procedure and the sedation options and risks were discussed with the patient. All questions were answered and informed consent was obtained. Patient identification and proposed procedure were verified by the physician, the nurse and the percolator operator in the pre-procedure area in the procedure room. Mental Status Examination: alert and oriented. Respiratory Examination: clear to auscultation. CV Examination: normal. Prophylactic Antibiotics: The patient does not require prophylactic antibiotics. Prior Anticoagulants: The patient has taken no anticoagulant or antiplatelet agents. ASA Grade Assessment: II - A patient with mild systemic disease. After reviewing the risks and benefits, the patient was deemed in satisfactory condition to undergo the procedure. The anesthesia plan was to use monitored anesthesia care (MAC). Immediately prior to administration of medications, the patient was re-assessed for adequacy to receive sedatives. The heart rate, respiratory rate, oxygen saturations, blood pressure, adequacy of pulmonary ventilation, and response to care were monitored throughout the procedure. The physical status of the patient was re-assessed after the procedure. After I obtained informed consent, the scope was passed under direct vision. Throughout the procedure, the patient's blood pressure, pulse, and oxygen saturations were monitored continuously. The Colonoscope was introduced through the anus and advanced to the terminal ileum, with identification of the appendiceal orifice and IC valve. The colonoscopy was performed with ease. The patient tolerated the procedure well. The quality of the bowel preparation was adequate. The terminal ileum, ileocecal valve, appendiceal orifice, and rectum were photographed. Complications: No immediate complications. Procedure Code(s): --- Professional --- 02260, Colonoscopy, flexible; with biopsy, single or multiple --- Technical --- 67739, Colonoscopy, flexible; with biopsy, single or multiple Diagnosis Code(s): --- Professional --- K64.0, First degree hemorrhoids K63.89, Other specified diseases of intestine K63.3, Ulcer of intestine K62.89, Other specified diseases of anus and rectum K92.1, Melena (includes Hematochezia) Z83.79, Family history of other diseases of the digestive system R93.3, Abnormal findings on diagnostic imaging of other parts of digestive tract --- Technical --- K64.0, First degree hemorrhoids K63.89, Other specified diseases of intestine K63.3, Ulcer of intestine K62.89, Other specified diseases of anus and rectum K92.1, Melena (includes Hematochezia) Z83.79, Family history of other diseases of the digestive system R93.3, Abnormal findings on diagnostic imaging of other parts of digestive tract CPT copyright 2021 [employer]. All rights reserved. The codes documented in this report are preliminary and upon colorer machine review may be revised to meet current compliance requirements. Attending Participation: I personally performed the entire procedure. Neida Fuller MD 09/24/2023 9:33:53 AM Number of Addenda: 0 Note Initiated On: 09/24/2023 8:50 AM documented in this encounter [facility] 09-24-2023 History and physical note GASTROENTEROLOGY H&P Procedure Note Patient: Dorian Montoya Date of : 1990 Age: 32 y.o. Sex: male PCP: Александр Novak MD Subjective: Indication: abdominal pain, n/v, BRBPR, abnormal CT, FH Crohns Prior progress notes reviewed in [facility] and chart Past Medical History: Diagnosis Date Allergic Anxiety Asthma Headache Varicella Initial interdisciplinary assessment reviewed and concur with information Past Surgical History: Procedure Laterality Date HAND SURGERY 2020 [facility] TESTICLE TORSION REDUCTION (HISTORICAL) about 2020 Social History Occupational History Not on file Tobacco Use Smoking status: Every Day Packs/day: 0.50 Years: 3.00 Additional pack years: 0.00 Total pack years: 1.50 Types: Cigarettes Start date: 05/14/2019 Last attempt to quit: 02/03/2023 Years since quittin.6 Smokeless tobacco: Former Types: Chew Quit date: 05/14/2019 Vaping Use Vaping Use: Some days Substance and Sexual Activity Alcohol use: Yes Comment: occ Drug use: Yes Types: Marijuana Comment: Daily Sexual activity: Yes Partners: Female Family History Problem Relation Name Age of Onset Diverticulitis Mother Crohn's disease Mother ANTONELLA disease Mother Heart Surgery Father Alex Heart attack Father Alex COPD Father Alex Arthritis Father Alex Asthma Father Alex Lung cancer Mother's Sister Throat cancer Mother's Brother Teodoro Cancer Mother's Brother Teodoro Breast cancer Father's Sister Toenet Lung cancer Father's Sister Toenet Additional Family History reviewed in [facility] Prior to Admission medications Medication Sig Start Date End Date Taking? Authorizing Provider albuterol (ProAir HFA) 108 (90 Base) MCG/ACT inhaler Inhale 2 puffs every 4 hours as needed for wheezing or shortness of breath. 06/06/23 06/05/24 Александр Novak MD fluticasone (Flovent) 110 MCG/ACT inhaler Inhale 1 puff in the morning and 1 puff in the evening. Rinse mouth with water after use to reduce aftertaste and incidence of candidiasis. Do not swallow.. 09/05/23 09/04/24 SOCRATES Jerry CNP guaiFENesin (Mucinex) 600 MG 12 hr tablet Take 1 tablet (600 mg) by mouth 2 times daily. Do not crush, chew, or split. 06/25/23 06/24/24 Leti Lantigua MD nicotine (Nicoderm CQ) 14 MG/24HR patch Place 1 patch on the skin Every 24 hours. 09/05/23 10/05/23 SOCRATES Jerry CNP nicotine (Nicoderm CQ) 7 MG/24HR patch Place 1 patch on the skin Every 24 hours. 09/05/23 10/05/23 SOCRATES Jerry CNP ondansetron (Zofran) 4 MG tablet Take 1 tablet (4 mg) by mouth every 8 hours as needed for nausea or vomiting. 09/05/23 SOCRATES Jerry CNP Initial interdisciplinary assessment reviewed and concur with information Allergies: Allergies Allergen Reactions Apple Hives and Shortness of breath Bee Venom Anaphylaxis Red Dye Other major nosebleeds Pertinent Review of Systems: Reviewed with patient Objective: Physical Exam: See graphic record for vital signs HEENT: anicteric Neck: FROM Abdomen: benign Chest: CTA Neuro: nonfocal Ext: FROM B/L Impression: As above Plan: Proceed with endoscopy Physician Attestation: I affirm that prior to performing the procedure noted herein, that I have discussed with my patient the risks, benefits, and alternatives of: --Patient ID confirmed --the procedure to be performed as stated in the plan and on the consent form --the use of sedation and the plan --the patient has been assessed pre-sedation/pre-procedure and there are no changes Signed By: NEIDA FULLER MD 09/24/2023 8:23 AM a [facility] Work Phone: 09-24-2023 History and physical note GASTROENTEROLOGY H&P Procedure Note Patient: Dorian Montoya Date of : 1990 Age: 32 y.o. Sex: male PCP: Александр Novak MD Subjective: Indication: abdominal pain, n/v, BRBPR, abnormal CT, FH Crohns Prior progress notes reviewed in [facility] and chart Past Medical History: Diagnosis Date Allergic Anxiety Asthma Headache Varicella Initial interdisciplinary assessment reviewed and concur with information Past Surgical History: Procedure Laterality Date HAND SURGERY 2020 [facility] TESTICLE TORSION REDUCTION (HISTORICAL) about 2020 Social History Occupational History Not on file Tobacco Use Smoking status: Every Day Packs/day: 0.50 Years: 3.00 Additional pack years: 0.00 Total pack years: 1.50 Types: Cigarettes Start date: 05/14/2019 Last attempt to quit: 02/03/2023 Years since quittin.6 Smokeless tobacco: Former Types: Chew Quit date: 05/14/2019 Vaping Use Vaping Use: Some days Substance and Sexual Activity Alcohol use: Yes Comment: occ Drug use: Yes Types: Marijuana Comment: Daily Sexual activity: Yes Partners: Female Family History Problem Relation Name Age of Onset Diverticulitis Mother Crohn's disease Mother ANTONELLA disease Mother Heart Surgery Father Alex Heart attack Father Alex COPD Father Alex Arthritis Father Alex Asthma Father Alex Lung cancer Mother's Sister Throat cancer Mother's Brother Teodoro Cancer Mother's Brother Teodoro Breast cancer Father's Sister Toenet Lung cancer Father's Sister Toenet Additional Family History reviewed in [facility] Prior to Admission medications Medication Sig Start Date End Date Taking? Authorizing Provider albuterol (ProAir HFA) 108 (90 Base) MCG/ACT inhaler Inhale 2 puffs every 4 hours as needed for wheezing or shortness of breath. 06/06/23 06/05/24 Александр Novak MD fluticasone (Flovent) 110 MCG/ACT inhaler Inhale 1 puff in the morning and 1 puff in the evening. Rinse mouth with water after use to reduce aftertaste and incidence of candidiasis. Do not swallow.. 09/05/23 09/04/24 SOCRATES Jerry CNP guaiFENesin (Mucinex) 600 MG 12 hr tablet Take 1 tablet (600 mg) by mouth 2 times daily. Do not crush, chew, or split. 06/25/23 06/24/24 Leti Lantigua MD nicotine (Nicoderm CQ) 14 MG/24HR patch Place 1 patch on the skin Every 24 hours. 09/05/23 10/05/23 SOCRATES Jerry CNP nicotine (Nicoderm CQ) 7 MG/24HR patch Place 1 patch on the skin Every 24 hours. 09/05/23 10/05/23 SOCRATES Jerry CNP ondansetron (Zofran) 4 MG tablet Take 1 tablet (4 mg) by mouth every 8 hours as needed for nausea or vomiting. 09/05/23 SOCRATES Jerry CNP Initial interdisciplinary assessment reviewed and concur with information Allergies: Allergies Allergen Reactions Apple Hives and Shortness of breath Bee Venom Anaphylaxis Red Dye Other major nosebleeds Pertinent Review of Systems: Reviewed with patient Objective: Physical Exam: See graphic record for vital signs HEENT: anicteric Neck: FROM Abdomen: benign Chest: CTA Neuro: nonfocal Ext: FROM B/L Impression: As above Plan: Proceed with endoscopy Physician Attestation: I affirm that prior to performing the procedure noted herein, that I have discussed with my patient the risks, benefits, and alternatives of: --Patient ID confirmed --the procedure to be performed as stated in the plan and on the consent form --the use of sedation and the plan --the patient has been assessed pre-sedation/pre-procedure and there are no changes Signed By: NEIDA FULLER MD 09/24/2023 8:23 AM a documented in this encounter [facility] [employer] 09-05-2023 History of Present illness Narrative Images from the original note were not included. [facility] [address] [place] [id number] Dept: [phone] Dept Visit type: Established patient Reason for Visit: Follow-up (3 month follow up) Assessment and Plan 1. Mild persistent asthma without complication - Chronic, stable but could be better managed with daily controller inhaler. Begin ICS as prescribed, reviewed RBA and proper administration. Continue IRA PRN - Encouraged smoking cessation - fluticasone (Flovent) 110 MCG/ACT inhaler; Inhale 1 puff in the morning and 1 puff in the evening. Rinse mouth with water after use to reduce aftertaste and incidence of candidiasis. Do not swallow.., Starting Sun09/05/2023, Until Sun09/04/2024, Normal 2. Right-sided chest pain - Stable, declines PT referral for continued symptoms 3. Left foot pain - New problem, appears to be callous, will obtain XR to assess for retained material given hx of puncture wound. Discussed ensuring shoes have good support, can purchase OTC orthotics for better support - Referral placed to podiatry for further evaluation - [facility] - XR foot 3+ views left 4. Nausea and vomiting, unspecified vomiting type - Follow up for EGD/Colonoscopy as schedule - ondansetron (Zofran) 4 MG tablet; Take 1 tablet (4 mg) by mouth every 8 hours as needed for nausea or vomiting., Starting Sun09/05/2023, Normal 5. Nicotine use disorder - nicotine (Nicoderm CQ) 14 MG/24HR patch; Place 1 patch on the skin Every 24 hours., Starting Sun09/05/2023, Until Sun10/05/2023, Normal - nicotine (Nicoderm CQ) 7 MG/24HR patch; Place 1 patch on the skin Every 24 hours., Starting Sun09/05/2023, Until Sun10/05/2023, Normal Follow up in about 6 months (around 03/06/2024) for annual physical exam. Subjective HPI Asthma Wakes nightly 2-3x a week, has symptoms daily, SOB, coughing, wheezing Requires albuterol 2-3x a week Cutting back on smoking, 3-5 cigarettes daily Has not tried anything for smoking, chewed a piece of nicorette gum once and did not like how it tasted Chest Pain This is an ongoing concern R sided chest pain, states this is about the same Only feels with deep breaths NOS L Foot Pain States stepped on nail about one year ago Recently began having pain in area and has bump Worse with walking Has not taken anything for pain Pt continues to have nausea on and off, was prev prescribed zofran. He would like a refill of this medication today. He is scheduled for EGD/Colon in September. Review of Systems Constitutional: Negative for chills, fatigue and fever. Respiratory: Positive for cough, shortness of breath and wheezing. Cardiovascular: Positive for chest pain (chest wall pain). Negative for palpitations. Gastrointestinal: Positive for nausea and vomiting. Negative for abdominal pain, constipation and diarrhea. Musculoskeletal: Positive for arthralgias (L foot) and gait problem. Skin: Negative for color change and wound. Allergies Allergen Reactions Apple Hives and Shortness of breath Bee Venom Anaphylaxis Red Dye Other major nosebleeds Current Outpatient Medications Medication Sig Dispense Refill albuterol (ProAir HFA) 108 (90 Base) MCG/ACT inhaler Inhale 2 puffs every 4 hours as needed for wheezing or shortness of breath. 8.5 g 0 guaiFENesin (Mucinex) 600 MG 12 hr tablet Take 1 tablet (600 mg) by mouth 2 times daily. Do not crush, chew, or split. 60 tablet 11 fluticasone (Flovent) 110 MCG/ACT inhaler Inhale 1 puff in the morning and 1 puff in the evening. Rinse mouth with water after use to reduce aftertaste and incidence of candidiasis. Do not swallow.. 12 g 5 nicotine (Nicoderm CQ) 14 MG/24HR patch Place 1 patch on the skin Every 24 hours. 30 patch 1 nicotine (Nicoderm CQ) 7 MG/24HR patch Place 1 patch on the skin Every 24 hours. 30 patch 0 ondansetron (Zofran) 4 MG tablet Take 1 tablet (4 mg) by mouth every 8 hours as needed for nausea or vomiting. 20 tablet 0 No current facility-administered medications for this visit. Past Medical History: Diagnosis Date Allergic Anxiety Asthma Headache Varicella Social History Tobacco Use Smoking status: Every Day Packs/day: 0.50 Years: 3.00 Additional pack years: 0.00 Total pack years: 1.50 Types: Cigarettes Start date: 05/14/2019 Last attempt to quit: 02/03/2023 Years since quittin.5 Smokeless tobacco: Former Types: Chew Quit date: 05/14/2019 Substance Use Topics Alcohol use: Yes Comment: occ Past Surgical History: Procedure Laterality Date HAND SURGERY 2020 [facility] TESTICLE TORSION REDUCTION (HISTORICAL) about 2020 Family History Problem Relation Name Age of Onset Diverticulitis Mother Crohn's disease Mother ANTONELLA disease Mother Heart Surgery Father Alex Heart attack Father Alex COPD Father Alex Arthritis Father Alex Asthma Father Alex Lung cancer Mother's Sister Throat cancer Mother's Brother Teodoro Cancer Mother's Brother Teodoro Breast cancer Father's Sister Toenet Lung cancer Father's Sister Toenet Objective BP 121/76 (BP Location: Left arm, Patient Position: Sitting, BP Cuff Size: Adult) Pulse 78 Temp 37.1 C (98.8 F) (Infrared) Ht 6' 1 (1.854 m) Wt 148 lb 6.4 oz (67.3 kg) SpO2 98% BMI 19.58 kg/m Physical Exam Vitals reviewed. Constitutional: Appearance: Normal appearance. He is not ill-appearing. HENT: Head: Normocephalic. Mouth/Throat: Mouth: Mucous membranes are moist. Eyes: General: Right eye: No discharge. Left eye: No discharge. Conjunctiva/sclera: Conjunctivae normal. Cardiovascular: Rate and Rhythm: Normal rate and regular rhythm. Pulses: Normal pulses. Heart sounds: Normal heart sounds. Pulmonary: Effort: Pulmonary effort is normal. Breath sounds: Normal breath sounds. Musculoskeletal: Cervical back: Neck supple. No tenderness. Right lower leg: No edema. Left lower leg: No edema. Feet: Feet: Left foot: Skin integrity: Callus present. No erythema or warmth. Toenail Condition: Left toenails are normal. Comments: Appears to be callous noted mid foot, TTP Lymphadenopathy: Cervical: No cervical adenopathy. Skin: General: Skin is warm and dry. Neurological: General: No focal deficit present. Mental Status: He is alert and oriented to person, place, and time. Psychiatric: Mood and Affect: Mood normal. Behavior: Behavior normal. Data Reviewed and Summarized Labs: Imaging/Testing: SOCRATES Jerry CNP documented in this encounter [facility] 07-03-2023 History of Present illness Narrative Images from the original note were not included. [place] [id number] [address] [facility] [address] [place] [id number] Post-Discharge Hospital Follow Up Date of Hospital Admission: 06/23/23 Date of Hospital Discharge: 06/25/23 Readmission Risk Score: Predictive Model Details 24% Factor Value Risk of Hospital Admission or ED Visit Model Is in Relationship Yes Number of ED Visits 3 Has Medicaid Yes Number of Hospitalizations 1 Has Anemia Yes Has Asthma Yes Has PCP Yes ASSESSMENT/PLAN 1. Influenza A - CBC - Comprehensive metabolic panel He is improving, he has completed tamiflu and is improving 2. Normocytic anemia - CBC - Comprehensive metabolic panel Chronic prior to the illness. 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 He has scopes in September 3. ZULLY (acute kidney injury) (HCC) - CBC - Comprehensive metabolic panel Likely due to dehydration. He is staying hydrated and urinating. We will recheck 4. Rib pain on right side He had similar symptoms prior . We discussed I do not hear pneumonia or wheezing, his oxygen is 99%. We will monitor this , if he has new fever or SOB he should be reevaluated 5. Hospital discharge follow-up Medical Decision Making moderate Follow up for Next scheduled follow-up. Александр Novak MD 07/03/23 8:12 AM SUBJECTIVE HPI Inpatient course: Discharge summary reviewed Interval History Influenza, ZULLY - He still feels like his lung hurts with walking and standing - he completed his tamiflu he was discharged. - cough is mild. He is bringing things up. It is yellow/green - he has had been drinking well . He is urinating regularly and it is clear. - no further fevers. - he was having pain on this side prior to this hospitalization. He is using the muscle relaxers and doing the exercises as well I have performed a medication reconciliation during this visit and have reconciled the medications patient is taking as of now against medications ordered at time of hospital discharge. Current Outpatient Medications: albuterol (ProAir HFA) 108 (90 Base) MCG/ACT inhaler, Inhale 2 puffs every 4 hours as needed for wheezing or shortness of breath., Disp: 8.5 g, Rfl: 0 guaiFENesin (Mucinex) 600 MG 12 hr tablet, Take 1 tablet (600 mg) by mouth 2 times daily. Do not crush, chew, or split., Disp: 60 tablet, Rfl: 11 Review of Systems Constitutional: Positive for activity change and fatigue. Negative for appetite change, chills, diaphoresis and fever. Respiratory: Positive for shortness of breath. Negative for cough. Cardiovascular: Positive for chest pain. Negative for palpitations and leg swelling. Gastrointestinal: Positive for nausea. Diarrhea: prior issue. Genitourinary: Negative for difficulty urinating and dysuria. Musculoskeletal: Positive for arthralgias (shoulder, prior issue) and myalgias. Neurological: Negative for light-headedness and headaches. OBJECTIVE BP 114/73 (BP Location: Left arm, Patient Position: Sitting, BP Cuff Size: Large adult) Pulse 58 Temp 36.7 C (98 F) (Temporal) Ht 6' 1 (1.854 m) Wt 142 lb (64.4 kg) SpO2 99% BMI 18.73 kg/m Physical Exam Constitutional: General: He is not in acute distress. Appearance: Normal appearance. He is not ill-appearing. HENT: Head: Normocephalic and atraumatic. Right Ear: Tympanic membrane and ear canal normal. Left Ear: Tympanic membrane and ear canal normal. Cardiovascular: Rate and Rhythm: Normal rate and regular rhythm. Pulses: Normal pulses. Heart sounds: Normal heart sounds. No murmur heard. No friction rub. No gallop. Pulmonary: Effort: Pulmonary effort is normal. No respiratory distress. Breath sounds: Normal breath sounds. No wheezing or rales. Comments: Speaking in full sentences Chest: Chest wall: No tenderness. Abdominal: General: Bowel sounds are normal. There is no distension. Palpations: Abdomen is soft. Tenderness: There is no abdominal tenderness. There is no guarding. Musculoskeletal: General: No tenderness. Cervical back: Neck supple. Right lower leg: No edema. Left lower leg: No edema. Lymphadenopathy: Cervical: No cervical adenopathy. Neurological: Mental Status: He is alert. Gait: Gait normal. documented in this encounter [facility] 06-29-2023 Telephone encounter Note FOLLOW UP QUESTIONS FOR MA/SW: 1. Did you get medications filled and taking them as instructed from discharge? Yes 2. Are you following your discharge instructions from your hospital stay? Yes 3. Please confirm patient is scheduled for a follow up appointment within the above time frame. 2023 at 8am w/ dr novak [facility] 06-29-2023 Miscellaneous Notes FOLLOW UP QUESTIONS FOR MA/SW: 1. Did you get medications filled and taking them as instructed from discharge? Yes 2. Are you following your discharge instructions from your hospital stay? Yes 3. Please confirm patient is scheduled for a follow up appointment within the above time frame. 2023 at 8am w/ dr novak FOLLOW UP QUESTIONS FOR MA/SW: 1. Did you get medications filled and taking them as instructed from discharge? 2. Are you following your discharge instructions from your hospital stay? 3. Please confirm patient is scheduled for a follow up appointment within the above time frame. S: Patient admitted to: [facility] 06/23/23 B: Discharged on : 06/25/23 A: Hospital follow up call initiated to discuss any medication changes, follow up appointments and discharge instructions: Medications filled and taken as instructed. Following all discharge instructions. Transition of Care appointment scheduled for 07/03/23 8:00 a.m. R: No contact x 1 at : ED to Hosp-Admission Discharged 06/23/2023 - 06/25/2023 (2 days) [facility] Cardiac Vascular Progressive Care Unit PCC 1C Bebe Cheung MD Last attending Treatment team ZULLY (acute kidney injury) ([facility]) +1 more Clinical impression Shortness of Breath Chief complaint ED Provider Notes Bebe Cheung MD (Physician) Emergency Medicine Emergency Department Encounter [facility] EMERGENCY DEPT Patient: Dorian Montoya : 1990 Date of Evaluation: 06/23/2023 ED Supervising Physician: Bebe Cheung MD I personally evaluated Dorian Montoya and made/approved the management plan and take responsibility for the patient management. This will serve as my Supervisory note and shared attestation. I did perform a substantive portion of the visit including all aspects of the Medical Decision Making. I wore appropriate PPE for the entirety of this encounter. In brief, Dorian Montoya is a 32 y.o. that presents to the emergency department for respiratory distress. Per EMS report they went over to his home because he was having a lot of shortness of breath and they found that he was satting in the 70s on room air. Placed on 15 L nonrebreather. Patient states that his symptoms all started today. States that he is having shortness of breath, feeling generally ill and unwell. Has had some nausea and decreased p.o. intake. Has been vomiting and unable to keep any food or fluids down. Endorses some chest pain with deep breathing as well as abdominal pain. No urinary complaints. No constipation or diarrhea. Focused exam: Ill-appearing toxic appearing male in acute respiratory distress. Vital signs reviewed and notable for tachycardia and tachypnea. Lungs are clear to auscultation bilaterally but patient is tachypneic. Speaking in about 3-4 word sentences. Abdomen is soft with generalized tenderness with no rebound or guarding. No lower extremity edema. Extremities are cold to the touch. Patient appears pale and dry with dry mucous membranes as well as positive skin tenting. Brief ED course/MDM: 32-year-old male present emergency room today for respiratory distress. Tachycardic and tachypneic on arrival. On a nonrebreather on arrival from EMS. Has increased work of breathing. He is ill-appearing. He is pale and cachectic. Does not follow with any PCP. His lungs are clear on auscultation so I do not think that he requires CPAP or BiPAP. Bedside ultrasound was done and he has bilateral lung sliding but no B-lines and only that he is fluid overloaded. I am wondering if this is more secondary to a pneumonia versus viral infection or PE. He has poor cardiac views on ultrasound so cannot really evaluate for pericardial effusion or EF or Field sign. Given how pale he is a still concern for may be an acute anemia. He states that every once in a while have bloody bowel movements or cough up blood. This has not happened anytime recently. Differential here is broad. Broad workup was started including labs, IV fluid hydration and CTA of his chest to rule out PE and CT scan of his abdomen pelvis for intra-abdominal pathologies. We will continue to fluid resuscitate him. I did a bedside ultrasound of his IVC and it is completely collapsible so I do think he is very fluid down. Given that he is tachycardic and tachypneic there is also concern for sepsis he was given broad-spectrum antibiotics. I reviewed his results and he has a lactic acidosis to 4.5. He is an ZULLY with a creatinine of 3 Where his baseline is 1. He did test positive for influenza A which could be the cause of his symptoms. Given his lactic elevation as well as his leukocytosis and tachycardia there is concern for severe sepsis since he does have also endorgan damage with his kidneys. He was given a dose of Tamiflu here in the emergency department. Blood pressures have been stable here in the emergency department. CTA was done and does not show any acute PE. CT scan abdomen pelvis does not show any acute findings either. I did review the chest x-ray and I do not see any acute findings. Patient will be admitted for influenza and sepsis. Admitted in stable condition. CORE MEASURE DATA SIRS Criteria Sepsis Criteria Severe Sepsis Criteria Septic Shock Criteria Must meet 2: Temperature > 100.4 F (38 C) or < 96.8 F (36 C) HR > 90 RR > 20 WBC > 12 or < 4 or 10% bands Must be confirmed or suspected to move forward with diagnosis of sepsis. Infection Confirmed or Suspected. No infection present. Patient does not meet criteria for Sepsis. Must meet 1: Lactate > 2 or Signs of Organ Dysfunction: - SBP < 90 or MAP < 65 - Altered mental status - Creatinine > 2 or increased from baseline - Urine Output < 0.5 ml/kg/hr - Bilirubin > 2 - INR > 1.5 - Platelets < 100,000 - Acute Respiratory Failure as evidenced by new need for NIPPV or mechanical ventilation No criteria met for Severe Sepsis. Must meet 1: Lactate = or > 4 or SBP < 90 or MAP < 65 for at least two readings in the first hour after fluid bolus administration No criteria met for Septic Shock. Patient Vitals from 06/23/23 2301 to 06/24/23 0000 BP Pulse Resp SpO2 Height Weight 06/23/23 2319 -- -- -- -- 1.854 m (6' 1) 64.9 kg (143 lb) 06/23/23 2344 (!) 127/92 86 21 100 % -- -- Recent Labs 06/23/23 2201 WBC 14.1* LACTATE 4.5* CREATININE 3.11* BILITOT 1.0 PLT 349 Sepsis Identified at 2201 hours. Fluid Resuscitation Rational: at least 30mL/kg based on entered actual body weight at time of triage Infection Source: Unknown Reassessment Exam: SEPSIS REASSESSMENT I examined the patient 06/24/2023 12:53 AM Vital Signs:BP (!) 127/92 Pulse 86 Temp 36.6 C (97.9 F) Resp 21 Ht 1.854 m (6' 1) Wt 64.9 kg (143 lb) SpO2 100% BMI 18.87 kg/m Cardiac examination significant for: Regular rate and rhythm Pulmonary examination significant for: Clear lung amador Capillary refill is: 3 seconds Peripheral Pulse is: 2+ Skin is: Normal CRITICAL CARE TIME Total Critical Care time was 45 minutes, excluding separately reportable procedures. There was a high probability of clinically significant/life threatening deterioration in the patient's condition which required my urgent intervention. Bebe Cheung MD Diagnostics interpreted by me: labs, chest x-ray I personally discussed the patient's management with other clinicians: All diagnostic, treatment, and disposition decisions were made by myself in conjunction with the Resident. I also supervised meza portions of any procedures performed by the Resident. For all further details of the patient's emergency department visit, please see their documentation. (Comment: Please note this report has been produced using speech recognition software and may contain errors related to that system including errors in grammar, punctuation, and spelling, as well as words and phrases that may be inappropriate. If there are any questions or concerns please feel free to contact the dictating provider for clarification.) Bebe Cheung MD [facility] documented in this encounter [facility] 06-27-2023 Telephone encounter Note FOLLOW UP QUESTIONS FOR MA/SW: 1. Did you get medications filled and taking them as instructed from discharge? 2. Are you following your discharge instructions from your hospital stay? 3. Please confirm patient is scheduled for a follow up appointment within the above time frame. [facility] 06-26-2023 Telephone encounter Note S: Patient admitted to: [facility] 06/23/23 B: Discharged on : 06/25/23 A: Hospital follow up call initiated to discuss any medication changes, follow up appointments and discharge instructions: Medications filled and taken as instructed. Following all discharge instructions. Transition of Care appointment scheduled for 07/03/23 8:00 a.m. R: No contact x 1 at : ED to Hosp-Admission Discharged 06/23/2023 - 06/25/2023 (2 days) [facility] Cardiac Vascular Progressive Care Unit PCC 1C Bebe Cheung MD Last attending Treatment team ZULLY (acute kidney injury) ([facility]) +1 more Clinical impression Shortness of Breath Chief complaint ED Provider Notes Bebe Cheugn MD (Physician) Emergency Medicine Emergency Department Encounter [facility] EMERGENCY DEPT Patient: Dorian Montoya : 1990 Date of Evaluation: 06/23/2023 ED Supervising Physician: Bebe Cheung MD I personally evaluated Dorian Montoya and made/approved the management plan and take responsibility for the patient management. This will serve as my Supervisory note and shared attestation. I did perform a substantive portion of the visit including all aspects of the Medical Decision Making. I wore appropriate PPE for the entirety of this encounter. In brief, Dorian Montoya is a 32 y.o. that presents to the emergency department for respiratory distress. Per EMS report they went over to his home because he was having a lot of shortness of breath and they found that he was satting in the 70s on room air. Placed on 15 L nonrebreather. Patient states that his symptoms all started today. States that he is having shortness of breath, feeling generally ill and unwell. Has had some nausea and decreased p.o. intake. Has been vomiting and unable to keep any food or fluids down. Endorses some chest pain with deep breathing as well as abdominal pain. No urinary complaints. No constipation or diarrhea. Focused exam: Ill-appearing toxic appearing male in acute respiratory distress. Vital signs reviewed and notable for tachycardia and tachypnea. Lungs are clear to auscultation bilaterally but patient is tachypneic. Speaking in about 3-4 word sentences. Abdomen is soft with generalized tenderness with no rebound or guarding. No lower extremity edema. Extremities are cold to the touch. Patient appears pale and dry with dry mucous membranes as well as positive skin tenting. Brief ED course/MDM: 32-year-old male present emergency room today for respiratory distress. Tachycardic and tachypneic on arrival. On a nonrebreather on arrival from EMS. Has increased work of breathing. He is ill-appearing. He is pale and cachectic. Does not follow with any PCP. His lungs are clear on auscultation so I do not think that he requires CPAP or BiPAP. Bedside ultrasound was done and he has bilateral lung sliding but no B-lines and only that he is fluid overloaded. I am wondering if this is more secondary to a pneumonia versus viral infection or PE. He has poor cardiac views on ultrasound so cannot really evaluate for pericardial effusion or EF or Field sign. Given how pale he is a still concern for may be an acute anemia. He states that every once in a while have bloody bowel movements or cough up blood. This has not happened anytime recently. Differential here is broad. Broad workup was started including labs, IV fluid hydration and CTA of his chest to rule out PE and CT scan of his abdomen pelvis for intra-abdominal pathologies. We will continue to fluid resuscitate him. I did a bedside ultrasound of his IVC and it is completely collapsible so I do think he is very fluid down. Given that he is tachycardic and tachypneic there is also concern for sepsis he was given broad-spectrum antibiotics. I reviewed his results and he has a lactic acidosis to 4.5. He is an ZULLY with a creatinine of 3 Where his baseline is 1. He did test positive for influenza A which could be the cause of his symptoms. Given his lactic elevation as well as his leukocytosis and tachycardia there is concern for severe sepsis since he does have also endorgan damage with his kidneys. He was given a dose of Tamiflu here in the emergency department. Blood pressures have been stable here in the emergency department. CTA was done and does not show any acute PE. CT scan abdomen pelvis does not show any acute findings either. I did review the chest x-ray and I do not see any acute findings. Patient will be admitted for influenza and sepsis. Admitted in stable condition. SEP- CORE MEASURE DATA SIRS Criteria Sepsis Criteria Severe Sepsis Criteria Septic Shock Criteria Must meet 2: Temperature > 100.4 F (38 C) or < 96.8 F (36 C) HR > 90 RR > 20 WBC > 12 or < 4 or 10% bands Must be confirmed or suspected to move forward with diagnosis of sepsis. Infection Confirmed or Suspected. No infection present. Patient does not meet criteria for Sepsis. Must meet 1: Lactate > 2 or Signs of Organ Dysfunction: - SBP < 90 or MAP < 65 - Altered mental status - Creatinine > 2 or increased from baseline - Urine Output < 0.5 ml/kg/hr - Bilirubin > 2 - INR > 1.5 - Platelets < 100,000 - Acute Respiratory Failure as evidenced by new need for NIPPV or mechanical ventilation No criteria met for Severe Sepsis. Must meet 1: Lactate = or > 4 or SBP < 90 or MAP < 65 for at least two readings in the first hour after fluid bolus administration No criteria met for Septic Shock. Patient Vitals from 06/23/23 2301 to 06/24/23 0000 BP Pulse Resp SpO2 Height Weight 06/23/23 2319 -- -- -- -- 1.854 m (6' 1) 64.9 kg (143 lb) 06/23/23 2344 (!) 127/92 86 21 100 % -- -- Recent Labs 06/23/23 2201 WBC 14.1* LACTATE 4.5* CREATININE 3.11* BILITOT 1.0 PLT 349 Sepsis Identified at 2201 hours. Fluid Resuscitation Rational: at least 30mL/kg based on entered actual body weight at time of triage Infection Source: Unknown Reassessment Exam: SEPSIS REASSESSMENT I examined the patient 06/24/2023 12:53 AM Vital Signs:BP (!) 127/92 Pulse 86 Temp 36.6 C (97.9 F) Resp 21 Ht 1.854 m (6' 1) Wt 64.9 kg (143 lb) SpO2 100% BMI 18.87 kg/m Cardiac examination significant for: Regular rate and rhythm Pulmonary examination significant for: Clear lung amador Capillary refill is: 3 seconds Peripheral Pulse is: 2+ Skin is: Normal CRITICAL CARE TIME Total Critical Care time was 45 minutes, excluding separately reportable procedures. There was a high probability of clinically significant/life threatening deterioration in the patient's condition which required my urgent intervention. Bebe Cheung MD Diagnostics interpreted by me: labs, chest x-ray I personally discussed the patient's management with other clinicians: All diagnostic, treatment, and disposition decisions were made by myself in conjunction with the Resident. I also supervised meza portions of any procedures performed by the Resident. For all further details of the patient's emergency department visit, please see their documentation. (Comment: Please note this report has been produced using speech recognition software and may contain errors related to that system including errors in grammar, punctuation, and spelling, as well as words and phrases that may be inappropriate. If there are any questions or concerns please feel free to contact the dictating provider for clarification.) Bebe Cheung MD [facility] 06-25-2023 Nurse Note Discharge instructions reviewed with patient. No questions at this time. IV are out and pt is off of monitor. Pt was taken down to discharge. [facility] 06-25-2023 Nurse Note Discharge instructions reviewed with patient. No questions at this time. IV are out and pt is off of monitor. Pt was taken down to discharge. documented in this encounter [facility] 06-25-2023 History of Present illness Narrative Images from the original note were not included. [id number]] Respiratory Therapy Home O2 Progress Note O2 saturation at rest on room air: 96% (If resting saturation was 88% or less, enter NA for the next two values) O2 saturation with exertion on room air: 98% (NA if not evaluated) O2 saturation on O2 at NA LPM with exertion: NA% (NA if not evaluated) Patient meets criteria for home O2 Y/N = NO Nutrition rescreen completed. Patient referred to the Dietitian for cachexia. PIERRE Garcia Pt seen and examined, labs and diagnostics reviewed. Continue tamiflu, procal low at 0.10. will dc vancomycin. Likely dc in am if pt continues to improve. For further details refer to H&P from night physician. Pharmacy Managed Vancomycin Dosing Service Consult Note Consult Date: 06/24/23 Consulted By: Blas Greene Room: Patient Name: Dorian Montoya Allergies: Apple, Bee venom, and Red dye Age: 32 y.o. Sex: male Ht: Height: 185.4 cm (6' 1) TBW: Weight: 64.9 kg (143 lb) BMI: Body mass index is 18.87 kg/m . DW: 64.3 kg Calculated CrCl: 31.1 mL/min, patient in ZULLY Lab Results Component Value Date CREATININE 3.11 (H) 06/23/2023 CREATININE 1.12 04/25/2023 CREATININE 1.14 01/25/2023 BUN 14 06/23/2023 BUN 21 (H) 04/25/2023 BUN 15 01/25/2023 WBC 14.1 (H) 06/23/2023 WBC 12.8 (H) 04/25/2023 WBC 10.8 02/20/2023 Trough: No results found for: VANCOTROUGH Random: No results found for: VANCORANDOM Infectious Diagnosis: Pneumonia (CAP), bloodstream infection (AUC Goal 400-600 mg/L*hr) Antimicrobials: Patient recently received an antibiotic (last 12 hours) Date/Time Action Medication Dose Rate 06/24/23 0031 New Bag vancomycin (Vancocin) 1500 mg in NS 250 mL IVPB (compounded premix) 1,500 mg 125 mL/hr 06/23/23 2350 New Bag piperacillin-tazobactam (Zosyn) IVPB 4.5 g 4.5 g 200 mL/hr Assessment/Plan: Start Vancomycin 750 mg Q 24 hours based on patient age, weight, renal function, and infectious diagnosis, predicted AUC 479 mg/L*hr. Will assess random level on 06/24/23 and adjust as appropriate. Will follow renal function closely Thank you for this consult. Please page/call with questions. Date: 06/24/23 Time: 3:15 AM Shraddha Soler PharmD Available via Secure Chat documented in this encounter [facility] 06-25-2023 Note Formatting of this n ote might be different from the original. Care Managment Initial Assessment Date: 06/25/2023 Patient Name: Dorian Montoya : 1990 Patient Information Source of Information: Patient Cognition/Language: WFL - Within Functional Limits Permission given to speak with patient advertising sales representative/caregiver as indicated: Confirmation of Payer with patient/family: Yes Payer Name: [employer] Medicaid [place]: No Confirmation of Primary Care Physician: Confirmed PCP Name: Александр Novak MD Seen in last 2 years?: Yes Primary Caregiver: Self If assistance needed, confirmed caregiver ready, willing and able to care for patient at discharge: Yes () Confirmed with: patient Living Arrangements Current Residence: House Number of Floors 3 Number of Entry Steps: 5 or more Bed/Bath Levels: Separate floors Facility: Facility Name: Plan to Return: Lives with: Spouse/significant other, Extended family members, Children Support Systems: Spouse/significant other, Children, Family members Activities of Daily Living Ambulation: Independent Bathing/Dressing: Independent Elimination/Continence/Toileting: Independent Feeding: Independent Who Assists with Activities of Daily Living: Instrumental Activities of Daily Living Prescription Coverage: Yes Pharmacy Used: [facility] Medication Management: Independent Transportation/Shopping: Independent Transportation Mode: Public transportation Needs Assistance with Transportation at Discharge: No Meal Preparation: Independent Laundry/Cleaning: Independent Finances/Bill Paying: Independent Communication: Independent Types of Care Services/Equipment Utilized Care Services: Dialysis Type: NA Durable Medical Equipment: DME Provider: none Patient's Goal/Discharge Plan Patient expects to be discharged to: home Discharge Planning Actions: No needs identified, Continue to follow Patient's Choice Rights and [employer] and Collaborative Relationships Disclosed as Indicated for Post-Acute Care: Interdisciplinary Team Engagement: Social Work Referral for: Additional Information: Spoke with patient at bedside. Patient is admitted to [facility] for ZULLY, IVF ordered. Patient found to be positive for influenza, hx of asthma and requiring 2L oxygen. Patient does not wear oxygen at home, bedside nurse to wean as tolerated. Possible need for home O2 eval. Patient denies DME needs. Patient will have ride home from family at discharge. TCC to follow. Brook Mo RN [facility] 06-25-2023 Note Formatting of this n ote might be different from the original. Care Managment Initial Assessment Date: 06/25/2023 Patient Name: Dorian Montoya : 1990 Patient Information Source of Information: Patient Cognition/Language: WFL - Within Functional Limits Permission given to speak with patient advertising sales representative/caregiver as indicated: Confirmation of Payer with patient/family: Yes Payer Name: [employer] Medicaid : No Confirmation of Primary Care Physician: Confirmed PCP Name: Александр Novak MD Seen in last 2 years?: Yes Primary Caregiver: Self If assistance needed, confirmed caregiver ready, willing and able to care for patient at discharge: Yes () Confirmed with: patient Living Arrangements Current Residence: House Number of Floors 3 Number of Entry Steps: 5 or more Bed/Bath Levels: Separate floors Facility: Facility Name: Plan to Return: Lives with: Spouse/significant other, Extended family members, Children Support Systems: Spouse/significant other, Children, Family members Activities of Daily Living Ambulation: Independent Bathing/Dressing: Independent Elimination/Continence/Toileting: Independent Feeding: Independent Who Assists with Activities of Daily Living: Instrumental Activities of Daily Living Prescription Coverage: Yes Pharmacy Used: [facility] Medication Management: Independent Transportation/Shopping: Independent Transportation Mode: Public transportation Needs Assistance with Transportation at Discharge: No Meal Preparation: Independent Laundry/Cleaning: Independent Finances/Bill Paying: Independent Communication: Independent Types of Care Services/Equipment Utilized Care Services: Dialysis Type: NA Durable Medical Equipment: DME Provider: none Patient's Goal/Discharge Plan Patient expects to be discharged to: home Discharge Planning Actions: No needs identified, Continue to follow Patient's Choice Rights and [employer] and Collaborative Relationships Disclosed as Indicated for Post-Acute Care: Interdisciplinary Team Engagement: Social Work Referral for: Additional Information: Spoke with patient at bedside. Patient is admitted to [address] [place] [address] for ZULLY, IVF ordered. Patient found to be positive for influenza, hx of asthma and requiring 2L oxygen. Patient does not wear oxygen at home, bedside nurse to wean as tolerated. Possible need for home O2 eval. Patient denies DME needs. Patient will have ride home from family at discharge. TCC to follow. Brook Mo RN [facility] 06-25-2023 Miscellaneous Notes Care Managment Initial Assessment Date: 06/25/2023 Patient Name: Dorian Montoya : 1990 Patient Information Source of Information: Patient Cognition/Language: WFL - Within Functional Limits Permission given to speak with patient advertising sales representative/caregiver as indicated: Confirmation of Payer with patient/family: Yes Payer Name: [employer] Medicaid : No Confirmation of Primary Care Physician: Confirmed PCP Name: Александр Novak MD Seen in last 2 years?: Yes Primary Caregiver: Self If assistance needed, confirmed caregiver ready, willing and able to care for patient at discharge: Yes () Confirmed with: patient Living Arrangements Current Residence: House Number of Floors 3 Number of Entry Steps: 5 or more Bed/Bath Levels: Separate floors Facility: Facility Name: Plan to Return: Lives with: Spouse/significant other, Extended family members, Children Support Systems: Spouse/significant other, Children, Family members Activities of Daily Living Ambulation: Independent Bathing/Dressing: Independent Elimination/Continence/Toileting: Independent Feeding: Independent Who Assists with Activities of Daily Living: Instrumental Activities of Daily Living Prescription Coverage: Yes Pharmacy Used: [facility] Medication Management: Independent Transportation/Shopping: Independent Transportation Mode: Public transportation Needs Assistance with Transportation at Discharge: No Meal Preparation: Independent Laundry/Cleaning: Independent Finances/Bill Paying: Independent Communication: Independent Types of Care Services/Equipment Utilized Care Services: Dialysis Type: NA Durable Medical Equipment: DME Provider: none Patient's Goal/Discharge Plan Patient expects to be discharged to: home Discharge Planning Actions: No needs identified, Continue to follow Patient's Choice Rights and [employer] and Collaborative Relationships Disclosed as Indicated for Post-Acute Care: Interdisciplinary Team Engagement: Social Work Referral for: Additional Information: Spoke with patient at bedside. Patient is admitted to [address] for ZULLY, IVF ordered. Patient found to be positive for influenza, hx of asthma and requiring 2L oxygen. Patient does not wear oxygen at home, bedside nurse to wean as tolerated. Possible need for home O2 eval. Patient denies DME needs. Patient will have ride home from family at discharge. TCC to follow. Brook Mo RN documented in this encounter [facility] 06-24-2023 Consult note Formatting of th is note might be different from the original. Vancomycin therapy has been discontinued by Dr. Leti Lantigua MD on 06/25/23. Thank you for the consult. Pharmacy signing off for vancomycin dosing. Dennis Bacon RPh, PharmD Date: 06/24/23 Time: 3:21 PM [facility] 06-24-2023 Consult note Formatting of th is note might be different from the original. Vancomycin therapy has been discontinued by Dr. Leti Lantigua MD on 06/25/23. Thank you for the consult. Pharmacy signing off for vancomycin dosing. Dennis Bacon RPh, PharmD Date: 06/24/23 Time: 3:21 PM documented in this encounter [facility] 06-24-2023 Emergency department Note Report given to DARLENE Holt. Caitlyn Paul RN 06/24/23 0742 [facility] 06-24-2023 Emergency department Note Report given to DARLENE Holt. Caitlyn Paul RN 06/24/23 0742 Blood specimens obtained and sent to the lab. Tara Davalos RN 06/24/[address] Greene at the bedside. Tara Davalos RN 06/24/23 0500 Patient states he has headache and generalized bodyaches 10/21. Pt given PRN tylenol. See MAR. Caitlyn Paul RN 06/24/23 0352 Patient given instruction and education regarding incentive spirometry. Pt able to demonstrate use. Pt instructed on giving 10 breaths per hour with IS. Pt verbalizes understanding of these instructions. Caitlyn Paul RN 06/24/23 0351 Received report from DARLENE Harmon and assume care of patient at this time. Caitlyn Paul RN 06/24/[address] Vegas notified of lactic acid 4.5 via secure chat, response received. No new orders received via secure chat. Tara Davalos RN 06/23/23 8076 EMERGENCY DEPARTMENT ENCOUNTER Pt Name: Dorian Montoya Birthdate 1990 Date of evaluation: 06/23/2023 ED Physician: Shawn Thornton DO CHIEF COMPLAINT Chief Complaint Patient presents with Shortness of Breath Pt c/o SOB and general illness he noticed this AM. SPO2 70% upon EMS arrival, placed on 15L NRB. Pt A&OX4 upon arrival to ED. Pt states he has been dizzy and has had episodes of vertigo w/his ears popping for several days as well. Denies any medical hx/drug/alcohol use. HISTORY OF PRESENT ILLNESS (Location/Symptom, Timing/Onset, Context/Setting, Quality, Duration, Modifying Factors, Severity) Note limiting factors. I wore appropriate PPE for the entirety of this encounter. HPI Dorian Montoya is a 32 y.o. male who presents to the emergency department with chief complaint of shortness of breath. Patient reports that he has been feeling short of breath and noticed that he has been feeling generally ill stating that this started this morning. EMS reports that he was satting in the 70s on room air. EMS placed him on 15 L nonrebreather. Patient reports that he is having pain all over. He denies any drug or alcohol use. He also denies any medical history beyond asthma. History is limited due to acuity. Nursing Notes were reviewed. Limitations to history: acuity REVIEW OF SYSTEMS Review of Systems Pertinent positives and negatives as per HPI. PAST MEDICAL HISTORY Past Medical History: Diagnosis Date Allergic Anxiety Asthma Headache Varicella SURGICAL HISTORY Past Surgical History: Procedure Laterality Date HAND SURGERY 2020 [facility] TESTICLE TORSION REDUCTION (HISTORICAL) about 2020 CURRENT MEDICATIONS Previous Medications ACETAMINOPHEN (TYLENOL) 325 MG TABLET Take 650 mg by mouth every 4 hours as needed. ALBUTEROL (PROAIR HFA) 108 (90 BASE) MCG/ACT INHALER Inhale 2 puffs every 4 hours as needed for wheezing or shortness of breath. CYCLOBENZAPRINE (FLEXERIL) 10 MG TABLET Take 1 tablet (10 mg) by mouth 3 times daily as needed for muscle spasms. ALLERGIES Apple, Bee venom, and Red dye FAMILY HISTORY Family History Problem Relation Name Age of Onset Diverticulitis Mother Crohn's disease Mother ANTONELLA disease Mother Heart Surgery Father Alex Heart attack Father Alex COPD Father Alex Arthritis Father Alex Asthma Father Alex Lung cancer Mother's Sister Throat cancer Mother's Brother Teodoro Cancer Mother's Brother Etodoro Breast cancer Father's Sister Toenet Lung cancer Father's Sister [place] SOCIAL HISTORY Social History Socioeconomic History Marital status: Tobacco Use Smoking status: Former Packs/day: 0.50 Years: 3.00 Additional pack years: 0.00 Total pack years: 1.50 Types: Cigarettes Start date: 05/14/2019 Quit date: 02/03/2023 Years since quittin.3 Smokeless tobacco: Current Types: Chew Last attempt to quit: 05/14/2019 Vaping Use Vaping Use: Every day Substance and Sexual Activity Alcohol use: Yes Comment: occ Drug use: Yes Types: Marijuana Comment: Daily Social History Narrative SDLA Updated 06/07/23 Social Determinants of Health Financial Resource Strain: Medium Risk (06/07/2023) Overall Financial Resource Strain (CARDIA) Difficulty of Paying Living Expenses: Somewhat hard Food Insecurity: Food Insecurity Present (06/07/2023) Hunger Vital Sign Worried About Running Out of Food in the Last Year: Sometimes true Ran Out of Food in the Last Year: Sometimes true Transportation Needs: No Transportation Needs (06/07/2023) PRAPARE - Transportation Lack of Transportation (Medical): No Lack of Transportation (Non-Medical): No Physical Activity: Insufficiently Active (06/07/2023) Exercise Vital Sign Days of Exercise per Week: 2 days Minutes of Exercise per Session: 30 min Stress: Stress Concern Present (06/07/2023) [employer] - Occupational Stress Questionnaire Feeling of Stress : Rather much Social Connections: Unknown (06/07/2023) Social Connection and Isolation Panel [NHANES] Frequency of Communication with Friends and Family: More than three times a week Frequency of Social Gatherings with Friends and Family: Twice a week Active Member of Clubs or Organizations: No Attends Club or Organization Meetings: Never Marital Status: Intimate Partner Violence: Not At Risk (06/07/2023) Humiliation, Afraid, Rape, and Kick questionnaire Fear of Current or Ex-Partner: No Emotionally Abused: No Physically Abused: No Sexually Abused: No Housing Stability: High Risk (06/07/2023) Housing Stability Vital Sign Unable to Pay for Housing in the Last Year: Yes Number of Places Lived in the Last Year: 1 Unstable Housing in the Last Year: No SCREENINGS PHYSICAL EXAM ED Triage Vitals [06/23/239] Temp Heart Rate Resp BP 36.6 C (97.9 F) (!) 133 26 105/86 SpO2 Temp src Heart Rate Source Patient Position -- -- -- -- BP Location FiO2 (%) -- 100 % Physical Exam Vitals reviewed. Constitutional: General: He is in acute distress. Appearance: Normal appearance. He is ill-appearing and toxic-appearing. HENT: Head: Normocephalic and atraumatic. Right Ear: External ear normal. Left Ear: External ear normal. Nose: Nose normal. Mouth/Throat: Mouth: Mucous membranes are moist. Pharynx: Oropharynx is clear. Eyes: Extraocular Movements: Extraocular movements intact. Pupils: Pupils are equal, round, and reactive to light. Cardiovascular: Rate and Rhythm: Regular rhythm. Tachycardia present. Pulses: Normal pulses. Heart sounds: Normal heart sounds. No murmur heard. Pulmonary: Effort: Pulmonary effort is normal. Tachypnea present. Breath sounds: Normal breath sounds. No wheezing, rhonchi or rales. Chest: Chest wall: Tenderness present. Abdominal: General: There is no distension. Palpations: Abdomen is soft. Tenderness: There is abdominal tenderness (generalized). Musculoskeletal: General: No swelling. Cervical back: Normal range of motion. Right lower leg: No edema. Left lower leg: No edema. Skin: General: Skin is warm and dry. Capillary Refill: Capillary refill takes less than 2 seconds. Findings: No rash. Neurological: General: No focal deficit present. Mental Status: He is alert. Motor: No weakness. DIAGNOSTIC RESULTS Procedures/EKG: EKG was reviewed by myself. Physician EKG interpretation can be found in [facility] RADIOLOGY (Per Emergency Physician): Interpretation per the Radiologist below, if available at the time of this note: XR chest 1 view Final Result 1. Stable examination. No acute findings. Report Dictated on Electronically Signed By: Ottoniel Julian MD Electronically Signed Date/Time: 06/23/2023 11:[address] chest angiogram w and/or wo IV contrast (Results Pending) CT abdomen pelvis w contrast (Results Pending) ED BEDSIDE ULTRASOUND: Performed by ED Physician - none LABS: Labs Reviewed RESPIRATORY PATHOGENS PANEL BY PCR - Abnormal Result Value SARS-CoV-2 Not Detected Adenovirus Not Detected Coronavirus HKU1 Not Detected Coronavirus NL63 Not Detected Coronavirus 229E Not Detected Coronavirus OC43 Not Detected Human Metapneumovirus Not Detected Human Rhinovirus/Enterovirus Not Detected Influenza A Detected (*) Influenza B Not Detected Parainfluenza 1 Not Detected Parainfluenza 2 Not Detected Parainfluenza 3 Not Detected Parainfluenza 4 Not Detected Respiratory Syncytial Virus Not Detected Bordetella pertussis Not Detected Bordetella parapertussis Not Detected Chlamydia pneumoniae Not Detected Mycoplasma pneumoniae Not Detected Narrative: Methodology: Multiplex PCR LACTIC ACID WITH REFLEX - Abnormal LACTIC ACID 4.5 (*) BLOOD GAS, VENOUS - Abnormal pH, Venous 7.398 pCO2, Venous 30.7 (*) pO2, Venous 33.3 HCO3, Venous 18.5 (*) O2 Sat, Venous 61.7 Base Excess, Venous -5.0 (*) Hgb, blood gas 14.8 TCO2, Venous 19.4 (*) Source Of Oxygen Non-rebreather mask Narrative: Interpret with caution, pO2 value falsely increased due to vacuum in tube. For accurate results, please draw on a syringe. COMPREHENSIVE METABOLIC PANEL - Abnormal SODIUM 137 POTASSIUM 3.9 CHLORIDE 95 (*) CARBON DIOXIDE 18 (*) ANION GAP 24 (*) UREA NITROGEN 14 CREATININE 3.11 (*) GLUCOSE 176 (*) CALCIUM 11.8 (*) AST (SGOT) 46 ALT 27 ALKALINE PHOSPHATASE 116 ALBUMIN >6.0 (*) BILIRUBIN, TOTAL 1.0 TOTAL PROTEIN 10.8 (*) eGFR 26.3 (*) Narrative: Slightly Hemolyzed. Interpret K+, ALKP, AST, TP, ALB with caution. CBC WITH AUTO DIFFERENTIAL - Abnormal Auto WBC 14.1 (*) RBC 5.13 Hemoglobin 13.7 Hematocrit 42.7 MCV 83.2 MCH 26.7 MCHC 32.1 RDW 13.2 Platelets 349 MPV 8.5 nRBC 0.0 POCT GLUCOSE METER UNSOLICITED RESULTS - Abnormal Glucose 158 (*) Narrative: Performed by: [facility], [address] [place] [address] CLIA ID: [id number] TROPONIN, WITH SERIAL REFLEX - Normal TROPONIN I <0.012 Narrative: Slightly Hemolyzed. Interpret Troponin I with caution. Patients with high levels of Biotin oral intake (ie >5 mg/day) may have falsely decreased Troponin levels. Slightly Hemolyzed. Interpret Troponin I with caution. MAGNESIUM - Normal MAGNESIUM 2.1 Narrative: Slightly Hemolyzed. Interpret Magnesium with caution. BLOOD CULTURE BLOOD CULTURE URINE CULTURE COMPLETE URINALYSIS WITH REFLEX TO CULTURE Narrative: The following orders were created for panel order Complete Urinalysis with reflex to Culture. Procedure Abnormality Status --------- ------ Complete Urinalysis[[id number]] Please view results for these tests on the individual orders. DRUGS OF ABUSE COMPLETE URINALYSIS COMPLETE URINALYSIS WITH REFLEX TO CULTURE Narrative: The following orders were created for panel order Urinalysis Complete with reflex to Culture. Procedure Abnormality Status --------- ------ Complete Urinalysis[[id number]] Please view results for these tests on the individual orders. COMPLETE URINALYSIS MANUAL DIFFERENTIAL LACTIC ACID WITH REFLEX TROPONIN I TROPONIN I All other labs were within normal range or not returned as of this dictation. EMERGENCY DEPARTMENT COURSE and DIFFERENTIAL DIAGNOSIS/MDM: Vitals: Vitals: 06/23/23 2149 06/23/23 2204 06/23/23 2210 06/23/23 2319 BP: 105/86 121/80 Pulse: (!) 133 106 92 Resp: 26 24 22 Temp: 36.6 C (97.9 F) SpO2: 93% 100% Weight: 64.9 kg (143 lb) Height: 1.854 m (6' 1) Labs and Images interpreted in ED course. All labs and imaging have been personally reviewed and interpreted by me. Medical Decision Making Problems Addressed: ZULLY (acute kidney injury) (HCC): complicated acute illness or injury Influenza A: complicated acute illness or injury Amount and/or Complexity of Data Reviewed Labs: ordered. Radiology: ordered. ECG/medicine tests: ordered. Risk Prescription drug management. Decision regarding hospitalization. Summary of External Notes reviewed: Summary of pertinent elements includes: Care everywhere reviewed PDMP reviewed Factors Affecting Care: Past Medical History: Diagnosis Date Allergic Anxiety Asthma Headache Varicella Past Surgical History: Procedure Laterality Date HAND SURGERY 2020 [facility] TESTICLE TORSION REDUCTION (HISTORICAL) about 2020 [facility] Sincereative Dorian Montoya 32 y.o. male presents with the following Chief Compliant: Chief Complaint Patient presents with Shortness of Breath Pt c/o SOB and general illness he noticed this AM. SPO2 70% upon EMS arrival, placed on 15L NRB. Pt A&OX4 upon arrival to ED. Pt states he has been dizzy and has had episodes of vertigo w/his ears popping for several days as well. Denies any medical hx/drug/alcohol use. The patient was examined. Shared Decision Making I will have a long discussion with the patient and/or visitors regarding risks/benefits of further testing or admission. They will be made aware of the risks/benefits in this decision and will voice understanding as able. I considered: acute cardiac etiologies to include heart failure, STEMI, NSTEMI, acute PE, pneumothorax, thoracic aortic dissection, pericarditis, tamponade, myocarditis, pericardial effusion, atrial fibrillation, atrial flutter, other arrhthymias, acute respiratory etiologies to include asthma, COPD exacerbation, allergic etiologies, infectious etiologies such as PNA, non-cardiopulmonary causes to include toxidromes, metabolic etiologies such as acidemia or electrolyte derangements, sepsis, neurologic causes (i.e. demyelinating diseases). Our workup consisted of ordering/reviewing: Complete blood count, metabolic panel, troponin, chest x-ray imaging, electrocardiogram, lactate, Mg, respiratory panel, VBG, UA, urine culture, blood culture, CTA chest, CT abdomen pelvis . ED Course as of 06/23/232321 Sat Jun 23, 2023 232 SOB and tachypnea and tachycardic 2L NS Generalized pain Pleuritic chest pain CTA chest and CT abd pelvis [place] arnold Severe sepsis [] ED Course User Index [MD] Jairo Cash DO Diagnoses as of 06/23/232321 ZULLY (acute kidney injury) (HCC) Influenza A Patient provided: Medications sodium chloride 0.9 % bolus 1,000 mL (1,000 mL IntraVENous New Bag 06/23/232205) vancomycin (Vancocin) 1500 mg in NS 250 mL IVPB (compounded premix) (has no administration in time range) piperacillin-tazobactam (Zosyn) IVPB 4.5 g (has no administration in time range) iopamidol (Isovue-370) 76 % injection 75 mL (75 mL IntraVENous Given 06/23/23 231) Heart rate improved after fluids. Lab work notable for elevated lactate at 4.5. CBC notable for elevated white blood cell count 14.1. Patient positive for influenza A. Patient signed out with plan to obtain CTs and admit pending those results. Patient provided dose of tamiflu. Patient signed out to Dr. Cash. Social determinants of health: None Specific History obtained from others: None Consults: None PROCEDURES: Unless otherwise noted below, none Procedures Patients symptoms are consistent with sepsis, severe sepsis, or septic shock (If yes use .sepsiscoremeasure): CORE MEASURE DATA SIRS Criteria Sepsis Criteria Severe Sepsis Criteria Septic Shock Criteria Must meet 2: [] Temperature > 100.4 F (38 C) or < 96.8 F (36 C) [x] HR > 90 [x] RR > 20 [x] WBC > 12 or < 4 or 10% bands Must be confirmed or suspected to move forward with diagnosis of sepsis. [x] Infection Confirmed or Suspected. [] No infection present. Patient does not meet criteria for Sepsis. Must meet 1: [x] Lactate > 2 or [] Signs of Organ Dysfunction: - SBP < 90 or MAP < 65 - Altered mental status - Creatinine > 2 or increased from baseline - Urine Output < 0.5 ml/kg/hr - Bilirubin > 2 - INR > 1.5 - Platelets < 100,000 - Acute Respiratory Failure as evidenced by new need for NIPPV or mechanical ventilation [] No criteria met for Severe Sepsis. Must meet 1: [x] Lactate = or > 4 or [] SBP < 90 or MAP < 65 for at least two readings in the first hour after fluid bolus administration [] No criteria met for Septic Shock. No data found. Recent Labs 06/23/232200 WBC 14.1* LACTATE 4.5* CREATININE 3.11* BILITOT 1.0 PLT 349 Sepsis Identified at 2207 hours. Fluid Resuscitation Rational: Due to blood pressure responding to lesser volume, ordered less than 30cc/kg actual body weight. Actual fluid amount given: 2000 mL Infection Source: Unknown Shawn Thornton DO FINAL IMPRESSION 1. ZULLY (acute kidney injury) (HCC) 2. Influenza A DISPOSITION Signed out PATIENT REFERRED TO: No follow-up provider specified. DISCHARGE MEDICATIONS: New Prescriptions No medications on file (Comment: Please note this report has been produced using speech recognition software and may contain errors related to that system including errors in grammar, punctuation, and spelling, as well as words and phrases that may be inappropriate. If there are any questions or concerns please feel free to contact the dictating physician for clarification.) Shawn Thornton DO (electronically signed) Emergency Medicine Physician Shawn Thornton DO Resident 06/23/232328 Emergency Department Encounter Location: [facility] EMERGENCY DEPT Patient: Dorian Montoya : 1990 Date of evaluation: 06/23/2023 ED Provider: Jairo Cash DO Time received sign-out: 2319 Dorian Montoya was checked out to me by Dr. Thornton. Please see his/her initial documentation for details of the patient's initial ED presentation, physical exam and completed studies. In brief, Dorian Montoya is a 32 y.o. adult that presented to the emergency department with concern for shortness of breath tachycardia and tachypnea. At times the patient had a CTA of the chest and CT abdomen pelvis pending. I have reviewed and interpreted all of the currently available lab results and diagnostics from this visit: Results for orders placed or performed during the hospital encounter of 06/23/23 Respiratory Pathogens Panel by PCR Specimen: Nasopharynx; Swab Result Value Ref Range SARS-CoV-2 Not Detected Not Detected Adenovirus Not Detected Not Detected Coronavirus HKU1 Not Detected Not Detected Coronavirus NL63 Not Detected Not Detected Coronavirus 229E Not Detected Not Detected Coronavirus OC43 Not Detected Not Detected Human Metapneumovirus Not Detected Not Detected Human Rhinovirus/Enterovirus Not Detected Not Detected Influenza A Detected (A) Not Detected Influenza B Not Detected Not Detected Parainfluenza 1 Not Detected Not Detected Parainfluenza 2 Not Detected Not Detected Parainfluenza 3 Not Detected Not Detected Parainfluenza 4 Not Detected Not Detected Respiratory Syncytial Virus Not Detected Not Detected Bordetella pertussis Not Detected Not Detected Bordetella parapertussis Not Detected Not Detected Chlamydia pneumoniae Not Detected Not Detected Mycoplasma pneumoniae Not Detected Not Detected Troponin, with Serial Reflex Result Value Ref Range TROPONIN I <0.012 <0.034 ng/mL Lactic acid with reflex Result Value Ref Range LACTIC ACID 4.5 (HH) 0.7 - 2.0 mmol/L Blood gas, venous (ACH and [facility]) Result Value Ref Range pH, Venous 7.398 7.330 - 7.430 pCO2, Venous 30.7 (L) 40.0 - 55.0 mm Hg pO2, Venous 33.3 30.0 - 50.0 mm Hg HCO3, Venous 18.5 (L) 23.0 - 27.0 mmol/L O2 Sat, Venous 61.7 60.0 - 80.0 % Base Excess, Venous -5.0 (L) -3.0 - 3.0 mmol/L Hgb, blood gas 14.8 Screen Only g/dl TCO2, Venous 19.4 (L) 24.0 - 28.0 mmol/L Source Of Oxygen Non-rebreather mask Comprehensive metabolic panel Result Value Ref Range SODIUM 137 135 - 145 mmol/L POTASSIUM 3.9 3.5 - 5.1 mmol/L CHLORIDE 95 (L) 98 - 107 mmol/L CARBON DIOXIDE 18 (L) 22 - 30 mmol/L ANION GAP 24 (H) 3 - 13 mmol/L UREA NITROGEN 14 9 - 20 mg/dL CREATININE 3.11 (H) 0.66 - 1.25 mg/dL GLUCOSE 176 (H) 70 - 100 mg/dL CALCIUM 11.8 (H) 8.4 - 10.4 mg/dL AST (SGOT) 46 15 - 46 U/L ALT 27 0 - 49 U/L ALKALINE PHOSPHATASE 116 38 - 126 U/L ALBUMIN >6.0 (H) 3.5 - 5.0 g/dL BILIRUBIN, TOTAL 1.0 0.2 - 1.3 mg/dL TOTAL PROTEIN 10.8 (H) 6.3 - 8.2 g/dL eGFR 26.3 (L) >60.0 mL/min/1.73m*2 CBC auto differential Result Value Ref Range Auto WBC 14.1 (H) 3.6 - 10.7 10*3/uL RBC 5.13 4.40 - 5.90 10*6/uL Hemoglobin 13.7 13.0 - 18.0 g/dL Hematocrit 42.7 40.0 - 52.0 % MCV 83.2 80.0 - 98.0 fL MCH 26.7 26.0 - 34.0 pg MCHC 32.1 32.0 - 36.0 % RDW 13.2 11.5 - 14.5 % Platelets 349 140 - 440 10*3/uL MPV 8.5 7.4 - 12.4 fL nRBC 0.0 0.0 - 2.0 /100 WBCs Magnesium Result Value Ref Range MAGNESIUM 2.1 1.6 - 2.3 mg/dL POCT glucose meter Result Value Ref Range Glucose 158 (H) 70 - 100 mg/dL ECG 12 lead Result Value Ref Range Heart Rate 105 bpm QRSD Interval 96 ms QT Interval 0 ms QTC Interval 0 ms P [place] 79 degrees QRS [place] 20 degrees T Wave [place] 0 degrees MI Interval 128 ms XR chest 1 view Final Result 1. Stable examination. No acute findings. Report Dictated on Electronically Signed By: Ottoniel Julian MD Electronically Signed Date/Time: 06/23/2023 11:[address] chest angiogram w and/or wo IV contrast (Results Pending) CT abdomen pelvis w contrast (Results Pending) Final ED Course and MDM: In brief, Dorian Montoya is a 32 y.o. whose care was signed out to me by the outgoing provider. In brief, patient is here for multiple complaints, chest pain, shortness of breath, tachypnea. Patient also was having generalized pain and pleuritic chest pain. Patient's laboratory findings concerning for new ZULLY with a creatinine of 3.11. Patient also has influenza A. Patient also has a elevated lactic acid. Patient CT abdomen pelvis and CT a of the chest did not reveal any acute findings. Patient was ultimately admitted to the services of Dr. Greene with [facility] hospitalist group. Patient was stable at time admission. Medications sodium chloride 0.9 % bolus 1,000 mL (1,000 mL IntraVENous New Bag 06/23/232205) vancomycin (Vancocin) 1500 mg in NS 250 mL IVPB (compounded premix) (has no administration in time range) piperacillin-tazobactam (Zosyn) IVPB 4.5 g (has no administration in time range) iopamidol (Isovue-370) 76 % injection 75 mL (75 mL IntraVENous Given 06/23/23 6632) Final Impression 1. ZULLY (acute kidney injury) (HCC) 2. Influenza A DISPOSITION Admit 06/23/2023 11:20:21 PM (Please note that portions of this note may have been completed with a voice recognition program. Efforts were made to edit the dictations but occasionally words are mis-transcribed.) Jairo Cash DO PGY-3, Emergency Medicine Jairo Cash DO Resident 06/24/23 0039 Emergency Department Encounter [facility] EMERGENCY DEPT Patient: Dorian Montoya : 1990 Date of Evaluation: 06/23/2023 ED Supervising Physician: Bebe Cheung MD I personally evaluated Dorian Montoya and made/approved the management plan and take responsibility for the patient management. This will serve as my Supervisory note and shared attestation. I did perform a substantive portion of the visit including all aspects of the Medical Decision Making. I wore appropriate PPE for the entirety of this encounter. In brief, Dorian Montoya is a 32 y.o. that presents to the emergency department for respiratory distress. Per EMS report they went over to his home because he was having a lot of shortness of breath and they found that he was satting in the 70s on room air. Placed on 15 L nonrebreather. Patient states that his symptoms all started today. States that he is having shortness of breath, feeling generally ill and unwell. Has had some nausea and decreased p.o. intake. Has been vomiting and unable to keep any food or fluids down. Endorses some chest pain with deep breathing as well as abdominal pain. No urinary complaints. No constipation or diarrhea. Focused exam: Ill-appearing toxic appearing male in acute respiratory distress. Vital signs reviewed and notable for tachycardia and tachypnea. Lungs are clear to auscultation bilaterally but patient is tachypneic. Speaking in about 3-4 word sentences. Abdomen is soft with generalized tenderness with no rebound or guarding. No lower extremity edema. Extremities are cold to the touch. Patient appears pale and dry with dry mucous membranes as well as positive skin tenting. Brief ED course/MDM: 32-year-old male present emergency room today for respiratory distress. Tachycardic and tachypneic on arrival. On a nonrebreather on arrival from EMS. Has increased work of breathing. He is ill-appearing. He is pale and cachectic. Does not follow with any PCP. His lungs are clear on auscultation so I do not think that he requires CPAP or BiPAP. Bedside ultrasound was done and he has bilateral lung sliding but no B-lines and only that he is fluid overloaded. I am wondering if this is more secondary to a pneumonia versus viral infection or PE. He has poor cardiac views on ultrasound so cannot really evaluate for pericardial effusion or EF or Field sign. Given how pale he is a still concern for may be an acute anemia. He states that every once in a while have bloody bowel movements or cough up blood. This has not happened anytime recently. Differential here is broad. Broad workup was started including labs, IV fluid hydration and CTA of his chest to rule out PE and CT scan of his abdomen pelvis for intra-abdominal pathologies. We will continue to fluid resuscitate him. I did a bedside ultrasound of his IVC and it is completely collapsible so I do think he is very fluid down. Given that he is tachycardic and tachypneic there is also concern for sepsis he was given broad-spectrum antibiotics. I reviewed his results and he has a lactic acidosis to 4.5. He is an ZULLY with a creatinine of 3 Where his baseline is 1. He did test positive for influenza A which could be the cause of his symptoms. Given his lactic elevation as well as his leukocytosis and tachycardia there is concern for severe sepsis since he does have also endorgan damage with his kidneys. He was given a dose of Tamiflu here in the emergency department. Blood pressures have been stable here in the emergency department. CTA was done and does not show any acute PE. CT scan abdomen pelvis does not show any acute findings either. I did review the chest x-ray and I do not see any acute findings. Patient will be admitted for influenza and sepsis. Admitted in stable condition. JAN- CORE MEASURE DATA SIRS Criteria Sepsis Criteria Severe Sepsis Criteria Septic Shock Criteria Must meet 2: [] Temperature > 100.4 F (38 C) or < 96.8 F (36 C) [x] HR > 90 [x] RR > 20 [x] WBC > 12 or < 4 or 10% bands Must be confirmed or suspected to move forward with diagnosis of sepsis. [x] Infection Confirmed or Suspected. [] No infection present. Patient does not meet criteria for Sepsis. Must meet 1: [x] Lactate > 2 or [x] Signs of Organ Dysfunction: - SBP < 90 or MAP < 65 - Altered mental status - Creatinine > 2 or increased from baseline - Urine Output < 0.5 ml/kg/hr - Bilirubin > 2 - INR > 1.5 - Platelets < 100,000 - Acute Respiratory Failure as evidenced by new need for NIPPV or mechanical ventilation [] No criteria met for Severe Sepsis. Must meet 1: [x] Lactate = or > 4 or [] SBP < 90 or MAP < 65 for at least two readings in the first hour after fluid bolus administration [] No criteria met for Septic Shock. Patient Vitals from 06/23/23 2301 to 06/24/23 0000 BP Pulse Resp SpO2 Height Weight 06/23/23 2319 -- -- -- -- 1.854 m (6' 1) 64.9 kg (143 lb) 06/23/23 2344 (!) 127/92 86 21 100 % -- -- Recent Labs 06/23/23 2201 WBC 14.1* LACTATE 4.5* CREATININE 3.11* BILITOT 1.0 PLT 349 Sepsis Identified at 2201 hours. Fluid Resuscitation Rational: at least 30mL/kg based on entered actual body weight at time of triage Infection Source: Unknown Reassessment Exam: SEPSIS REASSESSMENT I examined the patient 06/24/2023 12:53 AM Vital Signs:BP (!) 127/92 Pulse 86 Temp 36.6 C (97.9 F) Resp 21 Ht 1.854 m (6' 1) Wt 64.9 kg (143 lb) SpO2 100% BMI 18.87 kg/m Cardiac examination significant for: Regular rate and rhythm Pulmonary examination significant for: Clear lung amador Capillary refill is: 3 seconds Peripheral Pulse is: 2+ Skin is: Normal CRITICAL CARE TIME Total Critical Care time was 45 minutes, excluding separately reportable procedures. There was a high probability of clinically significant/life threatening deterioration in the patient's condition which required my urgent intervention. Bebe Cheung MD Diagnostics interpreted by me: labs, chest x-ray I personally discussed the patient's management with other clinicians: All diagnostic, treatment, and disposition decisions were made by myself in conjunction with the Resident. I also supervised meza portions of any procedures performed by the Resident. For all further details of the patient's emergency department visit, please see their documentation. (Comment: Please note this report has been produced using speech recognition software and may contain errors related to that system including errors in grammar, punctuation, and spelling, as well as words and phrases that may be inappropriate. If there are any questions or concerns please feel free to contact the dictating provider for clarification.) Bebe Cheung MD [facility] Bebe Cheung MD 06/24/23 0053 documented in this encounter [facility] 06-24-2023 Emergency department Note Blood specimens obtained and sent to the lab. Tara Davalos RN 06/24/23 0507 [facility] 06-24-[address] Greene at the bedside. Tara Davalos RN 06/24/23 0500 [facility] 06-24-2023 Emergency department Note Patient states he has headache and generalized bodyaches 10/21. Pt given PRN tylenol. See RAUDEL. Caitlyn Paul RN 06/24/23 0352 [facility] 06-24-2023 Emergency department Note Patient given instruction and education regarding incentive spirometry. Pt able to demonstrate use. Pt instructed on giving 10 breaths per hour with IS. Pt verbalizes understanding of these instructions. Caitlyn Paul RN 06/24/23 0351 [facility] 06-24-2023 Emergency department Note Received report from DARLENE Harmon and assume care of patient at this time. Caitlyn Paul RN 06/24/23 0321 [facility] 06-24-2023 History and physical note Images from the original note were not included. Attending History and Physical Admit Date: 06/23/2023 PCP: Александр Novak MD CHIEF COMPLAINT: Shortness of breath Reason for Admission: Influenza A, concern for concurrent bacterial infection w/ hypoxia History Obtained From: patient, EMR HISTORY OF PRESENT ILLNESS: Dorian is a 32 y.o. male with past medical history below who presents with chief complaint listed above. Pt Hx significant for childhood asthma. Pt states that 2 days ago went to work, noted that a coworker had a cold. Returned home w/o issue. Upon waking this morning felt generalized pain, weakness, feeling short of breath. (+) subjective fevers. Initial ED workup noted Pt afebrile, temp of 97.9. Initial SpO2 reportedly in 70% placed on NRB 100% and has improved to NC at 4L/min. Initial lactic acid at 4.5 - improved to 0.7 on recheck. WBCs elevated at 14.1. Anion gap of 24. BUN/Creatinine elevated at 14/3.11. Viral panel (+) for Influenza A. Pt administered Tamiflu and started on empiric broad spectrum Abx. Will admit for further evaluation and management. - CTA Chest 1. No evidence of large vessel or central pulmonary emboli. 2. No acute consolidation. Probable sequelae of old granulomatous disease, similar to comparison. - CT Abd/Pelvis 1. No acute findings. Past Medical History: Past Medical History: Diagnosis Date Allergic Anxiety Asthma Headache Varicella Past Surgical History: Past Surgical History: Procedure Laterality Date HAND SURGERY 2020 [facility] TESTICLE TORSION REDUCTION (HISTORICAL) about 2020 Social History: Social History Socioeconomic History Marital status: Spouse name: Not on file Number of children: Not on file Years of education: Not on file Highest education level: Not on file Occupational History Not on file Tobacco Use Smoking status: Former Packs/day: 0.50 Years: 3.00 Additional pack years: 0.00 Total pack years: 1.50 Types: Cigarettes Start date: 05/14/2019 Quit date: 02/03/2023 Years since quittin.3 Smokeless tobacco: Current Types: Chew Last attempt to quit: 05/14/2019 Vaping Use Vaping Use: Every day Substance and Sexual Activity Alcohol use: Yes Comment: occ Drug use: Yes Types: Marijuana Comment: Daily Sexual activity: Not on file Other Topics Concern Not on file Social History Narrative SDOH Updated 06/07/23 Social Determinants of Health Financial Resource Strain: Medium Risk (06/07/2023) Overall Financial Resource Strain (CARDIA) Difficulty of Paying Living Expenses: Somewhat hard Food Insecurity: Food Insecurity Present (06/07/2023) Hunger Vital Sign Worried About Running Out of Food in the Last Year: Sometimes true Ran Out of Food in the Last Year: Sometimes true Transportation Needs: No Transportation Needs (06/07/2023) PRAPARE - Transportation Lack of Transportation (Medical): No Lack of Transportation (Non-Medical): No Physical Activity: Insufficiently Active (06/07/2023) Exercise Vital Sign Days of Exercise per Week: 2 days Minutes of Exercise per Session: 30 min Stress: Stress Concern Present (06/07/2023) [employer] - Occupational Stress Questionnaire Feeling of Stress : Rather much Social Connections: Unknown (06/07/2023) Social Connection and Isolation Panel [NHANES] Frequency of Communication with Friends and Family: More than three times a week Frequency of Social Gatherings with Friends and Family: Twice a week Attends Hinduism Services: Not on file Active Member of Clubs or Organizations: No Attends Club or Organization Meetings: Never Marital Status: Intimate Partner Violence: Not At Risk (06/07/2023) Humiliation, Afraid, Rape, and Kick questionnaire Fear of Current or Ex-Partner: No Emotionally Abused: No Physically Abused: No Sexually Abused: No Housing Stability: High Risk (06/07/2023) Housing Stability Vital Sign Unable to Pay for Housing in the Last Year: Yes Number of Places Lived in the Last Year: 1 Unstable Housing in the Last Year: No Family History: Family History Problem Relation Name Age of Onset Diverticulitis Mother Crohn's disease Mother ANTONELLA disease Mother Heart Surgery Father Alex Heart attack Father Alex COPD Father Alex Arthritis Father Alex Asthma Father Alex Lung cancer Mother's Sister Throat cancer Mother's Brother Teodoro Cancer Mother's Brother Teodoro Breast cancer Father's Sister [place] Lung cancer Father's Sister [place] Medications Prior to Admission: No current facility-administered medications on file prior to encounter. Current Outpatient Medications on File Prior to Encounter Medication Sig Dispense Refill acetaminophen (Tylenol) 325 MG tablet Take 650 mg by mouth every 4 hours as needed. albuterol (ProAir HFA) 108 (90 Base) MCG/ACT inhaler Inhale 2 puffs every 4 hours as needed for wheezing or shortness of breath. 8.5 g 0 cyclobenzaprine (Flexeril) 10 MG tablet Take 1 tablet (10 mg) by mouth 3 times daily as needed for muscle spasms. 30 tablet 0 Allergies: Allergies Allergen Reactions Apple Hives and Shortness of breath Bee Venom Anaphylaxis Red Dye Other major nosebleeds REVIEW OF SYSTEMS: As documented in HPI Vitals: BP (!) 127/92 Pulse 86 Temp 36.6 C (97.9 F) Resp 21 Ht 6' 1 (1.854 m) Wt 143 lb (64.9 kg) SpO2 100% BMI 18.87 kg/m BMI Classification: Normal Weight (BMI 18.5-24.9) Pulse Ox: SpO2 Av.7 % Min: 93 % Max: 100 % Supplemental O2: O2 Flow Rate (L/min): 4 L/min PHYSICAL EXAM: Physical Exam Constitutional: General: He is awake. Appearance: He is ill-appearing. HENT: Head: Normocephalic and atraumatic. Eyes: General: Vision grossly intact. Gaze aligned appropriately. Extraocular Movements: Extraocular movements intact. Pupils: Pupils are equal, round, and reactive to light. Cardiovascular: Rate and Rhythm: Normal rate and regular rhythm. Pulmonary: Breath sounds: Normal breath sounds. Decreased air movement present. No wheezing, rhonchi or rales. Skin: General: Skin is warm and moist. Neurological: General: No focal deficit present. Mental Status: He is alert and oriented to person, place, and time. Cranial Nerves: Cranial nerves 2-12 are intact. Psychiatric: Behavior: Behavior is cooperative. DATA: CBC: Recent Labs 06/23/232200 WBC 14.1* RBC 5.13 HGB 14.8 13.7 HCT 42.7 MCV 83.2 RDW 13.2 PLT 349 BMP: Recent Labs 06/23/232200 NA 137 K 3.9 CL 95* CO2 18* BUN 14 CREATININE 3.11* GLUCOSE 176* CALCIUM 11.8* ANIONGAP 24* LIVER PROFILE: Recent Labs 06/23/232200 AST 46 ALT 27 BILITOT 1.0 ALKPHOS 116 PROT 10.8* PT/INR: No results for input(s): PROTIME, INR in the last 72 hours. CARDIAC ENZYMES: Recent Labs 06/23/232200 TROPONINI <0.012 Procalcitonin: No results found for: PROCAL Urine Culture: No results found for this or any previous visit. COVID-19 PCR: No results for input(s): COVID19 in the last 72 hours. I reviewed: [x] laboratory results [x] radiographic results At the time of today's encounter. Pt was advised of the results. Data: Assessment Discussed management with the ED provider and agree with hospitalization. Acute, acute on chronic, unstable/uncontrolled chronic problems/diagnoses: Influenza, sepsis - Pt on telemetry, continue to monitor - Continue Tamiflu 30mg - Concern for bacterial infection - continue empiric Vanc/Zosyn pending Cx results. - Obtain AM procalcitonin 2. Acute Kidney injury - IVF hydration - trend labs in AM - Replete electrolytes PRN Stable chronic problems affecting care, new non-acute diagnoses: Asthma - PRN albuterol - Supplemental O2 as needed to maintain SpO2 >90% - Incentive spirometry Plan As a result of the above findings & factors, the following mgmt was pursued: - am labs, replace lytes prn - PT/OT/CM/SW - delirium precautions: increase activity and limit nighttime disturbances - DVT prophylaxis: SCDs and encourage ambulation Complexity: Acute illness with systemic symptoms (MOD). Risk: Use/consideration of therapy requiring intensive monitoring: parenteral nephrotoxic antibiotics, ex: gentamycin, vancomycin (anaphylaxis, ZULLY/ATN, renal failure); BMP, trough levels (HIGH). Admission to hospital-level care was considered or occurred (HIGH). Advance Directive: FULL CODE Anticipated Discharge - Date - TBD - Location - TBD Total time spent (which include face to face and non face to face encounters) : 63 minutes. 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 No Blas Greene MD Division of Hospitalist Medicine [facility]patient [facility] Services/[facility] [employer] 06-24-2023 History and physical note Images from the original note were not included. Attending History and Physical Admit Date: 06/23/2023 PCP: Александр Novak MD CHIEF COMPLAINT: Shortness of breath Reason for Admission: Influenza A, concern for concurrent bacterial infection w/ hypoxia History Obtained From: patient, EMR HISTORY OF PRESENT ILLNESS: Dorian is a 32 y.o. male with past medical history below who presents with chief complaint listed above. Pt Hx significant for childhood asthma. Pt states that 2 days ago went to work, noted that a coworker had a cold. Returned home w/o issue. Upon waking this morning felt generalized pain, weakness, feeling short of breath. (+) subjective fevers. Initial ED workup noted Pt afebrile, temp of 97.9. Initial SpO2 reportedly in 70% placed on NRB 100% and has improved to NC at 4L/min. Initial lactic acid at 4.5 - improved to 0.7 on recheck. WBCs elevated at 14.1. Anion gap of 24. BUN/Creatinine elevated at 14/3.11. Viral panel (+) for Influenza A. Pt administered Tamiflu and started on empiric broad spectrum Abx. Will admit for further evaluation and management. - CTA Chest 1. No evidence of large vessel or central pulmonary emboli. 2. No acute consolidation. Probable sequelae of old granulomatous disease, similar to comparison. - CT Abd/Pelvis 1. No acute findings. Past Medical History: Past Medical History: Diagnosis Date Allergic Anxiety Asthma Headache Varicella Past Surgical History: Past Surgical History: Procedure Laterality Date HAND SURGERY 2020 [facility] TESTICLE TORSION REDUCTION (HISTORICAL) about 2020 Social History: Social History Socioeconomic History Marital status: Spouse name: Not on file Number of children: Not on file Years of education: Not on file Highest education level: Not on file Occupational History Not on file Tobacco Use Smoking status: Former Packs/day: 0.50 Years: 3.00 Additional pack years: 0.00 Total pack years: 1.50 Types: Cigarettes Start date: 05/14/2019 Quit date: 02/03/2023 Years since quittin.3 Smokeless tobacco: Current Types: Chew Last attempt to quit: 05/14/2019 Vaping Use Vaping Use: Every day Substance and Sexual Activity Alcohol use: Yes Comment: occ Drug use: Yes Types: Marijuana Comment: Daily Sexual activity: Not on file Other Topics Concern Not on file Social History Narrative SDOH Updated 06/07/23 Social Determinants of Health Financial Resource Strain: Medium Risk (06/07/2023) Overall Financial Resource Strain (CARDIA) Difficulty of Paying Living Expenses: Somewhat hard Food Insecurity: Food Insecurity Present (06/07/2023) Hunger Vital Sign Worried About Running Out of Food in the Last Year: Sometimes true Ran Out of Food in the Last Year: Sometimes true Transportation Needs: No Transportation Needs (06/07/2023) PRAPARE - Transportation Lack of Transportation (Medical): No Lack of Transportation (Non-Medical): No Physical Activity: Insufficiently Active (06/07/2023) Exercise Vital Sign Days of Exercise per Week: 2 days Minutes of Exercise per Session: 30 min Stress: Stress Concern Present (06/07/2023) [employer] [place] [employer] - Occupational Stress Questionnaire Feeling of Stress : Rather much Social Connections: Unknown (06/07/2023) Social Connection and Isolation Panel [NHANES] Frequency of Communication with Friends and Family: More than three times a week Frequency of Social Gatherings with Friends and Family: Twice a week Attends Hinduism Services: Not on file Active Member of Clubs or Organizations: No Attends Club or Organization Meetings: Never Marital Status: Intimate Partner Violence: Not At Risk (06/07/2023) Humiliation, Afraid, Rape, and Kick questionnaire Fear of Current or Ex-Partner: No Emotionally Abused: No Physically Abused: No Sexually Abused: No Housing Stability: High Risk (06/07/2023) Housing Stability Vital Sign Unable to Pay for Housing in the Last Year: Yes Number of Places Lived in the Last Year: 1 Unstable Housing in the Last Year: No Family History: Family History Problem Relation Name Age of Onset Diverticulitis Mother Crohn's disease Mother ANTONELLA disease Mother Heart Surgery Father Alex Heart attack Father Alex COPD Father Alex Arthritis Father Alex Asthma Father Alex Lung cancer Mother's Sister Throat cancer Mother's Brother Teodoro Cancer Mother's Brother Teodoro Breast cancer Father's Sister [place] Lung cancer Father's Sister [place] Medications Prior to Admission: No current facility-administered medications on file prior to encounter. Current Outpatient Medications on File Prior to Encounter Medication Sig Dispense Refill acetaminophen (Tylenol) 325 MG tablet Take 650 mg by mouth every 4 hours as needed. albuterol (ProAir HFA) 108 (90 Base) MCG/ACT inhaler Inhale 2 puffs every 4 hours as needed for wheezing or shortness of breath. 8.5 g 0 cyclobenzaprine (Flexeril) 10 MG tablet Take 1 tablet (10 mg) by mouth 3 times daily as needed for muscle spasms. 30 tablet 0 Allergies: Allergies Allergen Reactions Apple Hives and Shortness of breath Bee Venom Anaphylaxis Red Dye Other major nosebleeds REVIEW OF SYSTEMS: As documented in HPI Vitals: BP (!) 127/92 Pulse 86 Temp 36.6 C (97.9 F) Resp 21 Ht 6' 1 (1.854 m) Wt 143 lb (64.9 kg) SpO2 100% BMI 18.87 kg/m BMI Classification: Normal Weight (BMI 18.5-24.9) Pulse Ox: SpO2 Av.7 % Min: 93 % Max: 100 % Supplemental O2: O2 Flow Rate (L/min): 4 L/min PHYSICAL EXAM: Physical Exam Constitutional: General: He is awake. Appearance: He is ill-appearing. HENT: Head: Normocephalic and atraumatic. Eyes: General: Vision grossly intact. Gaze aligned appropriately. Extraocular Movements: Extraocular movements intact. Pupils: Pupils are equal, round, and reactive to light. Cardiovascular: Rate and Rhythm: Normal rate and regular rhythm. Pulmonary: Breath sounds: Normal breath sounds. Decreased air movement present. No wheezing, rhonchi or rales. Skin: General: Skin is warm and moist. Neurological: General: No focal deficit present. Mental Status: He is alert and oriented to person, place, and time. Cranial Nerves: Cranial nerves 2-12 are intact. Psychiatric: Behavior: Behavior is cooperative. DATA: CBC: Recent Labs 06/23/232200 WBC 14.1* RBC 5.13 HGB 14.8 13.7 HCT 42.7 MCV 83.2 RDW 13.2 PLT 349 BMP: Recent Labs 06/23/232200 NA 137 K 3.9 CL 95* CO2 18* BUN 14 CREATININE 3.11* GLUCOSE 176* CALCIUM 11.8* ANIONGAP 24* LIVER PROFILE: Recent Labs 06/23/232200 AST 46 ALT 27 BILITOT 1.0 ALKPHOS 116 PROT 10.8* PT/INR: No results for input(s): PROTIME, INR in the last 72 hours. CARDIAC ENZYMES: Recent Labs 06/23/232200 TROPONINI <0.012 Procalcitonin: No results found for: PROCAL Urine Culture: No results found for this or any previous visit. COVID-19 PCR: No results for input(s): COVID19 in the last 72 hours. I reviewed: [x] laboratory results [x] radiographic results At the time of today's encounter. Pt was advised of the results. Data: Assessment Discussed management with the ED provider and agree with hospitalization. Acute, acute on chronic, unstable/uncontrolled chronic problems/diagnoses: Influenza, sepsis - Pt on telemetry, continue to monitor - Continue Tamiflu 30mg - Concern for bacterial infection - continue empiric Vanc/Zosyn pending Cx results. - Obtain AM procalcitonin 2. Acute Kidney injury - IVF hydration - trend labs in AM - Replete electrolytes PRN Stable chronic problems affecting care, new non-acute diagnoses: Asthma - PRN albuterol - Supplemental O2 as needed to maintain SpO2 >90% - Incentive spirometry Plan As a result of the above findings & factors, the following mgmt was pursued: - am labs, replace lytes prn - PT/OT/CM/SW - delirium precautions: increase activity and limit nighttime disturbances - DVT prophylaxis: SCDs and encourage ambulation Complexity: Acute illness with systemic symptoms (MOD). Risk: Use/consideration of therapy requiring intensive monitoring: parenteral nephrotoxic antibiotics, ex: gentamycin, vancomycin (anaphylaxis, ZULLY/ATN, renal failure); BMP, trough levels (HIGH). Admission to hospital-level care was considered or occurred (HIGH). Advance Directive: FULL CODE Anticipated Discharge - Date - TBD - Location - TBD Total time spent (which include face to face and non face to face encounters) : 63 minutes. 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 No Blas Greene MD Division of Hospitalist Medicine Inpatient Medical Services/[facility] documented in this encounter [facility] 06-23-[address] Vegas notified of lactic acid 4.5 via secure chat, response received. No new orders received via secure chat. Tara Davalos RN 06/23/23 728 [facility] 06-23-2023 Physician Emergency department Note EMERGENCY DEPARTMENT ENCOUNTER Pt Name: Dorian Montoya Birthdate 1990 Date of evaluation: 06/23/2023 ED Physician: Shawn Thornton DO CHIEF COMPLAINT Chief Complaint Patient presents with Shortness of Breath Pt c/o SOB and general illness he noticed this AM. SPO2 70% upon EMS arrival, placed on 15L NRB. Pt A&OX4 upon arrival to ED. Pt states he has been dizzy and has had episodes of vertigo w/his ears popping for several days as well. Denies any medical hx/drug/alcohol use. HISTORY OF PRESENT ILLNESS (Location/Symptom, Timing/Onset, Context/Setting, Quality, Duration, Modifying Factors, Severity) Note limiting factors. I wore appropriate PPE for the entirety of this encounter. HPI Dorian Montoya is a 32 y.o. male who presents to the emergency department with chief complaint of shortness of breath. Patient reports that he has been feeling short of breath and noticed that he has been feeling generally ill stating that this started this morning. EMS reports that he was satting in the 70s on room air. EMS placed him on 15 L nonrebreather. Patient reports that he is having pain all over. He denies any drug or alcohol use. He also denies any medical history beyond asthma. History is limited due to acuity. Nursing Notes were reviewed. Limitations to history: acuity REVIEW OF SYSTEMS Review of Systems Pertinent positives and negatives as per HPI. PAST MEDICAL HISTORY Past Medical History: Diagnosis Date Allergic Anxiety Asthma Headache Varicella SURGICAL HISTORY Past Surgical History: Procedure Laterality Date HAND SURGERY 2020 [facility] TESTICLE TORSION REDUCTION (HISTORICAL) about 2020 CURRENT MEDICATIONS Previous Medications ACETAMINOPHEN (TYLENOL) 325 MG TABLET Take 650 mg by mouth every 4 hours as needed. ALBUTEROL (PROAIR HFA) 108 (90 BASE) MCG/ACT INHALER Inhale 2 puffs every 4 hours as needed for wheezing or shortness of breath. CYCLOBENZAPRINE (FLEXERIL) 10 MG TABLET Take 1 tablet (10 mg) by mouth 3 times daily as needed for muscle spasms. ALLERGIES Apple, Bee venom, and Red dye FAMILY HISTORY Family History Problem Relation Name Age of Onset Diverticulitis Mother Crohn's disease Mother ANTONELLA disease Mother Heart Surgery Father Alex Heart attack Father Alex COPD Father Alex Arthritis Father Alex Asthma Father Alex Lung cancer Mother's Sister Throat cancer Mother's Brother Teodoro Cancer Mother's Brother Teodoro Breast cancer Father's Sister Toenet Lung cancer Father's Sister [place] SOCIAL HISTORY Social History Socioeconomic History Marital status: Tobacco Use Smoking status: Former Packs/day: 0.50 Years: 3.00 Additional pack years: 0.00 Total pack years: 1.50 Types: Cigarettes Start date: 05/14/2019 Quit date: 02/03/2023 Years since quittin.3 Smokeless tobacco: Current Types: Chew Last attempt to quit: 05/14/2019 Vaping Use Vaping Use: Every day Substance and Sexual Activity Alcohol use: Yes Comment: occ Drug use: Yes Types: Marijuana Comment: Daily Social History Narrative [facility] Updated 06/07/23 Social Determinants of Health Financial Resource Strain: Medium Risk (06/07/2023) Overall Financial Resource Strain (CARDIA) Difficulty of Paying Living Expenses: Somewhat hard Food Insecurity: Food Insecurity Present (06/07/2023) Hunger Vital Sign Worried About Running Out of Food in the Last Year: Sometimes true Ran Out of Food in the Last Year: Sometimes true Transportation Needs: No Transportation Needs (06/07/2023) PRAPARE - Transportation Lack of Transportation (Medical): No Lack of Transportation (Non-Medical): No Physical Activity: Insufficiently Active (06/07/2023) Exercise Vital Sign Days of Exercise per Week: 2 days Minutes of Exercise per Session: 30 min Stress: Stress Concern Present (06/07/2023) [employer] - Occupational Stress Questionnaire Feeling of Stress : Rather much Social Connections: Unknown (06/07/2023) Social Connection and Isolation Panel [NHANES] Frequency of Communication with Friends and Family: More than three times a week Frequency of Social Gatherings with Friends and Family: Twice a week Active Member of Clubs or Organizations: No Attends Club or Organization Meetings: Never Marital Status: Intimate Partner Violence: Not At Risk (06/07/2023) Humiliation, Afraid, Rape, and Kick questionnaire Fear of Current or Ex-Partner: No Emotionally Abused: No Physically Abused: No Sexually Abused: No Housing Stability: High Risk (06/07/2023) Housing Stability Vital Sign Unable to Pay for Housing in the Last Year: Yes Number of Places Lived in the Last Year: 1 Unstable Housing in the Last Year: No SCREENINGS PHYSICAL EXAM ED Triage Vitals [06/23/232148] Temp Heart Rate Resp BP 36.6 C (97.9 F) (!) 133 26 105/86 SpO2 Temp src Heart Rate Source Patient Position -- -- -- -- BP Location FiO2 (%) -- 100 % Physical Exam Vitals reviewed. Constitutional: General: He is in acute distress. Appearance: Normal appearance. He is ill-appearing and toxic-appearing. HENT: Head: Normocephalic and atraumatic. Right Ear: External ear normal. Left Ear: External ear normal. Nose: Nose normal. Mouth/Throat: Mouth: Mucous membranes are moist. Pharynx: Oropharynx is clear. Eyes: Extraocular Movements: Extraocular movements intact. Pupils: Pupils are equal, round, and reactive to light. Cardiovascular: Rate and Rhythm: Regular rhythm. Tachycardia present. Pulses: Normal pulses. Heart sounds: Normal heart sounds. No murmur heard. Pulmonary: Effort: Pulmonary effort is normal. Tachypnea present. Breath sounds: Normal breath sounds. No wheezing, rhonchi or rales. Chest: Chest wall: Tenderness present. Abdominal: General: There is no distension. Palpations: Abdomen is soft. Tenderness: There is abdominal tenderness (generalized). Musculoskeletal: General: No swelling. Cervical back: Normal range of motion. Right lower leg: No edema. Left lower leg: No edema. Skin: General: Skin is warm and dry. Capillary Refill: Capillary refill takes less than 2 seconds. Findings: No rash. Neurological: General: No focal deficit present. Mental Status: He is alert. Motor: No weakness. DIAGNOSTIC RESULTS Procedures/EKG: EKG was reviewed by myself. Physician EKG interpretation can be found in [facility] RADIOLOGY (Per Emergency Physician): Interpretation per the Radiologist below, if available at the time of this note: XR chest 1 view Final Result 1. Stable examination. No acute findings. Report Dictated on Electronically Signed By: Ottoniel Julian MD Electronically Signed Date/Time: 06/23/2023 11:[address] chest angiogram w and/or wo IV contrast (Results Pending) CT abdomen pelvis w contrast (Results Pending) ED BEDSIDE ULTRASOUND: Performed by ED Physician - none LABS: Labs Reviewed RESPIRATORY PATHOGENS PANEL BY PCR - Abnormal Result Value SARS-CoV-2 Not Detected Adenovirus Not Detected Coronavirus HKU1 Not Detected Coronavirus NL63 Not Detected Coronavirus 229E Not Detected Coronavirus OC43 Not Detected Human Metapneumovirus Not Detected Human Rhinovirus/Enterovirus Not Detected Influenza A Detected (*) Influenza B Not Detected Parainfluenza 1 Not Detected Parainfluenza 2 Not Detected Parainfluenza 3 Not Detected Parainfluenza 4 Not Detected Respiratory Syncytial Virus Not Detected Bordetella pertussis Not Detected Bordetella parapertussis Not Detected Chlamydia pneumoniae Not Detected Mycoplasma pneumoniae Not Detected Narrative: Methodology: Multiplex PCR LACTIC ACID WITH REFLEX - Abnormal LACTIC ACID 4.5 (*) BLOOD GAS, VENOUS - Abnormal pH, Venous 7.398 pCO2, Venous 30.7 (*) pO2, Venous 33.3 HCO3, Venous 18.5 (*) O2 Sat, Venous 61.7 Base Excess, Venous -5.0 (*) Hgb, blood gas 14.8 TCO2, Venous 19.4 (*) Source Of Oxygen Non-rebreather mask Narrative: Interpret with caution, pO2 value falsely increased due to vacuum in tube. For accurate results, please draw on a syringe. COMPREHENSIVE METABOLIC PANEL - Abnormal SODIUM 137 POTASSIUM 3.9 CHLORIDE 95 (*) CARBON DIOXIDE 18 (*) ANION GAP 24 (*) UREA NITROGEN 14 CREATININE 3.11 (*) GLUCOSE 176 (*) CALCIUM 11.8 (*) AST (SGOT) 46 ALT 27 ALKALINE PHOSPHATASE 116 ALBUMIN >6.0 (*) BILIRUBIN, TOTAL 1.0 TOTAL PROTEIN 10.8 (*) eGFR 26.3 (*) Narrative: Slightly Hemolyzed. Interpret K+, ALKP, AST, TP, ALB with caution. CBC WITH AUTO DIFFERENTIAL - Abnormal Auto WBC 14.1 (*) RBC 5.13 Hemoglobin 13.7 Hematocrit 42.7 MCV 83.2 MCH 26.7 MCHC 32.1 RDW 13.2 Platelets 349 MPV 8.5 nRBC 0.0 POCT GLUCOSE METER UNSOLICITED RESULTS - Abnormal Glucose 158 (*) Narrative: Performed by: [facility], [address] [place] [address] CLIA ID: [id number] TROPONIN, WITH SERIAL REFLEX - Normal TROPONIN I <0.012 Narrative: Slightly Hemolyzed. Interpret Troponin I with caution. Patients with high levels of Biotin oral intake (ie >5 mg/day) may have falsely decreased Troponin levels. Slightly Hemolyzed. Interpret Troponin I with caution. MAGNESIUM - Normal MAGNESIUM 2.1 Narrative: Slightly Hemolyzed. Interpret Magnesium with caution. BLOOD CULTURE BLOOD CULTURE URINE CULTURE COMPLETE URINALYSIS WITH REFLEX TO CULTURE Narrative: The following orders were created for panel order Complete Urinalysis with reflex to Culture. Procedure Abnormality Status --------- ------ Complete Urinalysis[[id number]] Please view results for these tests on the individual orders. DRUGS OF ABUSE COMPLETE URINALYSIS COMPLETE URINALYSIS WITH REFLEX TO CULTURE Narrative: The following orders were created for panel order Urinalysis Complete with reflex to Culture. Procedure Abnormality Status --------- ------ Complete Urinalysis[[id number]] Please view results for these tests on the individual orders. COMPLETE URINALYSIS MANUAL DIFFERENTIAL LACTIC ACID WITH REFLEX TROPONIN I TROPONIN I All other labs were within normal range or not returned as of this dictation. EMERGENCY DEPARTMENT COURSE and DIFFERENTIAL DIAGNOSIS/MDM: Vitals: Vitals: 06/23/23 2149 02/[id number]/23220906/23/23 2319 BP: 105/86 121/80 Pulse: (!) 133 106 92 Resp: Temp: 36.6 C (97.9 F) SpO2: 93% 100% Weight: 64.9 kg (143 lb) Height: 1.854 m (6' 1) Labs and Images interpreted in ED course. All labs and imaging have been personally reviewed and interpreted by me. Medical Decision Making Problems Addressed: ZULLY (acute kidney injury) (HCC): complicated acute illness or injury Influenza A: complicated acute illness or injury Amount and/or Complexity of Data Reviewed Labs: ordered. Radiology: ordered. ECG/medicine tests: ordered. Risk Prescription drug management. Decision regarding hospitalization. Summary of External Notes reviewed: Summary of pertinent elements includes: Care everywhere reviewed PDMP reviewed Factors Affecting Care: Past Medical History: Diagnosis Date Allergic Anxiety Asthma Headache Varicella Past Surgical History: Procedure Laterality Date HAND SURGERY 2020 [facility] TESTICLE TORSION REDUCTION (HISTORICAL) about 2020 MDM Ed Montoya 32 y.o. male presents with the following Chief Compliant: Chief Complaint Patient presents with Shortness of Breath Pt c/o SOB and general illness he noticed this AM. SPO2 70% upon EMS arrival, placed on 15L NRB. Pt A&OX4 upon arrival to ED. Pt states he has been dizzy and has had episodes of vertigo w/his ears popping for several days as well. Denies any medical hx/drug/alcohol use. The patient was examined. Shared Decision Making I will have a long discussion with the patient and/or visitors regarding risks/benefits of further testing or admission. They will be made aware of the risks/benefits in this decision and will voice understanding as able. I considered: acute cardiac etiologies to include heart failure, STEMI, NSTEMI, acute PE, pneumothorax, thoracic aortic dissection, pericarditis, tamponade, myocarditis, pericardial effusion, atrial fibrillation, atrial flutter, other arrhthymias, acute respiratory etiologies to include asthma, COPD exacerbation, allergic etiologies, infectious etiologies such as PNA, non-cardiopulmonary causes to include toxidromes, metabolic etiologies such as acidemia or electrolyte derangements, sepsis, neurologic causes (i.e. demyelinating diseases). Our workup consisted of ordering/reviewing: Complete blood count, metabolic panel, troponin, chest x-ray imaging, electrocardiogram, lactate, Mg, respiratory panel, VBG, UA, urine culture, blood culture, CTA chest, CT abdomen pelvis . ED Course as of 06/23/232321 Sat Jun 23, [id number] SOB and tachypnea and tachycardic 2L NS Generalized pain Pleuritic chest pain CTA chest and CT abd pelvis Anastaciao clayton Severe sepsis [MD] ED Course User Index [MD] Jairo Cash DO Diagnoses as of 06/23/232321 ZULLY (acute kidney injury) (HCC) Influenza A Patient provided: Medications sodium chloride 0.9 % bolus 1,000 mL (1,000 mL IntraVENous New Bag 06/23/232205) vancomycin (Vancocin) 1500 mg in NS 250 mL IVPB (compounded premix) (has no administration in time range) piperacillin-tazobactam (Zosyn) IVPB 4.5 g (has no administration in time range) iopamidol (Isovue-370) 76 % injection 75 mL (75 mL IntraVENous Given 06/23/232315) Heart rate improved after fluids. Lab work notable for elevated lactate at 4.5. CBC notable for elevated white blood cell count 14.1. Patient positive for influenza A. Patient signed out with plan to obtain CTs and admit pending those results. Patient provided dose of tamiflu. Patient signed out to Dr. Cash. Social determinants of health: None Specific History obtained from others: None Consults: None PROCEDURES: Unless otherwise noted below, none Procedures Patients symptoms are consistent with sepsis, severe sepsis, or septic shock (If yes use .sepsiscoremeasure): SEP- CORE MEASURE DATA SIRS Criteria Sepsis Criteria Severe Sepsis Criteria Septic Shock Criteria Must meet 2: [] Temperature > 100.4 F (38 C) or < 96.8 F (36 C) [x] HR > 90 [x] RR > 20 [x] WBC > 12 or < 4 or 10% bands Must be confirmed or suspected to move forward with diagnosis of sepsis. [x] Infection Confirmed or Suspected. [] No infection present. Patient does not meet criteria for Sepsis. Must meet 1: [x] Lactate > 2 or [] Signs of Organ Dysfunction: - SBP < 90 or MAP < 65 - Altered mental status - Creatinine > 2 or increased from baseline - Urine Output < 0.5 ml/kg/hr - Bilirubin > 2 - INR > 1.5 - Platelets < 100,000 - Acute Respiratory Failure as evidenced by new need for NIPPV or mechanical ventilation [] No criteria met for Severe Sepsis. Must meet 1: [x] Lactate = or > 4 or [] SBP < 90 or MAP < 65 for at least two readings in the first hour after fluid bolus administration [] No criteria met for Septic Shock. No data found. Recent Labs 06/23/231 WBC 14.1* LACTATE 4.5* CREATININE 3.11* BILITOT 1.0 PLT 349 Sepsis Identified at 2207 hours. Fluid Resuscitation Rational: Due to blood pressure responding to lesser volume, ordered less than 30cc/kg actual body weight. Actual fluid amount given: 2000 mL Infection Source: Unknown Shawn Thornton DO FINAL IMPRESSION 1. ZULLY (acute kidney injury) (HCC) 2. Influenza A DISPOSITION Signed out PATIENT REFERRED TO: No follow-up provider specified. DISCHARGE MEDICATIONS: New Prescriptions No medications on file (Comment: Please note this report has been produced using speech recognition software and may contain errors related to that system including errors in grammar, punctuation, and spelling, as well as words and phrases that may be inappropriate. If there are any questions or concerns please feel free to contact the dictating physician for clarification.) Shawn Thornton DO (electronically signed) Emergency Medicine Physician Shawn Thornton DO Resident 06/23/232328 [employer] Phone: 06-23-2023 Physician Emergency department Note Emergency Department Encounter Location: [facility] EMERGENCY DEPT Patient: Dorian Montoya : 1990 Date of evaluation: 06/23/2023 ED Provider: Jairo Cash DO Time received sign-out: 2319 Dorian Montoya was checked out to me by Dr. Thornton. Please see his/her initial documentation for details of the patient's initial ED presentation, physical exam and completed studies. In brief, Dorian Montoya is a 32 y.o. adult that presented to the emergency department with concern for shortness of breath tachycardia and tachypnea. At times the patient had a CTA of the chest and CT abdomen pelvis pending. I have reviewed and interpreted all of the currently available lab results and diagnostics from this visit: Results for orders placed or performed during the hospital encounter of 06/23/23 Respiratory Pathogens Panel by PCR Specimen: Nasopharynx; Swab Result Value Ref Range SARS-CoV-2 Not Detected Not Detected Adenovirus Not Detected Not Detected Coronavirus HKU1 Not Detected Not Detected Coronavirus NL63 Not Detected Not Detected Coronavirus 229E Not Detected Not Detected Coronavirus OC43 Not Detected Not Detected Human Metapneumovirus Not Detected Not Detected Human Rhinovirus/Enterovirus Not Detected Not Detected Influenza A Detected (A) Not Detected Influenza B Not Detected Not Detected Parainfluenza 1 Not Detected Not Detected Parainfluenza 2 Not Detected Not Detected Parainfluenza 3 Not Detected Not Detected Parainfluenza 4 Not Detected Not Detected Respiratory Syncytial Virus Not Detected Not Detected Bordetella pertussis Not Detected Not Detected Bordetella parapertussis Not Detected Not Detected Chlamydia pneumoniae Not Detected Not Detected Mycoplasma pneumoniae Not Detected Not Detected Troponin, with Serial Reflex Result Value Ref Range TROPONIN I <0.012 <0.034 ng/mL Lactic acid with reflex Result Value Ref Range LACTIC ACID 4.5 (HH) 0.7 - 2.0 mmol/L Blood gas, venous (ACH and [facility]) Result Value Ref Range pH, Venous 7.398 7.330 - 7.430 pCO2, Venous 30.7 (L) 40.0 - 55.0 mm Hg pO2, Venous 33.3 30.0 - 50.0 mm Hg HCO3, Venous 18.5 (L) 23.0 - 27.0 mmol/L O2 Sat, Venous 61.7 60.0 - 80.0 % Base Excess, Venous -5.0 (L) -3.0 - 3.0 mmol/L Hgb, blood gas 14.8 Screen Only g/dl TCO2, Venous 19.4 (L) 24.0 - 28.0 mmol/L Source Of Oxygen Non-rebreather mask Comprehensive metabolic panel Result Value Ref Range SODIUM 137 135 - 145 mmol/L POTASSIUM 3.9 3.5 - 5.1 mmol/L CHLORIDE 95 (L) 98 - 107 mmol/L CARBON DIOXIDE 18 (L) 22 - 30 mmol/L ANION GAP 24 (H) 3 - 13 mmol/L UREA NITROGEN 14 9 - 20 mg/dL CREATININE 3.11 (H) 0.66 - 1.25 mg/dL GLUCOSE 176 (H) 70 - 100 mg/dL CALCIUM 11.8 (H) 8.4 - 10.4 mg/dL AST (SGOT) 46 15 - 46 U/L ALT 27 0 - 49 U/L ALKALINE PHOSPHATASE 116 38 - 126 U/L ALBUMIN >6.0 (H) 3.5 - 5.0 g/dL BILIRUBIN, TOTAL 1.0 0.2 - 1.3 mg/dL TOTAL PROTEIN 10.8 (H) 6.3 - 8.2 g/dL eGFR 26.3 (L) >60.0 mL/min/1.73m*2 CBC auto differential Result Value Ref Range Auto WBC 14.1 (H) 3.6 - 10.7 10*3/uL RBC 5.13 4.40 - 5.90 10*6/uL Hemoglobin 13.7 13.0 - 18.0 g/dL Hematocrit 42.7 40.0 - 52.0 % MCV 83.2 80.0 - 98.0 fL MCH 26.7 26.0 - 34.0 pg MCHC 32.1 32.0 - 36.0 % RDW 13.2 11.5 - 14.5 % Platelets 349 140 - 440 10*3/uL MPV 8.5 7.4 - 12.4 fL nRBC 0.0 0.0 - 2.0 /100 WBCs Magnesium Result Value Ref Range MAGNESIUM 2.1 1.6 - 2.3 mg/dL POCT glucose meter Result Value Ref Range Glucose 158 (H) 70 - 100 mg/dL ECG 12 lead Result Value Ref Range Heart Rate 105 bpm QRSD Interval 96 ms QT Interval 0 ms QTC Interval 0 ms P [place] 79 degrees QRS [place] 20 degrees T Wave [place] 0 degrees MI Interval 128 ms XR chest 1 view Final Result 1. Stable examination. No acute findings. Report Dictated on Electronically Signed By: Ottoniel Julian MD Electronically Signed Date/Time: 06/23/2023 11:[address] chest angiogram w and/or wo IV contrast (Results Pending) CT abdomen pelvis w contrast (Results Pending) Final ED Course and MDM: In brief, Dorian Montoya is a 32 y.o. whose care was signed out to me by the outgoing provider. In brief, patient is here for multiple complaints, chest pain, shortness of breath, tachypnea. Patient also was having generalized pain and pleuritic chest pain. Patient's laboratory findings concerning for new ZULLY with a creatinine of 3.11. Patient also has influenza A. Patient also has a elevated lactic acid. Patient CT abdomen pelvis and CT a of the chest did not reveal any acute findings. Patient was ultimately admitted to the services of Dr. Greene with [facility] hospitalist group. Patient was stable at time admission. Medications sodium chloride 0.9 % bolus 1,000 mL (1,000 mL IntraVENous New Bag 06/23/23 2206) vancomycin (Vancocin) 1500 mg in NS 250 mL IVPB (compounded premix) (has no administration in time range) piperacillin-tazobactam (Zosyn) IVPB 4.5 g (has no administration in time range) iopamidol (Isovue-370) 76 % injection 75 mL (75 mL IntraVENous Given 06/23/23 0586) Final Impression 1. ZULLY (acute kidney injury) (HCC) 2. Influenza A DISPOSITION Admit 06/23/2023 11:20:21 PM (Please note that portions of this note may have been completed with a voice recognition program. Efforts were made to edit the dictations but occasionally words are mis-transcribed.) Jairo Cash DO PGY-3, Emergency Medicine Jairo Cash DO Resident 06/24/23 0039 [facility] 06-23-2023 Physician Emergency department Note Emergency Department Encounter [facility] EMERGENCY DEPT Patient: Dorian Montoya : 1990 Date of Evaluation: 06/23/2023 ED Supervising Physician: Bebe Cheung MD I personally evaluated Dorian Montoya and made/approved the management plan and take responsibility for the patient management. This will serve as my Supervisory note and shared attestation. I did perform a substantive portion of the visit including all aspects of the Medical Decision Making. I wore appropriate PPE for the entirety of this encounter. In brief, Dorian Montoya is a 32 y.o. that presents to the emergency department for respiratory distress. Per EMS report they went over to his home because he was having a lot of shortness of breath and they found that he was satting in the 70s on room air. Placed on 15 L nonrebreather. Patient states that his symptoms all started today. States that he is having shortness of breath, feeling generally ill and unwell. Has had some nausea and decreased p.o. intake. Has been vomiting and unable to keep any food or fluids down. Endorses some chest pain with deep breathing as well as abdominal pain. No urinary complaints. No constipation or diarrhea. Focused exam: Ill-appearing toxic appearing male in acute respiratory distress. Vital signs reviewed and notable for tachycardia and tachypnea. Lungs are clear to auscultation bilaterally but patient is tachypneic. Speaking in about 3-4 word sentences. Abdomen is soft with generalized tenderness with no rebound or guarding. No lower extremity edema. Extremities are cold to the touch. Patient appears pale and dry with dry mucous membranes as well as positive skin tenting. Brief ED course/MDM: 32-year-old male present emergency room today for respiratory distress. Tachycardic and tachypneic on arrival. On a nonrebreather on arrival from EMS. Has increased work of breathing. He is ill-appearing. He is pale and cachectic. Does not follow with any PCP. His lungs are clear on auscultation so I do not think that he requires CPAP or BiPAP. Bedside ultrasound was done and he has bilateral lung sliding but no B-lines and only that he is fluid overloaded. I am wondering if this is more secondary to a pneumonia versus viral infection or PE. He has poor cardiac views on ultrasound so cannot really evaluate for pericardial effusion or EF or Field sign. Given how pale he is a still concern for may be an acute anemia. He states that every once in a while have bloody bowel movements or cough up blood. This has not happened anytime recently. Differential here is broad. Broad workup was started including labs, IV fluid hydration and CTA of his chest to rule out PE and CT scan of his abdomen pelvis for intra-abdominal pathologies. We will continue to fluid resuscitate him. I did a bedside ultrasound of his IVC and it is completely collapsible so I do think he is very fluid down. Given that he is tachycardic and tachypneic there is also concern for sepsis he was given broad-spectrum antibiotics. I reviewed his results and he has a lactic acidosis to 4.5. He is an ZULLY with a creatinine of 3 Where his baseline is 1. He did test positive for influenza A which could be the cause of his symptoms. Given his lactic elevation as well as his leukocytosis and tachycardia there is concern for severe sepsis since he does have also endorgan damage with his kidneys. He was given a dose of Tamiflu here in the emergency department. Blood pressures have been stable here in the emergency department. CTA was done and does not show any acute PE. CT scan abdomen pelvis does not show any acute findings either. I did review the chest x-ray and I do not see any acute findings. Patient will be admitted for influenza and sepsis. Admitted in stable condition. SEP- CORE MEASURE DATA SIRS Criteria Sepsis Criteria Severe Sepsis Criteria Septic Shock Criteria Must meet 2: [] Temperature > 100.4 F (38 C) or < 96.8 F (36 C) [x] HR > 90 [x] RR > 20 [x] WBC > 12 or < 4 or 10% bands Must be confirmed or suspected to move forward with diagnosis of sepsis. [x] Infection Confirmed or Suspected. [] No infection present. Patient does not meet criteria for Sepsis. Must meet 1: [x] Lactate > 2 or [x] Signs of Organ Dysfunction: - SBP < 90 or MAP < 65 - Altered mental status - Creatinine > 2 or increased from baseline - Urine Output < 0.5 ml/kg/hr - Bilirubin > 2 - INR > 1.5 - Platelets < 100,000 - Acute Respiratory Failure as evidenced by new need for NIPPV or mechanical ventilation [] No criteria met for Severe Sepsis. Must meet 1: [x] Lactate = or > 4 or [] SBP < 90 or MAP < 65 for at least two readings in the first hour after fluid bolus administration [] No criteria met for Septic Shock. Patient Vitals from 06/23/23 2301 to 06/24/23 0000 BP Pulse Resp SpO2 Height Weight 06/23/23 2319 -- -- -- -- 1.854 m (6' 1) 64.9 kg (143 lb) 06/23/23 2344 (!) 127/92 86 21 100 % -- -- Recent Labs 02/10/24 2201 WBC 14.1* LACTATE 4.5* CREATININE 3.11* BILITOT 1.0 PLT 349 Sepsis Identified at 2201 hours. Fluid Resuscitation Rational: at least 30mL/kg based on entered actual body weight at time of triage Infection Source: Unknown Reassessment Exam: SEPSIS REASSESSMENT I examined the patient 06/24/2023 12:53 AM Vital Signs:BP (!) 127/92 Pulse 86 Temp 36.6 C (97.9 F) Resp 21 Ht 1.854 m (6' 1) Wt 64.9 kg (143 lb) SpO2 100% BMI 18.87 kg/m Cardiac examination significant for: Regular rate and rhythm Pulmonary examination significant for: Clear lung amador Capillary refill is: 3 seconds Peripheral Pulse is: 2+ Skin is: Normal CRITICAL CARE TIME Total Critical Care time was 45 minutes, excluding separately reportable procedures. There was a high probability of clinically significant/life threatening deterioration in the patient's condition which required my urgent intervention. Bebe Cheung MD Diagnostics interpreted by me: labs, chest x-ray I personally discussed the patient's management with other clinicians: All diagnostic, treatment, and disposition decisions were made by myself in conjunction with the Resident. I also supervised meza portions of any procedures performed by the Resident. For all further details of the patient's emergency department visit, please see their documentation. (Comment: Please note this report has been produced using speech recognition software and may contain errors related to that system including errors in grammar, punctuation, and spelling, as well as words and phrases that may be inappropriate. If there are any questions or concerns please feel free to contact the dictating provider for clarification.) Bebe Cheung MD [employer] Bebe Cheung MD 06/24/23 0053 [employer] Phone: 06-06-2023 History of Present illness Narrative Images from the original note were not included. [facility] [address] [facility] [address] Dept: [phone] Dept Visit type: Established patient Reason for Visit: New to Provider and follow up appt on Proctitis, Asthma, Tobacco Abuse Assessment and Plan 1. Shortness of breath 2. Mild intermittent asthma without complication - albuterol (ProAir HFA) 108 (90 Base) MCG/ACT inhaler; Inhale 2 puffs every 4 hours as needed for wheezing or shortness of breath., Starting Sun06/06/2023, Until Jessica 06/05/2024 at 2359, Normal Chronic, uncontrolled but has not had albuterol. We will refill this and monitor, may require considering controller. He will continue to work on quitting smoking 3. Right-sided chest pain - cyclobenzaprine (Flexeril) 10 MG tablet; Take 1 tablet (10 mg) by mouth 3 times daily as needed for muscle spasms., Starting Sun06/06/2023, Until 08/05/2023 at 2359, Normal 4. Trapezius muscle spasm - cyclobenzaprine (Flexeril) 10 MG tablet; Take 1 tablet (10 mg) by mouth 3 times daily as needed for muscle spasms., Starting Sun06/06/2023, Until 08/05/2023 at 2359, Normal 3-4 acute, uncomplicated. Exam is consistent with musclar dysfunction. 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 His lungs are clear and the pain is reproducible . We discussed gentle stretching. If no improvement recommend PT. 5. Nausea - ondansetron (Zofran) 4 MG tablet; Take 1 tablet (4 mg) by mouth every 8 hours as needed for nausea or vomiting for up to 7 days., Starting Sun06/06/2023, Until Sun06/13/2023 at 2359, Normal 6. 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 Nausea for symptoms until he is able to have his scopes in September Follow up in about 3 months (around 09/05/2023) for follow up chest pain, asthma with DIRECTOR CASE. Subjective HPI Asthma - chest pain on right side on / off this week - was having difficulty with breathing, had EMS come evaluate. They said vital signs were ok. Was also associated with headache and dizziness with standing. - he describes it as stabbing pain in lungs. - he was not sick and does not have sick contacts that he knows of . - he has asthma since childhood. He was previously on flovent as well. He was taken off when they thought he outgrew. Tobacco - smokes cigarettes once in a [place], he is vaping. Proctitis - he is scheduled for his procedures in September. - having a lot of nausea with flares up so would like something for that til he is evaluated Review of Systems Constitutional: Negative for activity change, chills, diaphoresis, fatigue and fever. Respiratory: Positive for chest tightness and shortness of breath. Cardiovascular: Positive for chest pain. Negative for palpitations and leg swelling. Gastrointestinal: Positive for abdominal pain. Neurological: Positive for light-headedness (episode the other day) and headaches (episode the other day). Negative for syncope. Allergies Allergen Reactions Apple Hives and Shortness of breath Bee Venom Anaphylaxis Red Dye Other major nosebleeds Current Outpatient Medications Medication Sig Dispense Refill acetaminophen (Tylenol) 325 MG tablet Take 650 mg by mouth every 4 hours as needed. albuterol (ProAir HFA) 108 (90 Base) MCG/ACT inhaler Inhale 2 puffs every 4 hours as needed for wheezing or shortness of breath. 8.5 g 0 cyclobenzaprine (Flexeril) 10 MG tablet Take 1 tablet (10 mg) by mouth 3 times daily as needed for muscle spasms. 30 tablet 0 ondansetron (Zofran) 4 MG tablet Take 1 tablet (4 mg) by mouth every 8 hours as needed for nausea or vomiting for up to 7 days. 30 tablet 1 No current facility-administered medications for this visit. Past Medical History: Diagnosis Date Allergic Anxiety Asthma Headache Varicella Social History Tobacco Use Smoking status: Former Packs/day: 0.50 Years: 3.00 Additional pack years: 0.00 Total pack years: 1.50 Types: Cigarettes Start date: 05/14/2019 Quit date: 02/03/2023 Years since quittin.3 Smokeless tobacco: Current Types: Chew Last attempt to quit: 05/14/2019 Substance Use Topics Alcohol use: Yes Comment: occ Past Surgical History: Procedure Laterality Date HAND SURGERY 2020 [facility] TESTICLE TORSION REDUCTION (HISTORICAL) about 2020 Family History Problem Relation Name Age of Onset Diverticulitis Mother Crohn's disease Mother ANTONELLA disease Mother Heart Surgery Father Alex Heart attack Father Alex COPD Father Alex Arthritis Father Alex Asthma Father Alex Lung cancer Mother's Sister Throat cancer Mother's Brother Teodoro Cancer Mother's Brother Teodoro Breast cancer Father's Sister Toenet Lung cancer Father's Sister [place] Objective BP 103/64 (BP Location: Right arm, Patient Position: Sitting, BP Cuff Size: Small adult) Pulse 64 Temp 36.7 C (98.1 F) (Infrared) Ht 6' 1 (1.854 m) Wt 143 lb (64.9 kg) SpO2 99% BMI 18.87 kg/m Physical Exam Constitutional: General: He is not in acute distress. Appearance: Normal appearance. He is not ill-appearing. HENT: Head: Normocephalic and atraumatic. Cardiovascular: Rate and Rhythm: Normal rate and regular rhythm. Pulses: Normal pulses. Heart sounds: Normal heart sounds. No murmur heard. No friction rub. No gallop. Pulmonary: Effort: Pulmonary effort is normal. No respiratory distress. Breath sounds: Normal breath sounds. No wheezing or rales. Chest: Chest wall: Tenderness (through right side) present. Abdominal: General: Bowel sounds are normal. There is no distension. Palpations: Abdomen is soft. Tenderness: There is abdominal tenderness (lower quadrants). Musculoskeletal: Comments: Significant asymmetry of right shoulder (higher) than left. Right shoulder blade more protuberant than left. Significant spasm of right trapezius and rhomboids Neurological: Mental Status: He is alert. Gait: Gait normal. Data Reviewed and Summarized Labs: Imaging/Testing: Александр Novak MD documented in this encounter [facility] 04-25-2023 Emergency department Note RN went over discharge instructions with the patient, Patient was able to reinstruct RN with discharge care. Patient denies any questions. Pt voices understanding to go to the pharmacy listed on discharge paperwork to [facility] picker prescriptions listed on paperwork. Pt verbalizes understanding to take as prescribed and if has any questions to speak with pharmacist prior to leaving pharmacy.Patient is A&Ox3 at time of discharge. Patient denied needing use of wheelchair to ED waiting room. RN directed patient towards exit upon being discharged, Patient had steady gait upon leaving unit. Aparna Kaiser RN 04/25/23 0890 [facility] 04-25-2023 Emergency department Note RN went over discharge instructions with the patient, Patient was able to reinstruct RN with discharge care. Patient denies any questions. Pt voices understanding to go to the pharmacy listed on discharge paperwork to clam picker prescriptions listed on paperwork. Pt verbalizes understanding to take as prescribed and if has any questions to speak with pharmacist prior to leaving pharmacy.Patient is A&Ox3 at time of discharge. Patient denied needing use of wheelchair to ED waiting room. RN directed patient towards exit upon being discharged, Patient had steady gait upon leaving unit. Aparna Kaiser RN 04/25/2316 Parker Cheung MD to discharge patient with heart rate. Aparna Kaiser RN 04/25/23 0816 Pt denies any symptoms with bradycardia. MD Skye notified. Aparna Kaiser RN 04/25/23 0815 documented in this encounter [facility] 04-25-2023 Emergency department Note Parker Cheung MD to discharge patient with heart rate. Aparna Kaiser RN 04/25/23 0816 [facility] 04-25-2023 Emergency department Note Pt denies any symptoms with bradycardia. MD Skye notified. Aparna Kaiser RN 04/25/23 0815 [facility] 04-10-2023 History of Present illness Narrative Images from the original note were not included. [facility] [address] [facility] [address] Dept: [phone] Dept Loc: [phone] Visit type: New patient Reason for Visit: New Patient, Proctitis, Rectal Bleeding, Vomiting (Light brown color), and Abdominal Pain Assessment and Plan Diagnosis Plan 1. Generalized abdominal pain polyethylene glycol (GaviLyte-G) 236 g solution 2. Decreased appetite 3. Nausea and vomiting 4. Rectal bleeding polyethylene glycol (GaviLyte-G) 236 g solution 5. Proctitis [facility] polyethylene glycol (GaviLyte-G) 236 g solution 6. Family history of Crohn's disease -EGD and colonoscopy for further evaluation of symptoms r/o IBD; ? proctitis on recent CT, family hx of Crohn's in mother -Follow up in GI office after procedures for further recommendations Advised patient to call office with new or worsening symptoms, questions, or concerns. Patient verbalized understanding and agreement of plan. Subjective Dorian Montoya is a 32 year old male who presents to the office for proctitis under the consultation of Alem Peng APRN - KI[facility]. HPI Patient endorses symptoms of generalized abdominal pain (squeezing), intermittent bright red rectal bleeding on TP when wiping and in toilet water, N/V, and decreased appetite for years. States that he has not completed further work up as he was scared of the outcome. Began to worsen Jan 2023. Evaluated in the ED at that time. CT 01/2023 noting ? rectal wall thickening/proctitis. Mother has hx of Crohn's. Denies eye pain, new skin rashes or itching. States that he has soft stool daily. No diarrhea. No unintentional weight loss. Will evaluate further with EGD and colonoscopy at this time and proceed with IBD workup. Will consider further lab testing, stool testing, and MRE if warranted in the future. ETOH: occ Tobacco: vaping daily Recreational drug use: marijuana daily Anticoagulants: no Aspirin/NSAID use: no Last EGD: no Last Colonoscopy: no Personal history of colon polyps: no Family history of colon cancer: no Prior abdominal surgeries: no Review of Systems Constitutional: Positive for appetite change (decreased appetite). Negative for activity change, chills, fever and unexpected weight change. HENT: Negative for sore throat, trouble swallowing and voice change. Eyes: Negative for pain. Respiratory: Negative for cough, choking and shortness of breath. Cardiovascular: Negative for chest pain. Gastrointestinal: Positive for abdominal pain (generalized), anal bleeding, nausea and vomiting. Negative for abdominal distention, blood in stool, constipation, diarrhea and rectal pain. No heartburn Genitourinary: Negative for difficulty urinating. Musculoskeletal: Positive for arthralgias, back pain and myalgias. Skin: Negative for pallor and rash. Neurological: Positive for headaches. Negative for dizziness and light-headedness. Hematological: Does not bruise/bleed easily. Psychiatric/Behavioral: Positive for sleep disturbance (abd pain). Negative for confusion. Allergies Allergen Reactions Apple Hives and Shortness of breath Red Dye Other major nosebleeds Outpatient Medications Prior to Visit Medication Sig Dispense Refill acetaminophen (Tylenol) 325 MG tablet Take 650 mg by mouth every 4 hours as needed. albuterol (ProAir HFA) 108 (90 Base) MCG/ACT inhaler Inhale 2 puffs every 4 hours as needed for wheezing or shortness of breath. 8.5 g 0 No facility-administered medications prior to visit. Patient Active Problem List Diagnosis Date Noted Nicotine use disorder 03/24/2022 Priority: Medium Incidental lung nodule 03/23/2022 Priority: Medium Lower abdominal pain 06/21/2021 Priority: Medium Social History Tobacco Use Smoking status: Former Packs/day: .5 Types: Cigarettes Start date: 2019 Quit date: 02/03/2023 Years since quittin.1 Smokeless tobacco: Former Types: Chew Quit date: 2019 Substance Use Topics Alcohol use: Yes Comment: occ Family History Problem Relation Name Age of Onset Diverticulitis Mother Crohn's disease Mother ANTONELLA disease Mother Heart Surgery Father Heart attack Father COPD Father Lung cancer Mother's Sister Throat cancer Mother's Brother Breast cancer Father's Sister Lung cancer Father's Sister Objective BP (!) 123/90 Pulse 78 Temp 37.7 C (99.9 F) Ht 6' 1 (1.854 m) Wt 141 lb (64 kg) SpO2 100% BMI 18.60 kg/m Physical Exam Vitals reviewed. Constitutional: General: He is not in acute distress. Appearance: Normal appearance. He is not ill-appearing. HENT: Head: Normocephalic. Nose: Nose normal. Mouth/Throat: Mouth: Mucous membranes are moist. Eyes: General: No scleral icterus. Cardiovascular: Rate and Rhythm: Normal rate. Pulses: Normal pulses. Heart sounds: Normal heart sounds. Pulmonary: Effort: Pulmonary effort is normal. No respiratory distress. Abdominal: General: Bowel sounds are normal. There is no distension. Tenderness: There is no abdominal tenderness. There is no guarding. Musculoskeletal: General: No swelling. Cervical back: Normal range of motion. Skin: Coloration: Skin is not jaundiced. Neurological: General: No focal deficit present. Mental Status: He is alert and oriented to person, place, and time. Psychiatric: Mood and Affect: Mood normal. Behavior: Behavior normal. Thought Content: Thought content normal. Judgment: Judgment normal. Data Reviewed and Summarized Labs: Lab Results Component Value Date WBC 10.8 02/20/2023 HGB 12.5 (L) 02/20/2023 HCT 37.5 (L) 02/20/2023 MCV 83.9 02/20/2023 PLT 335 02/20/2023 Lab Results Component Value Date GLUCOSE 96 01/25/2023 CALCIUM 9.0 01/25/2023 NA 141 01/25/2023 K 4.6 01/25/2023 CO2 27 01/25/2023 CL 107 01/25/2023 BUN 15 01/25/2023 CREATININE 1.14 01/25/2023 Lab Results Component Value Date CALCIUM 9.0 01/25/2023 No results found for: HAV, HEPAIGM, HEPBIGM, HEPBCAB, HBEAG, HEPCAB No results found for: INR, PROTIME Lab Results Component Value Date ALT 31 01/25/2023 AST 41 01/25/2023 ALKPHOS 85 01/25/2023 BILITOT 0.5 01/25/2023 Occult blood x 1, stool Order: [id number] Collected 01/25/2023 13:59 Status: Final result Visible to patient: Yes (seen) Specimen Information: Per Rectum; Stool 0 Result Notes Component Ref Range & Units Fecal occult blood Negative Negative Resulting Agency [facility] Narrative Performed by: [facility] Methodology: Immunoassay Specimen Collected: 01/25/23 13:59 Last Resulted: 01/25/23 14:29 Imaging/Testing: Exam Date/Time: 01/25/2023 13:07 Procedure: CT ABDOMEN PELVIS W CONTRAST Ordering Provider: SO BETHANY Reason For Exam: LLQ abdominal pain CT ABDOMEN AND PELVIS WITH IV CONTRAST CLINICAL HISTORY: Left lower quadrant abdominal pain. Lower abdominal pain and bloody stool for three days. TECHNIQUE: CT of the abdomen and pelvis was performed with IV contrast using standard technique. Dose reduction was employed with automated exposure control. Contrast: IV: 75 ml of Isovue-370 COMPARISON: Concurrent chest CT 01/25/2023 RESULT: Liver: No mass. Biliary: No bile duct dilation. Gallbladder is nondilated. Spleen: No mass. No splenomegaly. Pancreas: No mass or duct dilation. Adrenals:No mass. Kidneys: No obstructing calculus or hydronephrosis. GI tract: No dilated loops of bowel. Bowel is collapsed, degrading assessment. There may be rectal wall thickening though this may be confounded by underdistention. Questionable mild increase in vascular engorgement. Trace pelvic edema is present, nonspecific. Lymph nodes: No abdominal lymphadenopathy. Mesentery/Peritoneum: No ascites or mass. Retroperitoneum: No mass. Vasculature: The celiac axis and SMA are patent. The portal vein and branches, splenic vein, and SMV are patent. No abdominal aortic or iliac artery aneurysm. Pelvis: No mass or fluid collection. Bones/Soft Tissues: No significant finding. Lower thorax: Imaged lung bases are clear. Please see separate chest CT for additional details. IMPRESSION: There appears to be circumferential thickening of the rectum though this may be confounded by underdistention. Questionable vascular engorgement and mild edema in the pelvis. Findings are nonspecific though could raise possibility of proctitis, perhaps infectious/inflammatory. Consider GI consult and correlate with direct visualization as clinically warranted. Remainder of the abdomen and pelvis is otherwise unremarkable. Prior EGD/Colonoscopy: Ann Bruce APRN - CNP 04/10/23 3:19 PM documented in this encounter [facility] 04-10-2023 Instructions Lexis Pierce MA - 04/10/2023 2:30 PM EST -EGD and colonoscopy to be completed; prep called in We will call the patient to schedule when there are openings in endoscopy dept. Pt is aware. -Follow up in GI office after procedures for further recommendations -Call office with new or worsening symptoms, questions, or concerns [phone] The following attachments cannot be sent through Care Everywhere.Upper GI Endoscopy ([place])Colonoscopy ([place])documented in this encounter [facility] 04-09-2023 Telephone encounter Note Called pt to confirm his appt and to see if he is able to come in @ 2:30 pm, pt did not answer and unable to LM since his vm box was full. Called pt a second time to confirm his appt and to see if he is able to come in @ 2:30 pm, pt verified he will be at his appt tomorrow and stated 2:30 pm works for him. [facility] 04-09-2023 Miscellaneous Notes Called pt to confirm his appt and to see if he is able to come in @ 2:30 pm, pt did not answer and unable to LM since his vm box was full. Called pt a second time to confirm his appt and to see if he is able to come in @ 2:30 pm, pt verified he will be at his appt tomorrow and stated 2:30 pm works for him. documented in this encounter [facility] 02-01-2023 History of Present illness Narrative Images from the original note were not included. [facility] [place] [address] [facility] [id number] Dept: [phone] Dept Patient Dorian Montoya 32 y.o. male, presents today with Chief Complaint Patient presents with New Patient Stomach pain, blood in stool Establish Care HPI- Dorian Montoya presents today to establish care. Previous PCP: he is not sure, he does not follow up with other specialists. Abd Pain/Rectal Bleeding Was seen in ED 01/25 for symptoms hematochezia, abdominal pain, nausea, and vomiting [id number]. Work up included CBC, troponin, CMP, lipase, fecal occult blood, CXR, EKG, CT chest and CTAP. Work up showed anemia with H&H 11.1/34.2, was otherwise unremarkable. Imaging was significant for possible proctitis Pt was offererd admission and GI consult, however he believed he was seeing GI today and declined He was started on zofran and augmentin and discharged home Today States he continue to have nausea and abd pain States symptoms had gradual onset, have been worsening Continues to have nausea, no vomiting Abd Pain located in lower abdomen, worse in LLQ, sharp pain States he is noticing a small amt of bright red blood in stool occasionally BM's are often soft to mushy in consistency, dark to light colored, denies black or coffee ground stools Does admit to some thick tarry stools No fevers, chills, night sweats, he is underweight and states his weight does fluctuate, 04/02/22 150# States his mother who is had hx of Crohn's disease Denies concern for STI's, he is sexually active with women, in a monogamous relationship currently He uses cannabis daily Of note, Incidentally lung nodule was noted on CXR and then CT chest, no further follow up is recommended for this. Nicotine Dependence: Ongoing, 1/5ppd smoker for about 3 years. Use smokeless prior to cigarettes. He is not ready to quit at this time Asthma: States he was diagnosed with asthma as a child. He will occasionally have symptoms, SOB, wheezing. Worse with activity. He does not have an albuterol inhaler Diet: Overall Unhealthy, very picky, likes pizza, chicken nuggets. Exercise: No regular exercise routine, very active at work Dentist: Over one year ago, encouraged to schedule Vision: About 3 years ago, is supposed to wear glasses, encouraged to schedule Health Maintenance: HIV/HepC ordered today, declines all vaccinations/immunizations today See ROS for additional information. History reviewed. No pertinent past medical history. Past Surgical History: Procedure Laterality Date HAND SURGERY 2020 TESTICLE TORSION REDUCTION (HISTORICAL) about 2020 Family History Problem Relation Name Age of Onset Diverticulitis Mother Crohn's disease Mother ANTONELLA disease Mother Heart Surgery Father Heart attack Father COPD Father Lung cancer Mother's Sister Throat cancer Mother's Brother Breast cancer Father's Sister Lung cancer Father's Sister Social History Socioeconomic History Marital status: Spouse name: Not on file Number of children: Not on file Years of education: Not on file Highest education level: Not on file Occupational History Not on file Tobacco Use Smoking status: Every Day Packs/day: 0.50 Types: Cigarettes Start date: 2019 Smokeless tobacco: Former Types: Chew Quit date: 2019 Substance and Sexual Activity Alcohol use: Yes Comment: occ Drug use: Yes Types: Marijuana Comment: Daily Sexual activity: Not on file Other Topics Concern Not on file Social History Narrative Not on file Social Determinants of Health Financial Resource Strain: Not on file Food Insecurity: Not on file Transportation Needs: Not on file Physical Activity: Not on file Stress: Not on file Social Connections: Not on file Intimate Partner Violence: Not on file Housing Stability: Not on file Health Maintenance Topic Date Due Hepatitis B Vaccines (1 of 3 - 3-dose series) Never done Lipid Panel Never done HIV Screening Never done COVID-19 Vaccine (1) Never done Pneumococcal Vaccine: Pediatrics (0 to 5 Years) and At-Risk Patients (6 to 64 Years) (1 - PCV) Never done Hepatitis C Screening Never done MMR Vaccines (1 of 1 - Standard series) Never done Varicella Vaccines (1 of 2 - 2-dose childhood series) Never done Influenza Vaccine (1) 01/12/2023 Depression Screening 02/01/2024 DTaP/Tdap/Td Vaccines (4 - Td or Tdap) 03/27/2031 Zoster Vaccines (1 of 2) 2040 HIB Vaccines Aged Out IPV Vaccines Aged Out Hepatitis A Vaccines Aged Out Meningococcal Vaccine Aged Out Rotavirus Vaccines Aged Out HPV Vaccines Aged Out Allergies Allergen Reactions Apple Hives and Shortness of breath Red Dye Other major nosebleeds Review of Systems Constitutional: Positive for unexpected weight change (loss). Negative for chills, fatigue and fever. HENT: Negative for congestion, hearing loss, sore throat, trouble swallowing and voice change. Eyes: Negative for pain and visual disturbance. Respiratory: Positive for shortness of breath. Negative for cough, chest tightness and wheezing. Cardiovascular: Negative for chest pain, palpitations and leg swelling. Gastrointestinal: Positive for abdominal pain, blood in stool, diarrhea and nausea. Negative for constipation and vomiting. Endocrine: Negative for polydipsia, polyphagia and polyuria. Genitourinary: Negative for difficulty urinating and hematuria. Musculoskeletal: Negative for arthralgias, gait problem, joint swelling and myalgias. Skin: Negative for color change, rash and wound. Allergic/Immunologic: Negative for immunocompromised state. Neurological: Negative for dizziness, syncope, weakness, light-headedness and headaches. Psychiatric/Behavioral: Negative for dysphoric mood. The patient is not nervous/anxious. BP 113/80 (BP Location: Left arm, Patient Position: Sitting, BP Cuff Size: Adult) Pulse 73 Temp 36.7 C (98 F) (Infrared) Ht 6' 1 (1.854 m) Wt 138 lb (62.6 kg) SpO2 98% BMI 18.21 kg/m Physical Exam Vitals reviewed. Constitutional: General: He is not in acute distress. Appearance: Normal appearance. He is not ill-appearing. Comments: Thin HENT: Head: Normocephalic. Right Ear: Tympanic membrane, ear canal and external ear normal. Left Ear: Tympanic membrane, ear canal and external ear normal. Nose: Nose normal. Mouth/Throat: Mouth: Mucous membranes are moist. Pharynx: Oropharynx is clear. Eyes: Extraocular Movements: Extraocular movements intact. Conjunctiva/sclera: Conjunctivae normal. Pupils: Pupils are equal, round, and reactive to light. Neck: Thyroid: No thyromegaly or thyroid tenderness. Cardiovascular: Rate and Rhythm: Normal rate and regular rhythm. Pulses: Normal pulses. Heart sounds: Normal heart sounds. Pulmonary: Effort: Pulmonary effort is normal. Breath sounds: Normal breath sounds. Abdominal: General: Abdomen is flat. Palpations: Abdomen is soft. There is no mass. Tenderness: There is generalized abdominal tenderness and tenderness in the right lower quadrant and left lower quadrant. There is no guarding. Negative signs include Kamara's sign and McBurney's sign. Comments: Most tender to palpation LLQ Musculoskeletal: Cervical back: Normal range of motion and neck supple. No tenderness. Right lower leg: No edema. Left lower leg: No edema. Lymphadenopathy: Cervical: No cervical adenopathy. Skin: General: Skin is warm and dry. Capillary Refill: Capillary refill takes less than 2 seconds. Neurological: General: No focal deficit present. Mental Status: He is alert and oriented to person, place, and time. Psychiatric: Mood and Affect: Mood normal. Behavior: Behavior normal. Assessment & Plan: 1. Encounter to establish care Welcomed to [facility] 2. Annual physical exam - Encouraged healthy diet, limit processed and fatty/fried foods. Increase vegetable and fruit intake with goal of 5+ servings/day, lean meats and legumes - Encouraged regular physical activity with goal of 150min/week of mod intensity exercise - Return for scheduled appts - Schedule dental and vision appts 3. Proctitis - Acute, continue antibiotics as prescribed until completion, can take zofran PRN for nausea/vomiting refill sent today - discussed bland, liquid diet for the next 3-5 days to see if helps with symptoms - Urgent referral placed to GI, concern for IBD, crohn's vs ulcerative colitis - Discussed signs and symptoms that would require immediate care in the ED - Follow up for new or worsening symtpoms - [facility] Gastroenterology; Future 4. Anemia, unspecified type - CBC; Future - Iron and TIBC; Future - Ferritin; Future 5. Mild intermittent asthma without complication - albuterol (ProAir HFA) 108 (90 Base) MCG/ACT inhaler; Inhale 2 puffs every 4 hours as needed for wheezing or shortness of breath. Dispense: 8.5 g; Refill: 0 6. Nicotine use disorder - Chronic, not ready to quit smoking at this time, encouraged cessation 7. Encounter for hepatitis C screening test for low risk patient - Hepatitis C antibody; Future 8. Screening for HIV (human immunodeficiency virus) - HIV-1 and HIV-2 Antigen-Antibody Screen; Future Follow up in about 3 months (around 05/03/2023) for follow up on chronic condition. Outpatient Encounter Medications as of 02/01/2023 Medication Sig Dispense Refill acetaminophen (Tylenol) 325 MG tablet Take 650 mg by mouth every 4 hours as needed. amoxicillin-clavulanate (Augmentin) 875-125 MG tablet Take 1 tablet by mouth in the morning and 1 tablet in the evening. Do all this for 7 days. 14 tablet 0 [DISCONTINUED] ondansetron (Zofran) 4 MG tablet Take 1 tablet (4 mg) by mouth in the morning and 1 tablet (4 mg) at noon and 1 tablet (4 mg) in the evening and 1 tablet (4 mg) before bedtime. Do all this for 3 days. 12 tablet 0 ondansetron (Zofran) 4 MG tablet Take 1 tablet (4 mg) by mouth in the morning and 1 tablet (4 mg) at noon and 1 tablet (4 mg) in the evening and 1 tablet (4 mg) before bedtime. Do all this for 3 days. 12 tablet 0 No facility-administered encounter medications on file as of 02/01/2023. documented in this encounter [facility] 02-01-2023 Miscellaneous Notes Addended by: ALEM CRENSHAW on: 02/01/2023 11:26 AM Modules accepted: Orders documented in this encounter [facility] 02-01-2023 Note Addended by: ALEM TRIPLETT on: 02/01/2023 11:26 AM Modules accepted: Orders [facility] 02-01-2023 Note Addended by: ALEM TRIPLETT on: 02/01/2023 11:26 AM Modules accepted: Orders [facility] 01-25-2023 Hospital Discharge instructions Omi Serna MD - 01/25/2023 3:22 PM EDT Please return to ED if you develop dizziness or lightheadedness. 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 I wore appropriate PPE for the entirety of this encounter. Brief HPI: In brief, Dorian Montoya is a 32 y.o. male that presents with complaints of lower abdominal pain and bloody stool for the past 3 days. He complains of frequent episodes of nausea, diarrhea, weakness, and SOB. He has had no episodes of vomiting and denies any fever. He states that his abdominal pain comes and goes and his stool has varied in color and consistency the past few days. He states that he had diverticulitis a few years ago but was not given any medication for this and was told to closely observe his symptoms. He denies any other abdominal issues or recent abdominal surgeries. Denies taking iron, pepto bismol or eating dark colored foods. Focused Physical exam: GENERAL: The patient appears well developed and well nourished, in no apparent distress. Vital signs as documented. EYES: PERRLA. EOMI. Conjunctiva clear bilaterally. No scleral icterus noted. HEENT: Head exam is unremarkable. Mucous membranes moist. Tolerates saliva. Neck supple and with normal range of motion. LUNGS: Lungs are clear to auscultation, without any respiratory distress. No hypoxia. No wheezing, rales or rhonchi. Non labored breathing. CARDIAC: Regular rate and rhythm. No obvious perfusion deficits. Radial pulses 2+ and symmetric bilaterally. ABDOMEN: Soft, non distended, minimal LLQ TTP. SKIN: Good color, with no significant rashes. No pallor. NEURO: Alert and oriented x 3. PSYCH: Normal mood and behavior. Plan/MDM: Consideration for gastrointestinal bleed, diverticulitis, gastritis, new onset IBD Please see subsequent provider note for further details and disposition (Comment: Please note this report has been produced using speech recognition software and may contain errors related to that system including errors in grammar, punctuation, and spelling as well as words and phrases that may be inappropriate. If there are any questions or concerns please feel free to contact the dictating provider for clarification) Lupis So PA-C [facility] Lupis So PA-C 01/25/23 1033 documented in this encounter [facility] 01-25-2023 Telephone encounter Note S: Caller called the clinical access center requesting new patient appointment. B: Not an established patient A: Caller requesting new patient appointment, just moved to the area, just dropped off her at the ED at [facility], woke up this morning with bloody stool and upset stomach. R: Appointment scheduled on 02/01/23 to establish care with [facility], insurance coverage verified. Reason for Disposition Requesting regular office appointment Protocols used: Information Only Call - No [id number] [facility] 01-25-2023 Miscellaneous Notes S: Caller called the clinical access center requesting new patient appointment. B: Not an established patient A: Caller requesting new patient appointment, just moved to the area, just dropped off her at the ED at [facility], woke up this morning with bloody stool and upset stomach. R: Appointment scheduled on 02/01/23 to establish care with [facility], insurance coverage verified. Reason for Disposition Requesting regular office appointment Protocols used: Information Only Call - No [id number] documented in this encounter [facility] 01-25-2023 Physician Emergency department Note I did not participate in care of this patient Antoinette Gaffney APRN 01/25/23 0959 [facility] [employer] Work Phone: 01-25-2023 Physician Emergency department Note Emergency Department Encounter [facility] EMERGENCY DEPT Patient: Dorian Montoya : 1990 Date of Evaluation: 01/25/2023 ED Provider: Lupis So PA-C I saw the patient as the Clinician in Triage and performed a brief history and physical exam, established acuity, and ordered appropriate tests to develop basic plan of care. I wore appropriate PPE for the entirety of this encounter. Brief HPI: In brief, Dorian Montoya is a 32 y.o. male that presents with complaints of lower abdominal pain and bloody stool for the past 3 days. He complains of frequent episodes of nausea, diarrhea, weakness, and SOB. He has had no episodes of vomiting and denies any fever. He states that his abdominal pain comes and goes and his stool has varied in color and consistency the past few days. He states that he had diverticulitis a few years ago but was not given any medication for this and was told to closely observe his symptoms. He denies any other abdominal issues or recent abdominal surgeries. Denies taking iron, pepto bismol or eating dark colored foods. Focused Physical exam: GENERAL: The patient appears well developed and well nourished, in no apparent distress. Vital signs as documented. EYES: PERRLA. EOMI. Conjunctiva clear bilaterally. No scleral icterus noted. HEENT: Head exam is unremarkable. Mucous membranes moist. Tolerates saliva. Neck supple and with normal range of motion. LUNGS: Lungs are clear to auscultation, without any respiratory distress. No hypoxia. No wheezing, rales or rhonchi. Non labored breathing. CARDIAC: Regular rate and rhythm. No obvious perfusion deficits. Radial pulses 2+ and symmetric bilaterally. ABDOMEN: Soft, non distended, minimal LLQ TTP. SKIN: Good color, with no significant rashes. No pallor. NEURO: Alert and oriented x 3. PSYCH: Normal mood and behavior. Plan/MDM: Consideration for gastrointestinal bleed, diverticulitis, gastritis, new onset IBD Please see subsequent provider note for further details and disposition (Comment: Please note this report has been produced using speech recognition software and may contain errors related to that system including errors in grammar, punctuation, and spelling as well as words and phrases that may be inappropriate. If there are any questions or concerns please feel free to contact the dictating provider for clarification) Lupis So PA-C Acute Care [facility] Lupis So PA-C 01/25/23 1033 [facility] Work Phone: 06-25-2022 Hospital Discharge instructions Ayan Silva MD - 06/25/2022 10:43 AM EST Apply ice to painful areas for the next 48 hours. Use the Flaco wrap for the next 48 hours. Use crutches to avoid weightbearing. Return to the ED if symptoms change or worsen. The following attachments cannot be sent through Care Everywhere.Contusion Discharge Instructions (Uruguayan)documented in this encounter [facility] 06-25-2022 Emergency department Note Emergency Department Encounter [facility] EMERGENCY DEPT Patient: Dorian Montoya : 1990 Date of Evaluation: 06/25/2022 ED Supervising Physician: AYAN SILVA MD I independently examined and evaluated Dorian Montoya. This will serve as my Supervisory note and shared attestation. I did perform a substantive portion of the visit including all aspects of the Medical Decision Making. I wore appropriate PPE for the entirety of this encounter. History: In brief, Dorian Montoya is a 31 y.o. male that presents to the emergency department planing of left leg pain. The patient states he was at work 3 days ago when a railroad tie struck the medial aspect of his proximal calf. Since then he has been having increasing pain to that area. He denies numbness or tingling extending into the foot. He has no chronic illnesses. Focused exam: On examination the patient has marked pain on palpation to the proximal calf. There is no knee involvement or ankle involvement. Achilles tendon is intact. The calf muscle itself is not tense but is markedly tender to palpation. Differential Diagnosis: Differential diagnosis includes soft tissue injury with significant bruising as well as the possibility of bony fracture or DVT. Plain film x-rays will be obtained as well as a Doppler ultrasound of the affected leg. ED testing and evaluation will be obtained to help differentiate these diagnostic possibilities and determine the most likely cause. Diagnostic testing undertaken, as well as those tests considered but not ordered: Plain x-rays will be obtained of the left leg. Doppler ultrasound of the left leg will be obtained to rule out DVT. Disposition will be based on results of diagnostic testing. Brief ED course/MDM: In the emergency department the patient is given Naprosyn as he was waiting for his testing to become completed. 10:42 AM Doppler ultrasound is reported by the systems protection technician to be negative. X-ray examination of the leg is negative for fracture. An Flaco wrap was applied along with crutches. A work excuse is given to the patient. Sources of History: I evaluated other historical sources including previous outpatient records and admission records. Patient is aware of care plan. All diagnostic, treatment, and disposition decisions were made by myself in conjunction with the [facility]. For all further details of the patient's emergency department visit, please see their documentation. (Comment: Please note this report has been produced using speech recognition software and may contain errors related to that system including errors in grammar, punctuation, and spelling, as well as words and phrases that may be inappropriate. If there are any questions or concerns please feel free to contact the dictating provider for clarification.) AYAN SILVA MD [employer] Ayan Silva MD 06/25/22 0943 Ayan Silva MD 06/25/22 1042 EMERGENCY DEPARTMENT ENCOUNTER Pt Name: Dorian Montoya Birthdate 1990 Date of evaluation: 06/25/2022 ED Provider: Chantelle Cordero CHIEF COMPLAINT Chief Complaint Patient presents with Leg Injury Left leg injury 1800, pt dropped railroad tie on leg. Pt unable to put weight on leg. HISTORY OF PRESENT ILLNESS (Location/Symptom, Timing/Onset, Context/Setting, Quality, Duration, Modifying Factors, Severity) Note limiting factors. I wore appropriate PPE for the entirety of this encounter. HPI Dorian Montoya is a 31 y.o. male who presents to the emergency department left leg pain. Patient states he dropped a large (~200 lb) wooden beam on his leg at work 4 days ago. He states he has been unable to ambulate since. He has been trying symptomatic/supportive home care without improvement. Given ongoing pain he presents to the ER today. Nursing Notes were reviewed. Limitations to history: None Outside historians: None REVIEW OF SYSTEMS Review of Systems Respiratory: Negative for shortness of breath. Cardiovascular: Negative for chest pain. Gastrointestinal: Negative for abdominal distention. Musculoskeletal: Positive for gait problem and myalgias. Neurological: Negative for headaches. PAST MEDICAL HISTORY No past medical history on file. SURGICAL HISTORY No past surgical history on file. CURRENT MEDICATIONS Previous Medications No medications on file ALLERGIES Patient has no known allergies. FAMILY HISTORY No family history on file. SOCIAL HISTORY Social History Socioeconomic History Marital status: SCREENINGS PHYSICAL EXAM ED Triage Vitals [06/25/22 0931] Temp Heart Rate Resp BP -- 94 18 128/89 SpO2 Temp src Heart Rate Source Patient Position 100 % -- Monitor Sitting BP Location FiO2 (%) -- -- Physical Exam Vitals and nursing note reviewed. Constitutional: General: He is not in acute distress. Appearance: He is well-developed. HENT: Head: Normocephalic and atraumatic. Eyes: Conjunctiva/sclera: Conjunctivae normal. Cardiovascular: Rate and Rhythm: Normal rate and regular rhythm. Heart sounds: No murmur heard. Pulmonary: Effort: Pulmonary effort is normal. No respiratory distress. Breath sounds: Normal breath sounds. Abdominal: Palpations: Abdomen is soft. Tenderness: There is no abdominal tenderness. Musculoskeletal: General: Swelling, tenderness and signs of injury present. Cervical back: Neck supple. Comments: Left lower extremity with edema and ecchymosis at the calf. Pulses and sensation intact of the lower extremity. Full ROM of hip, knee, ankle, and foot. No bony tenderness. Skin: General: Skin is warm and dry. Capillary Refill: Capillary refill takes less than 2 seconds. Neurological: Mental Status: He is alert. Psychiatric: Mood and Affect: Mood normal. DIAGNOSTIC RESULTS RADIOLOGY (Per Emergency Physician): Interpretation per the Radiologist below, if available at the time of this note: XR tibia fibula 2 views left Final Result No acute osseous abnormality.. Report Dictated on Electronically Signed By: Kaylin Ludwig Electronically Signed Date/Time: 06/25/2022 10:10 AM EST Vascular US lower extremity venous duplex left (Results Pending) LABS: Labs Reviewed - No data to display All other labs were within normal range or not returned as of this dictation. EMERGENCY DEPARTMENT COURSE and DIFFERENTIAL DIAGNOSIS/MDM: Vitals: Vitals: 06/25/22 0931 BP: 128/89 Patient Position: Sitting Pulse: 94 Resp: 18 Temp: 36.7 C (98.1 F) TempSrc: Oral SpO2: 100% Weight: 68 kg (150 lb) Height: 1.854 m (6' 1) The patient presented with a chief complaint of left lower leg pain. The differential diagnosis associated with this patient's presentation includes fracture, DVT, tendon injury, compartment syndrome, muscle tear. Our workup consisted of ordering/reviewing x-ray, US. ED Course as of 06/25/22 1133 Sun Jun 25, 2022 1013 X-ray Tib/fib IMPRESSION: No acute osseous abnormality.. [ES] 1131 US with no obvious DVT at this time. [ES] 1132 Reviewed imaging results with patient. Flaco wrap applied. Crutches provided along with education on use. Supportive care instructions reviewed. Return precautions discussed. Recommended taking the next 2-3 days off of work. Patient discharged home in stable condition. [ES] ED Course User Index [ES] Chantelle Cordero Diagnoses as of 06/25/22 113 Calf swelling Contusion of left lower extremity, initial encounter ED Medications managed: Medications naproxen (Naprosyn) tablet 500 mg (500 mg Oral Given 06/25/22 0953) PROCEDURES: Unless otherwise noted below, none Procedures FINAL IMPRESSION 1. Calf swelling 2. Contusion of left lower extremity, initial encounter DISPOSITION Discharge 06/25/2022 10:42:41 AM PATIENT REFERRED TO: [facility] [address] [place] [id number] As needed DISCHARGE MEDICATIONS: New Prescriptions NAPROXEN (NAPROSYN) 500 MG TABLET Take 1 tablet (500 mg) by mouth in the morning and 1 tablet (500 mg) in the evening. Take with meals. Do all this for 15 days. (Comment: Please note this report has been produced using speech recognition software and may contain errors related to that system including errors in grammar, punctuation, and spelling, as well as words and phrases that may be inappropriate. If there are any questions or concerns please feel free to contact the dictating provider for clarification.) Chantelle Cordero (electronically signed) Emergency Medicine Provider Chantelle Cordero Resident 06/25/22 1133 Pt comes in through triage. Pt dropped railroad tie on left leg evening. Pt states he tried some home remedies for pain, but is unable to put weight on his leg. Rates pain 6/10 currently. Pt does not have PCP and did not seek previous medical treatment. VS stable. Call light within reach. documented in this encounter [facility] 06-25-2022 Emergency department Triage note Pt comes in through triage. Pt dropped railroad tie on left leg evening. Pt states he tried some home remedies for pain, but is unable to put weight on his leg. Rates pain 6/10 currently. Pt does not have PCP and did not seek previous medical treatment. VS stable. Call light within reach. [facility] 06-25-2022 Physician Emergency department Note Emergency Department Encounter [facility] Patient: Dorian Montoya : 1990 Date of Evaluation: 06/25/2022 ED Supervising Physician: AYAN SILVA MD I independently examined and evaluated Dorian Montoya. This will serve as my Supervisory note and shared attestation. I did perform a substantive portion of the visit including all aspects of the Medical Decision Making. I wore appropriate PPE for the entirety of this encounter. History: In brief, Dorian Montoya is a 31 y.o. male that presents to the emergency department planing of left leg pain. The patient states he was at work 3 days ago when a railroad tie struck the medial aspect of his proximal calf. Since then he has been having increasing pain to that area. He denies numbness or tingling extending into the foot. He has no chronic illnesses. Focused exam: On examination the patient has marked pain on palpation to the proximal calf. There is no knee involvement or ankle involvement. Achilles tendon is intact. The calf muscle itself is not tense but is markedly tender to palpation. Differential Diagnosis: Differential diagnosis includes soft tissue injury with significant bruising as well as the possibility of bony fracture or DVT. Plain film x-rays will be obtained as well as a Doppler ultrasound of the affected leg. ED testing and evaluation will be obtained to help differentiate these diagnostic possibilities and determine the most likely cause. Diagnostic testing undertaken, as well as those tests considered but not ordered: Plain x-rays will be obtained of the left leg. Doppler ultrasound of the left leg will be obtained to rule out DVT. Disposition will be based on results of diagnostic testing. Brief ED course/MDM: In the emergency department the patient is given Naprosyn as he was waiting for his testing to become completed. 10:42 AM Doppler ultrasound is reported by the systems protection technician to be negative. X-ray examination of the leg is negative for fracture. An Flaco wrap was applied along with crutches. A work excuse is given to the patient. Sources of History: I evaluated other historical sources including previous outpatient records and admission records. Patient is aware of care plan. All diagnostic, treatment, and disposition decisions were made by myself in conjunction with the [facility]. For all further details of the patient's emergency department visit, please see their documentation. (Comment: Please note this report has been produced using speech recognition software and may contain errors related to that system including errors in grammar, punctuation, and spelling, as well as words and phrases that may be inappropriate. If there are any questions or concerns please feel free to contact the dictating provider for clarification.) AYAN SILVA MD [employer] Ayan Silva MD 06/25/22 0943 Ayan Silva MD 06/25/22 1042 [facility] 06-25-2022 Physician Emergency department Note EMERGENCY DEPARTMENT ENCOUNTER Pt Name: Dorian Montoya Birthdate 1990 Date of evaluation: 06/25/2022 ED Provider: Chantelle Cordero CHIEF COMPLAINT Chief Complaint Patient presents with Leg Injury Left leg injury 1800, pt dropped railroad tie on leg. Pt unable to put weight on leg. HISTORY OF PRESENT ILLNESS (Location/Symptom, Timing/Onset, Context/Setting, Quality, Duration, Modifying Factors, Severity) Note limiting factors. I wore appropriate PPE for the entirety of this encounter. HPI Dorian Montoya is a 31 y.o. male who presents to the emergency department left leg pain. Patient states he dropped a large (~200 lb) wooden beam on his leg at work 4 days ago. He states he has been unable to ambulate since. He has been trying symptomatic/supportive home care without improvement. Given ongoing pain he presents to the ER today. Nursing Notes were reviewed. Limitations to history: None Outside historians: None REVIEW OF SYSTEMS Review of Systems Respiratory: Negative for shortness of breath. Cardiovascular: Negative for chest pain. Gastrointestinal: Negative for abdominal distention. Musculoskeletal: Positive for gait problem and myalgias. Neurological: Negative for headaches. PAST MEDICAL HISTORY No past medical history on file. SURGICAL HISTORY No past surgical history on file. CURRENT MEDICATIONS Previous Medications No medications on file ALLERGIES Patient has no known allergies. FAMILY HISTORY No family history on file. SOCIAL HISTORY Social History Socioeconomic History Marital status: SCREENINGS PHYSICAL EXAM ED Triage Vitals [06/25/22 0931] Temp Heart Rate Resp BP -- 94 18 128/89 SpO2 Temp src Heart Rate Source Patient Position 100 % -- Monitor Sitting BP Location FiO2 (%) -- -- Physical Exam Vitals and nursing note reviewed. Constitutional: General: He is not in acute distress. Appearance: He is well-developed. HENT: Head: Normocephalic and atraumatic. Eyes: Conjunctiva/sclera: Conjunctivae normal. Cardiovascular: Rate and Rhythm: Normal rate and regular rhythm. Heart sounds: No murmur heard. Pulmonary: Effort: Pulmonary effort is normal. No respiratory distress. Breath sounds: Normal breath sounds. Abdominal: Palpations: Abdomen is soft. Tenderness: There is no abdominal tenderness. Musculoskeletal: General: Swelling, tenderness and signs of injury present. Cervical back: Neck supple. Comments: Left lower extremity with edema and ecchymosis at the calf. Pulses and sensation intact of the lower extremity. Full ROM of hip, knee, ankle, and foot. No bony tenderness. Skin: General: Skin is warm and dry. Capillary Refill: Capillary refill takes less than 2 seconds. Neurological: Mental Status: He is alert. Psychiatric: Mood and Affect: Mood normal. DIAGNOSTIC RESULTS RADIOLOGY (Per Emergency Physician): Interpretation per the Radiologist below, if available at the time of this note: XR tibia fibula 2 views left Final Result No acute osseous abnormality.. Report Dictated on Electronically Signed By: Kaylin Ludwig Electronically Signed Date/Time: 06/25/2022 10:10 AM EST Vascular US lower extremity venous duplex left (Results Pending) LABS: Labs Reviewed - No data to display All other labs were within normal range or not returned as of this dictation. EMERGENCY DEPARTMENT COURSE and DIFFERENTIAL DIAGNOSIS/MDM: Vitals: Vitals: 06/25/22 0931 BP: 128/89 Patient Position: Sitting Pulse: 94 Resp: 18 Temp: 36.7 C (98.1 F) TempSrc: Oral SpO2: 100% Weight: 68 kg (150 lb) Height: 1.854 m (6' 1) The patient presented with a chief complaint of left lower leg pain. The differential diagnosis associated with this patient's presentation includes fracture, DVT, tendon injury, compartment syndrome, muscle tear. Our workup consisted of ordering/reviewing x-ray, US. ED Course as of 06/25/22 1133 Sun Jun 25, 2022 1013 X-ray Tib/fib IMPRESSION: No acute osseous abnormality.. [ES] 1131 US with no obvious DVT at this time. [ES] 1132 Reviewed imaging results with patient. Flaco wrap applied. Crutches provided along with education on use. Supportive care instructions reviewed. Return precautions discussed. Recommended taking the next 2-3 days off of work. Patient discharged home in stable condition. [ES] ED Course User Index [ES] Chantelle Cordero Diagnoses as of 06/25/22 1133 Calf swelling Contusion of left lower extremity, initial encounter ED Medications managed: Medications naproxen (Naprosyn) tablet 500 mg (500 mg Oral Given 06/25/22 0953) PROCEDURES: Unless otherwise noted below, none Procedures FINAL IMPRESSION 1. Calf swelling 2. Contusion of left lower extremity, initial encounter DISPOSITION Discharge 06/25/2022 10:42:41 AM PATIENT REFERRED TO: [facility] [address] [place] [phone] As needed DISCHARGE MEDICATIONS: New Prescriptions NAPROXEN (NAPROSYN) 500 MG TABLET Take 1 tablet (500 mg) by mouth in the morning and 1 tablet (500 mg) in the evening. Take with meals. Do all this for 15 days. (Comment: Please note this report has been produced using speech recognition software and may contain errors related to that system including errors in grammar, punctuation, and spelling, as well as words and phrases that may be inappropriate. If there are any questions or concerns please feel free to contact the dictating provider for clarification.) Chantelle Cordero (electronically signed) Emergency Medicine Provider Chantelle Cordero Resident 06/25/221132 [facility] 05-04-2022 History of Present illness Narrative Patient presents with laceration to his left thumb about 2 hoursago. He reports that he was using a plexiglass cutter which slipped and hit his thumb. 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 Patient reports that he last had his tetanus injection updated last year when he had a laceration of other fingers. Patient denies numbness/tingling distal to injury, difficulty moving finger, fever/chills, night sweats, abdominal pain, nausea/vomiting/diarrhea, muscle aches, chest pain, shortness of breath, neck pain, headache, dizziness, and any rashes at this time. [facility] Work Phone: 03-30-2022 Miscellaneous Notes PATIENT INFORMATION Record ID: [id number] Patient Name: Dorian Montoya Hospital: [facility] [place]: [facility] Attending: Deysi Coombs Center: [facility] Medicine [facility] INSTRUCTIONS All Clear SN to remind patient of next upcoming appointment date, time, location All Clear All Clear All Clear SURVEY INFORMATION Medical/Nurse Jewelsmith: Paul Woodruff 1. Your discharge instructions are important in guiding you through the recovery process. Is there anything I could help you clarify on your discharge instructions? (Standard Question) No 2. Do you have your follow up appointment related to your hospital stay scheduled within the next 30 days? (Standard Question) Yes 3. Do you have all the necessary equipment and supplies at home? (Standard Question) Yes 4. Many patients have concerns about their medications once they are home. Do you have any questions about getting or taking your medications? (Standard Question) No 5. Do you have any new or different symptoms? (Standard Question) No documented in this encounter [facility] 03-29-2022 Note HNO ID: [id number] Author: Shawn Antunez DO Service: ? Author Type: Physician Type: Progress Notes Filed: 03/29/2022 10:11 AM Note Text: Attending Note: I discussed with resident. The patient was not examined by the attending. I reviewed the resident's note. I agree with the resident's assessment and plan unless otherwise noted. Shawn Antunez DO March 29, 2022 10:11 AM [facility] 03-29-2022 Note HNO ID: [id number] Author: Jared Galvez MD Service: ? Author Type: Resident Type: Progress Notes Filed: 03/29/2022 9:49 AM Note Text: [facility] Jared Galvez MD ASSESSMENT/PLAN: 1. Incidental lung nodule - ICD9: 793.11, ICD10: R91.1 (primary diagnosis) -2.8 cm nodule on CXR -Denies respiratory symptoms -F/u CT chest 2. ZULLY (acute kidney injury) (HCC) - ICD9: 584.9, ICD10: N17.9 -Encourage increased PO hydration Jared Galvez MD SUBJECTIVE: Dorian Montoya is a 31 year old year old male here today for hospital f/u. 31 yo M here for hospital follow up. He was hospitalized 1 week ago for ZULLY 2/2 dehydration. His kidney function recovered within 2 days with IVF. He says he has been trying to increase his PO hydration since then. He denies back/flank pain, hematuria, dysuria or other symptoms. He was incidentally found to have a lung nodule of 2.8 cm in [place] at the time. Denies fever, chills, SOB, cough but says he lost around 15 lbs which may be due to increased activity. He has an ordered CT chest to be active in 4 weeks starting 04/22/2022. 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 PAIN EVALUATION No data found in the last 1 encounters. ALLERGIES Allergen Reactions Apples Hives, Shortness of Breath Red Dye Other: See Comments major nosebleeds Current Outpatient Medications Medication Sig acetaminophen (TYLENOL) 325 mg tablet Take 2 tablets by mouth every 4 hours as needed for pain. ondansetron (ZOFRAN) 4 mg tablet Take 1 tablet by mouth every 6 hours as needed. No current facility-administered medications for this visit. I have confirmed and edited as necessary the chief complaint, medications, past medical, family and social histories. Review of Systems All other systems reviewed and are negative. OBJECTIVE: BP 131/77 Pulse 92 Temp 36.4 ?C (97.5 ?F) Resp 18 Ht 185.4 cm (6' 1) Wt 67.1 kg (148 lb) SpO2 100% BMI 19.53 kg/m? Body mass index is 19.53 kg/m?. Physical Exam Constitutional: General: He is not in acute distress. Eyes: Conjunctiva/sclera: Conjunctivae normal. Cardiovascular: Rate and Rhythm: Normal rate and regular rhythm. Heart sounds: Normal heart sounds. No murmur heard. Pulmonary: Effort: No respiratory distress. Breath sounds: Normal breath sounds. No wheezing. Abdominal: General: There is no distension. Musculoskeletal: Right lower leg: No edema. Left lower leg: No edema. Neurological: General: No focal deficit present. Mental Status: He is oriented to person, place, and time. Psychiatric: Mood and Affect: Mood normal. Depression Screening: Patient Refused / Declined Initial Questionnaire: No Little interest or pleasure in doing things: 0 - Not at all Feeling down, depressed or hopeless: 0 - Not at all Score (Questions 1 AND 2): 0 Total Score (All Questions): 0 Screening tool completed by patient. Based on the PHQ-9 score and patient interview, patient is not at risk for depression. Screening tool discussed with patient, and I recommended no further intervention at this time. Results for orders placed or performed during the hospital encounter of 03/21/22 XR CHEST 1V FRONTAL Result Value Ref Range Radiology Result ACTIONABLE (Actionable) COMP METABOLIC PANEL Result Value Ref Range Protein, Total 8.4 (H) 6.3 - 8.0 g/dL Albumin 5.1 (H) 3.9 - 4.9 g/dL Calcium, Total 9.7 8.5 - 10.2 mg/dL Bilirubin, Total 0.5 0.2 - 1.3 mg/dL Alkaline Phosphatase 92 38 - 113 U/L AST 53 (H) 14 - 40 U/L ALT 42 10 - 54 U/L Glucose 117 (H) 74 - 99 mg/dL BUN 26 (H) 9 - 24 mg/dL Creatinine 3.67 (H) 0.73 - 1.22 mg/dL Sodium 134 (L) 136 - 144 mmol/L Potassium 3.4 (L) 3.7 - 5.1 mmol/L Chloride 93 (L) 97 - 105 mmol/L CO2 20 (L) 22 - 30 mmol/L Anion Gap 21 (H) 9 - 18 mmol/L Estimated Glomerular Filtration Rate 22 (L) >=60 mL/min/1.73m? CBC + DIFF Result Value Ref Range WBC 12.51 (H) 3.70 - 11.00 k/uL RBC 5.73 4.20 - 6.00 m/uL Hemoglobin 15.6 13.0 - 17.0 g/dL Hematocrit 46.4 39.0 - 51.0 % MCV 81.0 80.0 - 100.0 fL MCH 27.2 26.0 - 34.0 pg MCHC 33.6 30.5 - 36.0 g/dL RDW-CV 12.4 11.5 - 15.0 % Platelet Count 224 150 - 400 k/uL MPV 9.8 9.0 - 12.7 fL Neut% 88.4 % Abs Neut 11.07 (H) 1.45 - 7.50 k/uL Lymph% 6.2 % Abs Lymph 0.77 (L) 1.00 - 4.00 k/uL [place]% 4 (more content not included)... [facility] 03-29-2022 History of Present illness Narrative Attending Note: I discussed with resident. The patient was not examined by the attending. I reviewed the resident's note. I agree with the resident's assessment and plan unless otherwise noted. Shawn Antunez DO March 29, 2022 10:11 AM Images from the original note were not included. [facility] Jared Galvez MD ASSESSMENT/PLAN: 1. Incidental lung nodule - ICD9: 793.11, ICD10: R91.1 (primary diagnosis) -2.8 cm nodule on CXR -Denies respiratory symptoms -F/u CT chest 2. ZULLY (acute kidney injury) (HCC) - ICD9: 584.9, ICD10: N17.9 -Encourage increased PO hydration Jared Galvez MD SUBJECTIVE: Dorian Montoya is a 31 year old year old male here today for hospital f/u. 31 yo M here for hospital follow up. He was hospitalized 1 week ago for ZULLY 2/2 dehydration. His kidney function recovered within 2 days with IVF. He says he has been trying to increase his PO hydration since then. He denies back/flank pain, hematuria, dysuria or other symptoms. He was incidentally found to have a lung nodule of 2.8 cm in [place] at the time. Denies fever, chills, SOB, cough but says he lost around 15 lbs which may be due to increased activity. He has an ordered CT chest to be active in 4 weeks starting 04/22/2022. 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 PAIN EVALUATION No data found in the last 1 encounters. ALLERGIES Allergen Reactions Apples Hives, Shortness of Breath Red Dye Other: See Comments major nosebleeds Current Outpatient Medications Medication Sig acetaminophen (TYLENOL) 325 mg tablet Take 2 tablets by mouth every 4 hours as needed for pain. ondansetron (ZOFRAN) 4 mg tablet Take 1 tablet by mouth every 6 hours as needed. No current facility-administered medications for this visit. I have confirmed and edited as necessary the chief complaint, medications, past medical, family and social histories. Review of Systems All other systems reviewed and are negative. OBJECTIVE: BP 131/77 Pulse 92 Temp 36.4 C (97.5 F) Resp 18 Ht 185.4 cm (6' 1) Wt 67.1 kg (148 lb) SpO2 100% BMI 19.53 kg/m Body mass index is 19.53 kg/m . Physical Exam Constitutional: General: He is not in acute distress. Eyes: Conjunctiva/sclera: Conjunctivae normal. Cardiovascular: Rate and Rhythm: Normal rate and regular rhythm. Heart sounds: Normal heart sounds. No murmur heard. Pulmonary: Effort: No respiratory distress. Breath sounds: Normal breath sounds. No wheezing. Abdominal: General: There is no distension. Musculoskeletal: Right lower leg: No edema. Left lower leg: No edema. Neurological: General: No focal deficit present. Mental Status: He is oriented to person, place, and time. Psychiatric: Mood and Affect: Mood normal. Depression Screening: Patient Refused / Declined Initial Questionnaire: No Little interest or pleasure in doing things: 0 - Not at all Feeling down, depressed or hopeless: 0 - Not at all Score (Questions 1 & 2): 0 Total Score (All Questions): 0 Screening tool completed by patient. Based on the PHQ-9 score and patient interview, patient is not at risk for depression. Screening tool discussed with patient, and I recommended no further intervention at this time. Results for orders placed or performed during the hospital encounter of 03/21/22 XR CHEST 1V FRONTAL Result Value Ref Range Radiology Result ACTIONABLE (Actionable) COMP METABOLIC PANEL Result Value Ref Range Protein, Total 8.4 (H) 6.3 - 8.0 g/dL Albumin 5.1 (H) 3.9 - 4.9 g/dL Calcium, Total 9.7 8.5 - 10.2 mg/dL Bilirubin, Total 0.5 0.2 - 1.3 mg/dL Alkaline Phosphatase 92 38 - 113 U/L AST 53 (H) 14 - 40 U/L ALT 42 10 - 54 U/L Glucose 117 (H) 74 - 99 mg/dL BUN 26 (H) 9 - 24 mg/dL Creatinine 3.67 (H) 0.73 - 1.22 mg/dL Sodium 134 (L) 136 - 144 mmol/L Potassium 3.4 (L) 3.7 - 5.1 mmol/L Chloride 93 (L) 97 - 105 mmol/L CO2 20 (L) 22 - 30 mmol/L Anion Gap 21 (H) 9 - 18 mmol/L Estimated Glomerular Filtration Rate 22 (L) >=60 mL/min/1.73m CBC + DIFF Result Value Ref Range WBC 12.51 (H) 3.70 - 11.00 k/uL RBC 5.73 4.20 - 6.00 m/uL Hemoglobin 15.6 13.0 - 17.0 g/dL Hematocrit 46.4 39.0 - 51.0 % MCV 81.0 80.0 - 100.0 fL MCH 27.2 26.0 - 34.0 pg MCHC 33.6 30.5 - 36.0 g/dL RDW-CV 12.4 11.5 - 15.0 % Platelet Count 224 150 - 400 k/uL MPV 9.8 9.0 - 12.7 fL Neut% 88.4 % Abs Neut 11.07 (H) 1.45 - 7.50 k/uL Lymph% 6.2 % Abs Lymph 0.77 (L) 1.00 - 4.00 k/uL [place]% 4.2 % Abs [place] 0.53 <0.87 k/uL Eosin% 0.2 % Abs Eosin <0.03 <0.46 k/uL Baso% 0.6 % Abs Baso 0.07 <0.11 k/uL Immature Gran % 0.4 % Abs Immature Gran 0.05 <0.10 k/uL NRBC 0.0 /100 WBC Absolute nRBC <0.01 <0.01 k/uL Diff Type Auto URINALYSIS WITH MICROSCOPIC, REFLEX CULTURE Specimen: URINE-MIDSTREAM CLEAN CATCH Result Value Ref Range Color Yellow yellow Clarity Turbid (A) Clear Glucose, Urine Negative Negative Bilirubin, Urine Negative Negative Ketones, Urine Negative Negative Specific [place], Ur 1.024 1.005 - 1.030 Hemoglobin/Blood,Ur 1+ (A) Negative pH, Urine 5.5 5.0 - 8.0 Protein, Urine 3+ (A) Negative Urobilinogen Normal Negative Nitrites Negative Negative Leuk Esterase Negative Negative WBC, Urine 6-10 /HPF (A) 0-5 /HPF RBC, Urine 3-5 /HPF (A) 0-3 /HPF Bacteria Few (A) None Seen /HPF Squamous Epithelial Cells Few /HPF Non-Squamous Epithelial Cells Few (A) None Seen /HPF Casts, Hyaline >10 /LPF (A) 0 /LPF MAGNESIUM BLD Result Value Ref Range Magnesium 2.1 1.7 - 2.3 mg/dL LIPASE BLD Result Value Ref Range Lipase 16 16 - 61 U/L CBC Result Value Ref Range WBC 4.64 3.70 - 11.00 k/uL RBC 4.46 4.20 - 6.00 m/uL Hemoglobin 12.4 (L) 13.0 - 17.0 g/dL Hematocrit 36.7 (L) 39.0 - 51.0 % MCV 82.3 80.0 - 100.0 fL MCH 27.8 26.0 - 34.0 pg MCHC 33.8 30.5 - 36.0 g/dL RDW-CV 12.3 11.5 - 15.0 % Platelet Count 171 150 - 400 k/uL MPV 10.4 9.0 - 12.7 fL Absolute nRBC <0.01 <0.01 k/uL COMP METABOLIC PANEL Result Value Ref Range Protein, Total 6.1 (L) 6.3 - 8.0 g/dL Albumin 4.0 3.9 - 4.9 g/dL Calcium, Total 8.5 8.5 - 10.2 mg/dL Bilirubin, Total 0.4 0.2 - 1.3 mg/dL Alkaline Phosphatase 72 38 - 113 U/L AST 46 (H) 14 - 40 U/L ALT 37 10 - 54 U/L Glucose 105 (H) 74 - 99 mg/dL BUN 21 9 - 24 mg/dL Creatinine 2.02 (H) 0.73 - 1.22 mg/dL Sodium 136 136 - 144 mmol/L Potassium 3.7 3.7 - 5.1 mmol/L Chloride 100 97 - 105 mmol/L CO2 21 (L) 22 - 30 mmol/L Anion Gap 15 9 - 18 mmol/L Estimated Glomerular Filtration Rate 44 (L) >=60 mL/min/1.73m SODIUM RANDOM URINE Result Value Ref Range Sodium, Urine Random <20 14 - 216 mmol/L CREATININE RANDOM UR Result Value Ref Range Creatinine, Ur Random (UCRR) 136.0 46.8 - 314.5 mg/dL OSMOLALITY URINE Result Value Ref Range Osmolality, Urine 274 50 - 1,200 mOsm/kg OSMOLALITY BLD Result Value Ref Range Osmolality 284 275 - 300 mOsm/kg URINALYSIS, WITH MICROSCOPIC Result Value Ref Range Color Light Yellow yellow Clarity Clear Clear Glucose, Urine Negative Negative Bilirubin, Urine Negative Negative Ketones, Urine Negative Negative Specific [place], Ur 1.011 1.005 - 1.030 Hemoglobin/Blood,Ur Negative Negative pH, Urine 6.0 5.0 - 8.0 Protein, Urine Trace (A) Negative Urobilinogen Normal Negative Nitrites Negative Negative Leuk Esterase Negative Negative WBC, Urine 6-10 /HPF (A) 0-5 /HPF RBC, Urine 0-3 /HPF 0-3 /HPF Non-Squamous Epithelial Cells Few (A) None Seen /HPF Casts, Hyaline 1-3 /LPF (A) 0 /LPF Casts, WBC 1-3 /LPF (A) 0 /LPF CK CREATINE KINASE Result Value Ref Range CK 112 51 - 298 U/L CBC Result Value Ref Range WBC 3.54 (L) 3.70 - 11.00 k/uL RBC 4.06 (L) 4.20 - 6.00 m/uL Hemoglobin 11.4 (L) 13.0 - 17.0 g/dL Hematocrit 33.2 (L) 39.0 - 51.0 % MCV 81.8 80.0 - 100.0 fL MCH 28.1 26.0 - 34.0 pg MCHC 34.3 30.5 - 36.0 g/dL RDW-CV 12.5 11.5 - 15.0 % Platelet Count 133 (L) 150 - 400 k/uL MPV 10.5 9.0 - 12.7 fL Absolute nRBC <0.01 <0.01 k/uL COMP METABOLIC PANEL Result Value Ref Range Protein, Total 5.7 (L) 6.3 - 8.0 g/dL Albumin 3.5 (L) 3.9 - 4.9 g/dL Calcium, Total 8.3 (L) 8.5 - 10.2 mg/dL Bilirubin, Total 0.3 0.2 - 1.3 mg/dL Alkaline Phosphatase 67 38 - 113 U/L AST 50 (H) 14 - 40 U/L ALT 41 10 - 54 U/L Glucose 93 74 - 99 mg/dL BUN 11 9 - 24 mg/dL Creatinine 1.08 0.73 - 1.22 mg/dL Sodium 138 136 - 144 mmol/L Potassium 3.7 3.7 - 5.1 mmol/L Chloride 109 (H) 97 - 105 mmol/L CO2 21 (L) 22 - 30 mmol/L Anion Gap 8 (L) 9 - 18 mmol/L Estimated Glomerular Filtration Rate 94 >=60 mL/min/1.73m EXPEDITED COVID, FLU A/B + RSV Specimen: UPPER RESPIRATORY TRACT SWAB; Nasal Swab Result Value Ref Range COVID 19 Result Not Detected SARS-CoV-2 (Agent of COVID-19) Not Detected by RT-PCR or equivalent method. Influenza A PCR Negative for Influenza A by RT-PCR Negative for Influenza A by RT-PCR Influenza B PCR Negative for Influenza B by RT-PCR Negative for Influenza B by RT-PCR RSV PCR Negative for Respiratory Syncytial Virus (RSV) by PCR Negative for Respiratory Syncytial Virus (RSV) by PCR RESPIRATORY PANEL BY RAPID PCR (WITH COVID) Specimen: NASOPHARYNGEAL SWAB; Nasal Swab Result Value Ref Range Influenza A Virus Negative Negative Influenza B Virus Negative Negative Parainfluenza Virus 1 Negative Negative Parainfluenza Virus 2 Negative Negative Parainfluenza Virus 3 Negative Negative Human Metapneumovirus Negative Negative Parainfluenza Virus 4 Negative Negative Parikh Virus 229E Negative Negative Coronavirus NL63 Negative Negative Coronavirus OC43 Negative Negative Coronavirus HKU1 Negative Negative Chlamydophila pneumoniae Negative Negative Mycoplasma pneumoniae Negative Negative Rhinovirus/Enterovirus Negative Negative Adenovirus Negative Negative Bordetella pertussis by Real-Time PCR Negative Negative Bordetella parapertussis by Real-Time PCR Negative Negative Respiratory Syncytial Virus Negative Negative COVID 19 Result Not Detected SARS-CoV-2 (Agent of COVID-19) Not Detected by RT-PCR or equivalent method. BLOOD CULTURE Specimen: BLOOD Result Value Ref Range Culture, Blood No growth 5 days BLOOD CULTURE Specimen: BLOOD Result Value Ref Range Culture, Blood No growth 5 days ECG COMPLETE Result Value Ref Range Ventricular Rate 54 BPM Atrial Rate 54 BPM P-R Interval 132 ms QRS Duration 94 ms QT Interval 434 ms QTC Calculation (Bazett) 411 ms Calculated P [place] 64 degrees Calculated R [place] 8 degrees Calculated T [place] 50 degrees . No follow-ups on file. Discussed the above with the patient and my preceptor using shared decision-making. The patient is in agreement with the diagnostic and treatment plans. This note may have been partially generated using [employer] voice recognition system, and there may be some incorrect words, spellings, and punctuation that were not noted in checking the note before saving. Provider: Jared Galvez MD Signed on: March 29, 2022 9:43 AM documented in this encounter [facility] 03-23-2022 Note HNO ID: [id number] Author: Ralf Tellez DO Service: Hospital Medicine Author Type: Resident Type: Progress Notes Filed: 03/23/2022 4:48 PM Note Text: Attestation signed by Deysi Coombs MD at 03/24/2022 8:39 PM Discussed with team, chart reviewed. Pt seen and evaluated on 03/23 at 1505, he looked and acted well, was anxious for discharge, said he had a child at home with autism, needed home XAVIER, needed a return to work note as well. Disposition - see DC summary Attending Note I personally saw and examined the patient on 03/23. I reviewed the resident's note. I agree with the resident's assessment and plan unless otherwise noted. Signature: Deysi Coombs MD Date: 03/24/2022 Time: 8:39 PM HOUSE MEDICINE SERVICE PROGRESS NOTE PATIENT NAME: Dorian Montoya REASON FOR ADMISSION: DATE OF ADMISSION: March 23, 2022 LOS: 2 Subjective HPI Mr. Dorian Montoya is a 31-year-old male with past medical history of GERD, asthma, depression, bipolar disorder presented to [place] with a chief complaint of nausea, vomiting and myalgias for 1 day. He reports that his symptoms initially began the day prior to arrival when he woke up with an ache in the back of his neck that seemed to radiate to his head. Then as he got up and went about his day, he had episodes of transient blurred vision. All day, he felt pretty nauseous and did not take in anything PO. This all culminated the morning of presentation when he developed fevers, chills, and emesis. He endorsed continued lack of PO intake, and also stated that he had not urinated in over a day and felt like his kidneys were hurting. He denied any known sick contacts. Upon arrival, the patient was afebrile, tachycardic to 110, BP 107/76, and saturating well on room air. Initial lab work revealed a creatinine of 3.67 [last value I can see is 1.01 from nine years prior], BUN 26, sodium 134, potassium 3.4, chloride 93, bicarb 20, mag 2.1, AG 21, AST 53, lipase WNL at 16, and WBC 12.51 [with neutrophilic predominance]. UA returned with 3+ protein, RBCs, WBCs, few bacteria, and hyaline casts. The patient did also endorse some mild neck discomfort to the ER staff; this in conjunction with his intermittent blurred vision and headache prompted them to obtain CT head and CTA neck. However, they ended up just obtaining CT brain without IV contrast after seeing the patient's creatinine. CT brain demonstrated a small amount of fluid within the left mastoid air cells; upon palpation of the mastoid by the ER resident, the patient did not have any pain. The patient received 1L NS bolus followed by IV fluids at 125cc/hr, and Zofran for symptom control. House Medicine Service was then called for admission to the [facility]. INTERVAL EVENTS Overnight, patient had fever resolved with Tylenol This morning at bedside, pt states he feels well. With regards to his fever overnight, he attributes it to his room being hot and he denies chills or subjective feverish symptoms. He has not other complaints and denied dyspnea, cough, abdominal pain, vomiting, diarrhea, dysuria or chest pain. He states he is having some nausea that he attributes his change in diet. Pertinent labs: WBC 3.54 Hemoglobin 11.4 Platelets 133 BUN 11 Creatinine 1.08 AST 50 New imaging: None Consultation updates, all recommendations are appreciated: None Objective OBJECTIVE BP 109/69 Pulse 69 Temp 37 ?C (98.6 ?F) (Oral) Resp 16 Ht 185.4 cm (6' 1) Wt 68.1 kg (150 lb 2.1 oz) SpO2 100% BMI 19.81 kg/m? Body mass index is 19.81 kg/m?.No results found for: HBA1C LABORATORY: CBC: Recent Labs 03/23/22 0419 03/22/22 0323 03/21/22 1733 WBC 3.54* 4.64 12.51* HB 11.4* 12.4* 15.6 HCT 33.2* 36.7* 46.4 PLT 133* 171 224 MCV 81.8 82.3 81.0 RDWCV 12.5 12.3 12.4 NEUTP -- -- 88.4 ABSNEUT -- -- 11.07* LYMPHP -- -- 6.2 MONOP -- -- 4.2 ABG: Invalid input(s): [id number] COAG: No results for input(s): APTT, INR in the last 168 hours. CMP: Recent Labs 03/23/22 0419 03/22/22 0334 03/21/22 1733 GLUC 93 105* 117* NA 138 136 134* K 3.7 3.7 3.4* CHLOR 109* 100 93* CO2 21* 21* 20* ANION 8* 15 21* BUN 11 21 26* CREAT 1.08 2.02* 3.67* TBILI 0.3 0.4 0.5 ALKPHOS 67 72 92 AST 50* 46* 53* ALT 41 37 42 TPROT 5.7* 6.1* 8.4* No results found for: HBA1C URINALYSIS: Recent Labs 03/22/22 0802 03/21/22 1943 SPGR 1.011 1.024 UGLUC Negative Negative UBILI Negative Negative UKET Negative Negative UHB Negative 1+* UPROT Trace* 3+* UWBC 6-10 /HPF* 6-10 /HPF* No results found for: LVEF Physical Exam Constitutional: Appearance: Normal appearance. HENT: Head: Normocephalic and atraumatic. Eyes: Extr (more content not included)... [facility] 03-22-2022 Note HNO ID: [id number] Author: Nelly Crockett RN Service: Care Management Author Type: Registered Nurse Type: Care Mgt Initial Assessment Filed: 03/22/2022 2:25 PM Note Text: CARE MANAGEMENT: ASSESSMENT AND DISCHARGE PLAN SERVICE DATE: March 22, 2022 SERVICE TIME: 2:24 PM PRIMARY CARE PHYSICIAN: No primary care provider on file. Phone: None Primary Contact: Extended Emergency Contact Information Primary Emergency Contact: JAYDEN MONTOYA Mobile Relation: Spouse ADMISSION STATUS: Inpatient Insurance Provider: TERM 04/12 [employer]ICA[employer] NEEDS PRIOR TO DISCHARGE Needs Prior to Discharge: None POTENTIAL TRANSITION PLANS Home Based on clinical judgement, Care Management will address the following needs: No transitional/discharge planning needs at this time Patient's perception of need for this admission: . ADVANCE DIRECTIVES Current Advance Directive: None Certifier Attempted to Assist with AD Completion: Yes Action: Education Provided MS/BEHAVIOR Baseline Mental Status Prior to this Illness what was the patient's Baseline Mental Status?: Alert AND Oriented Prior to this illness, has anyone described the patient having any of the following behaviors?: Not Applicable Relationship of the informant to the patient:: Self READMISSION Last Discharge Date: 04/11/21 Is this Within the Past 30 days? 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 scores in the EMR?: No Any potential risks related to substance abuse and/or behavioral health?: No Based on clinical judgement, Care Management will address the following needs: No transitional/discharge planning needs at this time CAREGIVER ASSESSMENT Caregiver is ready, willing and able to meet the patient's needs as recommended by the inter-professional team:: No Caregiver needed No medical discharge barriers identified at this time. No social discharge barriers identified at this time. No behavioral/cognitive discharge barriers identified at this time. No functional discharge barriers identified at this time. FREEDOM OF CHOICE EXPLAINED: [place] of Choice Given: No Reason Not Given: No placements necessary Are you interested in bedside delivery of your medications? Yes ASSESSMENT AND PLAN: Pt from home with spouse indept. Anticipate return home when medically stable. No transitional needs noted at this time. Cm to follow. SIGNATURE: Nelly Crockett RN PATIENT NAME: Dorian Montoya DATE: March 22, 2022 TIME: 2:24 PM CONTACT #: [phone] [facility] 03-22-2022 Note HNO ID: [id number] Author: Ly Wood RPh Service: Pharmacy Author Type: Pharmacist Type: Plan of Care Filed: 03/22/2022 2:42 PM Note Text: PHARMACY MEDICATION REVIEW Patient Name: Dorian Montoya : 1990 The following medications were updated within the RN SURGERY ICU medication list: Medications ADDED to RN SURGERY ICU medication list None Medications CHANGED on RN SURGERY ICU medication list None Medications REMOVED from RN SURGERY ICU medication list Gabapentin 300 mg 1 capsule PO TID Oxycodone IR 5 mg PO 1 tablet q6h prn Oxycodone-Acetaminophen 5-325 mg 1 tablet PO q8h prn Sulfamethoxazole-trimethoprim 800-160 mg 1 tablet PO BID Additional comments: Spoke to patient at bedside and on phone. Patient states he is not taking gabapentin, oxycodone, oxycodone-acetaminophen and bactrim. The medications were prescribed for his hand surgery on 03/2021. He states he does not take any other medications at home. Patient states he does not take ibuprofen regularly and has not taken it for a few months. However, he said he last took ibuprofen on 03/19 likely for his neck pain - 800 mg (4 tablets of 200 mg). Ibuprofen is not ordered due to ZULLY. The below information represents the best possible medication history: Yes Medication history completed by: Pharmacist: Ly Wood RPh Source of history: Patient: Reliability of source: Appears reliable, clearly identified: Medication name, Medication dose, Medication route, and Indications and OARRS Medication nonadherence identified: No barriers noted Reconciliation completed: Yes Completed by: Ly Wood RPh All RN SURGERY ICU medications addressed by LIP Patient interested in Bedside Delivery Services or using OP Pharmacy at discharge? Unable to assess Preferred outpatient pharmacy: e- [facility]/pharmacy #[id number] [place] [address] [address] [facility] [phone] [address] [place] [address] Allergies: Apples Hives, Shortness of Breath Red Dye Other: See Comments Comment:major nosebleeds Prior to Admission Medications Prescriptions Last Dose Informant Patient Reported? Taking? ibuprofen (MOTRIN) 600 mg tablet 03/19/2022 No No Sig: Take 1 tablet by mouth every 6 hours as needed. Facility-Administered Medications: None Ly Wood RPh 03/22/2022 [facility] 03-22-2022 Note HNO ID: [id number] Author: Sherine Pepe Service: General Internal Medicine Author Type: ? Type: Progress Notes Filed: 03/22/2022 1:28 PM Note Text: Attestation signed by Deysi Coombs MD at 03/22/2022 8:51 PM Medical student note reviewed and appreciated, see also Dr Smyth's progress note today. HOUSE MEDICINE SERVICE PROGRESS NOTE SERVICE DATE: March 22, 2022 SERVICE TIME: 9:00AM NIGHT AND WEEKEND COVERAGE: From 6 AM to 5 PM: You may reach the House Medicine leadership program intern currently assigned to this patient by finding their pager number on the treatment team (they will be assigned as the leadership program intern or resident). It is the last four digits in the phone number beginning with ([phone]). We encourage the use of [employer] Secure Chat. SUBJECTIVE HPI: This is a 31-year-old male with PMHx: - GERD - Asthma (childhood) - Depression - Bipolar disorder Who presented to ED with N/V, myalgias. He first noticed posterior neck pain extending to head with associated transient blurry vision 2 days ago (03/20). He carried throughout the day as usual, but then developed nausea, back pain, fevers, and vomiting. He also had not urinated for a full day. He then presented to the ED. ED Work-up: Afebrile, tachycardic 110, saturating well on RA. Cr 3.67 (baseline appears near 1.01 as per chart review), BUN 26, sodium 134, potassium 3.4, chloride 93, bicarb 20, mag 2.1, AG 21, AST 53, lipase WNL at 16, and WBC 12.51 [with neutrophilic predominance]. UA returned with 3+ protein, RBCs, WBCs, few bacteria, and hyaline casts. CT brain revealed small amount of fluid within the left mastoid air cells. He received 1L NS bolus and Zofran from symptom control. He was then admitted to House Medicine for ZULLY. Interval Events: No acute overnight events. This morning, he endorses feeling much better. Still endorses neck pain and transient blurry vision when seated up. Denies fevers. Has been passing urine, denies dysuria, hematuria. Still has nausea, but denies vomiting. States that he has been drinking water, but still has not been eating as much due to the nausea. Jacoby has been helping. He is a smoker. 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 Denies using any home medications. OBJECTIVE Medications: IV Infusions: NaCl 0.9%, Last Rate: 125 mL/hr (03/22/22 1132) Scheduled: heparin, 5,000 Units, q 12 H sodium chloride 0.9 % (flush), 3-5 mL, q 12 H lidocaine, 1 Patch, DAILY And lidocaine patch - REMOVE, , AT BEDTIME And lidocaine - VERIFY PATCH, , q 8 H PRN: NaCl 0.9%, 20 mL, PRN ondansetron, 4 mg, q 6 H PRN Or ondansetron (PF), 4 mg, q 6 H PRN acetaminophen, 650 mg, q 4 H PRN Vital Signs: BP 109/70 Pulse 56 Temp (Src) 98.2 (Oral) Resp 18 Ht 6' 1 (1.85m) Wt 150 lb 2.1 oz (68.1kg) SpO2 99% BMI 19.81 kg/(m2). O2 Therapy: Room Air Physical Exam Performed: GENERAL: Thin appearing, in NAD, on RA, answering questions appropriately NECK: Tender to palpation. Movement intact. HEART: RRR. Normal S1 S2. No murmurs, gallops, rubs. LUNGS: Clear to auscultation. No wheezes. ABDOMEN: Soft, non-distended, non-tender. EXTREMITY: No pitting edema. No cyanosis. Lines, Drains, and Airways Line Duration Peripheral 03/21/22 1731 Admission to Hospital Short Right Antecubital 20 Gauge <1 day Data: Labs: CBC: Recent Labs 03/22/22 0323 03/21/22 1733 WBC 4.64 12.51* HB 12.4* 15.6 HCT 36.7* 46.4 PLT 171 224 MCV 82.3 81.0 RDWCV 12.3 12.4 NEUTP -- 88.4 ABSNEUT -- 11.07* LYMPHP -- 6.2 MONOP -- 4.2 COAG: No results for input(s): APTT, INR in the last 168 hours. BMP: Recent Labs 03/22/22 0334 03/21/22 1733 GLUC 105* 117* NA 136 134* K 3.7 3.4* CHLOR 100 93* CO2 21* 20* ANION 15 21* BUN 21 26* CREAT 2.02* 3.67* CHEM: Recent Labs 03/22/22 0334 03/21/22 173 ALB 4.0 5.1* TPROT 6.1* 8.4* CA 8.5 9.7 MG -- 2.1 HEPATIC: Recent Labs 03/22/22 03303/21/22 173 ALKPHOS 72 92 ALT 37 42 AST 46* 53* TBILI 0.4 0.5 LIPASE -- 16 URINALYSIS: Recent Labs 03/22/22 0803/21/22 194 SPGR 1.011 1.024 UGLUC Negative Negative UBILI Negative Negative UKET Negative Negative UHB Negative 1+* UPROT Trace* 3+* UWBC 6-10 /HPF* 6-10 /HPF* CARDIAC: No results for input(s): CKTEST, CKMB, CKMBP in the last 168 hours.TROPONIN@:8,No results found for: BNP:8)@ Intake/Output Summary (Last 24 hours) at 03/22/2022 1149 Last data filed at 03/22/2022 0348 Gross per 24 hour Intake 360 ml Output -- Net 360 ml Serum creatinine: 2.02 mg/dL (H) 03/22/22 0334 Estimated creatinine clearance: 51 mL/min (A) - CK: 112 - Urine Osm: 274 - Serum Osm: 284 - Urine Na: <20 CT Brain (03/21): Small amount of fluid noted within the left mastoid (more content not included)... [facility] 03-22-2022 Note HNO ID: [id number] Author: Celina Smyth MD Service: Hospital Medicine Author Type: Resident Type: Progress Notes Filed: 03/22/2022 11:57 AM Note Text: Attestation signed by Deysi Coombs MD at 03/22/2022 8:58 PM Discussed with team, chart reviewed. Pt seen and evaluated today at 0925, 3 family members at bedside, pt looked well, said he was drinking a lot of fluids, was feeling better overall. Disposition - as below, continue supportive care, ZULLY continues to improve, no indication to escalate care at this time (no need for Nephrology consult or further work up at this time). Attending Note I personally saw and examined the patient. I reviewed the resident's note. I agree with the resident's assessment and plan unless otherwise noted. Signature: Deysi Coombs MD Date: 03/22/2022 Time: 8:58 PM HOUSE MEDICINE SERVICE PROGRESS NOTE SERVICE DATE: March 22, 2022 SERVICE TIME: 6:57 AM NIGHT AND WEEKEND COVERAGE: From 6 AM to 5 PM: You may reach the House Medicine leadership program intern currently assigned to this patient by finding their pager number on the treatment team (they will be assigned as the leadership program intern or resident). It is the last four digits in the phone number beginning with ([phone]). We encourage the use of [employer] Secure Chat. SUBJECTIVE HPI: 31-year-old male with past medical history of GERD, asthma, depression, bipolar disorder presented to [place] with a chief complaint of nausea, vomiting and myalgias for 1 day. He reports that his symptoms initially began the day prior to arrival when he woke up with an ache in the back of his neck that seemed to radiate to his head. Then as he got up and went about his day, he had episodes of transient blurred vision. All day, he felt pretty nauseous and did not take in anything PO. This all culminated the morning of presentation when he developed fevers, chills, and emesis. He endorsed continued lack of PO intake, and also stated that he had not urinated in over a day and felt like his kidneys were hurting. He denied any known sick contacts. Upon arrival, the patient was afebrile, tachycardic to 110, BP 107/76, and saturating well on room air. Initial lab work revealed a creatinine of 3.67 [last value I can see is 1.01 from nine years prior], BUN 26, sodium 134, potassium 3.4, chloride 93, bicarb 20, mag 2.1, AG 21, AST 53, lipase WNL at 16, and WBC 12.51 [with neutrophilic predominance]. UA returned with 3+ protein, RBCs, WBCs, few bacteria, and hyaline casts. The patient did also endorse some mild neck discomfort to the ER staff; this in conjunction with his intermittent blurred vision and headache prompted them to obtain CT head and CTA neck. However, they ended up just obtaining CT brain without IV contrast after seeing the patient's creatinine. CT brain demonstrated a small amount of fluid within the left mastoid air cells; upon palpation of the mastoid by the ER resident, the patient did not have any pain. The patient received 1L NS bolus followed by IV fluids at 125cc/hr, and Zofran for symptom control. House Medicine Service was then called for admission to the [facility]. Interval Events: Improved Feels better. Still has mild posterior neck pain radiating to head. But no change in strength , sensation or ROM OBJECTIVE Medications: IV Infusions: NaCl 0.9%, Last Rate: 125 mL/hr (03/22/22 0325) Scheduled: heparin, 5,000 Units, q 12 H sodium chloride 0.9 % (flush), 3-5 mL, q 12 H acetaminophen, 1,000 mg, ONCE PRN: NaCl 0.9%, 20 mL, PRN ondansetron, 4 mg, q 6 H PRN Or ondansetron (PF), 4 mg, q 6 H PRN Vital Signs: BP 110/67 Pulse 61 Temp (Src) 99.1 (Axillary) Resp 18 Ht 6' 1 (1.85m) Wt 150 lb 2.1 oz (68.1kg) SpO2 99% BMI 19.81 kg/(m2). O2 Therapy: Room Air Physical Exam Performed: GENERAL: well appearing, alert, and in no acute distress NECK: +ve posterior cervical muscle tenderness, ROM normal. HEART: Bradycardic, regular rhythm. LUNGS: clear to percussion and auscultation and no rales ABDOMEN: Soft, nontender, bowel sounds normal, no palpable organomegaly. EXTREMITY: Normal exam of the extremities. No clubbing, cyanosis, or edema. BACK: Non tender, ROM normal. NEURO: Alert and oriented x 3, no acute neurological deficit noted. Lines, Drains, and Airways Line Duration Peripheral 03/21/22 1731 Admission to Hospital Short Right Antecubital 20 Gauge <1 day Labs: CBC: Recent Labs 03/22/22 0323 03/21/22 1733 WBC 4.64 12.51* HB 12.4* 15.6 HCT 36.7* 46.4 PLT 171 224 MCV 82.3 81.0 RDWCV 12.3 12.4 NEUTP -- 88.4 ABSNEUT -- 11.07* LYMPHP -- 6.2 MONOP -- 4.2 COAG: No results for input(s): APTT, INR in the last 168 hours. BMP: Recent Labs 03/22/22 0334 03/21/22 1733 GLUC 105* 117* (more content not included)... [facility] 03-21-2022 Note COVID 19 RESULT: SARS-CoV-2 (Agent of COVID-19) Not Detected by RT-PCR or equivalent method. This test has been authorized by FDA under an Emergency Use Authorization (EUA). INFLUENZA A PCR: Negative for Influenza A by RT-PCR INFLUENZA B PCR: Negative for Influenza B by RT-PCR RSV PCR: Negative for Respiratory Syncytial Virus (RSV) by PCR [facility] Comment on above: Performed By: #### 9 [id number] ####[facility] LABORATORYCLIA [id number] [place] [address] [place] 03-21-2022 History of Past i llness Narrative Problem Noted Date Resolved Date ZULLY (acute kidney injury) 03/21/20222021 documented as of this encounter (statuses as of 03/29/2022) [facility] History of Past illness Narrative* Problem Noted Date Resolved Date ZULLY (acute kidney injury) 03/21/20222021 documented as of this encounter (statuses as of 03/30/2022) [facility]20[facility] History of Past illness Narrative* Problem Noted Date Resolved Date ZULLY (acute kidney injury) 03/21/20222021 documented as of this encounter (statuses as of 05/04/2022) [facility]02-08-2022 NoteHNO ID: [id number] Author: Angela Huynh OTR/L Service: ? Author Type: Occupational Therapist Type: Progress Notes Filed: 06/21/2021 1:32 PM Note Text: Episode Visit Count: 8 Therapist That Will Oversee The Plan Of Care: Tamara Huynh Start of Care Date: 04/20/21 Onset Date: 03/27/21 Plan of Care Certification Date: 04/20/21 Next Certification Due Date: 06/21/21 Patient Identified by Name and Date of : Yes REHABILITATION AND SPORTS THERAPY OCCUPATIONAL THERAPY DISCONTINUANCE OF CARE PLAN OF CARE UPDATE: Assessment: Dorian Gonzalez Lindsay is discontinued from Occupational Therapy services due to goal achievement and maximal benefit. and Patient/Clinician mutual decision to discontinue current plan of care. Mild limitation of flexion of the distal interphalangeal joint of the middle finger. He also presents with diminished protective sensation of the ulnar aspect of the left middle finger distal phalanx and complaints of cold tolerance as well. Patient was seen for 8 visits from Start of Care Date: 04/20/21 to 06/21/2021 and treatment included: Therapeutic exercise, Self-skilled nursing management, Patient/Family/Caregiver Education and Custom orthosis fabrication. Goals for Episode of Care created on 04/20/21 through 07/21/21 (reviewed on 05/19/21, 06/20/21) Patient will report a good understanding of diagnosis and OT recommendations for progression of program. (A) Patient will demonstrate independence with ongoing home recommendations/exercise program throughout therapy plan of care.(A) Patient will report a decrease in pain in Left finger to 1/10 with prior functional tasks. (PA) Patient will increase AROM of Left finger to be 80-90% of right in order to be able to improve function for prior functional tasks.(A) Patient will independently demonstrate correct application of CUSTOM orthosis and verbalize understanding of proper wear/care. (met) Patient will report a good understanding of edema control, scar / wound management throughout therapy plan of care to promote non-adherent / non-tender soft tissue.(A) Patient will independently demonstrate sensory re-education/desensitization techniques with his/her home program. (A) A=achieved PA=partially achieved NA=not achieved NT=not tested PLAN FOR NEXT VISIT: No further skilled OT intervention indicated. Patient is discharged to home program. SUBJECTIVE: Left middle finger pain and stiffness (10 weeks, 1 days post op. Finger is very sensitive to cold weather) Functional Limitations: lifting;gripping;pinching Pain: Pain Pain Level: 3 Pain Location: Finger - Left Description: Sore Frequency: Intermittent Post Treatment Pain Post Treatment Pain Level: No Change PROMIS Scales T-scores: mean of general population = 50. 5 points is clinically meaningfully difference Percentiles provide an indication of how the patient's score ranks in relation to the general population. Higher percentile rankings indicate better function/quality of life. 50th percentile is the average of the general population and indicates half of respondents had a worse score. T-scores: mean of general population = 50. 5 points is clinically meaningfully difference Percentiles provide an indication of how the patient's score ranks in relation to the general population. Higher percentile rankings indicate better function/quality of life. 50th percentile is the average of the general population and indicates half of respondents had a worse score. OBJECTIVE MEASURES WITH LEVEL OF FUNCTION: Hand Edema Location: Left middle finger Edema Description: Moderate Elbow AROM: WFL Wrist AROM: WFL Left Hand AROM: All Digits Thumb AROM: WFL Left Hand PROM: Middle Finger Strength: Security Solutions Architect Position 2;Pinch Meter Sensation: Reports tingling or numbness;[place] (L middle finger) L Middle Finger: 4.31-diminished protective sensation (ulnar aspect distal phalanx: 2.83 radial aspect distal phalanx (volar)) Dexterity/Coordination: Observed to be functional Hand Strength R Security Solutions Architect Position 2 (lbs): 60 lbs L Security Solutions Architect Position 2 (lbs): 30 lbs R Lateral Pinch (lbs): 18 lbs R Tripod/ 3 Jaw Solo (lbs): 13 lbs R Tip Pinch (lbs): 10 lbs L Lateral Pinch (lbs): 13 lbs L Tripod/ 3 Jaw Solo (lbs): 5 lbs L Tip Pinch (lbs): 7 lbs UE AROM Left Hand AROM: All Digits Thumb AROM: WFL Hand AROM L Middle Finger MP Extension : 0 Degrees L Middle Finger MP Flexion: 90 Degrees L Middle Finger PIP Extension: -6 Degrees L Middle Finger PIP Flexion : 90 Degrees L Middle Finger DIP Extension : -4 Degrees L Middle Finger DIP Flexion : 40 Degrees Left Middle Finger Total Active Movement: 210 UE PROM Left Hand PROM: Middle Finger TREATMENT: Therapeutic Exercise: 1: Reviewed/ educated re: post operative guidelines/ precautions- progression to 5 1/2 week Modified collins exercises 2: Composite passive finger MP (more content not included)...[facility]02-08-2022 NoteHNO ID: [id number] Author: Arminda Daily MD Service: ? Author Type: Physician Type: Progress Notes Filed: 06/22/2021 12:16 PM Note Text: NEW PATIENT HISTORY AND PHYSICAL EXAM PATIENT INFO: Dorian Gonzalez [place] 30 year old HPI 06/21/2021 Pt CC: pain Presents with history of suprapubic and lower abdominal pains that can radiate to the testicles and this started after head torsion of left testicle 1 year ago and [place] testicular [place] He thinks the lower abdominal and suprapubic pains are the more relevant thing and sometimes wakes up in the morning and has to sit in a tub to help discomfort go down Bowels can be loose at time over the last year and eating habits have changed He does not have primary physician yet We will treat with 10 days of Bactrim and see if any improvement but overall think more likely to help pelvis/GI issue and may be even food sensitivity issues He will contact with primary physician for evaluation Could always see Dr. Corbin after he sees gets evaluation through primary physician to get his opinion also Chronic orchialgia symptom index sheet filled out Past Uology History: Labs/Radiology/Procedures: March 25, 2018?CT without?negative Creatinine Date Value Ref Range Status 08/07/2012 1.01 0.66 - 1.25 mg/dL Final No results found for: PSA Color (no units) Date Value 04/30/2011 Yellow Clarity (no units) Date Value 04/30/2011 Clear Glucose, Urine (mg/dl) Date Value 04/30/2011 Negative Bilirubin, Urine (no units) Date Value 04/30/2011 Negative Ketones, Urine (no units) Date Value 04/30/2011 Negative Specific [place], Ur (no units) Date Value 04/30/2011 1.020 Hemoglobin/Blood,Ur (no units) Date Value 04/30/2011 Negative pH, Urine (no units) Date Value 04/30/2011 6.5 Protein, Urine (mg/dl) Date Value 04/30/2011 Negative Urobilinogen (no units) Date Value 04/30/2011 0.2 Nitrites (no units) Date Value 04/30/2011 Negative Leukest (no units) Date Value 04/30/2011 Negative Review of Systems Constitutional: Positive for appetite change. HENT: Negative. Eyes: Negative. Respiratory: Negative. Cardiovascular: Negative. Gastrointestinal: Positive for nausea. Endocrine: Negative. Genitourinary: See HPI Musculoskeletal: Negative. Skin: Negative. Allergic/Immunologic: Negative. Neurological: Negative. Hematological: Negative. Psychiatric/Behavioral: Negative. 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 SOCIAL HISTORY Social History Tobacco Use - Smoking status: Light Tobacco Smoker Types: Cigarettes - Smokeless tobacco: Former User Substance Use Topics - Alcohol use: Yes Comment: rare - Drug use: Yes Types: Marijuana MEDICATIONS: oxyCODONE IR (ROXICODONE) 5 mg immediate release tablet, Take 1 tablet by mouth every 6 hours as needed for pain. gabapentin (NEURONTIN) 300 mg capsule, Take 1 capsule by mouth three times daily for 30 days. ibuprofen (MOTRIN) 600 mg tablet, Take 1 tablet by mouth every 6 hours as needed. sulfamethoxazole-trimethoprim (BACTRIM DS,SEPTRA DS) 800-160 mg per tablet, Take 1 tablet by mouth twice daily. oxyCODONE-acetaminophen (PERCOCET) 5-325 mg tablet, Take 1 tablet by mouth every 8 hours as needed for pain. Physical Exam HENT: Head: Normocephalic and atraumatic. Nose: Nose normal. Neck: Trachea: No tracheal deviation. Pulmonary: Effort: Pulmonary effort is normal. No respiratory distress. Abdominal: Comments: No hernias palpated Genitourinary: Testes: Normal. Musculoskeletal: General: No deformity. Normal range of motion. Cervical back: Normal range of motion. Skin: General: Skin is warm. Neurological: Mental Status: He is alert and oriented to person, place, and time. Gait: Gait is intact. Psychiatric: Mood and Affect: Mood and affect normal. Cognition and Memory: Memory normal. Risk/Benefit Discussion: FOLLOW UP: Return if symptoms worsen or fail to improve. ASSESSMENT/PLAN: 1. Pain in testicle, unspecified laterality - ICD9: 608.9, ICD10: N50.819 (primary diagnosis) - SULFAMETHOXAZOLE 800 MG-TRIMETHOPRIM 160 MG TABLET 2. Lower abdominal pain - ICD9: 789.09, ICD10: R10.30 See PCP Arminda Daily Please note: This note has been produced using speech recognition software and may contain errors related to that system including grammar, punctuation, spelling, gender and words and phrases that may be inappropriate.[facility]01-26-2022 NoteHNO ID: [id number] Author: Annamaria Oneil PA-C Service: ? Author Type: Physician Jewelsmith Type: Progress Notes Filed: 06/08/2021 10:11 AM Note Text: Plastic Surgery Post operative SUBJECTIVE: Dorian Patino is a 30 year old male s/p right middle finger FDP repair with ulnar nerve repair and skin substitute graft. Patient states he is doing well. He admit to numbness/tingling to entire middle finger and some to his ulnar aspect of index, although he did get a sharp pain yesterday along the ulnar side of his finger. He has been attending occupational therapy. History is obtained by: patient Reviewed nursing note and current pain scale. 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 Social History Tobacco Use - Smoking status: Light Tobacco Smoker Types: Cigarettes - Smokeless tobacco: Former User Substance Use Topics - Alcohol use: Yes Comment: rare - Drug use: Yes Types: Marijuana Current Outpatient Medications Medication Sig - oxyCODONE-acetaminophen (PERCOCET) 5-325 mg tablet Take 1 tablet by mouth every 8 hours as needed for pain. - oxyCODONE IR (ROXICODONE) 5 mg immediate release tablet Take 1 tablet by mouth every 6 hours as needed for pain. - ibuprofen (MOTRIN) 600 mg tablet Take 1 tablet by mouth every 6 hours as needed. - gabapentin (NEURONTIN) 300 mg capsule Take 1 capsule by mouth three times daily for 30 days. No current facility-administered medications for this visit. ALLERGIES Allergen Reactions - Apples Hives, Shortness of Breath - Red Dye Other: See Comments major nosebleeds PMDP report reviewed and All prescriptions have been APPROPRIATELY filled. No suspicious activity was identified. PHYSICAL EXAM: There were no vitals taken for this visit. General: Alert and oriented Cooperative, no distress, appears stated age Psych: Mood and Affect appropriate Lungs: Easy work of breathing, room air. Cardiovascular: radial pulse 2+. Cap refill < 2 seconds. Incision: Skin is well healed. Musculoskeletal: ROM of middle finger deferred 2/2 flexor tendon repair. Full ROM of all other fingers. Full ROM of wrist. Limited ROM of DIP as expected Neurologic: Ulnar side of the middle finger is gaining sensation IMAGING REVIEWED: ASSESSMENT/PLAN: 30 y/o male s/p right middle finger FDP repair with ulnar nerve repair and skin substitute graft PLAN: Skin is well healed. Continue with therapy. Would like to see more ROM of DIP. Tendon is intact and working well. Will allow the skin to heal and soften. Discussed the signs and symptoms of infection. Follow up PRN. [facility]01-26-2022 NoteHNO ID: [id number] Author: Angela Huynh, OTR/L Service: ? Author Type: Occupational Therapist Type: Progress Notes Filed: 06/08/2021 9:53 AM Note Text: Episode Visit Count: 7 Therapist That Will Oversee The Plan Of Care: Tamara Huynh Start of Care Date: 04/20/21 Onset Date: 03/27/21 Plan of Care Certification Date: 04/20/21 Next Certification Due Date: 06/21/21 Patient Identified by Name and Date of : Yes REHABILITATION AND SPORTS THERAPY OCCUPATIONAL THERAPY TREATMENT NOTE ASSESSMENT: Dorian Montoya tolerated the session with no issues. He demonstrates moderated intrinsic tightness and passive Limitation flexion of the left middle proximal interphalengeal and distal interphalangeal joints limiting active fist and grand scribe. Patient is 8 weeks, 2 days post op and therapy program progressed to strengthening today.The patient will continue to benefit from ongoing skilled occupational therapy to progress toward set goals and to continue with post-operative protocol . Current Frequency: 1x/week Duration: 12 weeks Total Number of Visits Planned: 12 Planned Treatment Interventions: Custom orthosis fabrication;Therapeutic exercise (55808);Prefabricated orthosis fitting;Therapeutic activities (02585);Manual therapy (93977);Self-skilled nursing management (10174);Orthotics management and training (96155,65211);Patient/Family/Caregiver Education;Fluidotherapy (14811);Ultrasound (64907) PLAN FOR NEXT VISIT: Progress note next session. SUBJECTIVE: Left middle finger pain and stiffness (8 weeks,2 days post op) Having more pain with colder weather. Reports top joint is locking up. Functional Limitations: lifting;gripping;pinching Pain: Pain Pain Level: 5 Pain Location: Finger - Left Description: Sharp (needles) Frequency: Intermittent Post Treatment Pain Post Treatment Pain Level: No Change OBJECTIVE MEASURES WITH LEVEL OF FUNCTION: Hand Edema Location: Left middle finger Edema Description: Moderate Elbow AROM: WFL Wrist AROM: WFL Left Hand AROM: All Digits Thumb AROM: WFL Left Hand PROM: Middle Finger Strength: Security Solutions Architect Position 2;Pinch Meter Sensation: Reports tingling or numbness (L middle finger) Dexterity/Coordination: Not Tested Hand Strength R Security Solutions Architect Position 2 (lbs): 80 lbs L Security Solutions Architect Position 2 (lbs): 25 lbs R Lateral Pinch (lbs): 18 lbs R Tripod/ 3 Jaw Solo (lbs): 15 lbs L Lateral Pinch (lbs): 15 lbs L Tripod/ 3 Jaw Solo (lbs): 7 lbs UE AROM Left Hand AROM: All Digits Thumb AROM: WFL Hand AROM L Middle Finger MP Extension : 0 Degrees L Middle Finger MP Flexion: 90 Degrees L Middle Finger PIP Extension: -10 Degrees L Middle Finger PIP Flexion : 80 Degrees L Middle Finger DIP Extension : -4 Degrees L Middle Finger DIP Flexion : 26 Degrees Left Middle Finger Total Active Movement: 182 UE PROM Left Hand PROM: Middle Finger Hand PROM L Middle Finger PIP Flexion: 100 Degrees L Middle Finger DIP Flexion: 42 Degrees TREATMENT: Therapeutic Exercise: 1: Reviewed/ educated re: post operative guidelines/ precautions- progression to 5 1/2 week Modified collins exercises 2: Composite passive finger MP/ IP flexion extension 3: Isolated DIP/ PIP blocking, tendon gliding 4: Active composite fist 5: Wrist finger tenodesis (*) 6: Theraputty intrinsic stretch (yellow) x 20 (*) 7: Theraputty grand scribe (yellow ) x 30 (*) 8: Theraputty pinch -all (yellow) x 30 (*) 9: Objective measurements taken and reviewed with patient. 10: Reviewed/ educated re: home program : focus on intrinsic stretch, and isolated passive stretch to PIP and DIP joints Skilled Intervention: Patient was educated in proper exercise technique and purpose for exercises. Reviewed and educated patient on additions/changes for home exercise program as above (*). Skilled judgment was provided in selection of appropriate interventions. Correct performance of therapeutic exercises was facilitated with verbal, visual and tactile cuing. Educated patient on rationale for performing exercises in regards to ROM and function . Billing Therapeutic Exercise Treatment Minutes: 40 Total Treatment Time Minutes (timed and untimed codes) : 45 MARLO Sylvester, [facility]01-14-2022 NoteHNO ID: [id number] Author: MARLO Sylvester Service: ? Author Type: Occupational Therapist Type: Progress Notes Filed: 05/27/2021 1:57 PM Note Text: Episode Visit Count: 6 Therapist That Will Oversee The Plan Of Care: Tamara Huynh Start of Care Date: 04/20/21 Onset Date: 03/27/21 Plan of Care Certification Date: 04/20/21 Next Certification Due Date: 06/21/21 Patient Identified by Name and Date of : Yes REHABILITATION AND SPORTS THERAPY OCCUPATIONAL THERAPY TREATMENT NOTE ASSESSMENT: Dorian Montoya demonstrated improvements in isolated flexor digitorum profundus glide of the middle finger. Decreased distal interphalangeal flexion of all fingers with composite fist. The patient will continue to benefit from continued skilled occupational therapy for improving functional use of the left hand. Current Frequency: 1x/week Duration: 12 weeks Total Number of Visits Planned: 12 Planned Treatment Interventions: Custom orthosis fabrication;Therapeutic exercise (98270);Prefabricated orthosis fitting;Therapeutic activities (53010);Manual therapy (35588);Self-skilled nursing management (73987);Orthotics management and training (09546,98899);Patient/Family/Caregiver Education;Fluidotherapy (13483);Ultrasound (21096) PLAN FOR NEXT VISIT: Progress ROM and strengthening as tolerated. SUBJECTIVE: Left middle finger pain and stiffness (6 weeks,4 days post op) Functional Limitations: lifting;gripping;pinching Pain: Pain Pain Level: 3 Pain Location: Finger - Left Description: Sore Frequency: Intermittent Post Treatment Pain Post Treatment Pain Level: No Change OBJECTIVE MEASURES WITH LEVEL OF FUNCTION: Hand Edema Location: Left middle finger Edema Description: Moderate Elbow AROM: WFL Wrist AROM: Left Limitation Left Hand AROM: All Digits Thumb AROM: WFL Left Hand PROM: Middle Finger Strength: (Testing not indicated) Sensation: Reports tingling or numbness (L middle finger) Dexterity/Coordination: Not Tested UE AROM Left Hand AROM: All Digits Thumb AROM: WFL Hand AROM L Middle Finger MP Flexion: 80 Degrees L Middle Finger PIP Flexion : 74 Degrees L Middle Finger DIP Flexion : 10 Degrees UE PROM Left Hand PROM: Middle Finger Hand PROM L Middle Finger PIP Flexion: 90 Degrees L Middle Finger DIP Flexion: 30 Degrees TREATMENT: Therapeutic Exercise: 1: Reviewed/ educated re: post operative guidelines/ precautions- progression to 5 1/2 week Modified collins exercises 2: Composite passive finger MP/ IP flexion extension 3: Isolated DIP and PIP passive flexion extension 4: Active composite fist 5: Wrist finger tenodesis (*) 6: AROM Wrist 7: Composite wrist andf finger flexion and extension (*) 8: IP blocking, FDS gliding 9: Objective measurements taken and reviewed with patient. 10: Tendon gliding with cone (*) 11: Reviewed/ educated re: desensitization program Skilled Intervention: Patient was educated in proper exercise technique and purpose for exercises. Reviewed and educated patient on additions/changes for home exercise program as above (*). Skilled judgment was provided in selection of appropriate interventions. Correct performance of therapeutic exercises was facilitated with verbal, visual and tactile cuing. Billing Therapeutic Exercise Treatment Minutes: 42 Total Treatment Time Minutes (timed and untimed codes) : 45 MARLO Sylvester, [facility]12-08-2021 History of Present illness Narrative* laceration to left thumb 3.5 cm * plexiglass cutter * tetanus updated last year with other finger lac * 4 4-0 sutures * bandaged * f/u 10-14 days [facility] Work Phone: [phone] History of Present illness Narrative* laceration to left thumb 3.5 cm * plexiglass cutter * tetanus updated last year with other finger lac * 4 4-0 sutures * bandaged * f/u 10-14 days [facility] Phone: Evaluation note* Diagnosis Incidental lung nodule- Primary Solitary pulmonary nodule ZULLY (acute kidney injury) (HCC) Acute kidney failure, unspecified [facility] Diagnosis Incidental lung nodule Solitary pulmonary nodule [facility]* Diagnosis Proctitis- Primary Other specified disorder of rectum and anus Pain of upper abdomen [facility] Diagnosis Encounter to [facility]- Primary Annual physical exam Routine general medical examination at a health care facility Proctitis Other specified disorder of rectum and anus Anemia, unspecified type Mild intermittent asthma without complication Nicotine use disorder Tobacco use disorder Encounter for hepatitis C screening test for low risk patient Screening for HIV (human immunodeficiency virus) Special screening examination for other specified viral diseases [facility]* Diagnosis Generalized abdominal pain- Primary Abdominal pain, generalized Decreased appetite Anorexia Nausea and vomiting Nausea with vomiting Rectal bleeding Hemorrhage of rectum and anus Proctitis Other specified disorder of rectum and anus Family history of Crohn's disease Family history of other digestive disorders [facility]* Diagnosis Dental abscess- Primary Periapical abscess without sinus Pain, dental Generalized abdominal pain Abdominal pain, generalized [facility]* Diagnosis Shortness of breath- Primary Mild intermittent asthma without complication Right-sided chest pain Trapezius muscle spasm Nausea Nausea alone Proctitis Other specified disorder of rectum and anus Abdominal pain Abdominal pain, unspecified site Nausea and vomiting Nausea with vomiting [facility] Diagnosis ZULLY (acute kidney injury) (HCC)- Primary ZULLY (acute kidney injury) (HCC) Influenza A Influenza with other respiratory manifestations Abdominal pain Abdominal pain, unspecified site Nausea and vomiting Nausea with vomiting [facility]* Diagnosis Influenza A- Primary Influenza with other respiratory manifestations Normocytic anemia Unspecified anemia ZULLY (acute kidney injury) (HCC) Rib pain on right side Hospital discharge follow-up Other follow-up examination Abdominal pain Abdominal pain, unspecified site Nausea and vomiting Nausea with vomiting [facility] Diagnosis Mild persistent asthma without complication- Primary Right-sided chest pain Left foot pain Pain in soft tissues of limb Nausea and vomiting, unspecified vomiting type Nicotine use disorder Tobacco use disorder Abdominal pain Abdominal pain, unspecified site Nausea and vomiting Nausea with vomiting [facility]* Diagnosis Abdominal pain Abdominal pain, unspecified site Nausea and vomiting Nausea with vomiting [facility] Diagnosis Plantar fascial fibromatosis of left foot- Primary Pain Generalized pain Left foot pain Pain in soft tissues of limb [facility]* Diagnosis Plantar fascial fibromatosis of left foot [facility]* Diagnosis Plantar fascial fibromatosis [facility]* Diagnosis Epidermal inclusion cyst- Primary Sebaceous cyst [facility]* Diagnosis Encounter for annual physical exam- Primary Nausea and vomiting, unspecified vomiting type Screening for diabetes mellitus Screening for blood disease Screening for unspecified disorder of blood and blood-forming organs Screening for cardiovascular condition Screening for other and unspecified cardiovascular conditions [facility]* Diagnosis Calf swelling- Primary Contusion of left lower extremity, initial encounter [facility]* Diagnosis Epidermal inclusion cyst- Primary Sebaceous cyst [facility]* Diagnosis Screening for diabetes mellitus- Primary [facility]* Diagnosis Screening for diabetes mellitus [facility]* Diagnosis Screening for diabetes mellitus [facility] noteNo assessment information availableMemorial [facility] Services Work Phone: Hospital Discharge instructions* Attachments The following attachments cannot be sent through Care Everywhere. * Tooth Abscess Discharge Instructions (Uruguayan) [facility]* Attachments The following attachments cannot be sent through Care Everywhere. * Proctitis ([place]ayan) [facility] (narrative)* Consultation (Urgent) - Pending Review Specialty Diagnoses / Procedures Referred By Helen pak Referred To Contact Gastroenterology Diagnoses Proctitis Procedures MI OFFICE/OUTPATIENT NEW HIGH MDM 60-74 MINUTES Alem Crenshaw APRN - CNP [address] [place] [address] [facility] [address] [place] [address] Referral ID Status Reason Start Date Expiration Date Visits Requested Visits Authorized [id number] Pending Review Specialty Services Required 02/01/2023 02/01/2024 1 1 [facility] Consultation (Routine) - Pending Review Specialty Diagnoses / Procedures Referred By Contac t Referred To Contact Dental Styrene Dehydration Reactor Operator Diagnoses Dental abscess Procedures MI OFFICE/OUTPATIENT [facility] 60-74 MINUTES Bebe Cheung MD [address] [place] [address] Replaced By [facility] [address] [place] [address] Referral ID Status Reason Start Date Expiration Date Visits Requested Visits Authorized [id number] Pending Review Specialty Services Required 04/24/2024 1 1 [facility] Consultation (Routine) - Pending Review Specialty Diagnoses / Procedures Referred By Contac t Referred To Contact Podiatry Diagnoses Left foot pain Procedures MI OFFICE/OUTPATIENT NEW [facility] MDM 60 MINUTES Alem Crenshaw APRN - CNP [address] [facility] [address] [place] [address] [facility] [address] [place] [address] Referral ID Status Reason Start Date Expiration Date Visits Requested Visits Authorized [id number] Pending Review Specialty Services Required 09/05/2023 09/04/2024 1 1 [facility] Consultation (Routine) - Pending Review Specialty Diagnoses / Procedures Referred By Contcolt t Referred To Contact Podiatry Diagnoses Plantar fascial fibromatosis of left foot Procedures MI OFFICE/OUTPATIENT [facility] 60 MINUTES Collin Hernandez MD [address] [facility] [address] [place] [address] [facility] [address] [place] [address] Referral ID Status Reason Start Date Expiration Date Visits Requested Visits Authorized [id number] Pending Review Specialty Services Required 10/17/2023 10/16/2024 1 1 [facility] Consultation (Routine) - Pending Review Specialty Diagnoses / Procedures Referred By Helen t Referred To Contact Gastroenterology Diagnoses Nausea and vomiting, unspecified vomiting type Procedures MI OFFICE/OUTPATIENT [facility] 60 MINUTES Radha Lewis PA-C [address] [place] [address] [address] [place] [address] Neida Fuller MD [address] [place] [address] [address] [place] [address] Referral ID Status Reason Start Date Expiration Date Visits Requested Visits Authorized [id number] Pending Review Specialty Services Required 4 02/20/2025 1 1 [facility] (narrative)No reason for referral information availableFaucett Connequity Services Work Phone: Summary Purpose Family History No Family History Records FoundNo Family History Records FoundNo Family History Records FoundNo Family History Records FoundNo Family History Records FoundNo Family History Records FoundNo Family History Records FoundNo Family History Records FoundNo Family History Records FoundNo Family History Records Found Advance Directives No Advanced Directives Records FoundLatest Code Status on File Code Status Date Activated Date Inactivated Comments Full Code 03/22/2022 3:05 AM 03/23/2022 7:45 PM Full Code Order Discussed With: Patient Latest Code Status on File Code Status Date Activated Date Inactivated Comments Full Code 03/22/2022 3:05 AM 03/23/2022 7:45 PM Latest Code Status on File Code Status Date Activated Date Inactivated Comments Full Code 06/24/2023 3:05 AM 06/25/2023 7:11 PM Latest Code Status on File Code Status Date Activated Date Inactivated Comments Full Code 06/24/2023 3:05 AM 06/25/2023 7:11 PM Latest Code Status on File Code Status Date Activated Date Inactivated Comments Full Code 09/24/2023 8:24 AM 09/24/2023 12:08 PM Code Status History Code Status Date Activated Date Inactivated Comments Full Code 06/24/2023 3:05 AM 06/25/2023 7:11 PM Latest Code Status on File Code Status Date Activated Date Inactivated Comments Full Code 09/24/2023 8:24 AM 09/24/2023 12:08 PM Code Status History Code Status Date Activated Date Inactivated Comments Full Code 06/24/2023 3:05 AM 06/25/2023 7:11 PM Date Activated Date Inactivated Comments 09/24/2023 8:24 AM 09/24/2023 12:08 PM Date Activated Date Inactivated Comments 06/24/2023 3:05 AM 06/25/2023 7:11 PM Date Activated Date Inactivated Comments 09/24/2023 8:24 AM 09/24/2023 12:08 PM Date Activated Date Inactivated Comments 06/24/2023 3:05 AM 06/25/2023 7:11 PM Chief Complaint left hand cutleft thumb lacerationleft thumb laceration Reason for Referral Specialty Diagnoses / Procedures Referred By Contac t Referred To Contact CT IMAGING Diagnoses Incidental lung nodule Procedures CT CHEST WO IVCON DIAGNOSTIC COMPUTED TOMOGRAPHY THORAX W/O CNTRST Deysi Coombs MD [address] [address] [place] [address] Ct Imaging Referral ID Status Reason Start Date Expiration Date V isits Requested Visits Authorized [id number] Closed Auto-Generate d Referral 04/22/2022 06/20/2022 1 1 Chief Complaint and Reason for Visit Chief Complaint Admit Date R RING FINGER FRACTURE October 14, 2024 2: 16pm room 8 October 14, 2024 2:57p m Additional Source Comments (unrecognized sect ion and content) No Status Records FoundNo Status Records FoundNo Status Records FoundNo Status Records FoundNo Status Records FoundNo Status Records FoundNo Status Records FoundNo Status Records FoundNo Status Records FoundNo Status Records Found INFORMATION SOURCE (unrecogn ized section and content) DATE CREATED AUTHOR [facility]/26/2019 [facility] DATE CREATED AUTHOR AUTHOR'S ORGANIZ ATION 04/26/2021 [facility] DATE CREATED AUTHOR AUTHOR'S ORGANIZ ATION 04/01/2022 [facility] DATE CREATED AUTHOR AUTHOR'S ORGANIZ ATION 05/06/2022 [employer] DATE CREATED AUTHOR AUTHOR'S ORGANIZ ATION 05/24/2022 [facility] DATE CREATED AUTHOR AUTHOR'S ORGANIZ ATION 08/11/2022 [facility] DATE CREATED AUTHOR AUTHOR'S ORGANIZ ATION 08/26/2024 [facility] DATE CREATED AUTHOR AUTHOR'S ORGANIZ ATION 10/09/2024 [facility] DATE CREATED AUTHOR AUTHOR'S ORGANIZ ATION 10/09/2024 [facility] DATE CREATED AUTHOR AUTHOR'S ORGANIZ ATION 10/20/2024 [facility] Source Comments (unrecognize d section and content) In the event this informatio n is protected by the Federal Confidentiality of Alcohol and Drug Abuse Patient Records regulations: The Federal rules restrict any use of the information to criminally investigate or prosecute any alcohol or drug abuse patient.[facility], IncIn the event this information is protected by the Federal Confidentiality of Alcohol and Drug Abuse Patient Records regulations: The Federal rules restrict any use of the information to criminally investigate or prosecute any alcohol or drug abuse patient.[facility], IncIn the event this information is protected by the Federal Confidentiality of Alcohol and Drug Abuse Patient Records regulations: The Federal rules restrict any use of the information to criminally investigate or prosecute any alcohol or drug abuse patient.[facility] Reason for Visit (unrecogniz ed section and content) Reason Comments Transition Of Care ZULLY Reason Comments Follow Up Phone Call All Clear Specialty Diagnoses / Procedures Referred By Contac t Referred To Contact CT IMAGING Diagnoses Incidental lung nodule Procedures CT CHEST WO IVCON DIAGNOSTIC COMPUTED TOMOGRAPHY THORAX W/O CNTRST Deysi Coombs MD [address] [facility] [address] [place] [address] Ct Imaging Referral ID Status Reason Start Date Expiration Date V isits Requested Visits Authorized [id number] Closed Auto-Generate d Referral 04/22/2022 06/20/2022 1 1 Reason Onset Date Comments New Patient 01/25/2023 Reason Comments Abdominal Pain Pt states abd pain, N/V, and blood in stool for the past few days, pt denies thinners. Reason Comments New Patient Stomach pain, blood in stool Establish Care Reason Onset Date Comments Appointment Confirmation 04/09/2023 Reason Comments New Patient Proctitis Rectal Bleeding Vomiting Light brown color Abdominal Pain Specialty Diagnoses / Procedures Referred By Contac t Referred To Contact Gastroenterology Diagnoses Proctitis Procedures MI OFFICE/OUTPATIENT NEW HIGH MDM 60-74 MINUTES Alem Crenshaw APRN - [place] [address] [place] [address] [facility] [address] [place] [address] Referral ID Status Reason Start Date Expiration Date V isits Requested Visits Authorized [id number] Closed Specialty Services Required 02/01/2023 02/01/2024 1 1 Reason Comments Abdominal Pain Patient complains of generalized abd pain with blood typically only when he wipes occassionally, states it usually isn't in the stool. Patient states he was seen here before for this problem. Patient admits to nausea and vomiting. Dental Pain Patient complains of dental pain on R jaw, believes he has a broken tooth, patient claims it is giving him a headache, been unable to see the dentist. Reason Comments New to Provider follow up appt on Proctitis, Asthma, Tob acco Abuse Reason Comments Shortness of Breath Pt c/o SOB and gener al illness he noticed this AM. SPO2 70% upon EMS arrival, placed on 15L NRB. Pt A&OX4 upon arrival to ED. Pt states he has been dizzy and has had episodes of vertigo w/his ears popping for several days as well. Denies any medical hx/drug/alcohol use. Specialty Diagnoses / Procedures Referred By Helen pak Referred To Contact Diagnoses ZULLY (acute kidney injury) (HCC) Procedures . Blas Greene MD [address] [place] [address] [facility] [address] [place] [address] Referral ID Status Reason Start Date Expiration Date Visits Re quested Visits Authorized [id number] 1 1 Reason Comments Hospital Follow-up Acute kidney injury. Mentions when standing or walking gets sharp pain in his back by his lung. Mentions kidney pain. Reason Comments Follow-up 3 month follow up Specialty Diagnoses / Procedures Referred By Helen pak Referred To Contact Diagnoses Abdominal pain Nausea and vomiting Abdominal pain [R10.9] Nausea and vomiting [R11.2] Procedures MI ESOPHAGOGASTRODUODENOSCOPY TRANSORAL DIAGNOSTIC MI COLONOSCOPY FLX DX W/COLLJ SPEC WHEN PFRMD ESOPHAGOGASTRODUODENOSCOPY/COLONOSCOP Y COLONOSCOPY Neida Fuller MD [address] [place] [address] [address] [facility] [address] [place] [address] Referral ID Status Reason Start Date Expiration Date Visits Re quested Visits Authorized [id number] 1 1 Reason Onset Date Comments Appointment 06/26/2023 Transitional Car e Reason Comments New Patient Left foot Specialty Diagnoses / Procedures Referred By Contac t Referred To Contact Sports Medicine Diagnoses Left foot pain Procedures MI OFFICE/[facility]PATIENT [facility] 60 MINUTES Alem Crenshaw APRN - [facility] [address] [place] [address] [facility] [address] [facility] [address] [place] [address] Referral ID Status Reason Start Date Expiration Date V isits Requested Visits Authorized [id number] Closed Specialty Services Required 09/05/2023 09/04/2024 1 1 Reason Comments New Patient Left foot plantar fa sciitis; Dr. Hernandez referral Specialty Diagnoses / Procedures Referred By Contac t Referred To Contact Podiatry Diagnoses Plantar fascial fibromatosis of left foot Procedures MI OFFICE/OUTPATIENT [facility] 60 MINUTES Collin Hernandez MD [address] [facility] [address] [place] [address] Laxmi Hicks DPM [address] [place] [address] Referral ID Status Reason Start Date Expiration Date V isits Requested Visits Authorized [id number] Closed Specialty Services Required 10/17/2023 10/16/2024 1 1 Specialty Diagnoses / Procedures Referred By Contac t Referred To Contact Diagnoses Plantar fascial fibromatosis Left foot plantar fibromatosis Procedures MI FASCIECTOMY PLANTAR FASCIA PARTIAL SPX LEFT FOOT EXCISION PLANTAR FIBROMA Laxmi Hicks DPM [address] [facility] [address] [place] [address] Referral ID Status Reason Start Date Expiration Date Visits Re quested Visits Authorized [id number] 12/31/2023 1 1 Reason Comments Dental Filling #7-ML & #10-ML Reason Comments Post-op Left foot soft tissu e mass excision, DOS 01/21/2024 Reason Comments Annual Exam Reason Comments Leg Injury Left leg injury Thur sday 1800, pt dropped railroad tie on leg. Pt unable to put weight on leg. Reason Comments Post-op Left foot soft tissu e mass excision DOS 01/21/2024 Reason Comments Other Pt had a drink, and pt stated he left like his blood sugars were fluctuating Reason Onset Date Comments Appointment 04/24/2024 Via My Chart/CRM Reason Comments Med Change Request Reason Onset Date Comments Medication Problem 05/26/2024 Pharmacy wont fill as written Care Teams (unrecognized sec tion and content) Paper Machine Supervisor Relationship Specialty Start Date End Date [facility] [address] [place] [address] PCP - General 06/25/22 Paper Machine Supervisor Relationship Specialty Start Date End Date [facility] [address] [place] [address] PCP - General 06/25/22 Paper Machine Supervisor Relationship Specialty Start Date End Date [facility] [address] [place] [address] PCP - General 06/25/22 Paper Machine Supervisor Relationship Specialty Start Date End Date [facility] [address] [place] [address] PCP - General 06/25/22 Paper Machine Supervisor Relationship Specialty Start Date End Date [facility] [address] [place] [address] PCP - General 06/25/22 Paper Machine Supervisor Relationship Specialty Start Date End Date [facility] [address] [place] [address] PCP - General 06/25/22 Paper Machine Supervisor Relationship Specialty Start Date End Date [facility] [address] [place] [address] PCP - General 06/25/22 Paper Machine Supervisor Relationship Specialty Start Date End Date Алескандр Novak MD [address] [place] [address] PCP - General Family Medicine 06/06/23 Paper Machine Supervisor Relationship Specialty Start Date End Date Александр Novak MD [address] [place] [address] PCP - General Family Medicine 06/06/23 Paper Machine Supervisor Relationship Specialty Start Date End Date Александр Novak MD [address] [place] [address] PCP - General Family Medicine 06/06/23 Paper Machine Supervisor Relationship Specialty Start Date End Date Александр Novak MD [address] [place] [address] PCP - General Family Medicine 06/06/23 Paper Machine Supervisor Relationship Specialty Start Date End Date Александр Novak MD [address] [place] [address] PCP - General Family Medicine 06/06/23 Paper Machine Supervisor Relationship Specialty Start Date End Date Александр Novak MD [address] [place] [address] PCP - General Family Medicine 06/06/23 Paper Machine Supervisor Relationship Specialty Start Date End Date Александр Novak MD [address] [place] [address] PCP - General Family Medicine 06/06/23 Paper Machine Supervisor Relationship Specialty Start Date End Date Александр Novak MD [address] [place] [address] PCP - General Family Medicine 06/06/23 Paper Machine Supervisor Relationship Specialty Start Date End Date Александр Novak MD [address] [place] [address] PCP - General Family Medicine 06/06/23 Paper Machine Supervisor Relationship Specialty Start Date End Date Александр Novak MD [address] [place] [address] PCP - General Family Medicine 06/06/23 Paper Machine Supervisor Relationship Specialty Start Date End Date Александр Novak MD [address] [place], [place] [address] PCP - General Family Medicine 06/06/23 Paper Machine Supervisor Relationship Specialty Start Date End Date Александр Novak MD [address] [place], [place] [address] PCP - General Family Medicine 06/06/23 Paper Machine Supervisor Relationship Specialty Start Date End Date Александр Novak MD [address] [place] [address] PCP - General Family Medicine 06/06/23 Paper Machine Supervisor Relationship Specialty Start Date End Date Александр Novak MD [address] [place] [address] PCP - General Family Medicine 06/06/23 Paper Machine Supervisor Relationship Specialty Start Date End Date None, Pcp [address] [place] [address] PCP - General 06/25/22 Paper Machine Supervisor Relationship Specialty Start Date End Date None, Pcp [address] [place] [address] PCP - General 06/25/22 Paper Machine Supervisor Relationship Specialty Start Date End Date Александр Novak MD [address] [place], [place] [address] PCP - General Family Medicine 06/06/23 Paper Machine Supervisor Relationship Specialty Start Date End Date Александр Novak MD [address] [place] [address] PCP - General [facility] Hospital Medicine 06/06/23 Paper Machine Supervisor Relationship Specialty Start Date End Date Александр Novak MD [address] [place] [address] PCP - General [facility] Hospital Medicine 06/06/23 Paper Machine Supervisor Relationship Specialty Start Date End Date Александр Novak MD [address] [place] [address] PCP - General [facility] Hospital Medicine 06/06/23 Team Status: Active Member Role Status Dates Dr. Jessee Mirza MD Attending Provider Active Start: October 14, 2024 Team Status: Inactive Member Role Status Dates Dr. Roney Whatley MD Attending Provider Active S tart: October 14, 2024 End: October 14, 2024 Scheduled Active and Recently Administ ered Medications (unrecognized section and content) Medication Order 01/23/2023 01/24/2023 01/25/2023 morphine injection 4 mg (COMPLETED) 4 mg, IntraVENous, Once, On Jessica 01/25/23 at 1025, For 1 dose, If oral and IV narcotics ordered, use oral first and only use IV if oral is ineffective or cannot take oral. Do Not give oral and IV within 1 hour of each other unless specifically ordered. 1347 (Given - Provid er: Hailey Simon, DARLENE) ondansetron (Zofran) injection 4 mg (COMPLETED) 4 mg, IntraVENous, Once, On Jessica 01/25/23 at 1025, For 1 dose 1347 (Given - Provid er: Hailey Simon RN) PRN Medication Order 01/23/2023 01/24/2023 01/25/2023 iopamidol (Isovue-370) 76 % injection 75 mL (COMPLETED) 75 mL, IntraVENous, IMG once PRN, contrast, Starting on Jessica 01/25/23 at 1305, For 1 dose 1305 (Given - Provid er: ODALYS Dye) Scheduled Medication Order 04/23/2023 04/24/2023 04/25/2023 amoxicillin-clavulanate (Augmentin) 875-125 MG per tablet 1 tablet (COMPLETED) 1 tablet (875 mg), Oral, Once, On Sun04/25/23 at 0445, For 1 dose, Suspected Indication (Select all that apply): Bone and Join Infection 0538 (Given - Provid er: Apoorva Yo RN) morphine injection 4 mg (COMPLETED) 4 mg, IntraVENous, Once, On Sun04/25/23 at 0445, For 1 dose, If oral and IV narcotics ordered, use oral first and only use IV if oral is ineffective or cannot take oral. Do Not give oral and IV within 1 hour of each other unless specifically ordered. 0538 (Given - Provid er: Apoorva Yo RN) ondansetron (Zofran) injection 4 mg (COMPLETED) 4 mg, IntraVENous, Once, On Sun04/25/23 at 0445, For 1 dose 0538 (Given - Provid er: Apoorva Yo RN) Scheduled Medication Order 06/23/2023 06/24/2023 06/25/2023 guaiFENesin (Mucinex) 12 hr tablet 600 mg 600 mg, Oral, 2 times daily, First dose on 06/24/23 at 0900, Administer with plenty of fluids to ensure proper action. Do not crush, chew, or split. 0841 (Given - Provider: Jonathon Anderson RN)2014 (Given - Provider: Giselle Frost RN) 0801 (Given - Provider: Christine Saleem LPN) melatonin tablet 6 mg 6 mg, Oral, Nightly, First dose on 06/24/23 at 2100 2014 (Given - Provider: Giselle Frost, RN) oseltamivir (Tamiflu) capsule 30 mg 30 mg, Oral, Daily, First dose on 06/24/23 at 0900, For 5 days, Coverage: Influenza, Infection Site: Site Not Specified 0841 (Given - Provider: Jonathon Anderson RN) 0802 (Given - Provider: Christine Saleem LPN) piperacillin-tazobacta m (Zosyn) IVPB 3,375 mg (CANCELED) 3,375 mg, IntraVENous, at 12.5 mL/hr, Administer over 4 Hours, Every 8 hours, First dose on Sun06/24/23 at 0315, Dosage or interval has been adjusted per [facility] Renal Dosing policy. premix bag, Suspected Indication (Select all that apply): Bloodstream Infection, Pneumonia (CAP) 0342 (New Bag - Provider: Caitlyn Paul, DARLENE)0841 (Stopped - Provider: Jonathon Anderson, RN)1104 (New Bag - Provider: Jonathon Anderson, RN)1621 (Stopped - Provider: Jonathon Anderson, RN)2015 (New Bag - Provider: Giselle Frost, DARLENE) 0015 (Stopped - Provider: Giselle Frost RN)0302 (New Bag - Provider: Giselle Frost RN)0702 (Stopped - Provider: Giselle Frost RN)1053 (New Bag - Provider: Christine Saleem LPN)1453 (Stopped - Provider: Christine Saleem LPN) piperacillin-tazobacta m (Zosyn) IVPB 4.5 g (COMPLETED) 4.5 g, IntraVENous, at 200 mL/hr, Administer over 0.5 Hours, Once, On 06/23/23 at 2210, For 1 dose, premix bag, Suspected Indication (Select all that apply): Sepsis of Unknown Etiology 2350 (New Bag - Provider: Gwen Jennings RN) 0020 (Stopped - Provider: Gwen Jennings RN) potassium chloride CR (Klor-Con M10) ER tablet 40 mEq (COMPLETED) 40 mEq, Oral, Once, On Sun06/25/23 at 1000, For 1 dose, Best given with food and plenty of water to minimize gastric irritation. Do not crush or chew. 1053 (Given - Provider: Christine Saleem LPN) sodium chloride 0.9 % bolus 1,000 mL (COMPLETED) 1,000 mL, IntraVENous, at 1,000 mL/hr, Administer over 1 Hours, Every 1 hour, First dose on 06/23/23 at 2210, For 2 doses 2206 (New Bag - Provider: Madelin Marie RN)2306 (Stopped - Provider: Gwen Jennings RN)2345 (New Bag - Provider: Gwen Jennings RN - Comment: Per MD zapata second liter now.) 0033 (Stopped - Provider: Gwen Jennings RN) vancomycin (Vancocin) 1500 mg in NS 250 mL IVPB (compounded premix) (COMPLETED) 1,500 mg, IntraVENous, at 125 mL/hr, Administer over 120 Minutes, Once, On 06/23/23 at 2210, For 1 dose, For pharmacists: Verify the single weight-based dose associated with this panel assuming the provider selected an appropriate loading dose based on visual assessment of the patient. The loading dose should be verified before completing the consult premix bag, Suspected Indication (Select all that apply): Sepsis of Unknown Etiology 0031 (New Bag - Provider: Gwen Jennings RN)0231 (Stopped - Provider: Gwen Jennings RN) Continuous Medication Order 06/23/2023 06/24/2023 06/25/2023 sodium chloride 0.9 % infusion 100 mL/hr, IntraVENous, Continuous, Starting on 06/24/23 at 0310, For 1 day 0308 (New Bag - Provider: Gwen Jennings RN)0841 (Rate/Dose Verify - Provider: Jonathon Anderson RN)1054 (Rate/Dose Verify - Provider: Jonathon Anderson RN)1436 (Rate/Dose Verify - Provider: Jonathon Anderson RN) 0700 (Stopped - Provider: Christine Saleem LPN) PRN Medication Order 06/23/2023 06/24/2023 06/25/2023 acetaminophen (Tylenol) suppository 650 mg(Linked Group 1) 650 mg, Rectal, Every 6 hours PRN, mild pain (1-3), fever, For temp greater than 100.4 F (38 C), Starting on 06/24/23 at 0305, Administer if oral route cannot be used. Maximum dose of acetaminophen is 4000 mg from all sources in 24 hours. 0345 (See Alternative - Provider: Caitlyn Paul RN)1439 (See Alternative - Provider: Jonathon Anderson RN) acetaminophen (Tylenol) tablet 650 mg(Linked Group 1) 650 mg, Oral, Every 6 hours PRN, mild pain (1-3), fever, For temp greater than 100.4 F (38 C), Starting on 06/24/23 at 0305, Maximum dose of acetaminophen is 4000 mg from all sources in 24 hours. 0345 (Given - Provider: Caitlyn Paul, RN)1439 (Given - Provider: Jonathon Anderson, RN) albuterol 108 (90 Base) MCG/ACT inhaler 2 puff 2 puff, Inhalation, Every 4 hours PRN, wheezing, shortness of breath, Starting on 06/24/23 at 0305 0357 (Given - Provider: Caitlyn Paul, RN)1437 (Given - Provider: Jonathon Anderson, RN) iopamidol (Isovue-370) 76 % injection 75 mL (COMPLETED) 75 mL, IntraVENous, IMG once PRN, contrast, Starting on 06/23/23 at 2311, For 1 dose 2316 (Given - Provider: Brook Hadley, VeriTainer) ondansetron (Zofran) injection 4 mg(Linked Group 2) 4 mg, IntraVENous, Every 6 hours PRN, nausea, vomiting, Starting on 06/24/23 at 0305, 1st Line. Give IV if patient is unable to take orally. If inadequate response within 60 minutes, proceed to next-line agent or contact provider if no further options ordered. ondansetron ODT (Zofran-ODT) disintegrating tablet 4 mg(Linked Group 2) 4 mg, Oral, Every 8 hours PRN, nausea, vomiting, Starting on 06/24/23 at 0305, 1st Line. If inadequate response within 60 minutes, proceed to next-line agent or contact provider if no further options ordered. Patient should allow tablet to dissolve on tongue. Do not remove from blister pack until just before administering. polyethylene glycol (PEG) 3350 (Miralax) packet 17 g 17 g, Oral, Daily PRN, constipation, Starting on 06/24/23 at 0305, 1st line for treatment of constipation - give scheduled if no bowel movement in past 24 hours. Linked Groups Order Group 1: acetaminophen (Tylenol) tablet 650 mgJump to med 650 mg, Oral, Every 6 hours PRN, mild pain (1-3), fever, For temp greater than 100.4 F (38 C), Starting on 06/24/23 at 0305, Maximum dose of acetaminophen is 4000 mg from all sources in 24 hours. Or acetaminophen (Tylenol) suppository 650 mgJump to med 650 mg, Rectal, Every 6 hours PRN, mild pain (1-3), fever, For temp greater than 100.4 F (38 C), Starting on 06/24/23 at 0305, Administer if oral route cannot be used. Maximum dose of acetaminophen is 4000 mg from all sources in 24 hours. Group 2: ondansetron ODT (Zofran-ODT) disintegrating tablet 4 mgJump to med 4 mg, Oral, Every 8 hours PRN, nausea, vomiting, Starting on 06/24/23 at 0305, 1st Line. If inadequate response within 60 minutes, proceed to next-line agent or contact provider if no further options ordered. Patient should allow tablet to dissolve on tongue. Do not remove from blister pack until just before administering. Or ondansetron (Zofran) injection 4 mgJump to med 4 mg, IntraVENous, Every 6 hours PRN, nausea, vomiting, Starting on 06/24/23 at 0305, 1st Line. Give IV if patient is unable to take orally. If inadequate response within 60 minutes, proceed to next-line agent or contact provider if no further options ordered. Scheduled Medication Order 09/22/2023 09/23/2023 09/24/2023 sodium chloride 0.9% (NS) flush 10 mL 10 mL, IntraVENous, Every 12 hours scheduled (2 times per day), First dose on Sun09/24/23 at 0900 0900 (Canceled Entry - Provider: Automatic Discharge Provider - Comment: Automatically canceled at discontinue of medication order) sodium chloride 0.9% (NS) flush 10 mL 10 mL, IntraVENous, Every 12 hours scheduled (2 times per day), First dose on Sun09/24/23 at 0900, Preprocedure 0900 (Canceled Entry - Provider: Automatic Discharge Provider - Comment: Automatically canceled at discontinue of medication order) PRN Medication Order 09/22/2023 09/23/2023 09/24/2023 ondansetron (Zofran) injection 4 mg 4 mg, IntraVENous, Once PRN, nausea, vomiting, Starting on Sun09/24/23 at 0823, For 1 dose, Preprocedure sodium chloride 0.9 % infusion 5-250 mL/hr, IntraVENous, PRN, if patient receiving piggyback infusions and maintenance fluids are not ordered OR KVO fluids to protect IV site / prevent frequent line interruptions/ long duration, Starting on Sun09/24/23 at 0837, For piggyback infusion, administer at same rate as piggyback for a total of 25 mL. Enter 25 mL into dose field and piggyback rate into rate field of order. If piggyback is infusing at a rate less than 100 mL/hr, enter 25 mL into dose field and 100 mL/hr into rate field of order. For KVO fluids, enter rate of 20 mL/hr or less into rate field of order. sodium chloride 0.9 % infusion 5-250 mL/hr, IntraVENous, PRN, if patient receiving piggyback infusions and maintenance fluids are not ordered OR KVO fluids to protect IV site / prevent frequent line interruptions/ long duration, Starting on Sun09/24/23 at 0823, Preprocedure, For piggyback infusion, administer at same rate as piggyback for a total of 25 mL. Enter 25 mL into dose field and piggyback rate into rate field of order. If piggyback is infusing at a rate less than 100 mL/hr, enter 25 mL into dose field and 100 mL/hr into rate field of order. For KVO fluids, enter rate of 20 mL/hr or less into rate field of order. sodium chloride 0.9% (NS) flush 10 mL 10 mL, IntraVENous, PRN, line care, Starting on Sun09/24/23 at 0837, After every IV line use sodium chloride 0.9% (NS) flush 10 mL 10 mL, IntraVENous, PRN, line care, Starting on Sun09/24/23 at 0823, Preprocedure, After every IV line use Scheduled Medication Order 01/19/2024 01/20/2024 01/21/2024 acetaminophen (Tylenol) tablet 1,000 mg (COMPLETED) 1,000 mg, Oral, Once, On Sun01/21/24 at 0830, For 1 dose, Preprocedure, Administer 60 minutes prior to surgery. 0838 (Given - Provid er: Lamont Wood RN) ceFAZolin (Ancef) 2,000 mg in sodium chloride 0.9 % 100 mL IVPB (COMPLETED) 2,000 mg, IntraVENous, at 200 mL/hr, Administer over 30 Minutes, Once, On Sun01/21/24 at 0830, For 1 dose, Preprocedure, Administer within 1 hour prior to incision. Recommend to repeat in 3-4 hours after initial dose if still intra-op. Mini-Bag Plus bag, Suspected Indication (Select all that apply): Surgical Prophylaxis 0936 (New Bag - Prov ider: Yanet Galaviz APRN - RN [employer]) exzIEKZUrxxqd-wqwucifggfd-xlopr phrine (TAP) syringe 30 mL 30 mL, Injection, Once, On Sun01/21/24 at 0830, For 1 dose, Preprocedure 0830 (Canceled Entry - Provider: Automatic Discharge Provider - Comment: Automatically canceled at discontinue of medication order) famotidine (Pepcid) tablet 20 mg (COMPLETED)(Linked Group 1) 20 mg, Oral, Once, On Sun01/21/24 at 0830, For 1 dose, Preprocedure, IV or Oral - Use PO option as first line. If unable to tolerate PO, then okay to use IV. 0839 (Given - Provid er: Lamont Wood RN) lidocaine PF (Xylocaine) 1 % injection 5 mL 5 mL, Infiltration, Once, On Sun01/21/24 at 0830, For 1 dose, Preprocedure, Draw up for block placement. 0830 (Canceled Entry - Provider: Automatic Discharge Provider - Comment: Automatically canceled at discontinue of medication order) sodium chloride 0.9% (NS) flush 10 mL 10 mL, IntraVENous, Every 12 hours scheduled (2 times per day), First dose on Sun01/21/24 at 1015, Recovery (only) 1015 (Canceled Entry - Provider: Automatic Discharge Provider - Comment: Automatically canceled at discontinue of medication order) sodium chloride 0.9% (NS) flush 10 mL 10 mL, IntraVENous, Every 12 hours scheduled (2 times per day), First dose on Sun01/21/24 at 0900, Preprocedure 0900 (Canceled Entry - Provider: Automatic Discharge Provider - Comment: Automatically canceled at discontinue of medication order) sodium chloride 0.9% (NS) flush 5-40 mL 5-40 mL, IntraVENous, Every 12 hours, First dose on Sun01/21/24 at 0830, Preprocedure, For Line Patency: Peripheral IV = 5 mL; Midline or Central Line = 10 mL/lumen. If following IV push medication, administer flush at same rate as the IV push. Flush volume is determined by type of infusion therapy being given. For non-viscous solutions use: Peripheral IV = 5 mL Midline or Central Line = 10 mL/lumen For viscous solutions (i.e. blood components, parenteral nutrition, contrast media, or after obtaining blood sample) use: Peripheral IV = 10 mL Midline or Central Line = 20 mL/lumen 0830 (Canceled Entry - Provider: Automatic Discharge Provider - Comment: Automatically canceled at discontinue of medication order) Continuous Medication Order 01/19/2024 01/20/2024 01/21/2024 lactated Ringer's (LR) infusion 50 mL/hr, IntraVENous, Continuous, Starting on Sun01/21/24 at 0830, Preprocedure, Upon admission to sameday - please start iv if patient does not have iv access. Use 500ml NS for patients on dialysis. 0838 (New Bag - Prov ider: Lamont Wood RN)0934 (Continued by Anesthesia - Provider: SOCRATES Scott CRNA)0936 (Rate/Dose Change - Provider: SOCRATES Scott CRNA)1000 (Anesthesia Volume Adjustment - Provider: SOCRATES Scott CRNA) lactated ringers infusion 125 mL/hr, IntraVENous, Continuous, Starting on Sun01/21/24 at 1015, Recovery (only) 1015 (Canceled Entry - Provider: Automatic Discharge Provider - Comment: Automatically canceled at discontinue of medication order) PRN Medication Order 01/19/2024 01/20/2024 01/21/2024 bupivacaine (Marcaine) 0.5 % injection (CANCELED) As needed, Starting on Sun01/21/24 at 0956, Intraprocedure 0956 (Given - Provid er: Laxmi Hicks DPM - Comment: surgical site) diphenhydrAMINE (BENADryl) injection 12.5 mg 12.5 mg, IntraVENous, Once PRN, itching, Starting on Sun01/21/24 at 1003, For 1 dose, Recovery (only) hydrALAZINE (Apresoline) injection 5 mg(Linked Group 2) 5 mg, IntraVENous, Every 15 min PRN, high blood pressure, for SBP greater than 160 mmHg for 2 consecutive measurements taken from different sites, Starting on Sun01/21/24 at 1003, For 2 doses, Recovery (only), PRN for SBP > 160 for 2 consecutive measurements, and if one of the following conditions is met: 1) If IV labetolol is ineffective. 2) If HR is under 60. 3) If patient has heart block, COPD or asthma. If both labetalol and hydralazine ineffective, notify anesthesia provider. labetalol (Normodyne,Trandate) injection 5 mg(Linked Group 2) 5 mg, IntraVENous, Every 10 min PRN, high blood pressure, for SBP greater than 160 mmHg for 2 consecutive measurements taken from different sites., Starting on Sun01/21/24 at 1003, For 2 doses, Recovery (only), PRN for SBP >160 for 2 consecutive measurements, if HR is 60 or greater. If beta brandie is contraindicated (HR less than 60, heart block, COPD or asthma) use hydralazine IV order. LORazepam (Ativan) injection 0.5 mg 0.5 mg, IntraVENous, Once PRN, for anxiety or muscle spasm., Starting on Sun01/21/24 at 1003, For 1 dose, Recovery (only), For IV doses dilute dose with 1ml NS. midazolam (Versed) injection 2 mg 2 mg, IntraVENous, PRN, anxiety, administration per anesthesiologist direction. Up to two mg., Starting on Sun01/21/24 at 0817, Preprocedure, Pull 2 mg vial of midazolam draw up for anesthesia block placement with administration per anesthesiologist direction. ondansetron (Zofran) injection 4 mg 4 mg, IntraVENous, Once PRN, nausea, Starting on Sun01/21/24 at 1003, For 1 dose, Recovery (only), Initial antiemetic therapy. sodium chloride 0.9 % bolus 500 mL 500 mL, IntraVENous, at 1,000 mL/hr, Administer over 0.5 Hours, PRN, Anti-nausea, Starting on Sun01/21/24 at 1003, Recovery (only), Indications: Anti-nausea sodium chloride 0.9 % infusion 5-250 mL/hr, IntraVENous, PRN, if patient receiving piggyback infusions and maintenance fluids are not ordered OR KVO fluids to protect IV site / prevent frequent line interruptions / long duration, Starting on Sun01/21/24 at 0817, Preprocedure, For piggyback infusion, administer at same rate as piggyback for a total of 25 mL. Enter 25 mL into dose field and piggyback rate into rate field of order. If piggyback is infusing at a rate less than 100 mL/hr, enter 25 mL into dose field and 100 mL/hr into rate field of order. For KVO fluids, enter rate of 20 mL/hr or less into rate field of order. sodium chloride 0.9 % infusion 5-250 mL/hr, IntraVENous, PRN, if patient receiving piggyback infusions and maintenance fluids are not ordered OR KVO fluids to protect IV site / prevent frequent line interruptions/ long duration, Starting on Sun01/21/24 at 1003, Recovery (only), For piggyback infusion, administer at same rate as piggyback for a total of 25 mL. Enter 25 mL into dose field and piggyback rate into rate field of order. If piggyback is infusing at a rate less than 100 mL/hr, enter 25 mL into dose field and 100 mL/hr into rate field of order. For KVO fluids, enter rate of 20 mL/hr or less into rate field of order. sodium chloride 0.9 % infusion 5-250 mL/hr, IntraVENous, PRN, if patient receiving piggyback infusions and maintenance fluids are not ordered OR KVO fluids to protect IV site / prevent frequent line interruptions/ long duration, Starting on Sun01/21/24 at 0817, Preprocedure, For piggyback infusion, administer at same rate as piggyback for a total of 25 mL. Enter 25 mL into dose field and piggyback rate into rate field of order. If piggyback is infusing at a rate less than 100 mL/hr, enter 25 mL into dose field and 100 mL/hr into rate field of order. For KVO fluids, enter rate of 20 mL/hr or less into rate field of order. sodium chloride 0.9 % irrigation solution (CANCELED) As needed, Starting on Sun01/21/24 at 0950, Intraprocedure 0950 (Given - Provid er: Laxmi Hicks DPM - Comment: surgical site) sodium chloride 0.9% (NS) flush 10 mL 10 mL, IntraVENous, PRN, line care, Starting on Sun01/21/24 at 1003, Recovery (only), After every IV line use sodium chloride 0.9% (NS) flush 10 mL 10 mL, IntraVENous, PRN, line care, Starting on Sun01/21/24 at 0817, Preprocedure, After every IV line use sodium chloride 0.9% (NS) flush 5-40 mL 5-40 mL, IntraVENous, PRN, line care, After every IV line use, Starting on Sun01/21/24 at 0817, Preprocedure, For Line Patency: Peripheral IV = 5 mL; Midline or Central Line = 10 mL/lumen. If following IV push medication, administer flush at same rate as the IV push. Flush volume is determined by type of infusion therapy being given. For non-viscous solutions use: Peripheral IV = 5 mL Midline or Central Line = 10 mL/lumen For viscous solutions (i.e. blood components, parenteral nutrition, contrast media, or after obtaining blood sample) use: Peripheral IV = 10 mL Midline or Central Line = 20 mL/lumen Linked Groups Order Group 1: famotidine (Pepcid) tablet 20 mg (COMPLETED)Jump to med 20 mg, Oral, Once, On Sun01/21/24 at 0830, For 1 dose, Preprocedure, IV or Oral - Use PO option as first line. If unable to tolerate PO, then okay to use IV. Or famotidine (Pepcid) 20 mg in sodium chloride (PF) 0.9 % 10 mL injection (COMPLETED) 20 mg, IntraVENous, Administer over 2 Minutes, Once, On Sun01/21/24 at 0830, For 1 dose, Preprocedure, IV or Oral Group 2: labetalol (Normodyne,Trandate) injection 5 mgJump to med 5 mg, IntraVENous, Every 10 min PRN, high blood pressure, for SBP greater than 160 mmHg for 2 consecutive measurements taken from different sites., Starting on Sun01/21/24 at 1003, For 2 doses, Recovery (only), PRN for SBP >160 for 2 consecutive measurements, if HR is 60 or greater. If beta brandie is contraindicated (HR less than 60, heart block, COPD or asthma) use hydralazine IV order. Or hydrALAZINE (Apresoline) injection 5 mgJump to med 5 mg, IntraVENous, Every 15 min PRN, high blood pressure, for SBP greater than 160 mmHg for 2 consecutive measurements taken from different sites, Starting on 01/21/24 at 1003, For 2 doses, Recovery (only), PRN for SBP > 160 for 2 consecutive measurements, and if one of the following conditions is met: 1) If IV labetolol is ineffective. 2) If HR is under 60. 3) If patient has heart block, COPD or asthma. If both labetalol and hydralazine ineffective, notify anesthesia provider. Scheduled Medication Order 06/23/2022 06/24/2022 06/25/2022 naproxen (Naprosyn) tablet 500 mg (COMPLETED) 500 mg, Oral, Once, On 06/25/22 at 0945, For 1 dose 0953 (Given - Provid er: Lucía Aguilar RN) Goals (unrecognized section and content) Goals may be documented in a n alternate section FOR RECORDS PERTAINING TO PATIENTS WHO ARE OR HAVE BEEN ENROLLED IN A CHEMICAL DEPENDENCY/SUBSTANCEABUSE PROGRAM, SOME INFORMATION MAY BE OMITTED. This clinical summary was aggregated from multiple sources. Caution should be exercised in using it in the provision of clinical care. This summary normalizes information from multiple sources, and as a consequence, information in this document may materially change the coding, format and clinical context of patient data. In addition, data may be omitted in some cases. CLINICAL DECISIONS SHOULD BE BASED ON THE PRIMARY CLINICAL RECORDS. [email or web address] provides no warranty or guarantee of the accuracy or completeness of information in this document.
--- NOTE | 2024-10-22 06:30 | RAD_ITS ---
PROCEDURE: FINGER(S) MIN 2 VIEWS 10/22/2024 REASON FOR EXAM: RT RING FINGER ORIF TECHNIQUE: Fluoroscopic images. COMPARISON: 10/15/2024. FINDINGS: Fluoroscopic images of a right 4th digit open reduction internal fixation. No evidence of acute fluoroscopic complication. 0.39 seconds of fluoroscopic time. 0.2538 mGy. RAD/Finger(s) Min 2 Views IMPRESSION: As above. Reading Location: [id number]
--- NOTE | 2024-10-22 06:48 | PRE.ANES_ITS ---
ASA Classification* ASA Classification ASA Classification: 2 Assessment & Plan Anesthesia* Anesthesia Assessment Anesthesia Assessment: Discussed sedation and/or anesthesia options, risks, benefits, and alternatives with patient/parents/legal guardian/POA. Questions invited. The patient/parents/legal guardian/POA seems to understand and agrees to proceed with anesthesia plan. Reviewed the physical assessment, medical history, allergy history and patient home medications list prior to surgery/procedure/anesthetic and documented any changes. Performed airway and anesthesia risk assessments. Anesthesia Type Anesthesia Type: General Anesthesia Focused Assessment* Airway Assessment Mouth opens: >3 cm Mallampati Score: II Labs Anesthesia Preop lab: CBC CHEMISTRY COAG Pre-Assessment Diagnosis/Proposed Procedure Planned Operative Procedure(s): Right ring finger open reduction internal fixation with bone grafting Anesthesia History Anesthesia History - reversing mill roller: Anesthesia History - reversing mill roller Hx Hospitalization No 10/17/24 15:06 Any Problems With Anesthesia No 10/17/24 15:06 Cholinesterase deficiency No 10/17/24 15:06 You/Your Family Experience No 10/17/24 15:06 fever (hyperthermia) with Relationship Recent Exposure to Contagious Disease Does patient have nerve No 10/17/24 15:06 stimulator Patient instructed to have device shut off --Does patient have Pacemaker or ICD? When Was Last Pacemaker Check QUESTION #4 FULL TEXT: You/Your Family Experience fever (hyperthermia) with Anesthesia Last Oral Intake Last Oral intake: Last Oral Intake NPO since Meds taken in AM with sips of water? Meds patient instructed to take am of surgery PONV PONV - reversing mill roller: PONV - reversing mill roller Female No 10/17/24 15:06 HX of Motion Sickness No 10/17/24 15:06 HX of N/V After Surgery No 10/17/24 15:06 Non-Smoker No 10/17/24 15:06 Duration of Surgery greater Yes 10/17/24 15:06 than 60 minutes Number of Risk Factors 1 10/17/24 15:06 PONV Score Low Risk 10/17/24 15:06 Height & Weight Height & Weight: Anesthesia: Height & Weight Height 6 ft 1 in 10/14/24 14:53 Respiratory Assessment Respiratory Assessment - reversing mill roller: Respiratory Tract Infection Hx - reversing mill roller Hx Respiratory Tract Infection No 10/17/24 15:06 STOP Sleep Apnea STOP Sleep Apnea - reversing mill roller: STOP Sleep Apnea - reversing mill roller Hx Hypertension No 10/17/24 15:06 Hx Sleep Apnea No 10/17/24 15:06 CPAP BIPAP Do you snore loudly (louder No 10/17/24 15:06 than talking or can be heard Do you often feel tired/ No 10/17/24 15:06 fatigued/ sleepy during daytime? Has anyone observed you stop No 10/17/24 15:06 breathing during sleep? STOP Results Negative 10/17/24 15:06 QUESTION #5 FULL TEXT : Do you snore loudly (louder than talking or can be heard through closed doors)? Tobacco Use History Tobacco Use History - reversing mill roller: Tobacco Use History - reversing mill roller Tobacco Use Smoking Status Current every day smoker 10/17/24 15:06 Hx Tobacco Use Yes 10/17/24 15:06 Years Smoking Packs Smoked per Day Smoking Cessation Date was within the last 15 years Hx Smoking Cessation Date Hx Smoking Cessation Counseling Hematologic Medial History Hematologic Hx - reversing mill roller: Hematologic Medical Hx - agent Hx of Blood Transfusion No 10/17/24 15:06 Hx of Transfusion in last 3 No 10/17/24 15:06 Months Date of Last Transfusion (if within last 3 months) Ever experience any problems No 10/17/24 15:06 with transfusion(s)? Specify any problems Hx of Preganancy in last 3 N/A 10/17/24 15:06 Months Nurse Filling Out Transfusion [email or web address] 10/17/24 15:06 & Questions: Date: 10/17/24 10/17/24 15:06 Time: 15:08 10/17/24 15:06 Patient unable to answer at this time (ie. confused, unrespo /Reproduction History /Reproductive History - reversing mill roller: /Reproductive Hx- reversing mill roller Hx Now Gestational Age (in weeks): EDC: Hx Hx Para Hx Section SAB Active Medications Active Medications: Current Medications Generic Name Dose Route Start Last Admin Trade Name Freq PRN Reason Stop Dose Admin Cefazolin Sodium 2 gm/ Sodium 110 mls @ 150 mls/hr 10/22/24 07:30 Chloride IV 10/22/24 08:13 INTRAOP ONE [facility] Medical History Marijuana use History of GI bleed History of renal disease Smoker Asthma Lung nodules Fracture of phalanx of ring finger Home Medications ?Medication ?Instructions ?Recorded ?Last Taken ?Type fluticasone propionate 110 2 puff inhalation Q12H PRN wheezing 10/17/24 Unknown History mcg/actuation HFA aerosol inhaler Allergy/AdvReac Type Severity Reaction Status Date / Time No Known Allergies Allergy Verified 10/17/24 15:04 Surgical History History of colonoscopy History of foot surgery Social History Smoking Status: Current every day smoker tobacco type: smokeless tobacco Review of Systems (Anesthesia) ROS Narrative System reviewed and no additional complaints, except as documented.
[2024-10-22] MEDS: Lactated Ringers 1,000 ML 15 ML IV (07:05)
--- NOTE | 2024-10-22 07:21 | HP.PCM.SX_ITS ---
HPI - General HPI Narrative R RING FINGER FRACTURE Details: Dorian Montoya is a 33-year-old male who is right-hand dominant and unfortunately sustained a fracture 2 months (August 2024) ago to the right ring finger proximal phalanx while moving. It was crushed between 2 objects. He reports that this was a closed injury. He did not seek follow-up with an orthopedic surgeon or plastic surgeon because he did not have insurance at that time. Since the time of the injury, he has been unable to move the finger much. He has been having significant pain, stiffness, and tenderness, and has been using a splint that was given to him by the emergency department on around the time of the injury. back in August 2024. Today he is reporting sharp severe pain in the finger, worsened by movements and improved with rest and elevation. He never hurt this finger before. He has not had any systemic signs or symptoms of infection (no fevers or chills) and there is never been any drainage. He reports that the injury was closed. Patient uses e-cigarettes No personal or family history of bleeding or clotting problems Current Encounter (DATE OF SURGERY H&P UPDATE): I saw and examined the patient this morning in pre-operative holding. We discussed risks and benefits of today's surgery and they would like to proceed. NO CHANGE in health history since last seen and evaluated. Ready to proceed with surgery. [facility] Medical History Marijuana use History of GI bleed History of renal disease Smoker Asthma Lung nodules Fracture of phalanx of ring finger Home Medications ?Medication ?Instructions ?Recorded ?Last Taken ?Type fluticasone propionate 110 2 puff inhalation Q12H PRN wheezing 10/17/24 Unknown History mcg/actuation HFA aerosol inhaler Allergy/AdvReac Type Severity Reaction Status Date / Time No Known Allergies Allergy Verified 10/22/24 07:01 Surgical History History of colonoscopy History of foot surgery Social History Smoking Status: Current every day smoker tobacco type: smokeless tobacco Vital Signs Vital Signs Vital Signs: 10/22/24 07:03 10/22/24 07:03 Temperature 97.8 F Temperature Source Temporal Pulse Rate 55 L Respiratory Rate 16 Respiratory Pattern Normal Blood Pressure 115/80 Blood Pressure Mean 91 Blood Pressure Source Monitor Blood Pressure Position Sitting Blood Pressure Location Left Arm Pulse Ox 99 Oxygen Delivery Method Room Air Weight Weight: 143 lb 4.807 oz Body Mass Index (BMI) 18.8 Physical Exam Narrative Right upper Extremity Inspection/palpation: Right ring finger marked. He is in an ulnar gutter splint. Motor: Deferred today Sensory: Intact to light touch on the radial and ulnar borders. Vascular: Finger tips are warm and well perfused with <2 second capillary refill. Assessment & Plan Assessment/Plan (1) Fracture of phalanx of ring finger: PLAN: Complicated injury now that we are over 2 months out from the initial injury. I talked to the patient about surgery, which would involve open reduction internal fixation with bone grafting. I talked him about the risks of fracture nonunion, hardware failure and infection, failure to obtain the desired result, osteomyelitis, stiff painful finger with limited range of motion despite our best efforts and despite bone healing, failure to obtain the desired results, and the other risks of surgery including bleeding and the risk of anesthesia. I talked him about bone grafting from the distal radius to promote fracture site healing. I talked him about damage to surrounding structures. Patient would like his finger fixed as soon as possible. He is accepting of the above-noted risks. We also discussed the overall benefits of the operation and the alternative treatments. He elected to proceed. We discussed risks of nicotine products/smoking on fracture healing. I talked him about stopping all nicotine products. Plan for open reduction internal fixation of the fracture nonunion with bone graft from the distal radius. Anticipate dorsal approach to the finger with likely a dorsal plate v lag screws. CPT codes for insurance prior authorization are as follows: 69563 INTERVAL H&P PLAN, DATE OF SURGERY: I reiterated the risks of nicotine/vape with wound healing. Counseled on cessation. I talked to the patient extensively about the risks of surgery, including bleeding, infection, damage to surrounding structures, poor scaring, surgical site dehiscence and wound formation, need for wound care, need for repeat operations, failure to obtain the desired result, DVT/PE, and the risks of anesthesia including , including stroke (from low blood pressure/ischemia or clot). The benefits and alternatives of this surgery were also discussed. All of their questions were answered, and they agreed to proceed with surgery. I spoke to him again about the plan for hardware and risks of hardware failure/infection, need for revisions, persistent nonunion risk (especially with smoking) and a stiff finger (most likely will be stiff, possibly permanently, and will definitely need to do hand therapy). Patient in agreement. We will proceed with surgery today.
[2024-10-22] MEDS: Cefazolin 2 GM in 0.9% Normal Saline (100mL Bag) 100 ML IV (07:41)
[2024-10-22] MEDS: Bupivacaine 0.25% 30 ML Vial ×2 (09:00→10:27)
[2024-10-22] MEDS: Lidocaine 1% (20 ml mdv) 20 ML Vial (09:00)
[2024-10-22] MEDS: Lidocaine 1%/Epi 1:200 (30ml) 30 ML AMPUL (09:15)
--- NOTE | 2024-10-22 10:56 | PCM.POST.ANE ---
Anesthesia: Postop Eval I Current Vital Signs Temperature: 36.4 F Pulse Rate: 63 Blood Pressure: 111/72 Respiratory Rate: 18 Pulse Ox: 100 Oxygen Delivery Method: Venturi Mask Oxygen Flow Rate (L/min): 6 Assessment Airway patent: Yes Spontaneous unlabored respirations: Yes Mental status: Asleep nausea: No Vomiting: No Anesthesia Complication: No Fluid Hydration Crystalloid volume administer (ml): 1,500 Total IV fluid infused: 1,500 Progress Note Anesthesia document: Postop Eval 1 completed: Yes
--- NOTE | 2024-10-22 11:03 | OP.PCM_ITS ---
Operative Report (Standard) Operative Information Date of Procedure: 10/22/24 Pre-Operative Diagnosis: 1) Subacute fracture of the right ring finger proximal phalanx (malunion/nonunion) Post-Operative Diagnosis: Same Surgery/Procedure Performed: 1) Open reduction internal fixation of right ring finger proximal phalanx malunion/nonunion with bone grafting from the right distal radius (CPT: 40183) airport control operator: Yes Side Stitching Machine Operator: Love Gunderson Tasks completed by ophthalmology assistant: Opening & closing, Harvesting grafts and Retracting Type of Anesthesia: General/Supplemental (20 cc of quarter percent Marcaine and 2 cc of 1% lidocaine with 1-200,000 epinephrine) RN Documented Start/Stop Times: Operation Date: 10/22/24 07:30 Case Time Into Pre-Op 10/22/24 07:02 Out of Pre-Op 10/22/24 07:31 Anesthesia Start 10/22/24 07:36 Into Room 10/22/24 07:36 Procedure Start 10/22/24 08:14 Procedure End 10/22/24 10:40 Anesthesia End 10/22/24 10:45 Out of Room 10/22/24 10:45 Into Recovery 10/22/24 10:48 Procedure Start Time: 08:14 Procedure Stop Time: 10:40 Select all DRAINS/GRAFTS/IMPLANTS that apply: Transplant (Plate and screws) Transplant details: 1.4 mm T plate Cortical screws, 1.4 mm: One 6 mm and one 8 mm Variable angle locking screws, 1.4 mm: One 8 mm, two 7 mm, and three 6 mm Estimated Blood Loss: 20 cc Specimen collected: No Description of surgery: Indications: Patient is a 33-year-old male with a greater than 2-month old fracture to the right ring finger which is healed into a poor position. He has not been able to use the finger since the fracture secondary to the painful malunion. He sought medical attention from me last week for the fracture after being referred to me by a local orthopedist. I talked to the patient about placing hardware and performing a bone graft from the distal radius. Patient was in agreement with the plan. He endorses understanding of the risks of persistent malunion/no nunion/failure to obtain the desired result, infection, hardware failure and need for repeat operations, chronic pain, damage to surrounding structures including nerves arteries and tendons, as well as the risk of anesthesia. He understood the risks, benefits and alternatives to the procedure and elected to proceed. Procedure details: Patient was correctly identified in preoperative holding and taken back to the operative room where he was administered general anesthesia and prepped and draped in sterile fashion. A timeout was performed. The esmarch was used to exsanguinate the right upper extremity and insufflated the tourniquet on the arm to 250 mmHg. A 15 blade scalpel was used to make a curvilinear dorsal incision over the proximal phalanx fracture. Careful dissection with tenotomy scissors was taken down to the tendon where the extensor digitorum communis tendon was split longitudinally along the central axis. The tendon was retracted radially and ulnarly and the periosteum was exposed. Dissection was taken along the oblique fracture line with a freer elevator. There was poorly calcified bridging callus and the fracture was easily mobilized with a [place] elevator and a curette. The fibrous nonunion/callus was excised with a curette and a [place] elevator. A longitudinal incision was then made just ulnar to Maria A's tubercle and careful dissection through the subcutaneous tissues was taken longitudinally with the tenotomy scissors so as to protect branches of the superficial branch of the radial nerve. Extensor retinacular tissue/dorsal compartment tissue was then incised longitudinally and the EPL and EDC tendons were retracted. The mini C arm was used for confirmation that we were just ulnar to the Maria A's tubercle. A bone graft harvester (Arthrex) was then used to take a unicortical cortical cancellous bone graft. Bone wax was applied in the hole for hemostasis. The bone graft was then placed within and on top of the fracture line, as well as in between the distal and proximal medullary canals of the proximal phalanx of the ring finger. The fracture was reduced using a mini C arm to confirm reduction. The reduction was performed by distal traction with ligamentotaxis and volar to dorsal force, and ulnar to radial force. 0.025 K wires were then used to maintain the reduction. We checked the cascade of the digits and there was no scissoring or angulation of the ring finger and normal cascade. The remaining bone along the fracture line did not appear robust enough to hold lag screws as the sole means of reduction/rigid fixation, and therefore the decision was made to place a dorsal plate. A dorsal T plate was trimmed to fit and placed on the dorsum of the proximal phalanx. A bicortical nonlocking screw was placed proximally second from the fracture line and the rest were unicortical screws, including 1 nonlocking and 6 locking screws. 4 screws were placed in the bone distal to the fracture line, and 4 screws were placed proximal to the fracture line. Confirmation of good plate position and screw position was confirmed using the mini C arm. No screws were in the joint, and the bicortical screw was very near flush to the volar cortex. We then stressed the fracture with fluoroscopy and confirmed that we obtained rigid fixation during flexion and extension of the digit. We then confirmed cascade was normal and with flexion and extension of the fingers there was no overlap/scissoring or angulation. There was no rotation of the ring finger. The wound was then irrigated with Irrisept and copious amounts normal saline, as was the donor site. Hemostasis was then obtained with bipolar electrocautery when the tourniquet was let down. A digital block was performed with the above- noted solution, as was a block at the donor site. Periosteum was then closed over the plate with 4-0 PDS suture [id number] sutures, then the EDC tendon was closed with 3-0 Ethibond [id number] sutures. The skin was closed with 3-0 Monocryl deep dermal sutures on the finger as well as the bone graft donor site, and then both of the incisions were further closed with horizontal mattress 4-0 nylon sutures. Xeroform and an ulnar gutter plaster splint was then applied. Patient tolerated the procedure well. He was awakened taken the PACU in stable condition. Postoperative plan: Follow-up in clinic in 1 week for wound check and x-rays. Anticipate early active range of motion. Surgical Findings: Malunion of the proximal phalanx fracture with poor bridging callus/bone Complications Complications: No Admit VTE Documentation VTE Mechan Device Prophylaxis: SCD's
--- NOTE | 2024-10-22 11:55 | POSTOPAN2_ITS ---
Anesthesia Postop Eval I Sum Postop Eval Completion status Anesthesia document: Postop Eval 1 completed: Yes Anesthesia Postop Eval I Summary Anesthesia Postop Eval I Summary: Anesthesia Postop Eval I: Assessment Summary Airway patent Yes 10/22/24 10:57 [email or web address] Spontaneous unlabored Yes 10/22/24 10:57 [email or web address] respirations Mental status Asleep 10/22/24 10:57 [email or web address] [email or web address] nausea No 10/22/24 10:57 [email or web address] [email or web address] Vomiting No 10/22/24 10:57 [email or web address] [email or web address] Anesthesia Postop Eval I: Fluid Summary Crystalloid volume administer 1,500 10/22/24 10:57 [email or web address] [email or web address] (ml) Colloids volume administered ( ml) Blood Product volume administered (ml) Total IV fluid infused 1,500 10/22/24 10:57 [email or web address] [email or web address] Anesthesia Postop Eval I: Summary Notes Anesthesia Complication No 10/22/24 10:57 [email or web address] Anesthesia Complication Comment: Post-operative progress note Anesthesia: Postop Eval II Evaluation Mental status: Awake Pain Level: 0 nausea: No Vomiting: No
--- NOTE | 2024-10-22 11:55 | PCM.POSTANE2 ---
Anesthesia Postop Eval I Sum Postop Eval Completion status Anesthesia document: Postop Eval 1 completed: Yes Anesthesia Postop Eval I Summary Anesthesia Postop Eval I Summary: Anesthesia Postop Eval I: Assessment Summary Airway patent Yes 10/22/24 10:57 [email or web address] [email or web address] Spontaneous unlabored Yes 10/22/24 10:57 [email or web address] respirations Mental status Asleep 10/22/24 10:57 [email or web address] nausea No 10/22/24 10:57 [email or web address] [email or web address] Vomiting No 10/22/24 10:57 [email or web address] [email or web address] Anesthesia Postop Eval I: Fluid Summary Crystalloid volume administer 1,500 10/22/24 10:57 [email or web address] (ml) Colloids volume administered ( ml) Blood Product volume administered (ml) Total IV fluid infused 1,500 10/22/24 10:57 [email or web address] [email or web address] Anesthesia Postop Eval I: Summary Notes Anesthesia Complication No 10/22/24 10:57 [email or web address] Anesthesia Complication Comment: Post-operative progress note Anesthesia: Postop Eval II Evaluation Mental status: Awake Pain Level: 0 nausea: No Vomiting: No
[2024-10-22] MEDS: oxyCODONE 5 MG Tablet PO (12:04)
== END 2024-10-22 12:35 | disposition home or self-care (01) ==
LOC: SDC 06:17 → AC 06:17
PROVIDERS: Referring Provider Surgery Plastic and Reconstructive Surgery; Visit Provider Surgery Plastic and Reconstructive Surgery
PROC: (CPT 26546; principal; 2024-10-22 07:15)
DX: S62.614P Displaced fracture of proximal phalanx of right ring finger, subsequent encounter for fracture with malunion (principal); F17.290 Nicotine dependence, other tobacco product, uncomplicated; J45.909 Unspecified asthma, uncomplicated; X58.XXXA Exposure to other specified factors, initial encounter
CPT/HCPCS: 26546; 01830; 73140; 76000; C1713; J2405

== ENCOUNTER 2024-12-09 15:30 | Outpatient (RCR) | payer MEDICAID, SELFPAY ==
--- NOTE | 2024-11-04 15:19 | HP.OTEVAL ---
Patient's Visit Information Visit Information Visit Information: ASIYA OCONNOR is a 33 year old M, referred to Occupational Therapy by Dr. Alex Mirza MD, with a diagnosis of fracture of phalanx of ring finger. 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 Goal:: pt to demo improved overall indep at home and work with decreased DASH score by 50 points Rehabilitation General Assessment: pt presenting s/p ORIF of R ring finger and bone graft from distal radius. pt with limited AROM and increased scar tissues around phalanx scar. pt would benefit from skilled OT services x1/week for 6-8 weeks for protocol adherence for AROM, PROM and strength once cleared Rehabilitation Potential: Good Anticipated Interventions Anticipated Interventions: A/AAROM/PROM, Strengthening, Edema Control, Scar Care, Massage, Triggerpoint Release, Desensitization and Fine Motor Coord/Beny Visit Plan Frequency: 1x/Week Duration: 6 Weeks General Plan: continue per POC x1/week for 6 weeks to follow protocol for ORIF to improve AROM, PROM, strengthening and FMC to return to PLOF TEXT: Thank you for the opportunity to evaluate your patient. For Medicare and Medicare HMO plans, please review the plan of care and approve it. It will need to be FAXED BACK to us at [phone] for Medicare purposes. Please let me know if there are questions or concerns regarding this plan of care. Physician Signature: Date:
--- NOTE | 2025-02-03 12:06 | HP.OT.NRP ---
Patient Information Patient Information: ASIYA OCONNOR was seen in my office for initial evaluation on 11/04/24. The following Plan of Care was established for this patient: POC Established Initial Frequency: 1x/Week Initial Duration: 6 Weeks Plan: cont to gain motion as tolerated Anticipated Interventions Anticipated Interventions: A/AAROM/PROM, Strengthening, Edema Control, Scar Care, Massage, Triggerpoint Release, Desensitization and Fine Motor Coord/Beny Last Seen Last Seen: This patient was last seen in our office 12/09/24. Pertinent comments regarding their Occupational therapy will appear below: no further apts have been scheduled and due to time lapse in services pt is d/c at this time. At this point I will be discontinuing this patient from occupational therapy. I would be happy to see this patient again in the future if found appropriate by the physician. Thank you! Erendira Serrato, OTR/L, CHT
== END 2024-12-09 19:00 | disposition home or self-care (01) ==
LOC: OT 15:30
PROVIDERS: Referring Provider Surgery Plastic and Reconstructive Surgery; Visit Provider Surgery Plastic and Reconstructive Surgery
DX: S62.604D Fracture of unspecified phalanx of right ring finger, subsequent encounter for fracture with routine healing (principal)
CPT/HCPCS: 97110; 97140; 97165; 97530